=== PATIENT | male | born 1935 | race Native Hawaiian/Other Pacific Islander ===

== ENCOUNTER 2023-03-28 13:35 | Emergency (ER) | payer MEDICARE ==
[2023-03-28 13:45] VITALS: RESP 18
[2023-03-28] MEDS ORDERED: DIPH,PERTUS(ACELL)TETVAC-LF 0.5 ML VIAL IM ONE (14:04)
[2023-03-28 14:36] LABS: Basophils % (A) 0 %; Eosinophils # (A) 0.1 k/uL (0-0.7); Eosinophils % (A) 1 %; HCT 39.8 % (39.0-53.0); HGB 13.4 gm/dL (13.0-17.5); Lymphocytes # (A) 1.8 k/uL (1.0-4.8); Lymphocytes % (A) 23 %; MCH 33.2 pg (25.0-35.0); MCHC 33.6 g/dL (31.0-37.0); MCV 98.8 fL (80.0-100.0); Mean Platelet Volume 8.5; Monocytes # (A) 0.3 k/uL (0-1.0); Monocytes % (A) 4 %; Neutrophils # (A) 5.4 k/uL (1.3-7.7); Neutrophils % (A) 69 %; Platelet Count 211 k/uL (150-450); RBC 4.03 m/uL (4.30-5.90); RDW 13.1 % (11.5-15.5); WBC 7.8 k/uL (3.8-10.6)
--- NOTE | 2023-03-28 14:55 | ED ---
Fall HPI - General Chief Complaint: Fall Stated Complaint: Fall, Hand/Lip/Chin/Head Lac(s) Time Seen by Provider: 03/28/23 13:37 Source: EMS, RN notes reviewed Mode of arrival: EMS Limitations: no limitations - History of Present Illness Initial Comments: This is an 88-year-old male who presents to the emergency department for a fall. States that he was walking outside, when he ended up falling. States that when he woke up, he was being loaded into an ambulance. He has not have any recollection of what happened. It is unclear if he lost consciousness before the fall or after hitting his head. He believes that he landed face first, as he does have lacerations to his face, especially around the lip. Currently complaining of a headache and lip pain, but otherwise denies any pain. Denies any chest pain, shortness of breath, or dizziness before the fall occurred. Denies any history of similar symptoms in the past. He is not on any blood t hinners. Denies any fevers, chills, sore throat, cough, dyspnea, chest pain, palpitations , abdominal pain, nausea, vomiting, diarrhea, or back pain. MD Complaint: fall - Related Data Allergies Allergy/AdvReac Type Severity Reaction Status Date / Time No Known Allergies Allergy Verified 03/28/23 13:45 Review of Systems ROS Statement: Those systems with pertinent positive or pertinent negative responses have been documented in the HPI. ROS Other: All systems not noted in ROS Statement are negative. Past Medical History Past Medical History: Diabetes Mellitus, Hyperlipidemia, Hypertension History of Any Multi-Drug Resistant Organisms: None Reported Past Surgical History: No Surgical Hx Reported Past Psychological History: No Psychological Hx Reported Smoking Status: Never smoker Past Alcohol Use History: None Reported Past Drug Use History: None Reported General Exam Limitations: no limitations General appearance: alert, in no apparent distress Head exam: Present: other (Laceration on the inside of the bottom lip. This is not a through and through laceration. Superficial laceration to the middle of the chin.) Eye exam: Present: normal appearance, PERRL, EOMI. Absent: scleral icterus, conjunctival injection, periorbital swelling Respiratory exam: Present: normal lung sounds bilaterally. Absent: respiratory distress, wheezes, rales, rhonchi, stridor Cardiovascular Exam: Present: regular rate, normal rhythm, normal heart sounds. Absent: systolic murmur, diastolic murmur, rubs, gallop, clicks Neurological exam: Present: alert, oriented X3, CN II-XII intact Psychiatric exam: Present: normal affect, normal mood Course Vital Signs 03/28/23 03/28/23 13:40 17:58 Pulse Rate 68 79 Respiratory 18 18 Rate Blood Pressure 196/86 O2 Sat by Pulse 94 L 98 Oximetry Medical Decision Making - Medical Decision Making This is an 88-year-old male presents emergency department for a fall. Was pt. sent in by a medical professional or institution? @ -No Did you speak to anyone other than the patient for history? @ -No Did you review nursing and triage notes? @ -Yes, and I agree, it is accurate with regards to the patient's symptoms. Were old charts reviewed? @ -No Differential Diagnosis? @ -Differential Diagnosis Head Injury: Contusion, hematoma, intracranial hemorrhage, skull fracture, whiplash, concussion, this is not meant to be an all-inclusive list. EKG interpreted by me (3pts min.)? @ -EKG interpreted by me demonstrating the following: Sinus rhythm. Ventricular rate 69 beats per minute, ND interval 125 ms, QRS duration 92 ms, QTC 399 ms. X-rays interpreted by me (1pt min.)? @ -X-ray of the chest and pelvis obtained. My interpretation. No visible rib fractures or pelvic fractures. CT interpreted by me (1pt min.)? @ -Computed tomography scan of the brain and c-spine obtained. My interpretation identifies no evidence of an acute intracranial hemorrhage, skull fracture, or cervical spine fracture. U/S interpreted by me (1pt. min.)? @ -Not obtained What testing was considered but not performed? (CT, X-rays, U/S, labs)? Why? @ -None What meds were considered but not given? Why? @ -None Did you discuss the management of the patient with other professionals? @ -No Did you reconcile home meds? @ -No Was smoking cessation discussed for >3mins.? @ -No Was critical care preformed (if so, how long)? @ -No Were there social determinants of health that impacted care today? How? (Homelessness, low income, unemployed, alcoholism, drug addiction, transportation, low edu. Level, literacy, decrease access to med. care, custodial, rehab)? @ -No Was there de-escalation of care discussed even if they declined? (Discuss DNR or withdrawal of care, Hospice)? @ -No What co-morbidities impacted this encounter? (DM, HTN, Smoking, COPD, CAD, Cancer, CVA, Hep., AIDS, mental health diagnosis, sleep apnea, morbid obesity)? @ -DM, HLD, HTN Was patient admitted / discharged? @ -Discharged. Lab work obtained revealing poor renal function. There are no prior values for comparison. Additionally, his blood pressure was extremely elevated. Patient did not take his blood pressure medication today. He was subsequently given doses of his atenolol, chlorthalidone, and lisinopril. I did recommend admission in light of his poor kidney function and elevated blood pressure, however the patient declined. I did also advise updating his tetanus vaccine, however the patient refused that as well despite my strongest recommendations. His lacerations were superficial and no repair was required. Advised Tylenol as needed for pain relief, applying ice to the affected areas, and having close follow-up with his primary care provider. Undiagnosed new problem with uncertain prognosis? @ -None Drug Therapy requiring intensive monitoring for toxicity (Heparin, Nitro, Insulin, Cardizem)? @ -None Were any procedures done? @ -None Diagnosis/symptom? @ -Fall, head injury Acute, or Chronic, or Acute on Chronic? @ -Acute Uncomplicated (without systemic symptoms) or Complicated (systemic symptoms)? @ -Uncomplicated Side effects of treatment? @ -None Exacerbation, Progression, or Severe Exacerbation] @ -Not applicable Poses a threat to life or bodily function? @ -No Return precautions reviewed in depth, the patient is instructed to return to the emergency department with any new, worsening, or concerning symptoms. Patient verbalized understanding. This case was discussed in detail with the attending ED physician, Dr. James. Presentation, findings, and treatment plan discussed in detail as well. - Lab Data Result diagrams: 03/28/23 14:17 03/28/23 14: Lab Results 03/28/23 03/28/23 03/28/23 Range/Units 14:17 14:17 14:17 WBC 7.8 (3.8-10.6) k/uL RBC 4.03 L (4.30-5.90) m/uL Hgb 13.4 (13.0-17.5) gm/dL Hct 39.8 (39.0-53.0) % MCV 98.8 (80.0-100.0) fL MCH 33.2 (25.0-35.0) pg MCHC 33.6 (31.0-37.0) g/dL RDW 13.1 (11.5-15.5) % Plt Count 211 (150-450) k/uL MPV 8.5 Neutrophils % 69 % Lymphocytes % 23 % Monocytes % 4 % Eosinophils % 1 % Basophils % 0 % Neutrophils # 5.4 (1.3-7.7) k/uL Lymphocytes # 1.8 (1.0-4.8) k/uL Monocytes # 0.3 (0-1.0) k/uL Eosinophils # 0.1 (0-0.7) k/uL Basophils # 0.0 (0-0.2) k/uL PT 10.0 (9.0-12.0) sec INR 0.9 (<1.2) APTT 22.3 (22.0-30.0) sec Sodium 137 (137-145) mmol/L Potassium 4.1 (3.5-5.1) mmol/L Chloride 103 (98-107) mmol/L Carbon Dioxide 22 (22-30) mmol/L Anion Gap 12 mmol/L BUN 50 H (9-20) mg/dL Creatinine 2.89 H (0.66-1.25) mg/dL Est GFR (CKD-EPI)AfAm 22 (>60 ml/min/1.73 sqM) Est GFR (CKD-EPI)NonAf 19 (>60 ml/min/1.73 sqM) Glucose 225 H (74-99) mg/dL Calcium 9.9 (8.4-10.2) mg/dL Total Bilirubin 0.6 (0.2-1.3) mg/dL AST 32 (17-59) U/L ALT 22 (4-49) U/L Alkaline Phosphatase 85 (38-126) U/L Troponin I (0.000-0.034) ng/mL Total Protein 7.1 (6.3-8.2) g/dL Albumin 4.0 (3.5-5.0) g/dL Urine Color Urine Appearance (Clear) Urine pH (5.0-8.0) Ur Specific [place] (1.001-1.035) Urine Protein (Negative) Urine Glucose (UA) (Negative) Urine Ketones (Negative) Urine Blood (Negative) Urine Nitrite (Negative) Urine Bilirubin (Negative) Urine Urobilinogen (<2.0) mg/dL Ur Leukocyte Esterase (Negative) Urine RBC (0-5) /hpf Urine WBC (0-5) /hpf Ur Squamous Epith Cells (0-4) /hpf Urine Mucus (None) /hpf 03/28/23 03/28/23 Range/Units 14:17 16:17 WBC (3.8-10.6) k/uL RBC (4.30-5.90) m/uL Hgb (13.0-17.5) gm/dL Hct (39.0-53.0) % MCV (80.0-100.0) fL MCH (25.0-35.0) pg MCHC (31.0-37.0) g/dL RDW (11.5-15.5) % Plt Count (150-450) k/uL MPV Neutrophils % % Lymphocytes % % Monocytes % % Eosinophils % % Basophils % % Neutrophils # (1.3-7.7) k/uL Lymphocytes # (1.0-4.8) k/uL Monocytes # (0-1.0) k/uL Eosinophils # (0-0.7) k/uL Basophils # (0-0.2) k/uL PT (9.0-12.0) sec INR (<1.2) APTT (22.0-30.0) sec Sodium (137-145) mmol/L Potassium (3.5-5.1) mmol/L Chloride (98-107) mmol/L Carbon Dioxide (22-30) mmol/L Anion Gap mmol/L BUN (9-20) mg/dL Creatinine (0.66-1.25) mg/dL Est GFR (CKD-EPI)AfAm (>60 ml/min/1.73 sqM) Est GFR (CKD-EPI)NonAf (>60 ml/min/1.73 sqM) Glucose (74-99) mg/dL Calcium (8.4-10.2) mg/dL Total Bilirubin (0.2-1.3) mg/dL AST (17-59) U/L ALT (4-49) U/L Alkaline Phosphatase (38-126) U/L Troponin I <0.012 (0.000-0.034) ng/mL Total Protein (6.3-8.2) g/dL Albumin (3.5-5.0) g/dL Urine Color Yellow Urine Appearance Clear (Clear) Urine pH 6.0 (5.0-8.0) Ur Specific [place] 1.014 (1.001-1.035) Urine Protein 2+ H (Negative) Urine Glucose (UA) 3+ H (Negative) Urine Ketones Negative (Negative) Urine Blood Trace H (Negative) Urine Nitrite Negative (Negative) Urine Bilirubin Negative (Negative) Urine Urobilinogen <2.0 (<2.0) mg/dL Ur Leukocyte Esterase Negative (Negative) Urine RBC <1 (0-5) /hpf Urine WBC <1 (0-5) /hpf Ur Squamous Epith Cells <1 (0-4) /hpf Urine Mucus Rare H (None) /hpf - Radiology Data Radiology results: report reviewed, image reviewed Disposition Clinical Impression: Fall, Head injury Disposition: HOME SELF-CARE Instructions (If sedation given, give patient instructions): Fall Prevention for Older Adults (ED), Head Injury (ED) Additional Instructions: Return to the emergency department with any new, worsening, or concerning symptoms. Take Tylenol as needed for pain relief and apply ice to the painful areas for 15-20 minutes every 2-3 hours. With regards to the elbow swelling, avoid resting it on hard surfaces. Keep it elevated, and wrap it with an Harshal bandage. Follow up with your primary care provider in 1-2 days. Is patient prescribed a controlled substance at d/c from ED?: No Referrals: Isidoro Larson MD [Primary Care Provider] - 1-2 days
[2023-03-28 14:56] LABS: ALT 22 U/L (4-49); AST 32 U/L (17-59); African American GFR (CKD) 22 (>60 ml/min/1.73 sqM); Alkaline Phosphatase 85 U/L (38-126); Anion Gap 12 mmol/L; Blood Urea Nitrogen 50 mg/dL (9-20); Calcium 9.9 mg/dL (8.4-10.2); Carbon Dioxide 22 mmol/L (22-30); Chloride 103 mmol/L (98-107); Glucose 225 mg/dL (74-99); Non-African American GFR(CKD) 19 (>60 ml/min/1.73 sqM); Potassium 4.1 mmol/L (3.5-5.1); Sodium 137 mmol/L (137-145); Total Bilirubin 0.6 mg/dL (0.2-1.3); Total Protein 7.1 g/dL (6.3-8.2)
[2023-03-28 14:57] LABS: INR 0.9 (<1.2); Partial Thromboplastin Time 22.3 sec (22.0-30.0)
[2023-03-28] MEDS ORDERED: SODIUM CHLORIDE 0.9% 1,000 ML IV STA (15:01)
--- NOTE | 2023-03-28 15:30 | CT ---
EXAMINATION TYPE: CT brain cspine wo con CT DLP: 1360.7 mGycm, Automated exposure control for dose reduction was used. DATE OF EXAM: 03/28/2023 3:23 PM COMPARISON: None.. CLINICAL INDICATION:Male, 88 years old with history of Syncope, head injury; fall TECHNIQUE: Brain: Multiple axial CT images of the brain were obtained without IV contrast. Cspine: Axial CT images from the skull base to the inferior aspect of T2 we obtained without intraven ous contrast. Coronal and sagittal reformatted images were also reviewed. FINDINGS: Brain: Extra-axial spaces: No abnormal extra-axial fluid collections. Ventricular system: Dilatation in proportion to cerebral atrophy. Cerebral parenchyma: Cerebral atrophy. No acute intraparenchymal hemorrhage or mass effect. The matos -white junction is well differentiated. Scattered hypoattenuating areas are seen within the white mat ter. Cerebellum: Unremarkable. Mass effect: No evidence of midline shift. Intracranial vasculature: Atherosclerotic calcifications of the intracranial vessels. Soft tissues: Normal. Calvarium/osseous structures: No depressed skull fracture. Paranasal sinuses and mastoid air cells: Clear. Visualized orbits: Orbital contents are intact. Cervical spine: Fracture: None. Osseous structures: Multilevel degenerative disc disease changes with endplate spurring and disc oste ophyte complex's. Vertebral alignment: Grade 1 anterolisthesis of C7 on T1. Mild retrolisthesis of C6 on C7. Spinal canal/Neural Foramina: Disc osteophyte complexes at C3-C4, C4-C5, C5-C6, and C6-C7 with at [address] mild spinal canal stenosis. Facet joint uncovertebral joint arthropathy scattered throughout the c ervical spine with varying degrees of neural foraminal stenosis. Neck soft tissues: Prevertebral soft tissues are within normal limits. Other: The airway is patent. The lung apices are clear. Mild atherosclerotic calcification of the janet ateral carotid bulbs. IMPRESSION: 1. No acute intracranial process. 2. Nonspecific white matter changes, likely secondary to chronic small vessel ischemic disease. 3. No evidence of cervical spine fracture. 4. Mild to moderate multilevel degenerative disc disease.
--- NOTE | 2023-03-28 15:55 | XR ---
EXAMINATION TYPE: XR pelvis AP view DATE OF EXAM: 03/28/2023 CLINICAL HISTORY: pain TECHNIQUE: Single view the pelvis is submitted. FINDINGS: No evidence for fracture, dislocation or bony lesion. Joint spaces are well-preserved. S I joints appear symmetric. IMPRESSION: 1. No acute fracture or dislocation seen. ICD 10 NO FRACTURE, INITIAL EVALUATION
--- NOTE | 2023-03-28 15:55 | XR ---
EXAMINATION TYPE: XR chest 2V DATE OF EXAM: 03/28/2023 COMPARISON: NONE HISTORY: Shortness of breath TECHNIQUE: Frontal and lateral views of the chest are obtained. FINDINGS: Scattered senescent parenchymal changes noted. Hyperinflation compatible with COPD. No evidence for infiltrate. No evidence for atelectasis. Heart size is stable. Mediastinal structures are stable and grossly unremarkable. No evidence for hilar prominence. Degenerative changes dorsal spine. IMPRESSION: 1. No evidence for acute pulmonary disease.
[2023-03-28 16:37] LABS: Appearance,Urine Clear (Clear); Bilirubin,Urine Negative (Negative); Blood,Urine Trace (Negative); Color,Urine Yellow; Glucose,Urine (UA) 3+ (Negative); Ketones,Urine Negative (Negative); Leukocyte Esterase,Urine Negative (Negative); Mucus,Urine Rare /hpf; Nitrite,Urine Negative (Negative); Protein,Urine 2+ (Negative); RBC,Urine <1 /hpf (0-5); Specific Gravity,Urine 1.014 (1.001-1.035); Squamous Epithelial Cell,Urine <1 /hpf (0-4); Urobilinogen,Urine <2.0 mg/dL (<2.0); WBC,Urine <1 /hpf (0-5)
[2023-03-28] MEDS ORDERED: lisinopriL 10 MG TAB PO STA (17:05)
[2023-03-28] MEDS ORDERED: CHLORTHALIDONE 25 MG TAB PO ONE (17:11)
[2023-03-28] MEDS ORDERED: lisinopriL 20 MG TAB PO STA ×2 (17:11→17:22)
[2023-03-28] MEDS ORDERED: atenoloL 50 MG TAB PO STA (17:11)
[2023-03-28 17:59] VITALS: BP 196/86; PULSE 79
[2023-03-28] MEDS ORDERED: ACET/COD 300 MG/30 MG STARTER PACK 6 TAB BTL PO STA (18:13)
== END 2023-03-28 18:49 | disposition home or self-care (01) ==
LOC: EC 13:35
DX: S81.811A Laceration without foreign body, right lower leg, initial encounter (principal); S01.511A Laceration without foreign body of lip, initial encounter; E11.9 Type 2 diabetes mellitus without complications; I10 Essential (primary) hypertension; W18.30XA Fall on same level, unspecified, initial encounter; Y93.01 Activity, walking, marching and hiking
CPT/HCPCS: 36415; 70450; 71046; 72125; 72170; 80053; 81001; 84484; 85025; 85610; 85730; 93005; 96360; 99285

== ENCOUNTER 2023-03-30 14:16 | Observation (INO) | payer MEDICARE ==
--- NOTE | 2023-03-30 15:53 | ED ---
Weakness HPI - General Chief complaint: Weakness Stated complaint: weakness Time Seen by Provider: 03/30/23 14:22 Source: patient, EMS Mode of arrival: EMS Limitations: no limitations - History of Present Illness Initial comments: Robert is an 88-year-old male who was seen in our emergency department 2 days ago after sustaining an unwitnessed fall. At that time the patient refused to be admitted to the hospital and was taken home with his son. Patient reports that since going home he's had persistent weakness and inability to ambulate independently worsening swelling of his left elbow and pain in his right shoulder with any range of motion. She also states that he hasn't eaten since yesterday - Related Data Home Medications Medication Instructions Recorded Confirmed Atenolol/Chlorthalidone 1 tab PO DAILY 03/28/23 03/30/23 [Atenolol/Chlorthalidone 50-25] Doxazosin [Cardura] 4 mg PO BID 03/28/23 03/30/23 Glimepiride [Amaryl] 1 mg PO DAILY 03/28/23 03/30/23 Vitamin D3(Unknown Dose) 1 tab PO DAILY 03/28/23 03/30/23 lisinopriL 40 mg PO DAILY 03/28/23 03/30/23 metFORMIN HCL 1,000 mg PO DAILY 03/28/23 03/30/23 Allergies Allergy/AdvReac Type Severity Reaction Status Date / Time No Known Allergies Allergy Verified 03/30/23 14:25 Review of Systems ROS Statement: Those systems with pertinent positive or pertinent negative responses have been documented in the HPI. ROS Other: All systems not noted in ROS Statement are negative. Past Medical History Past Medical History: Diabetes Mellitus, Hyperlipidemia, Hypertension History of Any Multi-Drug Resistant Organisms: None Reported Past Surgical History: No Surgical Hx Reported Past Psychological History: No Psychological Hx Reported Smoking Status: Never smoker Past Alcohol Use History: None Reported Past Drug Use History: None Reported General Exam - General Exam Comments Initial Comments: Physical Exam GENERAL: Elderly, chronically ill appearing HENT: Contusion to chin Healing laceration to lip EYES: PERRL, EOMI PULMONARY: Unlabored respirations. CARDIOVASCULAR: RRR ABDOMEN: Soft and nontender with normal bowel sounds. SKIN: Abrasion left elbow : Deferred NEUROLOGIC: Patient is alert and oriented x3. able lift both legs off the bed, plantarflex and dorsiflex the ankles For range of motion and normal strength in left upper extremity Strength testing limited in the right upper extremity secondary to pain in the shoulder No decreased sensation in the extremities MUSCULOSKELETAL: Decreased ROM of right shoulder due to pain Swelling and erythema of left bursa PSYCHIATRIC: Normal psychiatric evaluation. Limitations: no limitations Course Vital Signs 03/30/23 14:23 Temperature 98.8 F Pulse Rate 71 Respiratory 20 Rate Blood Pressure 163/94 O2 Sat by Pulse 100 Oximetry EKG Findings - EKG Comments: EKG Findings:: EKG was obtained due to complaint of weakness EKG was obtained at 1425 and interpreted by me there is a rate of 67 and rhythm is sinus [place] 118 QRS 92 QTc 376 there are no acute ST elevations or depressions no evidence of acute ischemia, infarction or arrhythmia Medical Decision Making - Medical Decision Making Patient was seen and evaluated history is obtained from the patient, son at bedside as well as review of medical record of visit from 2 days ago. The elderly gentleman who had an unwitnessed fall 2 days ago he's had progressively worsening generalized weakness since that time. Return today due to inability to ambulate without assistance. Patient complains of pain in left elbow and right shoulder no headache no neck pain. X-rays were obtained of the elbow and shoulder with no acute findings chest x-ra y was unremarkable. Labs are reviewedand significant acute abnormalities were noted The patient advanced age, decreased functional ability he is not safe for discharge home to care for himself and will be placed in observation for evaluation by physical therapy and occupational therapy for safe placement. This plan was discussed with Dr. Chamberlain who agrees Was pt. sent in by a medical professional or institution (, PA, SOFTWARE SECURITY ARCHITECT, urgent care, hospital, or intermediate...) When possible be specific @ -[No] Did you speak to anyone other than the patient for history (EMS, parent, family, police, friend...)? What history was obtained from this source @ -Family Did you review nursing and triage notes (agree or disagree)? Why? @ -[I reviewed and agree with nursing and triage notes] Were old charts reviewed (outside hosp., previous admission, EMS record, old EKG, old radiological studies, urgent care reports/EKG's, intermediate records)? Report findings @ -Yeska, previous ED visit and computed tomography scan were reviewed Differential Diagnosis (chest pain, altered mental status, abdominal pain women, abdominal pain men, vaginal bleeding, weakness, fever, dyspnea, syncope, heada oneyda, dizziness, GI bleed, back pain, seizure, CVA, palpatations, mental health, musculoskeletal)? @ -Weakness secondary to injury, electrolyte abnormality, general debility EKG interpreted by me (3pts min.). @ -[As above] X-rays interpreted by me (1pt min.). @ -X-ray of shoulder no obvious fracture or dislocation, x-ray of elbow with no obvious fracture dislocation CT interpreted by me (1pt min.). @ -[None done] U/S interpreted by me (1pt. min.). @ -[None done] What testing was considered but not performed or refused? (CT, X-rays, U/S, labs)? Why? @ -Repeat head and cervical spine CT were considered but not completed due to patient having no headache or neck pain at this time What meds were considered but not given or refused? Why? @ -[None] Did you discuss the management of the patient with other professionals (professionals i.e. , PA, SOFTWARE SECURITY ARCHITECT, lab, RT, psych nurse, social worker aide, gravel screener, teacher, [place] police officer, pillowcase maker)? Give summary @ -Admitting physician Dr. Chamberlain Was smoking cessation discussed for >3mins.? @ -[No] Was critical care preformed (if so, how long)? @ -[No] Were there social determinants of health that impacted care today? How? (Homelessness, low income, unemployed, alcoholism, drug addiction, transportation, low edu. Level, literacy, decrease access to med. care, [facility], rehab)? @ -[No] Was there de-escalation of care discussed even if they declined (Discuss DNR or withdrawal of care, Hospice)? DNR status @ -[No] What co-morbidities impacted this encounter? (DM, HTN, Smoking, COPD, CAD, Cancer, CVA, ARF, Chemo, Hep., AIDS, mental health diagnosis, sleep apnea, morbid obesity)? @ -Diabetes, hypertension, kidney disease Was patient admitted / discharged? Hospital course, mention meds given and route, prescriptions, significant lab abnormalities, going to OR and other pertinent info. @ -Admitted Undiagnosed new problem with uncertain prognosis? @ -[No] Drug Therapy requiring intensive monitoring for toxicity (Heparin, Nitro, Insuli n, Cardizem)? @ -[No] Were any procedures done? @ -[No] Diagnosis/symptom? @ -Gen. weakness Acute, or Chronic, or Acute on Chronic? @ -Acute Uncomplicated (without systemic symptoms) or Complicated (systemic symptoms)? @ -Complicated Side effects of treatment? @ -[No] Exacerbation, Progression, or Severe Exacerbation? @ -[No] Poses a threat to life or bodily function? How? (Chest pain, [place], [place], pneumonia, PE, COPD, DKA, ARF, appy, cholecystitis, CVA, Diverticulitis, Homicidal, Suicidal, threat to staff... and all critical care pts) @ -[No] - Lab Data Result diagrams: 03/30/23 15:40 03/30/23 15:40 Lab Results 03/30/23 03/30/23 03/30/23 Range/Units 15:40 15:40 15:40 WBC 11.4 H (3.8-10.6) k/uL RBC 3.95 L (4.30-5.90) m/uL Hgb 12.8 L (13.0-17.5) gm/dL Hct 40.4 (39.0-53.0) % MCV 102.1 H (80.0-100.0) fL MCH 32.4 (25.0-35.0) pg MCHC 31.7 (31.0-37.0) g/dL RDW 12.6 (11.5-15.5) % Plt Count 181 (150-450) k/uL MPV 9.2 Neutrophils % 82 % Lymphocytes % 11 % Monocytes % 5 % Eosinophils % 1 % Basophils % 0 % Neutrophils # 9.4 H (1.3-7.7) k/uL Lymphocytes # 1.2 (1.0-4.8) k/uL Monocytes # 0.6 (0-1.0) k/uL Eosinophils # 0.1 (0-0.7) k/uL Basophils # 0.0 (0-0.2) k/uL PT 10.4 (9.0-12.0) sec INR 1.0 (<1.2) APTT 25.0 (22.0-30.0) sec Sodium 135 L (137-145) mmol/L Potassium 4.1 (3.5-5.1) mmol/L Chloride 101 (98-107) mmol/L Carbon Dioxide 22 (22-30) mmol/L Anion Gap 12 mmol/L BUN 40 H (9-20) mg/dL Creatinine 2.34 H (0.66-1.25) mg/dL Est GFR (CKD-EPI)AfAm 28 (>60 ml/min/1.73 sqM) Est GFR (CKD-EPI)NonAf 24 (>60 ml/min/1.73 sqM) Glucose 255 H (74-99) mg/dL Calcium 9.1 (8.4-10.2) mg/dL Magnesium 1.9 (1.6-2.3) mg/dL Total Bilirubin 1.5 H (0.2-1.3) mg/dL AST 33 (17-59) U/L ALT 23 (4-49) U/L Alkaline Phosphatase 82 (38-126) U/L Troponin I (0.000-0.034) ng/mL Total Protein 6.7 (6.3-8.2) g/dL Albumin 3.7 (3.5-5.0) g/dL 03/30/23 Range/Units 15:40 WBC (3.8-10.6) k/uL RBC (4.30-5.90) m/uL Hgb (13.0-17.5) gm/dL Hct (39.0-53.0) % MCV (80.0-100.0) fL MCH (25.0-35.0) pg MCHC (31.0-37.0) g/dL RDW (11.5-15.5) % Plt Count (150-450) k/uL MPV Neutrophils % % Lymphocytes % % Monocytes % % Eosinophils % % Basophils % % Neutrophils # (1.3-7.7) k/uL Lymphocytes # (1.0-4.8) k/uL Monocytes # (0-1.0) k/uL Eosinophils # (0-0.7) k/uL Basophils # (0-0.2) k/uL PT (9.0-12.0) sec INR (<1.2) APTT (22.0-30.0) sec Sodium (137-145) mmol/L Potassium (3.5-5.1) mmol/L Chloride (98-107) mmol/L Carbon Dioxide (22-30) mmol/L Anion Gap mmol/L BUN (9-20) mg/dL Creatinine (0.66-1.25) mg/dL Est GFR (CKD-EPI)AfAm (>60 ml/min/1.73 sqM) Est GFR (CKD-EPI)NonAf (>60 ml/min/1.73 sqM) Glucose (74-99) mg/dL Calcium (8.4-10.2) mg/dL Magnesium (1.6-2.3) mg/dL Total Bilirubin (0.2-1.3) mg/dL AST (17-59) U/L ALT (4-49) U/L Alkaline Phosphatase (38-126) U/L Troponin I <0.012 (0.000-0.034) ng/mL Total Protein (6.3-8.2) g/dL Albumin (3.5-5.0) g/dL Disposition Clinical Impression: Fall, Generalized weakness, Acute renal failure, Hyperglycemia due to type 2 diabetes mellitus Disposition: ADMITTED IP TO THIS HOSP Condition: Serious Is patient prescribed a controlled substance at d/c from ED?: No Referrals: Isidoro Larson MD [Primary Care Provider] - 1-2 days
[2023-03-30 15:57] LABS: Basophils % (A) 0 %; Eosinophils # (A) 0.1 k/uL (0-0.7); Eosinophils % (A) 1 %; HCT 40.4 % (39.0-53.0); HGB 12.8 gm/dL (13.0-17.5); Lymphocytes # (A) 1.2 k/uL (1.0-4.8); Lymphocytes % (A) 11 %; MCH 32.4 pg (25.0-35.0); MCHC 31.7 g/dL (31.0-37.0); MCV 102.1 fL (80.0-100.0); Mean Platelet Volume 9.2; Monocytes # (A) 0.6 k/uL (0-1.0); Monocytes % (A) 5 %; Neutrophils # (A) 9.4 k/uL (1.3-7.7); Neutrophils % (A) 82 %; Platelet Count 181 k/uL (150-450); RBC 3.95 m/uL (4.30-5.90); RDW 12.6 % (11.5-15.5); WBC 11.4 k/uL (3.8-10.6)
--- NOTE | 2023-03-30 16:06 | XR ---
EXAMINATION TYPE: XR chest 2V DATE OF EXAM: 03/30/2023 3:59 PM COMPARISON: Chest radiographs from; 523 TECHNIQUE: XR chest 2V Frontal and lateral views of the chest. CLINICAL INDICATION:Male, 88 years old with history of Weakness; FINDINGS: Lungs/Pleura: There is no evidence of pleural effusion, focal consolidation, or pneumothorax. Pulmonary vascularity: Unremarkable. Heart/mediastinum: Cardiomediastinal silhouette is unremarkable. Musculoskeletal: Degenerative changes of the shoulder joints. IMPRESSION: No acute cardiopulmonary disease/process. No significant change from prior.
--- NOTE | 2023-03-30 16:07 | XR ---
EXAMINATION TYPE: XR shoulder complete RT DATE OF EXAM: 03/30/2023 4:02 PM INDICATION: Patient age:Male; 88 years old; Reason for study: pain; COMPARISON: None TECHNIQUE: The right shoulder was examined in AP, internally rotated and scapular Y projections. FINDINGS: Degeneration changes of the right, clavicular joint and glenohumeral joint with osteophyte formation. Calcification of the expected location of the supraspinatus tendon. No evidence of acute osseous pathology, joint dislocation, or soft tissue swelling. The remaining por tions of the visualized chest are unremarkable. IMPRESSION: 1. No acute osseous pathology. 2. Moderate osteoarthrosis of the acromioclavicular joint and mild to moderate of the right glenohum eral joint 3. Consultations in the location of the supraspinatus tendon could represent calcific tendinitis.
--- NOTE | 2023-03-30 16:11 | XR ---
EXAMINATION TYPE: XR elbow complete LT DATE OF EXAM: 03/30/2023 COMPARISON: None HISTORY: Fall, pain TECHNIQUE: 3 view left elbow FINDINGS: Radius aligns normally with the humerus. Some osseous spurring is at the distal humerus. An terior fat-pad is normal. No elevation of the posterior fat pad is evident which is normal. There is some mild soft tissue swelling over the olecranon. Follow up exams can be performed 7 days from acute trauma for continued pain. IMPRESSION: 1. No acute osseous abnormality left elbow. 2. Mild soft tissue swelling at the olecranon.
[2023-03-30 16:13] LABS: ALT 23 U/L (4-49); AST 33 U/L (17-59); African American GFR (CKD) 28 (>60 ml/min/1.73 sqM); Albumin 3.7 g/dL (3.5-5.0); Alkaline Phosphatase 82 U/L (38-126); Anion Gap 12 mmol/L; Blood Urea Nitrogen 40 mg/dL (9-20); Calcium 9.1 mg/dL (8.4-10.2); Carbon Dioxide 22 mmol/L (22-30); Chloride 101 mmol/L (98-107); Glucose 255 mg/dL (74-99); Magnesium 1.9 mg/dL (1.6-2.3); Non-African American GFR(CKD) 24 (>60 ml/min/1.73 sqM); Potassium 4.1 mmol/L (3.5-5.1); Sodium 135 mmol/L (137-145); Total Bilirubin 1.5 mg/dL (0.2-1.3); Total Protein 6.7 g/dL (6.3-8.2)
[2023-03-30 16:21] LABS: Prothrombin Time 10.4 sec (9.0-12.0)
[2023-03-30] MEDS ORDERED: IBUPROFEN 400 MG TAB PO PRN (16:38)
[2023-03-30] MEDS ORDERED: ACETAMINOPHEN TAB 325 MG TAB PO PRN (16:38)
[2023-03-30] MEDS ORDERED: NALOXONE 0.4 MG/ML 1 ML VIAL IV PRN (16:38)
[2023-03-30] MEDS: SODIUM CHLORIDE 0.9% 1,000 ML IV SCH ×2 (16:56→23:54)
[2023-03-30] MEDS ORDERED: DEXTROSE 50% SYRINGE 50 ML IVP PRN ×2 (17:20)
[2023-03-30 18:20] LABS: Glucose,Whole Blood 190 mg/dL (70-110)
[2023-03-30] MEDS: INSULIN ASPART (NovoLOG) 100 UNIT/ML VIAL SQ SCH (18:22)
[2023-03-30 20:40] LABS: Glucose,Whole Blood 309 mg/dL (70-110)
[2023-03-30] MEDS: DOXAZOSIN 4 MG TAB PO SCH (20:55)
[2023-03-30] MEDS ORDERED: INSULIN ASPART (NovoLOG) 100 UNIT/ML VIAL SQ ONE (21:00)
--- NOTE | 2023-03-30 21:14 | P.HPIM ---
History of Present Illness H&P Date: 03/30/23 Chief Complaint: Weakness This is a pleasant 88-year-old patient who follows with Dr. Larson. Chronic stable medical conditions include diabetes, hypertension, hyperlipidemia, BPH. 2 days ago patient took his van to drop it off at the tire station. Had not had his breakfast. From day decided to walk back home which is overall mild. It was very hot that day. Patient is on the sidewalk without any premonitory symptoms, no dizziness no lightheadedness to chest pain or palpitation she fell forwards. Apparently a passerby called EMS. Patient had fallen face forward. Fracture was ruled out. Patient felt better and decided to go home. Last 2 days patient has been feeling very weak at home. Can barely get out of bed. Poor appetite. Decided to come back to the ER again today. No fever no chills. Patient not had a bowel movement for 2 days. Has made urine. He did eat some supper this evening in the hospital. Review of systems: GEN.: Tired decreased appetite EYES: None HEENT: None NECK: None RESPIRATORY: None CARDIOVASCULAR: None GASTROINTESTINAL: None GENITOURINARY: None MUSCULOSKELETAL: Some joint pains LYMPHATICS: None HEMATOLOGICAL: Bruising on the face PSYCHIATRY: None NEUROLOGICAL: No focal symptoms Past medical history to include: Hypertension, BPH, diabetes, Social history: No smoking and I'll call. . Used to work in a machine shop Physical examination: VITAL SIGNS: 98.8, 71, 20, 163/94, 100% room air GENERAL: BMI 25, reclining in bed awake not in distress. EYES: Pupils equal. Conjunctiva normal. HEENT: [Bruising around the chin and around the lips NECK: JVD not raised; masses not palpable. HEART: First and second heart sounds are normal; no edema. LUNGS: Respiratory rate normal; clear to auscultation. ABDOMEN: Soft, nontender, liver spleen not palpable, no masses palpable. PSYCH: Alert and oriented x3; mood and affect normal. MUSCULOSKELETAL:No Clubbing/cyanosis;muscles-grossly intact. OA. Decreased range of motion right shoulder. NEUROLOGICAL: Cranial nerves grossly intact; no facial asymmetry, power and sensation grossly intact. LYMPHATICS: No lymph nodes palpable in the axilla and neck INVESTIGATIONS, reviewed in the clinical context: Shoulder right complete: Moderate OA of the before meals joint and of the right glenohumeral joint Chest x-ray film personally reviewed by me-lungs unremarkable EKG tracing personally reviewed by me-normal sinus rhythm March 30: White count 11.4 hemoglobin 12.8 weight is 181 sodium 135 potassium 4.1 BUN 40 creatinine 2.34 Troponin I less than 0.012 March 28: White count 7.8 hemoglobin 13.4 which is 211 sodium 137 potassium 4.1 BUN 50 creatinine 2.89 UA positive for protein 2+ glucose 3+ Pelvis, chest, head CT cervical spine on-negative for fracture. Assessment plan: -Acute vertical asthenia and myopathy likely a combination of dehydration, acute kidney injury. Noted that patient is also on lisinopril, metformin. Not eating drinking. IV fluids -Essential hypertension Hold off lisinopril. We'll add Catapres 1 mg twice a day. -Diabetes mellitus type 2, uncontrolled with hyperglycemia Continue Amaryl. Stop metformin. Follow Accu-Cheks -Rule out rhabdomyolysis -Decreased range of motion right shoulder of the fall. Fracture ruled out. Consider rotator cuff injury. Consult Dr. Moreno -Primary osteoarthritis Tylenol when necessary Increase activity as tolerated. Discussed with patient. Follow labs. Check CPK. Past Medical History Past Medical History: Diabetes Mellitus, Hyperlipidemia, Hypertension History of Any Multi-Drug Resistant Organisms: None Reported Past Surgical History: No Surgical Hx Reported Past Psychological History: No Psychological Hx Reported Smoking Status: Never smoker Past Alcohol Use History: None Reported Past Drug Use History: None Reported Medications and Allergies Home Medications Medication Instructions Recorded Confirmed Type Atenolol/Chlorthalidone 1 tab PO DAILY 03/28/23 03/30/23 History [Atenolol/Chlorthalidone 50-25] Doxazosin [Cardura] 4 mg PO BID 03/28/23 03/30/23 History Glimepiride [Amaryl] 1 mg PO DAILY 03/28/23 03/30/23 History Vitamin D3(Unknown Dose) 1 tab PO DAILY 03/28/23 03/30/23 History lisinopriL 40 mg PO DAILY 03/28/23 03/30/23 History metFORMIN HCL 1,000 mg PO DAILY 03/28/23 03/30/23 History Allergies Allergy/AdvReac Type Severity Reaction Status Date / Time No Known Allergies Allergy Verified 03/30/23 14:25 Physical Exam Vitals: Vital Signs Temp Pulse Pulse Resp BP BP Pulse Ox 03/30/23 20:00 98.1 F 73 18 150/68 98 03/30/23 16:59 68 18 160/81 98 03/30/23 14:23 98.8 F 71 20 163/94 100 Intake and Output 03/30/23 03/30/23 03/30/23 06:59 14:59 22:59 Intake Total 120 Balance 120 Intake: Oral 120 Other: Weight 68.039 kg 68.039 kg Results CBC & Chem 7: 03/30/23 15:40 03/30/23 15:40 Labs: Abnormal Lab Results - Last 24 Hours (Table) 03/30/23 03/30/23 03/30/23 Range/Units 15:40 15:40 18:19 WBC 11.4 H (3.8-10.6) k/uL RBC 3.95 L (4.30-5.90) m/uL Hgb 12.8 L (13.0-17.5) gm/dL MCV 102.1 H (80.0-100.0) fL Neutrophils # 9.4 H (1.3-7.7) k/uL Sodium 135 L (137-145) mmol/L BUN 40 H (9-20) mg/dL Creatinine 2.34 H (0.66-1.25) mg/dL Glucose 255 H (74-99) mg/dL POC Glucose (mg/dL) 190 H (70-110) mg/dL Total Bilirubin 1.5 H (0.2-1.3) mg/dL 03/30/23 Range/Units 20:39 WBC (3.8-10.6) k/uL RBC (4.30-5.90) m/uL Hgb (13.0-17.5) gm/dL MCV (80.0-100.0) fL Neutrophils # (1.3-7.7) k/uL Sodium (137-145) mmol/L BUN (9-20) mg/dL Creatinine (0.66-1.25) mg/dL Glucose (74-99) mg/dL POC Glucose (mg/dL) 309 H (70-110) mg/dL Total Bilirubin (0.2-1.3) mg/dL Thrombosis Risk Factor Assmnt - Choose All That Apply Each Risk Factor Represents 3 Points: Age 75 years or older Thrombosis Risk Factor Assessment Total Risk Factor Score: 3 Thrombosis Risk Factor Assessment Level: Moderate Risk
[2023-03-30] MEDS ORDERED: INSULIN DETEMIR (LEVEMIR) 100 UNIT/ML SYR SQ SCH (21:45)
[2023-03-30] MEDS: ENOXAPARIN 40 MG/0.4 ML SYRINGE SQ SCH (23:46)
[2023-03-30] MEDS: GLIMEPIRIDE 1 MG TAB PO SCH (23:48)
[2023-03-30] MEDS: cloNIDine HCL 0.1 MG TAB PO SCH (23:50)
[2023-03-31 06:08] LABS: Glucose,Whole Blood 118 mg/dL (70-110)
[2023-03-31] MEDS: INSULIN ASPART (NovoLOG) 100 UNIT/ML VIAL SQ SCH ×2 (06:25→13:42)
[2023-03-31 07:28] VITALS: BP 129/49; PULSE 56; RESP 18; TEMP 97.6
[2023-03-31] MEDS: cloNIDine HCL 0.1 MG TAB PO SCH (07:31)
[2023-03-31] MEDS: DOXAZOSIN 4 MG TAB PO SCH (07:33)
[2023-03-31] MEDS: SODIUM CHLORIDE 0.9% 1,000 ML IV SCH (07:33)
[2023-03-31] MEDS: GLIMEPIRIDE 1 MG TAB PO SCH (07:34)
[2023-03-31] MEDS: ENOXAPARIN 40 MG/0.4 ML SYRINGE SQ SCH (07:34)
[2023-03-31] MEDS ORDERED: lisinopriL 20 MG TAB PO SCH (09:00)
[2023-03-31] MEDS ORDERED: GLIMEPIRIDE 1 MG TAB PO SCH (09:00)
[2023-03-31 09:08] LABS: Basophils # (A) 0.03 X 10*3/uL (0.00-0.10); Basophils % (A) 0.3 %; Eosinophils # (A) 0.11 X 10*3/uL (0.04-0.35); Eosinophils % (A) 1.2 %; HCT 32.8 % (39.6-50.0); HGB 10.9 d/dL (12.0-15.0); Lymphocytes # (A) 1.64 X 10*3/uL (0.90-5.00); Lymphocytes % (A) 18.4 %; MCH 33.3 pg (27.0-32.0); MCHC 33.2 d/dL (32.0-37.0); MCV 100.3 FL (80.0-97.0); Mean Platelet Volume 11.5 FL (9.5-12.2); Monocytes # (A) 0.97 X 10*3/uL (0.20-1.00); Monocytes % (A) 10.9 %; NRBC Per 100 WBC 0 X 10*3/uL (0.00-0.01); Neutrophils # (A) 6.14 X 10*3/uL (1.80-7.70); Neutrophils % (A) 68.8 %; Platelet Count 170 X 10*3/uL (140-440); RBC 3.27 X 10*6/uL (4.40-5.60); RDW 12.6 % (11.5-14.5); WBC 8.93 X 10*3/uL (4.50-10.00)
[2023-03-31 09:24] LABS: ALT 22 U/L (10-49); AST 24 U/L (14-35); Albumin 2.9 d/dL (3.8-4.9); Albumin/Globulin Ratio 1.26 Ratio (1.60-3.17); Alkaline Phosphatase 66 U/L (41-126); BUN/Creat Ratio 18.18 Ratio (12.00-20.00); Calcium 8.4 mg/dL (8.7-10.3); Carbon Dioxide 22.7 mmol/L (21.6-31.8); Chloride 105 mmol/L (96-109); Globulin 2.3 d/dL (1.6-3.3); Glucose 126 mg/dL (70-110); Magnesium 1.8 mg/dL (1.5-2.4); Potassium 3.5 mmol/L (3.5-5.5); Sodium 138 mmol/L (135-145); Total Bilirubin 0.9 mg/dL (0.3-1.2); Total Protein 5.2 d/dL (6.2-8.2)
--- NOTE | 2023-03-31 10:53 | P.CNOR ---
History of Present Illness - [facility] Consult date: 03/31/23 Consult reason: joint pain (Right shoulder pain.) History of present illness: This is an 88-year-old male admitted through the emergency department after a fall sustained injury to his face and right shoulder. We are consulted for his right shoulder pain. The patient denies loss of consciousness. He states that he just lost his balance and fell. Past Medical History Past Medical History: Diabetes Mellitus, Hyperlipidemia, Hypertension History of Any Multi-Drug Resistant Organisms: None Reported Past Surgical History: No Surgical Hx Reported Past Psychological History: No Psychological Hx Reported Smoking Status: Never smoker Past Alcohol Use History: None Reported Past Drug Use History: None Reported Medications and Allergies Home Medications Medication Instructions Recorded Confirmed Type Atenolol/Chlorthalidone 1 tab PO DAILY 03/28/23 03/30/23 History [Atenolol/Chlorthalidone 50-25] Doxazosin [Cardura] 4 mg PO BID 03/28/23 03/30/23 History Glimepiride [Amaryl] 1 mg PO DAILY 03/28/23 03/30/23 History Vitamin D3(Unknown Dose) 1 tab PO DAILY 03/28/23 03/30/23 History lisinopriL 40 mg PO DAILY 03/28/23 03/30/23 History metFORMIN HCL 1,000 mg PO DAILY 03/28/23 03/30/23 History Allergies Allergy/AdvReac Type Severity Reaction Status Date / Time No Known Allergies Allergy Verified 03/30/23 14:25 Physical Examination This is a pleasant 88-year-old male in no acute distress. He is alert and oriented 3. Exam of the head neck reveals abrasions and ecchymosis to the face in the region of the chin and lower lip. He has full cervical spine motion without difficulty or pain. He is nontender with palpation about cervical spine or paraspinal musculature. Exam of the upper extremities reveals no obvious deformity. He has forward flexion to about 150 actively. Passively I can get him to near full motion with minimal pain. He is nontender with palpation about the clavicle. He has mild tenderness over the ac joint. There is mild tenderness over the deltoid muscle and proximal biceps insertion. His biceps tendon appears to be intact proximally and distally. He is nontender over the biceps muscle belly. Nontender over the elbow and wrist. Neurovascular status the upper extremity is intact. Results Reason the right shoulder reveal no acute fracture. There are calcifications noted at the AC joint with mild degenerative changes. Minimal arthritis to the glenohumeral joint noted. No bony abnormality to the proximal humerus. - Labs Labs: Abnormal Lab Results - Last 24 Hours (Table) 03/30/23 03/30/23 03/30/23 Range/Units 15:40 15:40 18:19 WBC 11.4 H (3.8-10.6) k/uL RBC 3.95 L (4.30-5.90) m/uL Hgb 12.8 L (13.0-17.5) gm/dL Hct (39.6-50.0) % MCV 102.1 H (80.0-100.0) fL MCH (27.0-32.0) pg Neutrophils # 9.4 H (1.3-7.7) k/uL Sodium 135 L (137-145) mmol/L BUN 40 H (9-20) mg/dL Creatinine 2.34 H (0.66-1.25) mg/dL Est GFR (CKD-EPI) (>=60) Glucose 255 H (74-99) mg/dL POC Glucose (mg/dL) 190 H (70-110) mg/dL Calcium (8.7-10.3) mg/dL Total Bilirubin 1.5 H (0.2-1.3) mg/dL Total Protein (6.2-8.2) d/dL Albumin (3.8-4.9) d/dL Albumin/Globulin Ratio (1.60-3.17) Ratio 03/30/23 03/31/23 03/31/23 Range/Units 20:39 05:34 05:34 WBC (3.8-10.6) k/uL RBC 3.27 L (4.30-5.90) m/uL Hgb 10.9 L (13.0-17.5) gm/dL Hct 32.8 L (39.6-50.0) % MCV 100.3 H (80.0-100.0) fL MCH 33.3 H (27.0-32.0) pg Neutrophils # (1.3-7.7) k/uL Sodium (137-145) mmol/L BUN 40.0 H (9-20) mg/dL Creatinine 2.2 H (0.66-1.25) mg/dL Est GFR (CKD-EPI) 28 L (>=60) Glucose 126 H (74-99) mg/dL POC Glucose (mg/dL) 309 H (70-110) mg/dL Calcium 8.4 L (8.7-10.3) mg/dL Total Bilirubin (0.2-1.3) mg/dL Total Protein 5.2 L (6.2-8.2) d/dL Albumin 2.9 L (3.8-4.9) d/dL Albumin/Globulin Ratio 1.26 L (1.60-3.17) Ratio 03/31/23 Range/Units 06:06 WBC (3.8-10.6) k/uL RBC (4.30-5.90) m/uL Hgb (13.0-17.5) gm/dL Hct (39.6-50.0) % MCV (80.0-100.0) fL MCH (27.0-32.0) pg Neutrophils # (1.3-7.7) k/uL Sodium (137-145) mmol/L BUN (9-20) mg/dL Creatinine (0.66-1.25) mg/dL Est GFR (CKD-EPI) (>=60) Glucose (74-99) mg/dL POC Glucose (mg/dL) 118 H (70-110) mg/dL Calcium (8.7-10.3) mg/dL Total Bilirubin (0.2-1.3) mg/dL Total Protein (6.2-8.2) d/dL Albumin (3.8-4.9) d/dL Albumin/Globulin Ratio (1.60-3.17) Ratio H & H 03/30/23 03/31/23 Range/Units 15:40 05:34 Hgb 12.8 L 10.9 L (13.0-17.5) gm/dL Hct 40.4 32.8 L (39.0-53.0) % Coagulation 03/30/23 Range/Units 15:40 INR 1.0 (<1.2) Result Diagrams: 03/31/23 05:34 03/31/23 05:34 Assessment and Plan (1) Right shoulder pain Current Visit: Yes Status: Acute Code(s): M25.511 - PAIN IN RIGHT SHOULDER SNOMED Code(s): 4219895505 (2) Strain of right deltoid muscle Current Visit: Yes Status: Acute Code(s): S46.811A - STRAIN OF MUSC/FASC/TEND AT SHLDR/UP ARM, RIGHT ARM, INIT SNOMED Code(s): 232499664 (3) Fall Current Visit: Yes Status: Acute Code(s): W19.XXXA - UNSPECIFIED FALL, INITIAL ENCOUNTER SNOMED Code(s): 5614588 Plan: The clinical and x-ray findings are discussed with the patient. He states that his pain is improving since yesterday. He feels that his motion is improving as well. He is encouraged to work on range of motion exercises to the right shoulder. I will consult physical therapy for home exercise program with regard to the shoulder. He may use the arm as tolerated with no restrictions.
[2023-03-31 11:51] LABS: Glucose,Whole Blood 232 mg/dL (70-110)
--- NOTE | 2023-03-31 14:27 | P.DS ---
Providers Date of admission: 03/30/23 16:39 Expected date of discharge: 03/31/23 Attending physician: Lyle Chamberlain Consults: 03/30/23 21:13 Consult Physician Routine Consulting Provider: Reji Moreno Consult Reason/Comments: Right shoulder pain after fall Do you want consulting provider notified?: Yes Primary care physician: Isidoro Willismley [facility] Course: Chief Complaint: Weakness This is a pleasant 88-year-old patient who follows with Dr. Larson. Chronic stable medical conditions include diabetes, hypertension, hyperlipidemia, BPH. 2 days ago patient took his van to drop it off at the tire station. Had not had his breakfast. From day decided to walk back home which is overall mild. It was very hot that day. Patient is on the sidewalk without any premonitory symptoms, no dizziness no lightheadedness to chest pain or palpitation she fell forwards. Apparently a passerby called EMS. Patient had fallen face forward. Fracture was ruled out. Patient felt better and decided to go home. Last 2 days patient has been feeling very weak at home. Can barely get out of bed. Poor appetite. Decided to come back to the ER again today. No fever no chills. Patient not had a bowel movement for 2 days. Has made urine. He did eat some supper this evening in the hospital. March 31: Patient feeling much better. Eating better. Did walk in the hallway. Son at the bedside. Patient not aware about chronic kidney disease. Do not have any old labs.. Patient metformin. Also stop lisinopril. Patient to follow-up with nephrology outpatient. Dose of Amaryl increased. Discussed. Seen by Dr. Josh Lopez from orthopedics. Outpatient follow-up for right shoulder. Discussion and discharge planning more than 35 minutes Past medical history to include: Hypertension, BPH, diabetes, Social history: No smoking and I'll call. . Used to work in a machine shop Physical examination: VITAL SIGNS: 97.6, 56, 18, 129/49, 98% room air GENERAL: BMI 25, up in a chair, comfortable EYES: Pupils equal. Conjunctiva normal. HEENT: [Bruising around the chin and around the lips NECK: JVD not raised; masses not palpable. HEART: First and second heart sounds are normal; no edema. LUNGS: Respiratory rate normal; clear to auscultation. ABDOMEN: Soft, nontender, liver spleen not palpable, no masses palpable. PSYCH: Alert and oriented x3; mood and affect normal. MUSCULOSKELETAL:No Clubbing/cyanosis;muscles-grossly intact. OA. Decreased range of motion right shoulder. NEUROLOGICAL: Cranial nerves grossly intact; no facial asymmetry, power and sensation grossly intact. INVESTIGATIONS, reviewed in the clinical context: March 31: White count 8.9 hemoglobin 10.9 platelets 178 potassium 3.5 BUN 40 creatinine 2.2 Creatinine kinase 89 Shoulder right complete: Moderate OA of the before meals joint and of the right glenohumeral joint Chest x-ray film personally reviewed by me-lungs unremarkable EKG tracing personally reviewed by me-normal sinus rhythm March 30: White count 11.4 hemoglobin 12.8 weight is 181 sodium 135 potassium 4.1 BUN 40 creatinine 2.34 Troponin I less than 0.012 March 28: White count 7.8 hemoglobin 13.4 which is 211 sodium 137 potassium 4.1 BUN 50 creatinine 2.89 UA positive for protein 2+ glucose 3+ Pelvis, chest, head CT cervical spine on-negative for fracture. Assessment plan: -Acute asthenia and myopathy likely a combination of dehydration, acute kidney injury. Noted that patient is also on lisinopril, metformin. Not eating drinking.: Better IV fluids -Essential hypertension Stop lisinopril. Continue Catapres 0.1 mg twice a day. -Diabetes mellitus type 2, uncontrolled with hyperglycemia Increase Amaryl to 1 mg twice a day. Stop metformin. Follow Accu-Cheks -Rhabdomyolysis ruled out -Decreased range of motion right shoulder of the fall. Fracture ruled out. Possible rotator cuff injury. Follow-up with Dr. Moreno outpatient -Primary osteoarthritis Tylenol when necessary Disposition: Home Plan - Discharge Summary New Discharge Prescriptions: New cloNIDine HCL [Catapres] 0.1 mg PO BID #60 tab Acetaminophen Tab [Tylenol] 650 mg PO Q6HR PRN tab PRN Reason: Mild Pain Or Fever > 100.5 Continue Vitamin D3(Unknown Dose) 1 tab PO DAILY Doxazosin [Cardura] 4 mg PO BID Changed Glimepiride [Amaryl] 1 mg PO BID #60 tab Discontinued lisinopriL 40 mg PO DAILY metFORMIN HCL 1,000 mg PO DAILY Atenolol/Chlorthalidone [Atenolol/Chlorthalidone 50-25] 1 tab PO DAILY Discharge Medication List Doxazosin [Cardura] 4 mg PO BID 03/28/23 [History] Vitamin D3(Unknown Dose) 1 tab PO DAILY 03/28/23 [History] Acetaminophen Tab [Tylenol] 650 mg PO Q6HR PRN tab 03/31/23 [Rx] Glimepiride [Amaryl] 1 mg PO BID #60 tab 03/31/23 [Rx] cloNIDine HCL [Catapres] 0.1 mg PO BID #60 tab 03/31/23 [Rx] Follow up Appointment(s)/Referral(s): Cassidy Williamson MD [STAFF PHYSICIAN] - 1 Week Isidoro Larson MD [Primary Care Provider] - 1-2 days Reji Moreno MD [STAFF PHYSICIAN] - 1 Week Patient Instructions/Handouts: Fall Prevention (DC)
[2023-04-01] MEDS ORDERED: ENOXAPARIN 30 MG/0.3 ML SYRINGE SQ SCH (09:00)
== END 2023-03-31 14:24 | disposition home or self-care (01) ==
LOC: EC 14:16 → 6NMEDSUR 16:39
PROVIDERS: ADMIT Hospitalist; ATTEND Hospitalist
DX: R53.1 Weakness (principal); N17.9 Acute kidney failure, unspecified; E11.65 Type 2 diabetes mellitus with hyperglycemia; S46.811A Strain of other muscles, fascia and tendons at shoulder and upper arm level, right arm, initial encounter; S00.83XA Contusion of other part of head, initial encounter; S50.312A Abrasion of left elbow, initial encounter; G72.9 Myopathy, unspecified; R63.0 Anorexia; W01.0XXA Fall on same level from slipping, tripping and stumbling without subsequent striking against object, initial encounter; M19.011 Primary osteoarthritis, right shoulder; I10 Essential (primary) hypertension; E78.5 Hyperlipidemia, unspecified; N40.0 Benign prostatic hyperplasia without lower urinary tract symptoms; Z79.84 Long term (current) use of oral hypoglycemic drugs; Z79.899 Other long term (current) drug therapy
CPT/HCPCS: 96372 ×2; 96360; 99285; 36415; 93005; 80053 ×2; 82550; 83735 ×2; 84484; 85025 ×2; 85610; 85730; 73030; 73080; 71046; G0378 ×2; J1650 ×2

== ENCOUNTER 2024-09-04 19:57 | Inpatient (IN) | payer MEDICARE ==
[2024-09-04 21:34] LABS: Basophils % (A) 0 %; Eosinophils # (A) 0.1 k/uL (0-0.7); Eosinophils % (A) 1 %; HCT 31.4 % (39.0-53.0); HGB 9.9 gm/dL (13.0-17.5); Hypochromasia Slight; Lymphocytes # (A) 0.8 k/uL (1.0-4.8); Lymphocytes % (A) 10 %; MCH 32.3 pg (25.0-35.0); MCHC 31.6 g/dL (31.0-37.0); MCV 102.1 fL (80.0-100.0); Macrocytosis Slight; Mean Platelet Volume 8.6; Monocytes # (A) 0.3 k/uL (0-1.0); Monocytes % (A) 4 %; Neutrophils # (A) 6.7 k/uL (1.3-7.7); Neutrophils % (A) 84 %; Platelet Count 356 k/uL (150-450); RBC 3.08 m/uL (4.30-5.90); RDW 13.9 % (11.5-15.5)
[2024-09-04 21:41] LABS: ALT 22 U/L (4-49); AST 32 U/L (17-59); African American GFR (CKD) 22 (>60 ml/min/1.73 sqM); Albumin 2.8 g/dL (3.5-5.0); Alkaline Phosphatase 253 U/L (38-126); Anion Gap 10 mmol/L; Blood Urea Nitrogen 55 mg/dL (9-20); Calcium 8.6 mg/dL (8.4-10.2); Carbon Dioxide 23 mmol/L (22-30); Chloride 102 mmol/L (98-107); Glucose 442 mg/dL (74-99); Non-African American GFR(CKD) 19 (>60 ml/min/1.73 sqM); Potassium 4.2 mmol/L (3.5-5.1); Sodium 135 mmol/L (137-145); Total Bilirubin 0.5 mg/dL (0.2-1.3); Total Protein 5.8 g/dL (6.3-8.2)
[2024-09-04 22:40] LABS: C Reactive Protein 19.6 mg/dL (<1.0)
--- NOTE | 2024-09-04 23:04 | US ---
EXAMINATION TYPE: US venous doppler duplex UE LT DATE OF EXAM: 09/04/2024 COMPARISON: NONE CLINICAL INDICATION: Male, 89 years old with history of left arm redness/pain; Patient states left ar m pain. Hx cellulitis. No hx DVT TECHNIQUE: Grayscale, color Doppler and spectral Doppler imaging of the upper extremity. SIDE PERFORMED: Left FINDINGS: Left Arm: Negative for DVT Grayscale, color doppler, spectral doppler imaging performed of the deep veins of the left upper extr emity. IMPRESSION: No ultrasound evidence for acute deep or superficial venous thrombosis in the left upper extremity [facility] Adria Hdz, , 09/04/2024 11:01 PM
[2024-09-04] MEDS: SODIUM CHLORIDE 0.9% 1,000 ML IV STA (23:35)
--- NOTE | 2024-09-04 23:52 | ED ---
Extremity Problem HPI - General Source: EMS, RN notes reviewed Mode of arrival: EMS <Mariam Salomon - Last Filed: 09/04/24 23:47> <Sammie Alas - Last Filed: 09/05/24 19:40> - General Chief complaint: Extremity Problem,Nontraumatic Stated complaint: Cellulitis Time Seen by Provider: 09/04/24 23:47 - History of Present Illness Initial comments: 89-year-old male presenting to the ER with chief complaint of left arm pain x 2 weeks. States he was seen by his PCP where they diagnosed him with cellulitis of the elbow, patient took full course of Keflex but states symptoms did not improve. Denies fever, chills, vomiting. He does have a history of diabetes, hyperlipidemia, and hypertension. (Mariam Salomon) - Related Data Home Medications Medication Instructions Recorded Confirmed Doxazosin [Cardura] 4 mg PO BID 03/28/23 09/05/24 Glimepiride [Amaryl] 1 mg PO DAILY 09/05/24 09/05/24 Pioglitazone [Actos] 30 mg PO DAILY 09/05/24 09/05/24 lisinopriL 40 mg PO DAILY 09/05/24 09/05/24 Allergies Allergy/AdvReac Type Severity Reaction Status Date / Time No Known Allergies Allergy Verified 09/05/24 06:45 Review of Systems ROS Other: All systems not noted in ROS Statement are negative. <Mariam Salomon - Last Filed: 09/04/24 23:47> ROS Other: All systems not noted in ROS Statement are negative. <Sammie Alas - Last Filed: 09/05/24 19:40> ROS Statement: Those systems with pertinent positive or pertinent negative responses have been documented in the HPI. Past Medical History Past Medical History: Diabetes Mellitus, Hyperlipidemia, Hypertension History of Any Multi-Drug Resistant Organisms: None Reported Past Surgical History: No Surgical Hx Reported Past Psychological History: No Psychological Hx Reported Smoking Status: Never smoker Past Alcohol Use History: None Reported Past Drug Use History: None Reported <Mariam Salomon - Last Filed: 09/04/24 23:47> - Past Family History Father Family Medical History: Myocardial Infarction ([place]) Mother Family Medical History: No Reported History, Unable to Obtain Additional Family Medical History / Comment(s): unknown <Sammie Alas - Last Filed: 09/05/24 19:40> General Exam General appearance: alert, in no apparent distress Head exam: Present: atraumatic, normocephalic, normal inspection Left Upper Arm exam: Present: normal inspection, full ROM. Absent: tenderness, swelling Elbow exam: Present: full ROM, tenderness, swelling, erythema. Absent: normal inspection (Erythema and warmth present on dorsal aspect of left elbow, no drainage) Forearm Wrist exam: Present: normal inspection, full ROM. Absent: tenderness, swelling Hand Wrist exam: Present: normal inspection, full ROM. Absent: tenderness, swelling Vascular: Present: normal capillary refill, radial pulse. Absent: vascular compromise Neurological exam: Present: alert, oriented X3 Psychiatric exam: Present: normal affect, normal mood Skin exam: Present: warm, dry, intact, normal color. Absent: rash <Mariam Salomon - Last Filed: 09/04/24 23:47> Course Vital Signs 09/04/24 09/04/24 09/05/24 20:01 23:35 02:00 Temperature 98.1 F 98.2 F Pulse Rate 105 H 97 96 Respiratory 18 19 18 Rate Blood Pressure 183/75 193/86 164/81 O2 Sat by Pulse 100 99 99 Oximetry 09/05/24 09/05/24 09/05/24 03:00 04:00 06:05 Temperature 98.2 F Pulse Rate 102 H 94 97 Respiratory 18 18 18 Rate Blood Pressure 167/90 170/78 173/79 O2 Sat by Pulse 100 100 99 Oximetry 09/05/24 07:27 Temperature 98.1 F Pulse Rate 99 Respiratory 18 Rate Blood Pressure 191/111 O2 Sat by Pulse 98 Oximetry Medical Decision Making - Lab Data Result diagrams: 09/04/24 21:23 09/04/24 21:23 <Mariam Salomon - Last Filed: 09/04/24 23:47> - Lab Data Result diagrams: 09/04/24 21:23 09/04/24 21:23 <Sammie Alas - Last Filed: 09/05/24 19:40> - Medical Decision Making Was pt. sent in by a medical professional or institution (, PA, OBSTETRICS GYN PHYSICIAN, urgent care, hospital, or custodial...) When possible be specific @ -No Did you speak to anyone other than the patient for history (EMS, parent, family, police, friend...)? What history was obtained from this source @ -No Did you review nursing and triage notes (agree or disagree)? Why? @ -I reviewed and agree with nursing and triage notes Were old charts reviewed (outside hosp., previous admission, EMS record, old EKG, old radiological studies, urgent care reports/EKG's, custodial records)? Report findings @ -No old charts were reviewed Differential Diagnosis (chest pain, altered mental status, abdominal pain women, abdominal pain men, vaginal bleeding, weakness, fever, dyspnea, syncope, headache, dizziness, GI bleed, back pain, seizure, CVA, palpatations, mental health, musculoskeletal)? @ -Differential Musculoskeletal Muscular strain, contusion, ligament sprain, fracture, arthritis, septic arthritis, bursitis, cellulitis, muscle spasm, nerve compression, DVT, arterial occlusion, herpes zoster, electrolyte abnormality, tumor.... This is not meant to be in all inclusive list EKG interpreted by me (3pts min.). @ -None X-rays interpreted by me (1pt min.). @ -None done CT interpreted by me (1pt min.). @ -None done U/S interpreted by me (1pt. min.). @ -Ultrasound left upper extremity negative for acute process What testing was considered but not performed or refused? (CT, X-rays, U/S, labs)? Why? @ -None What meds were considered but not given or refused? Why? @ -None Did you discuss the management of the patient with other professionals (professionals i.e. , PA, OBSTETRICS GYN PHYSICIAN, lab, RT, psych nurse, social sciences instructor, fuel system maintenance supervisor, teacher, loan workout officer, shelter case manager)? Give summary @ -No Was smoking cessation discussed for >3mins.? @ -No Was critical care preformed (if so, how long)? @ -No Were there social determinants of health that impacted care today? How? (Homelessness, low income, unemployed, alcoholism, drug addiction, transportation, low edu. Level, literacy, decrease access to med. care, group home, rehab)? @ -No Was there de-escalation of care discussed even if they declined (Discuss DNR or withdrawal of care, Hospice)? DNR status @ -No What co-morbidities impacted this encounter? (DM, HTN, Smoking, COPD, CAD, Cancer, CVA, ARF, Chemo, Hep., AIDS, mental health diagnosis, sleep apnea, morbid obesity)? @ -None Was patient admitted / discharged? Hospital course, mention meds given and route, prescriptions, significant lab abnormalities, going to OR and other pertinent info. @ -This is an 89-year-old male presenting to the ER for left elbow pain x 2 weeks. Patient was diagnosed with left elbow infection and was took full course of Keflex with no improvement of symptoms. Physical examination reveals e rythema and warmth on dorsal aspect of elbow. There is full range of motion of elbow and he is neurovascularly intact. Lab work remarkable for CRP 19.6, glucose 442, creatinine 2.83, BUN 33. Blood cultures were taken. Patient was started on IV fluids and acetone, VBG, and urinalysis ordered at this time to rule out DKA due to hyperglycemia. Ultrasound left upper extremity negative for DVT. Case signed out to Sammie Alas PA-C at time of shift change pending lab work and disposition. (Mariam Salomon) Signed out to me pending laboratory results and disposition. On my evaluation patient is noted to have left upper extremity edema, erythema, warmth to touch and pain to palpation of the left olecranon with swelling proximally and distally to the mid upper arm and mid forearm. Neurovascularly intact. UA remarkable for 4+ glucose. There are no signs of DKA as patient's acetone is negative, no ketones in urine, lactic acid nonelevated. Patient will be admitted to internal medicine, Dr. Chamberlain, with infectious disease on consult. Blood cultures are obtained and patient started on IV antibiotics. Additionally, patient is provided with IV insulin for hyperglycemia with a glucose of 142. Discussed with Dr. Kang (Sammie Alas) - Lab Data Lab Results 09/04/24 09/04/24 09/04/24 Range/Units 21:23 21:23 23:32 WBC 8.0 (3.8-10.6) k/uL RBC 3.08 L (4.30-5.90) m/uL Hgb 9.9 L (13.0-17.5) gm/dL Hct 31.4 L (39.0-53.0) % MCV 102.1 H (80.0-100.0) fL MCH 32.3 (25.0-35.0) pg MCHC 31.6 (31.0-37.0) g/dL RDW 13.9 (11.5-15.5) % Plt Count 356 (150-450) k/uL MPV 8.6 Neutrophils % 84 % Lymphocytes % 10 % Monocytes % 4 % Eosinophils % 1 % Basophils % 0 % Neutrophils # 6.7 (1.3-7.7) k/uL Lymphocytes # 0.8 L (1.0-4.8) k/uL Monocytes # 0.3 (0-1.0) k/uL Eosinophils # 0.1 (0-0.7) k/uL Basophils # 0.0 (0-0.2) k/uL Hypochromasia Slight Macrocytosis Slight Sodium 135 L (137-145) mmol/L Potassium 4.2 (3.5-5.1) mmol/L Chloride 102 (98-107) mmol/L Carbon Dioxide 23 (22-30) mmol/L Anion Gap 10 mmol/L BUN 55 H (9-20) mg/dL Creatinine 2.83 H (0.66-1.25) mg/dL Est GFR (CKD-EPI)AfAm 22 (>60 ml/min/1.73 sqM) Est GFR (CKD-EPI)NonAf 19 (>60 ml/min/1.73 sqM) Glucose 442 H (74-99) mg/dL POC Glucose (mg/dL) (70-110) mg/dL POC Glu Soaking Tank Worker ID Plasma Lactic Acid Hardy (0.7-2.0) mmol/L Calcium 8.6 (8.4-10.2) mg/dL Total Bilirubin 0.5 (0.2-1.3) mg/dL AST 32 (17-59) U/L ALT 22 (4-49) U/L Alkaline Phosphatase 253 H (38-126) U/L C-Reactive Protein 19.6 H (<1.0) mg/dL Total Protein 5.8 L (6.3-8.2) g/dL Albumin 2.8 L (3.5-5.0) g/dL Urine Color Urine Appearance (Clear) Urine pH (5.0-8.0) Ur Specific [place] (1.001-1.035) Urine Protein (Negative) Urine Glucose (UA) (Negative) Urine Ketones (Negative) Urine Blood (Negative) Urine Nitrite (Negative) Urine Bilirubin (Negative) Urine Urobilinogen (<2.0) mg/dL Ur Leukocyte Esterase (Negative) Urine RBC (0-5) /hpf Urine WBC (0-5) /hpf Ur Squamous Epith Cells (0-4) /hpf Urine Mucus (None) /hpf Acetone, Qual Negative (Negative) 09/04/24 09/04/24 09/05/24 Range/Units 23:32 23:58 01:57 WBC (3.8-10.6) k/uL RBC (4.30-5.90) m/uL Hgb (13.0-17.5) gm/dL Hct (39.0-53.0) % MCV (80.0-100.0) fL MCH (25.0-35.0) pg MCHC (31.0-37.0) g/dL RDW (11.5-15.5) % Plt Count (150-450) k/uL MPV Neutrophils % % Lymphocytes % % Monocytes % % Eosinophils % % Basophils % % Neutrophils # (1.3-7.7) k/uL Lymphocytes # (1.0-4.8) k/uL Monocytes # (0-1.0) k/uL Eosinophils # (0-0.7) k/uL Basophils # (0-0.2) k/uL Hypochromasia Macrocytosis Sodium (137-145) mmol/L Potassium (3.5-5.1) mmol/L Chloride (98-107) mmol/L Carbon Dioxide (22-30) mmol/L Anion Gap mmol/L BUN (9-20) mg/dL Creatinine (0.66-1.25) mg/dL Est GFR (CKD-EPI)AfAm (>60 ml/min/1.73 sqM) Est GFR (CKD-EPI)NonAf (>60 ml/min/1.73 sqM) Glucose (74-99) mg/dL POC Glucose (mg/dL) 304 H (70-110) mg/dL POC Glu Soaking Tank Worker ID Caitlin Haley Plasma Lactic Acid Hardy 1.1 (0.7-2.0) mmol/L Calcium (8.4-10.2) mg/dL Total Bilirubin (0.2-1.3) mg/dL AST (17-59) U/L ALT (4-49) U/L Alkaline Phosphatase (38-126) U/L C-Reactive Protein (<1.0) mg/dL Total Protein (6.3-8.2) g/dL Albumin (3.5-5.0) g/dL Urine Color Light Yellow Urine Appearance Clear (Clear) Urine pH 6.0 (5.0-8.0) Ur Specific [place] 1.025 (1.001-1.035) Urine Protein 3+ H (Negative) Urine Glucose (UA) 4+ H (Negative) Urine Ketones Negative (Negative) Urine Blood Small H (Negative) Urine Nitrite Negative (Negative) Urine Bilirubin Negative (Negative) Urine Urobilinogen 3.0 (<2.0) mg/dL Ur Leukocyte Esterase Negative (Negative) Urine RBC 1 (0-5) /hpf Urine WBC 1 (0-5) /hpf Ur Squamous Epith Cells <1 (0-4) /hpf Urine Mucus Rare H (None) /hpf Acetone, Qual (Negative) 09/05/24 Range/Units 02:44 WBC (3.8-10.6) k/uL RBC (4.30-5.90) m/uL Hgb (13.0-17.5) gm/dL Hct (39.0-53.0) % MCV (80.0-100.0) fL MCH (25.0-35.0) pg MCHC (31.0-37.0) g/dL RDW (11.5-15.5) % Plt Count (150-450) k/uL MPV Neutrophils % % Lymphocytes % % Monocytes % % Eosinophils % % Basophils % % Neutrophils # (1.3-7.7) k/uL Lymphocytes # (1.0-4.8) k/uL Monocytes # (0-1.0) k/uL Eosinophils # (0-0.7) k/uL Basophils # (0-0.2) k/uL Hypochromasia Macrocytosis Sodium (137-145) mmol/L Potassium (3.5-5.1) mmol/L Chloride (98-107) mmol/L Carbon Dioxide (22-30) mmol/L Anion Gap mmol/L BUN (9-20) mg/dL Creatinine (0.66-1.25) mg/dL Est GFR (CKD-EPI)AfAm (>60 ml/min/1.73 sqM) Est GFR (CKD-EPI)NonAf (>60 ml/min/1.73 sqM) Glucose (74-99) mg/dL POC Glucose (mg/dL) 246 H (70-110) mg/dL POC Glu Soaking Tank Worker ID Caitlin Haley Plasma Lactic Acid Hardy (0.7-2.0) mmol/L Calcium (8.4-10.2) mg/dL Total Bilirubin (0.2-1.3) mg/dL AST (17-59) U/L ALT (4-49) U/L Alkaline Phosphatase (38-126) U/L C-Reactive Protein (<1.0) mg/dL Total Protein (6.3-8.2) g/dL Albumin (3.5-5.0) g/dL Urine Color Urine Appearance (Clear) Urine pH (5.0-8.0) Ur Specific [place] (1.001-1.035) Urine Protein (Negative) Urine Glucose (UA) (Negative) Urine Ketones (Negative) Urine Blood (Negative) Urine Nitrite (Negative) Urine Bilirubin (Negative) Urine Urobilinogen (<2.0) mg/dL Ur Leukocyte Esterase (Negative) Urine RBC (0-5) /hpf Urine WBC (0-5) /hpf Ur Squamous Epith Cells (0-4) /hpf Urine Mucus (None) /hpf Acetone, Qual (Negative) Disposition <Mariam Salomon - Last Filed: 09/04/24 23:47> Decision to Admit Reason: Admit from EC <Sammie Alas - Last Filed: 09/05/24 19:40> Clinical Impression: Cellulitis of left elbow Disposition: ADMITTED IP TO THIS HOSP Condition: Stable
[2024-09-05 00:37] LABS: Appearance,Urine Clear (Clear); Bilirubin,Urine Negative (Negative); Blood,Urine Small (Negative); Color,Urine Light Yellow; Glucose,Urine (UA) 4+ (Negative); Ketones,Urine Negative (Negative); Leukocyte Esterase,Urine Negative (Negative); Mucus,Urine Rare /hpf; Nitrite,Urine Negative (Negative); Protein,Urine 3+ (Negative); RBC,Urine 1 /hpf (0-5); Specific Gravity,Urine 1.025 (1.001-1.035); Squamous Epithelial Cell,Urine <1 /hpf (0-4); WBC,Urine 1 /hpf (0-5)
[2024-09-05 01:59] LABS: Glucose,Whole Blood 304 mg/dL (70-110)
[2024-09-05] MEDS: INSULIN REGULAR 100 UNIT/ML VIAL (IV) IV ONE ×2 (02:05→02:06)
[2024-09-05] MEDS: cefTRIAXone IN SWFI 1,000 MG/10 ML SYRINGE IVP STA (02:08)
[2024-09-05 02:46] LABS: Glucose,Whole Blood 246 mg/dL (70-110)
[2024-09-05] MEDS: SODIUM CHLORIDE 0.9% 1,000 ML IV STA (03:45)
[2024-09-05] MEDS ORDERED: NALOXONE 0.4 MG/ML 1 ML VIAL IV PRN (03:51)
[2024-09-05] MEDS ORDERED: ACETAMINOPHEN TAB 325 MG TAB PO PRN (03:51)
[2024-09-05] MEDS ORDERED: MORPHINE SULFATE 4 MG/ML SYRINGE IV PRN (03:51)
[2024-09-05 08:04] LABS: Glucose,Whole Blood 195 mg/dL (70-110)
[2024-09-05] MEDS: CLINDAMYCIN 600 MG/50 ML-D5W 600 MG in DEXTROSE/WATER 1 50ML.BAG IVPB SCH (08:08)
[2024-09-05] MEDS: IBUPROFEN 400 MG TAB PO PRN (08:19)
[2024-09-05] MEDS ORDERED: DEXTROSE 50% SYRINGE 50 ML IVP PRN ×2 (09:36)
[2024-09-05] MEDS: GLIMEPIRIDE 1 MG TAB PO SCH ×2 (10:02→20:15)
[2024-09-05] MEDS: DOXAZOSIN 4 MG TAB PO SCH (10:02)
[2024-09-05] MEDS: lisinopriL 20 MG TAB PO SCH (10:02)
[2024-09-05] MEDS: PIOGLITAZONE 30 MG TAB PO SCH (10:03)
[2024-09-05] MEDS: ENOXAPARIN 40 MG/0.4 ML SYRINGE SQ SCH (10:03)
--- NOTE | 2024-09-05 10:39 | US ---
EXAMINATION TYPE: US kidneys/renal and bladder DATE OF EXAM: 09/05/2024 COMPARISON: NONE CLINICAL INDICATION: Male, 89 years old with history of eval for CKD; Abnormal labs. TECHNIQUE: Grayscale imaging of the bilateral kidneys and urinary bladder: FINDINGS: EXAM MEASUREMENTS: Right Kidney: 11.4 x 4.9 x 4.4 cm Left Kidney: 8.9 x 4.2 x 4.1 cm Right Kidney: Echogenic in appearance Left Kidney: Appears smaller in size compared to contralateral kidney, cortical thinning, limited vis ualization of upper pole Bladder: mildly distended Bilateral Jets not seen Urinary bladder appears unremarkable. IMPRESSION: 1. Some thinning of the left renal cortex could indicate some underlying renal failure the left. [facility], , 09/05/2024 10:36 AM
[2024-09-05 12:16] LABS: Glucose,Whole Blood 307 mg/dL (70-110)
--- NOTE | 2024-09-05 12:37 | P.CNOR ---
History of Present Illness - [facility] Consult date: 09/05/24 Requesting physician: Lyle Chamberlain Consult reason: other (Left elbow cellulitis) History of present illness: Patient is a very pleasant 89-year-old male who is seen examined at the bedside for further evaluation of left elbow cellulitis. He states approximately 5 days ago he began to experience pain and swelling at his left elbow without injury. He presented to his primary care provider for further evaluation. He was placed on oral antibiotics. He states his symptoms continue to worsen without improvement and he presented to the emergency department for further evaluation. He has limited range of motion of his left elbow due to pain. He is diffuse swelling over his left elbow. His left elbow is warm. He does not have any other complaints. He was admitted for further evaluation. He is currently on IV antibiotics. We have ordered new x-ray imaging of his left elbow as there was no imaging ordered through the emergency department. Results are pending. Patient is admitted to medicine. Patient's other medical diagnoses include diabetes mellitus, hyperlipidemia, and hypertension. Notes and imaging reviewed. willl continue with antibiotics. no plan for surgery at present. Past Medical History Past Medical History: Diabetes Mellitus, Hyperlipidemia, Hypertension History of Any Multi-Drug Resistant Organisms: None Reported Past Surgical History: No Surgical Hx Reported Additional Past Anesthesia/Blood Transfusion Reaction / Comm: [facility] Witness- "would not allow blood transfusion" Past Psychological History: No Psychological Hx Reported Smoking Status: Never smoker Past Alcohol Use History: None Reported Past Drug Use History: None Reported - Past Family History Father Family Medical History: Myocardial Infarction ([place]) Mother Family Medical History: No Reported History, Unable to Obtain Additional Family Medical History / Comment(s): unknown Medications and Allergies Home Medications Medication Instructions Recorded Confirmed Type Doxazosin [Cardura] 4 mg PO BID 03/28/23 09/05/24 History Glimepiride [Amaryl] 1 mg PO DAILY 09/05/24 09/05/24 History Pioglitazone [Actos] 30 mg PO DAILY 09/05/24 09/05/24 History lisinopriL 40 mg PO DAILY 09/05/24 09/05/24 History Allergies Allergy/AdvReac Type Severity Reaction Status Date / Time No Known Allergies Allergy Verified 09/05/24 06:45 Physical Examination Osteopathic Statement: *. No significant issues noted on an osteopathic structural exam other than those noted in the History and Physical/Consult. Physical Exam: Patient is awake, alert, and oriented 3 Vital signs stable Adequate chest excursion with deep inspiration and expiration Significant swelling over the lower third of the humerus extending through the elbow into the proximal half of the left forearm Swelling at the left upper extremity is firm with some induration with mild erythema Increased warmth with palpation over the left elbow No palpable fluid collection over the left elbow Increased left elbow pain with palpation between the olecranon and medial epicondyle Mild generalized swelling of the left hand and fingers of the left hand Neurovascular intact left upper extremity Patient is able to perform some flexion and extension of the left elbow but has difficulty with full range of motion as it exacerbates pain Patient is able to wiggle all fingers of the left hand without difficulty Results - Labs Labs: Abnormal Lab Results - Last 24 Hours (Table) 09/04/24 09/04/24 09/04/24 Range/Units 21:23 21:23 23:58 RBC 3.08 L (4.30-5.90) m/uL Hgb 9.9 L (13.0-17.5) gm/dL Hct 31.4 L (39.0-53.0) % MCV 102.1 H (80.0-100.0) fL Lymphocytes # 0.8 L (1.0-4.8) k/uL Sodium 135 L (137-145) mmol/L BUN 55 H (9-20) mg/dL Creatinine 2.83 H (0.66-1.25) mg/dL Glucose 442 H (74-99) mg/dL POC Glucose (mg/dL) (70-110) mg/dL Alkaline Phosphatase 253 H (38-126) U/L C-Reactive Protein 19.6 H (<1.0) mg/dL Total Protein 5.8 L (6.3-8.2) g/dL Albumin 2.8 L (3.5-5.0) g/dL Urine Protein 3+ H (Negative) Urine Glucose (UA) 4+ H (Negative) Urine Blood Small H (Negative) Urine Mucus Rare H (None) /hpf 09/05/24 09/05/24 09/05/24 Range/Units 01:57 02:44 08:03 RBC (4.30-5.90) m/uL Hgb (13.0-17.5) gm/dL Hct (39.0-53.0) % MCV (80.0-100.0) fL Lymphocytes # (1.0-4.8) k/uL Sodium (137-145) mmol/L BUN (9-20) mg/dL Creatinine (0.66-1.25) mg/dL Glucose (74-99) mg/dL POC Glucose (mg/dL) 304 H 246 H 195 H (70-110) mg/dL Alkaline Phosphatase (38-126) U/L C-Reactive Protein (<1.0) mg/dL Total Protein (6.3-8.2) g/dL Albumin (3.5-5.0) g/dL Urine Protein (Negative) Urine Glucose (UA) (Negative) Urine Blood (Negative) Urine Mucus (None) /hpf 09/05/24 Range/Units 12:15 RBC (4.30-5.90) m/uL Hgb (13.0-17.5) gm/dL Hct (39.0-53.0) % MCV (80.0-100.0) fL Lymphocytes # (1.0-4.8) k/uL Sodium (137-145) mmol/L BUN (9-20) mg/dL Creatinine (0.66-1.25) mg/dL Glucose (74-99) mg/dL POC Glucose (mg/dL) 307 H (70-110) mg/dL Alkaline Phosphatase (38-126) U/L C-Reactive Protein (<1.0) mg/dL Total Protein (6.3-8.2) g/dL Albumin (3.5-5.0) g/dL Urine Protein (Negative) Urine Glucose (UA) (Negative) Urine Blood (Negative) Urine Mucus (None) /hpf H & H 09/04/24 Range/Units 21:23 Hgb 9.9 L (13.0-17.5) gm/dL Hct 31.4 L (39.0-53.0) % Result Diagrams: 09/04/24 21:23 09/04/24 21:23 Assessment and Plan Assessment: Assessment: Left elbow cellulitis Left elbow swelling Left elbow pain Reduced range of motion left elbow due to pain and swelling Failed outpatient oral antibiotics Hypertension Hyperlipidemia Diabetes mellitus (1) Left elbow pain Current Visit: Yes Status: Acute Code(s): M25.522 - PAIN IN LEFT ELBOW SNOMED Code(s): 13331651 (2) Hypertension Current Visit: Yes Status: Acute Code(s): I10 - ESSENTIAL (PRIMARY) HYPERTENSION SNOMED Code(s): 99343528 (3) Hyperlipidemia Current Visit: Yes Status: Acute Code(s): E78.5 - HYPERLIPIDEMIA, UNSPECIFIED SNOMED Code(s): 01917674 (4) Diabetes mellitus Current Visit: Yes Status: Acute Code(s): E11.9 - TYPE 2 DIABETES MELLITUS WITHOUT COMPLICATIONS SNOMED Code(s): 34163350 (5) Left upper extremity swelling Current Visit: Yes Status: Acute Code(s): M79.89 - OTHER SPECIFIED SOFT TISSUE DISORDERS SNOMED Code(s): 744570796 (6) Cellulitis of left elbow Current Visit: Yes Status: Acute Code(s): L03.114 - CELLULITIS OF LEFT UPPER LIMB SNOMED Code(s): 68272897697106237 Plan: Plan: 1. He patient states approximately 5 days ago he began to experience pain and swelling at his left elbow without injury. He presented to his primary care provider for further evaluation. He was placed on oral antibiotics. He states his symptoms continue to worsen without improvement and he presented to the emergency department for further evaluation. He has limited range of motion of his left elbow due to pain. He is diffuse swelling over his left elbow. His left elbow is warm. There is no palpable fluid collection at his left elbow. He does have evidence of cellulitis with increased swelling and firmness with palpation over his left elbow. He is neurovascular intact with his left upper extremity. Currently, we would plan to have him work through further conservative treatment options and is currently on IV antibiotics. Consultation has been placed with infectious disease. We have currently continue to follow the patient closely. Do not currently feel based on his physical examination that incision and drainage would provide significant improvement at this time. If there does become a palpable fluid collection, we could consider incision and drainage. We recommend conservative treatment with continued IV antibiotics per recommendations of infectious disease. 2. Patient will continue to be seen by medicine 3. Consultation has been placed with infectious disease Time with Patient: Greater than 30 (Including obtaining history, physical examination, reviewing of imaging, and dictation.)
[2024-09-05] MEDS: INSULIN ASPART (NovoLOG) 100 UNIT/ML VIAL SQ SCH (12:55)
--- NOTE | 2024-09-05 13:20 | XR ---
EXAMINATION TYPE: XR elbow complete LT DATE OF EXAM: 09/05/2024 1:16 PM COMPARISON: None. CLINICAL INDICATION: Male, 89 years old with history of lt elbow pain and swelling, cellulitis, TECHNIQUE: 3 view(s) obtained. FINDINGS: No acute fractures evident. Soft tissue swelling is over the medial elbow. Some mild swelling over th e olecranon may be present. No elevation of the anterior posterior fat pad is evident. Radius aligns normally numerous. Follow-up exam can be performed 7-10 days from acute trauma. IMPRESSION: 1. No acute osseous abnormality left elbow [facility], , 09/05/2024 1:18 PM
--- NOTE | 2024-09-05 16:58 | P.HPIM ---
History of Present Illness H&P Date: 09/05/24 Chief Complaint: Left elbow swelling pain This is a pleasant 89-year-old patient who follows with Dr. Larson. Chronic stable medical conditions include diabetes, hypertension, hyperlipidemia, BPH. Patient presents with 1 week of progressive swelling around the left elbow and the left forearm. He does not remember any active trauma. Also his forearm and hands are a bit swollen. Some limitation of movement of the left elbow. Does not remember any injury. Otherwise patient is fairly active. He is also having some trouble making a full fist. Some pain is present. Ultrasound in the ER was negative for any DVT. Orthopedics consulted. Review of systems: GEN.: No fever no chills EYES: None HEENT: None NECK: None RESPIRATORY: None CARDIOVASCULAR: None GASTROINTESTINAL: None GENITOURINARY: None MUSCULOSKELETAL: Joint pains LYMPHATICS: None HEMATOLOGICAL: None PSYCHIATRY: None NEUROLOGICAL: None Past medical history to include: Hypertension, BPH, diabetes, Social history: No smoking and alcohol. . Used to work in a machine shop Physical examination: VITAL SIGNS: 98.1, 99, 18, 178 x 74, 98% room air GENERAL: BMI 23.3, resting bed awake not in distress EYES: Pupils equal. Conjunctiva normal. HEENT: [Bruising around the chin and around the lips NECK: JVD not raised; masses not palpable. HEART: First and second heart sounds are normal; no edema. LUNGS: Respiratory rate normal; clear to auscultation. ABDOMEN: Soft, nontender, liver spleen not palpable, no masses palpable. PSYCH: Alert and oriented x3; mood and affect normal. MUSCULOSKELETAL:No Clubbing/cyanosis;muscles-grossly intact. OA. Swelling around the left elbow olecranon site. Swelling extends to the forearm. Not able to make a full fist. Some limitation of movement at the elbow joint. No swelling in the upper arm. Patient got a good radial pulse. Capillary refill. NEUROLOGICAL: Cranial nerves grossly intact; no facial asymmetry, power and sensation grossly intact. INVESTIGATIONS, reviewed in the clinical context: September 04, 2024: White count 8 hemoglobin 9.9 platelets 356 potassium 4.2. 55 creatinine 2.83 UA protein 3+ glucose 4+ Venous study Doppler left upper extremity: Negative for DVT or superficial venous thrombosis. Ultrasound kidney bladder: Right kidney 11.4 x 4.9 x 4.1 cm. Left kidney 8.9 x 4.2 x 4.1 cm. Right kidney echogenic. Left kidney appears smaller in size compared to the contralateral kidney with cortical thinning. Assessment plan: -Possible acute left olecranon bursitis. But the swelling extends down the left forearm. Including the hand. Some limitation making a fist. Negative for superficial DVT in the left arm. Keep left arm elevated above the level of the heart. Orthopedics consulted. ID consulted. IV daptomycin -Acute asthenia and myopathy likely a combination of dehydration, acute kidney injury. Noted that patient is also on lisinopril, metformin. Not eating drinking.: Better IV fluids -Essential hypertension: unControlled Stop lisinopril. Increase Catapres to 0.2 mg twice daily -Diabetes mellitus type 2, uncontrolled with hyperglycemia Increase Amaryl to 1 mg twice a day. Actos. Follow Accu-Cheks -Primary osteoarthritis Tylenol when necessary -Anemia of chronic kidney disease -Full code Discussed with patient. Given the complexity and severity of patient's condition expect the patient to be in the hospital at least for 2 overnights. If does not respond to antibiotics may need surgical intervention. Past Medical History Past Medical History: Diabetes Mellitus, Hyperlipidemia, Hypertension History of Any Multi-Drug Resistant Organisms: None Reported Past Surgical History: No Surgical Hx Reported Past Psychological History: No Psychological Hx Reported Smoking Status: Never smoker Past Alcohol Use History: None Reported Past Drug Use History: None Reported - Past Family History Father Family Medical History: Myocardial Infarction ([place]) Mother Family Medical History: No Reported History, Unable to Obtain Additional Family Medical History / Comment(s): unknown Medications and Allergies Home Medications Medication Instructions Recorded Confirmed Type Doxazosin [Cardura] 4 mg PO BID 03/28/23 09/05/24 History Glimepiride [Amaryl] 1 mg PO DAILY 09/05/24 09/05/24 History Pioglitazone [Actos] 30 mg PO DAILY 09/05/24 09/05/24 History lisinopriL 40 mg PO DAILY 09/05/24 09/05/24 History Allergies Allergy/AdvReac Type Severity Reaction Status Date / Time No Known Allergies Allergy Verified 09/05/24 06:45 Physical Exam Vitals: Vital Signs Temp Pulse Pulse Resp BP BP Pulse Ox 09/05/24 08:00 97.7 F 100 17 178/74 98 09/05/24 07:27 98.1 F 99 18 191/111 98 09/05/24 06:05 97 18 173/79 99 09/05/24 04:00 98.2 F 94 18 170/78 100 09/05/24 03:00 102 H 18 167/90 100 09/05/24 02:00 96 18 164/81 99 09/04/24 23:35 98.2 F 97 19 193/86 99 09/04/24 20:01 98.1 F 105 H 18 183/75 100 Intake and Output 09/04/24 09/05/24 09/05/24 22:59 06:59 14:59 Other: Weight 63.503 kg Results CBC & Chem 7: 09/04/24 21:23 09/04/24 21:23 Labs: Abnormal Lab Results - Last 24 Hours (Table) 09/04/24 09/04/24 09/04/24 Range/Units 21:23 21:23 23:58 RBC 3.08 L (4.30-5.90) m/uL Hgb 9.9 L (13.0-17.5) gm/dL Hct 31.4 L (39.0-53.0) % MCV 102.1 H (80.0-100.0) fL Lymphocytes # 0.8 L (1.0-4.8) k/uL Sodium 135 L (137-145) mmol/L BUN 55 H (9-20) mg/dL Creatinine 2.83 H (0.66-1.25) mg/dL Glucose 442 H (74-99) mg/dL POC Glucose (mg/dL) (70-110) mg/dL Alkaline Phosphatase 253 H (38-126) U/L C-Reactive Protein 19.6 H (<1.0) mg/dL Total Protein 5.8 L (6.3-8.2) g/dL Albumin 2.8 L (3.5-5.0) g/dL Urine Protein 3+ H (Negative) Urine Glucose (UA) 4+ H (Negative) Urine Blood Small H (Negative) Urine Mucus Rare H (None) /hpf 09/05/24 09/05/24 09/05/24 Range/Units 01:57 02:44 08:03 RBC (4.30-5.90) m/uL Hgb (13.0-17.5) gm/dL Hct (39.0-53.0) % MCV (80.0-100.0) fL Lymphocytes # (1.0-4.8) k/uL Sodium (137-145) mmol/L BUN (9-20) mg/dL Creatinine (0.66-1.25) mg/dL Glucose (74-99) mg/dL POC Glucose (mg/dL) 304 H 246 H 195 H (70-110) mg/dL Alkaline Phosphatase (38-126) U/L C-Reactive Protein (<1.0) mg/dL Total Protein (6.3-8.2) g/dL Albumin (3.5-5.0) g/dL Urine Protein (Negative) Urine Glucose (UA) (Negative) Urine Blood (Negative) Urine Mucus (None) /hpf
[2024-09-05 17:33] LABS: Glucose,Whole Blood 171 mg/dL (70-110)
[2024-09-05 20:04] LABS: Glucose,Whole Blood 179 mg/dL (70-110)
[2024-09-05] MEDS: cloNIDine HCL 0.2 MG TAB PO SCH (20:15)
[2024-09-06 07:18] LABS: Glucose,Whole Blood 96 mg/dL (70-110)
[2024-09-06] MEDS: ENOXAPARIN 30 MG/0.3 ML SYRINGE SQ SCH (08:58)
--- NOTE | 2024-09-06 09:11 | P.CONS ---
History of Present Illness - Reason for Consult Consult date: 09/05/24 Cellulitis failed outpatient treatment Requesting physician: Sammie Alas - Chief Complaint Left elbow pain and swelling x weeks - History of Present Illness Patient is a 89-year-old male with a past medical history significant for diabetes mellitus hypertension hyperlipidemia in this patient presenting to the hospital for evaluation of left arm pain and swelling that apparently has been treated for about 2 weeks patient has been diagnosed with a cellulitis of the elbow area by his PCP and the patient has been given course of oral Keflex without any improvement and the patient presented to hospital patient complaining of mostly pain to the elbow area describing it to be dull aching to sharp moderate intensity without radiation and did have difficulty moving his hand elbow because of the pain patient denies any open wound or any drainage denies high-grade fever or any chills patient denies having any chest pain shortness of breath or cough patient denies having any nausea no vomiting no abdominal pain or any diarrhea on presentation to the hospital patient was afebrile and no fever have been recorded subsequently patient was not tachycardic hypotensive or hypoxic he did have white count of 8.0 BUN and creatinine has been elevated CRP is 19.6 liver enzymes are normal urine has been negative patient did have a venous Doppler of the left upper extremity that was negative for any DVT patient was started on clindamycin infectious disease was c onsulted for further management of antibiotic therapy Review of Systems Positive point and negatives has been mentioned in the HPI, complete review of systems was performed and all other systems are negative Past Medical History Past Medical History: Diabetes Mellitus, Hyperlipidemia, Hypertension History of Any Multi-Drug Resistant Organisms: None Reported Past Surgical History: No Surgical Hx Reported Additional Past Anesthesia/Blood Transfusion Reaction / Comm: [facility] Witness- "would not allow blood transfusion" Past Psychological History: No Psychological Hx Reported Smoking Status: Never smoker Past Alcohol Use History: None Reported Past Drug Use History: None Reported - Past Family History Father Family Medical History: Myocardial Infarction ([place]) Mother Family Medical History: No Reported History, Unable to Obtain Additional Family Medical History / Comment(s): unknown Medications and Allergies Home Medications Medication Instructions Recorded Confirmed Type Doxazosin [Cardura] 4 mg PO BID 03/28/23 09/05/24 History Glimepiride [Amaryl] 1 mg PO DAILY 09/05/24 09/05/24 History Pioglitazone [Actos] 30 mg PO DAILY 09/05/24 09/05/24 History lisinopriL 40 mg PO DAILY 09/05/24 09/05/24 History Allergies Allergy/AdvReac Type Severity Reaction Status Date / Time No Known Allergies Allergy Verified 09/05/24 06:45 Physical Exam Vitals: Vital Signs Temp Pulse Pulse Resp BP BP Pulse Ox 09/05/24 08:00 97.7 F 100 17 178/74 98 09/05/24 07:27 98.1 F 99 18 191/111 98 09/05/24 06:05 97 18 173/79 99 09/05/24 04:00 98.2 F 94 18 170/78 100 09/05/24 03:00 102 H 18 167/90 100 09/05/24 02:00 96 18 164/81 99 09/04/24 23:35 98.2 F 97 19 193/86 99 09/04/24 20:01 98.1 F 105 H 18 183/75 100 Intake and Output 09/04/24 09/05/24 09/05/24 22:59 06:59 14:59 Other: Voiding Method Urinal Weight 63.503 kg 63.503 kg GENERAL DESCRIPTION: Elderly male lying in bed, no distress. No tachypnea or accessory muscle of respiration use. HEENT: Shows Pallor , no scleral icterus. Oral mucous membrane is dry. NECK: Trachea central, no thyromegaly. LUNGS: Unlabored breathing. Clear to auscultation anteriorly. No wheeze or crackle. HEART: S1, S2, regular rate and rhythm. No loud murmur ABDOMEN: Soft, no tenderness , guarding or rigidity, no organomegaly EXTREMITIES: Left elbow did have swelling involving the forearm and upper arm area with associated redness and mild tenderness SKIN: No rash, no masses palpable. NEUROLOGICAL: The patient is awake, alert, oriented x3, mood and affect normal. Results CBC & Chem 7: 09/04/24 21:23 09/04/24 21:23 Labs: Abnormal Lab Results - Last 24 Hours (Table) 09/04/24 09/04/24 09/04/24 Range/Units 21:23 21:23 23:58 RBC 3.08 L (4.30-5.90) m/uL Hgb 9.9 L (13.0-17.5) gm/dL Hct 31.4 L (39.0-53.0) % MCV 102.1 H (80.0-100.0) fL Lymphocytes # 0.8 L (1.0-4.8) k/uL Sodium 135 L (137-145) mmol/L BUN 55 H (9-20) mg/dL Creatinine 2.83 H (0.66-1.25) mg/dL Glucose 442 H (74-99) mg/dL POC Glucose (mg/dL) (70-110) mg/dL Alkaline Phosphatase 253 H (38-126) U/L C-Reactive Protein 19.6 H (<1.0) mg/dL Total Protein 5.8 L (6.3-8.2) g/dL Albumin 2.8 L (3.5-5.0) g/dL Urine Protein 3+ H (Negative) Urine Glucose (UA) 4+ H (Negative) Urine Blood Small H (Negative) Urine Mucus Rare H (None) /hpf 09/05/24 09/05/24 09/05/24 Range/Units 01:57 02:44 08:03 RBC (4.30-5.90) m/uL Hgb (13.0-17.5) gm/dL Hct (39.0-53.0) % MCV (80.0-100.0) fL Lymphocytes # (1.0-4.8) k/uL Sodium (137-145) mmol/L BUN (9-20) mg/dL Creatinine (0.66-1.25) mg/dL Glucose (74-99) mg/dL POC Glucose (mg/dL) 304 H 246 H 195 H (70-110) mg/dL Alkaline Phosphatase (38-126) U/L C-Reactive Protein (<1.0) mg/dL Total Protein (6.3-8.2) g/dL Albumin (3.5-5.0) g/dL Urine Protein (Negative) Urine Glucose (UA) (Negative) Urine Blood (Negative) Urine Mucus (None) /hpf Assessment and Plan (1) Olecranon bursitis, left elbow Current Visit: Yes Status: Acute Code(s): M70.22 - OLECRANON BURSITIS, LEFT ELBOW SNOMED Code(s): 328772534870118 (2) Failure of outpatient treatment Current Visit: Yes Status: Acute Code(s): Z78.9 - OTHER SPECIFIED HEALTH STATUS SNOMED Code(s): 624727371 (3) Cellulitis of left elbow Current Visit: Yes Status: Acute Code(s): L03.114 - CELLULITIS OF LEFT UPPER LIMB SNOMED Code(s): 03005146614680094 Plan: 1patient is in the hospital with a left elbow upper arm pain swelling and redness in this patient has been diagnosed with a cellulitis failing outpatient oral Keflex therapy patient did have a case of left elbow olecranon bursitis likely septic because of associated cellulitis and the patient failing outpatient oral Keflex, high clinical suspicious for possible community associated MRSA 2-await Ortho evaluation for possible aspiration and culture versus medical treatment 3-discontinue clindamycin 4-we will start the patient on daptomycin dose adjusted to the kidney function We will follow on clinical condition and cultures to further adjust medication if needed Thank you for this consultation we will follow the patient along with you Dictation was produced using [employer] dictation software. please excuse any grammatical, word or spelling errors. Time with Patient: Greater than 30
[2024-09-06 09:33] LABS: ALT 20 U/L (10-49); AST 31 U/L (14-35); Albumin 2.5 g/dL (3.8-4.9); Alkaline Phosphatase 112 U/L (41-126); BUN/Creat Ratio 18.68 Ratio (12.00-20.00); Blood Urea Nitrogen 52.3 mg/dL (9.0-27.0); Calcium 8.3 mg/dL (8.7-10.3); Carbon Dioxide 19.5 mmol/L (21.6-31.8); Chloride 105 mmol/L (96-109); Globulin 2.5 g/dL (1.6-3.3); Glucose 69 mg/dL (70-110); Sodium 143 mmol/L (135-145); Total Bilirubin 0.5 mg/dL (0.3-1.2)
[2024-09-06 10:47] LABS: Basophils # (A) 0.03 X 10*3/uL (0.00-0.10); Basophils % (A) 0.3 %; Eosinophils # (A) 0.11 X 10*3/uL (0.04-0.35); Eosinophils % (A) 1.3 %; HCT 26.7 % (39.6-50.0); HGB 8.2 g/dL (13.0-17.0); Lymphocytes % (A) 12.7 %; MCH 31.2 pg (27.0-32.0); MCHC 30.7 g/dL (32.0-37.0); MCV 101.5 FL (80.0-97.0); Mean Platelet Volume 10.9 FL (9.5-12.2); Monocytes # (A) 0.52 X 10*3/uL (0.20-1.00); NRBC Per 100 WBC 0 X 10*3/uL (0.00-0.01); Neutrophils # (A) 6.75 X 10*3/uL (1.80-7.70); Neutrophils % (A) 77.7 %; Platelet Count 318 X 10*3/uL (140-440); RBC 2.63 X 10*6/uL (4.40-5.60); RDW 13.6 % (11.5-14.5); WBC 8.68 X 10*3/uL (4.50-10.00)
[2024-09-06 12:24] LABS: Glucose,Whole Blood 89 mg/dL (70-110)
--- NOTE | 2024-09-06 12:58 | P.PN ---
Progress Note - Text Progress Note Date: 09/06/24 Orthopedics: History of present illness: Patient is a very pleasant 89-year-old male who is seen examined at the bedside for follow-up evaluation of left elbow cellulitis. He states approximately 5 days ago he began to experience pain and swelling at his left elbow without injury. He presented to his primary care provider for further evaluation. He was placed on oral antibiotics. He states his symptoms continue to worsen without improvement and he presented to the emergency department for further evaluation. Since being seen and examined yesterday, he continues with IV antibiotics per infectious disease. He has had improvement of his left elbow pain, swelling, and erythema. He does continue to have some limited range of motion of his left elbow with diffuse swelling over his left elbow. He has no other complaints at the bedside. Patient is admitted to medicine. Patient's other medical diagnoses include diabetes mellitus, hyperlipidemia, and hypertension. Physical Exam: Patient is awake, alert, and oriented 3 Vital signs stable Adequate chest excursion with deep inspiration and expiration Swelling over the lower third of the humerus extending through the elbow into the proximal half of the left forearm Swelling at the left upper extremity is firm with some induration with mild erythema Swelling at the left distal humerus, elbow, and proximal forearm has improved as compared to physical examination yesterday Increased warmth with palpation over the left elbow No palpable fluid collection over the left elbow Continued left elbow pain with palpation between the olecranon and medial epicondyle Mild generalized swelling of the left hand and fingers of the left hand with improvement Neurovascular intact left upper extremity Patient is able to perform some flexion and extension of the left elbow but has difficulty with full range of motion as it exacerbates pain Patient is able to wiggle all fingers of the left hand without difficulty Assessment: Left elbow cellulitis Left elbow swelling Left elbow pain Reduced range of motion left elbow due to pain and swelling Failed outpatient oral antibiotics Hypertension Hyperlipidemia Diabetes mellitus Plan: We will continue with our plan as set forth yesterday. Patient is having improvement of his left elbow and upper extremity cellulitis, pain, and swelling. He is currently on IV antibiotics per infectious disease. He will continue with his course. He continues to have some but improved limited range of motion of his left elbow due to pain. He is diffuse swelling over his left elbow with some improvement. His left elbow is warm. There is no palpable fluid collection at his left elbow. He does have evidence of cellulitis with increased swelling and firmness with palpation over his left elbow but this has also improved as compared to yesterday. He is neurovascular intact with his left upper extremity. We have currently continue to follow the patient closely. Do not currently feel based on his physical examination that incision and drainage would provide significant improvement at this time. If there does become a palpable fluid collection, we could consider incision and drainage. We recommend conservative treatment with continued IV antibiotics per recommendations of infectious disease. 2. Patient will continue to be seen by medicine and infectious disease
--- NOTE | 2024-09-06 14:15 | P.PN ---
Subjective Progress Note Date: 09/06/24 Principal diagnosis: Reason for follow-up is left elbow olecranon bursitis and cellulitis Patient is a 89-year-old male with a past medical history significant for diabetes mellitus hypertension hyperlipidemia in this patient presenting to the hospital for evaluation of left arm pain and swelling that apparently has been treated for about 2 weeks patient has been diagnosed with a cellulitis of the elbow area by his PCP and the patient has been given course of oral Keflex without any improvement patient has been diagnosed with left elbow BURSITIS. On today's evaluation that is 09/06/2024, patient did not have any fever and denies any chills, patient is breathing comfortably on room air, patient with no chest pain or cough patient did not have any abdominal pain nausea vomiting or any loose stools, pain to the left elbow slightly decreased in intensity. The patient white count is 8.68 creatinine is 2.8 blood cultures are pending Objective - Vital Signs Vital signs: Vital Signs Temp 97.8 F 09/06/24 07:18 Pulse 86 09/06/24 07:18 Resp 17 09/06/24 07:18 BP 163/74 09/06/24 07:18 Pulse Ox 98 09/06/24 07:18 FiO2 Intake & Output 09/05/24 09/06/24 09/06/24 18:59 06:59 18:59 Intake Total 240 Output Total 200 200 125 Balance -200 40 -125 Weight 63.503 kg Intake: Intake, IV Titration 240 Amount Sodium Chloride 0.9% 1, 240 000 ml @ 20 mls/hr IV . Q24H STA Rx#:[id number] Output: Urine 200 200 125 Other: Voiding Method Urinal Urinal Urinal # Voids 1 2 1 # Bowel Movements 1 - Exam GENERAL DESCRIPTION: An elderly male lying in bed in no distress RESPIRATORY SYSTEM: Unlabored breathing , decreased breath sounds at bases HEART: S1 S2 regular rate and rhythm , ABDOMEN: Soft , no tenderness EXTREMITIES: Left elbow upper arm swelling slightly decreased chain tender to touch - Labs CBC & Chem 7: 09/06/24 05:22 09/06/24 05:22 Labs: Abnormal Lab Results - Last 24 Hours (Table) 09/05/24 09/05/24 09/06/24 Range/Units 17:32 20:02 05:22 RBC 2.63 L (4.40-5.60) X 10*6/uL Hgb 8.2 L (13.0-17.0) g/dL Hct 26.7 L (39.6-50.0) % MCV 101.5 H (80.0-97.0) FL MCHC 30.7 L (32.0-37.0) g/dL Immature Gran # 0.17 H (0.00-0.04) X 10*3/uL Carbon Dioxide (21.6-31.8) mmol/L Anion Gap (4.00-12.00) mmol/L BUN (9.0-27.0) mg/dL Creatinine (0.6-1.5) mg/dL Est GFR (CKD-EPI) (>=60) Glucose (70-110) mg/dL POC Glucose (mg/dL) 171 H 179 H (70-110) mg/dL Calcium (8.7-10.3) mg/dL Total Protein (6.2-8.2) g/dL Albumin (3.8-4.9) g/dL Albumin/Globulin Ratio (1.60-3.17) Ratio 09/06/24 Range/Units 05:22 RBC (4.40-5.60) X 10*6/uL Hgb (13.0-17.0) g/dL Hct (39.6-50.0) % MCV (80.0-97.0) FL MCHC (32.0-37.0) g/dL Immature Gran # (0.00-0.04) X 10*3/uL Carbon Dioxide 19.5 L (21.6-31.8) mmol/L Anion Gap 18.50 H (4.00-12.00) mmol/L BUN 52.3 H (9.0-27.0) mg/dL Creatinine 2.8 H (0.6-1.5) mg/dL Est GFR (CKD-EPI) 21 L (>=60) Glucose 69 L (70-110) mg/dL POC Glucose (mg/dL) (70-110) mg/dL Calcium 8.3 L (8.7-10.3) mg/dL Total Protein 5.0 L (6.2-8.2) g/dL Albumin 2.5 L (3.8-4.9) g/dL Albumin/Globulin Ratio 1.00 L (1.60-3.17) Ratio Microbiology - Last 24 Hours (Table) 09/04/24 20:56 Blood Culture - Preliminary Blood Assessment and Plan (1) Olecranon bursitis, left elbow Current Visit: Yes Status: Acute Code(s): M70.22 - OLECRANON BURSITIS, LEFT ELBOW SNOMED Code(s): 278391633324523 (2) Failure of outpatient treatment Current Visit: Yes Status: Acute Code(s): Z78.9 - OTHER SPECIFIED HEALTH STATUS SNOMED Code(s): 507181908 (3) Cellulitis of left elbow Current Visit: Yes Status: Acute Code(s): L03.114 - CELLULITIS OF LEFT UPPER LIMB SNOMED Code(s): 13198236117041137 Plan: 1patient is in the hospital with a left elbow upper arm pain swelling and redness in this patient has been diagnosed with a cellulitis failing outpatient oral Keflex therapy patient did have a case of left elbow olecranon bursitis likely septic because of associated cellulitis and the patient failing outpatient oral Keflex, high clinical suspicious for possible community associated MRSA 2-patient has been evaluated by Ortho recommending continue medical treatment 3-patient to continue with daptomycin dose adjusted to the kidney function and monitor clinical course closely Dictation was produced using [employer] dictation software. please excuse any grammatical, word or spelling errors. Time with Patient: Less than 30
--- NOTE | 2024-09-06 15:29 | P.PN ---
Progress Note - Text Progress Note Date: 09/06/24 Chief Complaint: Left elbow swelling pain This is a pleasant 89-year-old patient who follows with Dr. Larson. Chronic stable medical conditions include diabetes, hypertension, hyperlipidemia, BPH. Patient presents with 1 week of progressive swelling around the left elbow and the left forearm. He does not remember any active trauma. Also his forearm and hands are a bit swollen. Some limitation of movement of the left elbow. Does not remember any injury. Otherwise patient is fairly active. He is also having some trouble making a full fist. Some pain is present. Ultrasound in the ER was negative for any DVT. Orthopedics consulted. September 06: Left elbow cellulitis with possible bursitis. On IV daptomycin. Harshal wrap ordered by ID. Some improvement. Family is visiting. Will have the patient sit up on a chair. Active Medications Acetaminophen (Acetaminophen Tab 325 Mg Tab) 650 mg PO Q6HR PRN PRN Reason: Mild Pain or Fever > 100.5 Clonidine (Clonidine Hcl 0.2 Mg Tab) 0.2 mg PO BID [facility] Last Admin: 09/06/24 08:58 Dose: 0.2 mg Dextrose/Water (Dextrose 50% Syringe 50 Ml) 25 ml IVP PER PROTOCOL PRN; Protocol PRN Reason: Hypoglycemia Dextrose/Water (Dextrose 50% Syringe 50 Ml) 50 ml IVP PER PROTOCOL PRN; Celestino col PRN Reason: Hypoglycemia Doxazosin Mesylate (Doxazosin 4 Mg Tab) 4 mg PO BID [facility] Last Admin: 09/06/24 08:58 Dose: 4 mg Enoxaparin Sodium (Enoxaparin 30 Mg/0.3 Ml Syringe) 30 mg SQ DAILY [facility] Last Admin: 09/06/24 08:58 Dose: 30 mg Glimepiride (Glimepiride 1 Mg Tab) 1 mg PO BID [facility] Last Admin: 09/06/24 08:58 Dose: 1 mg Daptomycin 250 mg/ Sodium (Chloride) 50 mls @ 100 mls/hr IVPB Q48H [facility]; Protocol Insulin Aspart (Insulin Aspart (Novolog) 100 Unit/Ml Vial) 0 unit SQ AC-TID [facility]; Protocol Last Admin: 09/06/24 13:01 Dose: Not Given Morphine Sulfate (Morphine Sulfate 4 Mg/Ml Syringe) 4 mg IV Q4HR PRN PRN Reason: Severe Pain (Scale 7 to 10) Naloxone HCl (Naloxone 0.4 Mg/Ml 1 Ml Vial) 0.2 mg IV Q2M PRN PRN Reason: Opioid Reversal Pioglitazone HCl (Pioglitazone 30 Mg Tab) 30 mg PO DAILY [facility] Last Admin: 09/06/24 08:58 Dose: 30 mg Past medical history to include: Hypertension, BPH, diabetes, Social history: No smoking and alcohol. . Used to work in a machine shop Physical examination: VITAL SIGNS: 97.6, 67, 16, 121 x 69, 99% room air GENERAL: BMI 23.3, resting bed, comfortable EYES: Pupils equal. Conjunctiva normal. HEENT: [Bruising around the chin and around the lips NECK: JVD not raised; masses not palpable. HEART: First and second heart sounds are normal; no edema. LUNGS: Respiratory rate normal; clear to auscultation. ABDOMEN: Soft, nontender, liver spleen not palpable, no masses palpable. PSYCH: Alert and oriented x3; mood and affect normal. MUSCULOSKELETAL:No Clubbing/cyanosis;muscles-grossly intact. OA. Swelling ar ound the left elbow olecranon site. Swelling extends to the forearm. Not able to make a full fist. Some limitation of movement at the elbow joint. No swelling in the upper arm. Patient got a good radial pulse. Capillary refill. INVESTIGATIONS, reviewed in the clinical context: September 06: White count 8.6 hemoglobin 8.2 potassium 4 BUN 52.3 creatinine 2.8 September 04, 2024: White count 8 hemoglobin 9.9 platelets 356 potassium 4.2. 55 creatinine 2.83 UA protein 3+ glucose 4+ Venous study Doppler left upper extremity: Negative for DVT or superficial venous thrombosis. Ultrasound kidney bladder: Right kidney 11.4 x 4.9 x 4.1 cm. Left kidney 8.9 x 4.2 x 4.1 cm. Right kidney echogenic. Left kidney appears smaller in size compared to the contralateral kidney with cortical thinning. Assessment plan: -Possible acute left olecranon bursitis, cellulitis. - swelling extends down the left forearm. Including the hand. Some limitation making a fist. Negative for superficial DVT in the left arm. Keep left arm elevated above the level of the heart. Orthopedics-no surgical intervention. ID following IV daptomycin Harshal wrap -Essential hypertension: Stop lisinopril. Catapres to 0.2 mg twice daily -Diabetes mellitus type 2, uncontrolled with hyperglycemia Amaryl to 1 mg twice a day. Actos. Follow Accu-Cheks -Primary osteoarthritis Tylenol when necessary -Anemia of chronic kidney disease -Full code Continue antibiotics. Harshal wrap. Up in chair. Discussed. Past Medical History Past Medical History: Diabetes Mellitus, Hyperlipidemia, Hypertension History of Any Multi-Drug Resistant Organisms: None Reported Past Surgical History: No Surgical Hx Reported Past Psychological History: No Psychological Hx Reported Smoking Status: Never smoker Past Alcohol Use History: None Reported Past Drug Use History: None Reported
[2024-09-06 17:35] LABS: Glucose,Whole Blood 252 mg/dL (70-110)
[2024-09-06 20:32] LABS: Glucose,Whole Blood 300 mg/dL (70-110)
[2024-09-07 07:34] LABS: Glucose,Whole Blood 150 mg/dL (70-110)
--- NOTE | 2024-09-07 10:01 | P.PN ---
Progress Note - Text Progress Note Date: 09/07/24 The patient is seen and examined at bedside. His family is at bedside as well. He is not complaining of any new pain in his arm. He is able to flex his elbow arm and hand a little bit better. He denies any new pains. He says he has not been out of bed in the couple of days and was having trip occultly with walking over the past few days. He denies new changes in pain in his low back or lower extremities but he does not feel strong in his legs. On exam he has remained afebrile with stable vital signs I unwrapped his left arm at bedside. The swelling is significantly diminished at his left forearm. There is still some swelling of his hands due to the compression from proximal to his hand with the dressing. There is less swelling in his elbow. There is no erythema. There is no fluctuant mass. He is able to flex his elbow to about 85 degrees. He has extension with about a 5 degree extensor lag. He has good supination pronation. There is no pain with passive stretch of his elbow. At his lower extremities he has sustained dorsiflexion plantarflexion EHL. He is able lift his legs up off the bed independently. There is no pain with internal extra rotation of his hips. Calves and thighs soft nontender Assessment and plan Left upper extremity cellulitis at the elbow and forearm Improved left upper extremity swelling with still some residual swelling in his hand Deconditioning with limited mobility Inability to ambulate on his own The the patient seems to be making some progress in terms of his left upper extremity with the IV antibiotics. There is no fluctuant mass and I do not plan any specific surgical intervention. He is able to mobilize his left arm better and I do not think that he has any infection at the joint itself. I remove the compressive dressing and there is improved swelling in his left upper extremity. There is some residual swelling in his hand but I do not think that he needs the wrap at this point but should continue to elevate. The patient has been having significant deconditioning and does not feel safe getting in and out of bed. According to the family he has not been walking well since the middle of last week. Will have physical therapy see him to start to try to see if he is able to mobilize independently for transfers and ambulation. He may weight-bear as tolerated. It is likely that he will need some discharge planning and possible placement posthospitalization. Will have case management see him. He will continue his medical management as well
[2024-09-07 12:45] LABS: Glucose,Whole Blood 294 mg/dL (70-110)
--- NOTE | 2024-09-07 15:11 | P.PN ---
Subjective Progress Note Date: 09/07/24 Principal diagnosis: Reason for follow-up is left elbow olecranon bursitis and cellulitis Patient is a 89-year-old male with a past medical history significant for diabetes mellitus hypertension hyperlipidemia in this patient presenting to the hospital for evaluation of left arm pain and swelling that apparently has been treated for about 2 weeks patient has been diagnosed with a cellulitis of the elbow area by his PCP and the patient has been given course of oral Keflex without any improvement patient has been diagnosed with left elbow BURSITIS. On today's evaluation that is 09/07/2024, Patient is afebrile patient is currently on room air and denies having any shortness of breath, the patient denies any chest pain or cough, the patient denies any nausea vomiting did not have any abdominal pain and no diarrhea patient pain to the left elbow has decreased in intensity. No new lab has been obtained today blood culture has been negative so far Objective - Vital Signs Vital signs: Vital Signs Temp 97.7 F 09/07/24 12:44 Pulse 69 09/07/24 12:44 Resp 16 09/07/24 12:44 BP 119/63 09/07/24 12:44 Pulse Ox 99 09/07/24 12:44 FiO2 Intake & Output 09/06/24 09/07/24 09/07/24 18:59 06:59 18:59 Intake Total 540 950 Output Total 125 600 75 Balance 415 350 -75 Intake: Oral 540 950 Output: Urine 125 600 75 Other: Voiding Method Urinal Urinal Urinal # Voids 1 1 1 - Exam GENERAL DESCRIPTION: An elderly male lying in bed in no distress RESPIRATORY SYSTEM: Unlabored breathing , decreased breath sounds at bases HEART: S1 S2 regular rate and rhythm , ABDOMEN: Soft , no tenderness EXTREMITIES: Left elbow upper arm swelling slightly decreased rough rice tender to touch - Labs CBC & Chem 7: 09/06/24 05:22 09/06/24 05:22 Labs: Abnormal Lab Results - Last 24 Hours (Table) 09/06/24 09/06/24 09/07/24 Range/Units 17:33 20:31 07:32 POC Glucose (mg/dL) 252 H 300 H 150 H (70-110) mg/dL 09/07/24 Range/Units 12:43 POC Glucose (mg/dL) 294 H (70-110) mg/dL Microbiology - Last 24 Hours (Table) 09/04/24 20:56 Blood Culture - Preliminary Blood Assessment and Plan (1) Olecranon bursitis, left elbow Current Visit: Yes Status: Acute Code(s): M70.22 - OLECRANON BURSITIS, LEFT ELBOW SNOMED Code(s): 087268689952928 (2) Failure of outpatient treatment Current Visit: Yes Status: Acute Code(s): Z78.9 - OTHER SPECIFIED HEALTH STATUS SNOMED Code(s): 073510787 (3) Cellulitis of left elbow Current Visit: Yes Status: Acute Code(s): L03.114 - CELLULITIS OF LEFT UPPER LIMB SNOMED Code(s): 25848739785591680 Plan: 1patient is in the hospital with a left elbow upper arm pain swelling and redness in this patient has been diagnosed with a cellulitis failing outpatient oral Keflex therapy patient did have a case of left elbow olecranon bursitis likely septic because of associated cellulitis and the patient failing outpatient oral Keflex, high clinical suspicious for possible community associated MRSA 2-patient has been evaluated by Ortho recommending continue medical treatment 3-patient did have some clinical improvement with daptomycin possible going to the care home May continue with the daptomycin for another 10 days to finish course of therapy Dictation was produced using [employer] dictation software. please excuse any grammatical, word or spelling errors. Time with Patient: Less than 30
[2024-09-07 17:34] LABS: Glucose,Whole Blood 304 mg/dL (70-110)
[2024-09-07 20:02] LABS: Glucose,Whole Blood 275 mg/dL (70-110)
[2024-09-08 07:27] LABS: Glucose,Whole Blood 125 mg/dL (70-110)
--- NOTE | 2024-09-08 11:08 | P.PN ---
Progress Note - Text Progress Note Date: 09/07/24 Chief Complaint: Left elbow swelling pain This is a pleasant 89-year-old patient who follows with Dr. Larson. Chronic stable medical conditions include diabetes, hypertension, hyperlipidemia, BPH. Patient presents with 1 week of progressive swelling around the left elbow and the left forearm. He does not remember any active trauma. Also his forearm and hands are a bit swollen. Some limitation of movement of the left elbow. Does not remember any injury. Otherwise patient is fairly active. He is also having some trouble making a full fist. Some pain is present. Ultrasound in the ER was negative for any DVT. Orthopedics consulted. September 06: Left elbow cellulitis with possible bursitis. On IV daptomycin. Harshal wrap ordered by ID. Some improvement. Family is visiting. Will have the patient sit up on a chair. September 07: Some improvement in swelling redness pain in the left arm. Family visiting. Told patient to increase movements in the first wrist and the elbow. Keep left arm elevated. Spoke to the nurse to again wrap up the arm. Anti biotics to continue. No surgical intervention per surgery. Eating fair. Medications: Reviewed Past medical history to include: Hypertension, BPH, diabetes, Social history: No smoking and alcohol. . Used to work in a machine shop Physical examination: VITAL SIGNS: 97.7, 71, 16, 154 x 67 [place] 100% room air GENERAL: BMI 23.3, resting bed, comfortable EYES: Pupils equal. Conjunctiva normal. HEENT: [Bruising around the chin and around the lips NECK: JVD not raised; masses not palpable. HEART: First and second heart sounds are normal; no edema. LUNGS: Respiratory rate normal; clear to auscultation. ABDOMEN: Soft, nontender, liver spleen not palpable, no masses palpable. PSYCH: Alert and oriented x3; mood and affect normal. MUSCULOSKELETAL:No Clubbing/cyanosis;muscles-grossly intact. OA. Swelling around the left elbow olecranon site. Swelling extends to the forearm. Not able to make a full fist. Some limitation of movement at the elbow joint. No swelling in the upper: Some improvement arm. Patient got a good radial pulse. Capillary refill. INVESTIGATIONS, reviewed in the clinical context: September 06: White count 8.6 hemoglobin 8.2 potassium 4 BUN 52.3 creatinine 2.8 September 04, 2024: White count 8 hemoglobin 9.9 platelets 356 potassium 4.2. 55 creatinine 2.83 UA protein 3+ glucose 4+ Venous study Doppler left upper extremity: Negative for DVT or superficial venous thrombosis. Ultrasound kidney bladder: Right kidney 11.4 x 4.9 x 4.1 cm. Left kidney 8.9 x 4.2 x 4.1 cm. Right kidney echogenic. Left kidney appears smaller in size compared to the contralateral kidney with cortical thinning. Assessment plan: -Possible acute left olecranon bursitis, cellulitis. - swelling extends down the left forearm. Including the hand. Some limitation making a fist.: Some improvement Negative for superficial DVT in the left arm. Keep left arm elevated above the level of the heart. Orthopedics-no surgical intervention. ID following IV daptomycin Harshal wrap -Essential hypertension: Stop lisinopril. Catapres to 0.2 mg twice daily -Diabetes mellitus type 2, uncontrolled with hyperglycemia Amaryl to 1 mg twice a day. Actos. Follow Accu-Cheks -Primary osteoarthritis Tylenol when necessary -Anemia of chronic kidney disease -Full code Told patient to increase movement of the left arm including the elbow wrist and fingers. Antibiotics to continue. Harshal wrap. Elevation. Past Medical History Past Medical History: Diabetes Mellitus, Hyperlipidemia, Hypertension History of Any Multi-Drug Resistant Organisms: None Reported Past Surgical History: No Surgical Hx Reported Past Psychological History: No Psychological Hx Reported Smoking Status: Never smoker Past Alcohol Use History: None Reported Past Drug Use History: None Reported
[2024-09-08 12:13] LABS: Glucose,Whole Blood 141 mg/dL (70-110)
--- NOTE | 2024-09-08 16:59 | P.PN ---
Progress Note - Text Progress Note Date: 09/08/24 Chief Complaint: Left elbow swelling pain This is a pleasant 89-year-old patient who follows with Dr. Larson. Chronic stable medical conditions include diabetes, hypertension, hyperlipidemia, BPH. Patient presents with 1 week of progressive swelling around the left elbow and the left forearm. He does not remember any active trauma. Also his forearm and hands are a bit swollen. Some limitation of movement of the left elbow. Does not remember any injury. Otherwise patient is fairly active. He is also having some trouble making a full fist. Some pain is present. Ultrasound in the ER was negative for any DVT. Orthopedics consulted. September 06: Left elbow cellulitis with possible bursitis. On IV daptomycin. Harsahl wrap ordered by ID. Some improvement. Family is visiting. Will have the patient sit up on a chair. September 07: Some improvement in swelling redness pain in the left arm. Family visiting. Told patient to increase movements in the first wrist and the elbow. Keep left arm elevated. Spoke to the nurse to again wrap up the arm. Anti biotics to continue. No surgical intervention per surgery. Eating fair. September 08: Left arm pain swelling redness continues to improve. Patient rather weak. Seen by PT OT. Subacute rehab pending. Social work involved. Pending authorization. On IV daptomycin. Eating fair. Active Medications Acetaminophen (Acetaminophen Tab 325 Mg Tab) 650 mg PO Q6HR PRN PRN Reason: Mild Pain or Fever > 100.5 Clonidine (Clonidine Hcl 0.2 Mg Tab) 0.2 mg PO BID [facility] Last Admin: 09/08/24 08:17 Dose: 0.2 mg Dextrose/Water (Dextrose 50% Syringe 50 Ml) 25 ml IVP PER PROTOCOL PRN; Protocol PRN Reason: Hypoglycemia Dextrose/Water (Dextrose 50% Syringe 50 Ml) 50 ml IVP PER PROTOCOL PRN; Protocol PRN Reason: Hypoglycemia Doxazosin Mesylate (Doxazosin 4 Mg Tab) 4 mg PO BID [facility] Last Admin: 09/08/24 08:18 Dose: 4 mg Enoxaparin Sodium (Enoxaparin 30 Mg/0.3 Ml Syringe) 30 mg SQ DAILY [facility] Last Admin: 09/08/24 08:17 Dose: 30 mg Glimepiride (Glimepiride 1 Mg Tab) 1 mg PO BID [facility] Last Admin: 09/08/24 08:17 Dose: 1 mg Daptomycin 250 mg/ Sodium (Chloride) 50 mls @ 100 mls/hr IVPB Q48H [facility]; Protocol Last Admin: 09/07/24 16:40 Dose: 100 mls/hr Insulin Aspart (Insulin Aspart (Novolog) 100 Unit/Ml Vial) 0 unit SQ AC-TID [facility]; Protocol Last Admin: 09/08/24 12:53 Dose: Not Given Naloxone HCl (Naloxone 0.4 Mg/Ml 1 Ml Vial) 0.2 mg IV Q2M PRN PRN Reason: Opioid Reversal Pioglitazone HCl (Pioglitazone 30 Mg Tab) 30 mg PO DAILY [facility] Last Admin: 09/08/24 08:18 Dose: 30 mg Tramadol HCl (Tramadol 50 Mg Tab) 50 mg PO QID PRN PRN Reason: Analgesia Past medical history to include: Hypertension, BPH, diabetes, Social history: No smoking and alcohol. . Used to work in a machine shop Physical examination: VITAL SIGNS: 98.5, 73, 18, 117 x 56, 98% room air GENERAL: BMI 23.3, resting bed, comfortable EYES: Pupils equal. Conjunctiva normal. HEENT: [Bruising around the chin and around the lips NECK: JVD not raised; masses not palpable. HEART: First and second heart sounds are normal; no edema. LUNGS: Respiratory rate normal; clear to auscultation. ABDOMEN: Soft, nontender, liver spleen not palpable, no masses palpable. PSYCH: Alert and oriented x3; mood and affect normal. MUSCULOSKELETAL:No Clubbing/cyanosis;muscles-grossly intact. OA. Swelling around the left elbow olecranon site. Swelling extends to the forearm. Not able to make a full fist. Some limitation of movement at the elbow joint. No swelling in the upper: Some improvement arm. Patient got a good radial pulse. Capillary refill. INVESTIGATIONS, reviewed in the clinical context: September 06: White count 8.6 hemoglobin 8.2 potassium 4 BUN 52.3 creatinine 2.8 September 04, 2024: White count 8 hemoglobin 9.9 platelets 356 potassium 4.2. 55 creatinine 2.83 UA protein 3+ glucose 4+ Venous study Doppler left upper extremity: Negative for DVT or superficial venous thrombosis. Ultrasound kidney bladder: Right kidney 11.4 x 4.9 x 4.1 cm. Left kidney 8.9 x 4.2 x 4.1 cm. Right kidney echogenic. Left kidney appears smaller in size compared to the contralateral kidney with cortical thinning. Assessment plan: -Possible acute left olecranon bursitis, cellulitis. - swelling extends down the left forearm. Including the hand. Some limitation making a fist.: Some improvement Negative for superficial DVT in the left arm. Keep left arm elevated above the level of the heart. Orthopedics-no surgical intervention. ID following IV daptomycin Harshal wrap -Essential hypertension: Stop lisinopril. Catapres to 0.2 mg twice daily -Diabetes mellitus type 2, uncontrolled with hyperglycemia Amaryl to 1 mg twice a day. Actos. 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 Seen by PT OT. For subacute rehab -Full code Continue current medication treatment plan. Discussed with patient. Pending authorization for rehab. Past Medical History Past Medical History: Diabetes Mellitus, Hyperlipidemia, Hypertension History of Any Multi-Drug Resistant Organisms: None Reported Past Surgical History: No Surgical Hx Reported Past Psychological History: No Psychological Hx Reported Smoking Status: Never smoker Past Alcohol Use History: None Reported Past Drug Use History: None Reported
[2024-09-08 17:11] LABS: Glucose,Whole Blood 229 mg/dL (70-110)
[2024-09-08 20:25] LABS: Glucose,Whole Blood 232 mg/dL (70-110)
--- NOTE | 2024-09-08 21:08 | P.PN ---
Subjective Progress Note Date: 09/08/24 Principal diagnosis: Reason for follow-up is left elbow olecranon bursitis and cellulitis Patient is a 89-year-old male with a past medical history significant for diabetes mellitus hypertension hyperlipidemia in this patient presenting to the hospital for evaluation of left arm pain and swelling that apparently has been treated for about 2 weeks patient has been diagnosed with a cellulitis of the elbow area by his PCP and the patient has been given course of oral Keflex without any improvement patient has been diagnosed with left elbow BURSITIS. On today's evaluation that is 09/08/2024, patient has been afebrile, patient is breathing comfortably and is currently on room air, patient denies having any significant cough no chest pain, patient denies nausea vomiting or diarrhea and no abdominal pain patient pain to the left elbow has decreased in intensity fe eling better. No new lab has been obtained today blood culture has been negative so far Objective - Vital Signs Vital signs: Vital Signs Temp 98.1 F 09/08/24 07:27 Pulse 68 09/08/24 07:27 Resp 17 09/08/24 07:27 BP 133/74 09/08/24 07:27 Pulse Ox 99 09/08/24 07:27 FiO2 Intake & Output 09/07/24 09/08/24 09/08/24 18:59 06:59 18:59 Intake Total 730 Output Total 190 500 Balance -190 230 Intake: Oral 730 Output: Urine 190 500 Other: Voiding Method Urinal Urinal External Catheter # Voids 1 - Exam GENERAL DESCRIPTION: An elderly male lying in bed in no distress RESPIRATORY SYSTEM: Unlabored breathing , decreased breath sounds at bases HEART: S1 S2 regular rate and rhythm , ABDOMEN: Soft , no tenderness EXTREMITIES: Left elbow upper arm swelling slightly decreased woven blind loom tender to touch - Labs CBC & Chem 7: 09/06/24 05:22 09/06/24 05:22 Labs: Abnormal Lab Results - Last 24 Hours (Table) 09/07/24 09/07/24 09/07/24 Range/Units 12:43 17:32 20:01 POC Glucose (mg/dL) 294 H 304 H 275 H (70-110) mg/dL 09/08/24 09/08/24 Range/Units 07:25 12:11 POC Glucose (mg/dL) 125 H 141 H (70-110) mg/dL Microbiology - Last 24 Hours (Table) 09/04/24 20:56 Blood Culture - Preliminary Blood Assessment and Plan (1) Olecranon bursitis, left elbow Current Visit: Yes Status: Acute Code(s): M70.22 - OLECRANON BURSITIS, LEFT ELBOW SNOMED Code(s): 103815307101419 (2) Failure of outpatient treatment Current Visit: Yes Status: Acute Code(s): Z78.9 - OTHER SPECIFIED HEALTH STATUS SNOMED Code(s): 449765785 (3) Cellulitis of left elbow Current Visit: Yes Status: Acute Code(s): L03.114 - CELLULITIS OF LEFT UPPER LIMB SNOMED Code(s): 33787355550878963 Plan: 1patient is in the hospital with a left elbow upper arm pain swelling and redness in this patient has been diagnosed with a cellulitis failing outpatient oral Keflex therapy patient did have a case of left elbow olecranon bursitis likely septic because of associated cellulitis and the patient failing outpatient oral Keflex, high clinical suspicious for possible community associated MRSA 2-patient has been evaluated by Ortho recommending continue medical treatment 3-patient did have clinical improvement to the left elbow cellulitis with daptomycin, possibly going home as per discussion with admitting physician we will consider a 10-day course of oral doxycycline on discharge prescription sent to the pharmacy Dictation was produced using [employer] dictation software. please excuse any grammatical, word or spelling errors.
[2024-09-09 05:14] LABS: Basophils % (A) 0 %; Eosinophils # (A) 0.2 k/uL (0-0.7); Eosinophils % (A) 3 %; HCT 25.3 % (39.0-53.0); Lymphocytes # (A) 1.4 k/uL (1.0-4.8); Lymphocytes % (A) 17 %; MCH 32.6 pg (25.0-35.0); MCHC 32.7 g/dL (31.0-37.0); MCV 99.6 fL (80.0-100.0); Mean Platelet Volume 8.1; Monocytes # (A) 0.4 k/uL (0-1.0); Monocytes % (A) 5 %; Neutrophils # (A) 6.1 k/uL (1.3-7.7); Neutrophils % (A) 74 %; Platelet Count 324 k/uL (150-450); RBC 2.54 m/uL (4.30-5.90); RDW 13.7 % (11.5-15.5); WBC 8.2 k/uL (3.8-10.6)
[2024-09-09 05:17] LABS: HGB 8.3 gm/dL (13.0-17.5)
[2024-09-09 05:28] LABS: African American GFR (CKD) 19 (>60 ml/min/1.73 sqM); Anion Gap 3 mmol/L; Blood Urea Nitrogen 66 mg/dL (9-20); Calcium 8.5 mg/dL (8.4-10.2); Carbon Dioxide 21 mmol/L (22-30); Chloride 106 mmol/L (98-107); Glucose 122 mg/dL (74-99); Non-African American GFR(CKD) 16 (>60 ml/min/1.73 sqM); Potassium 4.6 mmol/L (3.5-5.1); Sodium 130 mmol/L (137-145)
[2024-09-09 07:26] LABS: Glucose,Whole Blood 76 mg/dL (70-110)
[2024-09-09] MEDS: traMADol 50 MG TAB PO PRN (08:42)
[2024-09-09 12:28] LABS: Glucose,Whole Blood 80 mg/dL (70-110)
--- NOTE | 2024-09-09 15:46 | P.EN ---
For discharge antibiotics: Patient will receive 10 days of doxycycline 100 mg twice daily, upon discharge.
--- NOTE | 2024-09-09 15:53 | P.PN ---
Subjective Progress Note Date: 09/09/24 Principal diagnosis: Reason for follow-up is left elbow olecranon bursitis and cellulitis Patient is a 89-year-old male with a past medical history significant for diabetes mellitus hypertension hyperlipidemia in this patient presenting to the hospital for evaluation of left arm pain and swelling that apparently has been treated for about 2 weeks patient has been diagnosed with a cellulitis of the elbow area by his PCP and the patient has been given course of oral Keflex without any improvement patient has been diagnosed with left elbow BURSITIS. On today's evaluation that is 09/09/2024, Patient is afebrile this morning patient denies having any chest pain shortness of breath or cough, the patient is currently on room air, patient denies any abdominal pain no diarrhea no nausea no vomiting pain to the left upper extremity has decreased in intensity. Patient hematoma 8.2, creatinine 3.23 Objective - Vital Signs Vital signs: Vital Signs Temp 98.4 F 09/09/24 07:25 Pulse 75 09/09/24 07:25 Resp 18 09/09/24 07:25 BP 172/78 09/09/24 07:25 Pulse Ox 98 09/09/24 07:25 FiO2 Intake & Output 09/08/24 09/09/24 09/09/24 18:59 06:59 18:59 Intake Total 660 Output Total 550 1200 Balance -550 -540 Intake: Oral 660 Output: Urine 550 1200 Other: Voiding Method External Catheter External Catheter External Catheter - Exam GENERAL DESCRIPTION: An elderly male lying in bed in no distress RESPIRATORY SYSTEM: Unlabored breathing , decreased breath sounds at bases HEART: S1 S2 regular rate and rhythm , ABDOMEN: Soft , no tenderness EXTREMITIES: Left elbow upper arm swelling slightly decreased still operator helper to touch - Labs CBC & Chem 7: 09/09/24 04:40 09/09/24 04:40 Labs: Abnormal Lab Results - Last 24 Hours (Table) 09/08/24 09/08/24 09/09/24 Range/Units 17:09 20:24 04:40 RBC 2.54 L (4.30-5.90) m/uL Hgb 8.3 L D (13.0-17.5) gm/dL Hct 25.3 L (39.0-53.0) % Sodium (137-145) mmol/L Carbon Dioxide (22-30) mmol/L BUN (9-20) mg/dL Creatinine (0.66-1.25) mg/dL Glucose (74-99) mg/dL POC Glucose (mg/dL) 229 H 232 H (70-110) mg/dL 09/09/24 Range/Units 04:40 RBC (4.30-5.90) m/uL Hgb (13.0-17.5) gm/dL Hct (39.0-53.0) % Sodium 130 L (137-145) mmol/L Carbon Dioxide 21 L (22-30) mmol/L BUN 66 H (9-20) mg/dL Creatinine 3.23 H (0.66-1.25) mg/dL Glucose 122 H (74-99) mg/dL POC Glucose (mg/dL) (70-110) mg/dL Assessment and Plan (1) Olecranon bursitis, left elbow Current Visit: Yes Status: Acute Code(s): M70.22 - OLECRANON BURSITIS, LEFT ELBOW SNOMED Code(s): 230918846160361 (2) Failure of outpatient treatment Current Visit: Yes Status: Acute Code(s): Z78.9 - OTHER SPECIFIED HEALTH STATUS SNOMED Code(s): 769956270 (3) Cellulitis of left elbow Current Visit: Yes Status: Acute Code(s): L03.114 - CELLULITIS OF LEFT UPPER LIMB SNOMED Code(s): 71594092388492475 Plan: 1patient is in the hospital with a left elbow upper arm pain swelling and redness in this patient has been diagnosed with a cellulitis failing outpatient oral Keflex therapy patient did have a case of left elbow olecranon bursitis likely septic because of associated cellulitis and the patient failing outpati ent oral Keflex, high clinical suspicious for possible community associated MRSA 2-patient has been evaluated by Ortho recommending continue medical treatment 3-patient did have clinical improvement to the left elbow cellulitis with daptomycin, we will consider 10-day course of oral doxycycline on discharge and close outpatient follow-up Dictation was produced using [employer] software. please excuse any grammatical, word or spelling errors.
--- NOTE | 2024-09-09 17:17 | P.PN ---
Progress Note - Text Progress Note Date: 09/09/24 Chief Complaint: Left elbow swelling pain This is a pleasant 89-year-old patient who follows with Dr. Larson. Chronic stable medical conditions include diabetes, hypertension, hyperlipidemia, BPH. Patient presents with 1 week of progressive swelling around the left elbow and the left forearm. He does not remember any active trauma. Also his forearm and hands are a bit swollen. Some limitation of movement of the left elbow. Does not remember any injury. Otherwise patient is fairly active. He is also having some trouble making a full fist. Some pain is present. Ultrasound in the ER was negative for any DVT. Orthopedics consulted. September 06: Left elbow cellulitis with possible bursitis. On IV daptomycin. Harshal wrap ordered by ID. Some improvement. Family is visiting. Will have the patient sit up on a chair. September 07: Some improvement in swelling redness pain in the left arm. Family visiting. Told patient to increase movements in the first wrist and the elbow. Keep left arm elevated. Spoke to the nurse to again wrap up the arm. Anti biotics to continue. No surgical intervention per surgery. Eating fair. September 08: Left arm pain swelling redness continues to improve. Patient rather weak. Seen by PT OT. Subacute rehab pending. Social work involved. Pending authorization. On IV daptomycin. Eating fair. September 09: Left arm symptoms continue improve slowly. On IV daptomycin. Patient is to be switched over to doxycycline twice daily will complete 10 days on the same per ID. Oral intake fair. Some fluctuation of blood pressure. Spoke to disease case manager Aysha, pending authorization for rehab Active Medications Acetaminophen (Acetaminophen Tab 325 Mg Tab) 650 mg PO Q6HR PRN PRN Reason: Mild Pain or Fever > 100.5 Clonidine (Clonidine Hcl 0.2 Mg Tab) 0.2 mg PO BID [facility] Last Admin: 09/09/24 08:37 Dose: 0.2 mg Dextrose/Water (Dextrose 50% Syringe 50 Ml) 25 ml IVP PER PROTOCOL PRN; Protocol PRN Reason: Hypoglycemia Dextrose/Water (Dextrose 50% Syringe 50 Ml) 50 ml IVP PER PROTOCOL PRN; Protocol PRN Reason: Hypoglycemia Doxazosin Mesylate (Doxazosin 4 Mg Tab) 4 mg PO BID [facility] Last Admin: 09/09/24 08:37 Dose: 4 mg Doxycycline Monohydrate (Doxycycline 100 Mg Cap) 100 mg PO BID [facility]; Protocol Enoxaparin Sodium (Enoxaparin 30 Mg/0.3 Ml Syringe) 30 mg SQ DAILY [facility] Last Admin: 09/09/24 08:37 Dose: 30 mg Glimepiride (Glimepiride 1 Mg Tab) 1 mg PO BID [facility] Last Admin: 09/09/24 08:37 Dose: 1 mg Insulin Aspart (Insulin Aspart (Novolog) 100 Unit/Ml Vial) 0 unit SQ AC-TID [facility]; Protocol Last Admin: 09/09/24 12:37 Dose: Not Given Naloxone HCl (Naloxone 0.4 Mg/Ml 1 Ml Vial) 0.2 mg IV Q2M PRN PRN Reason: Opioid Reversal Pioglitazone HCl (Pioglitazone 30 Mg Tab) 30 mg PO DAILY [facility] Last Admin: 09/09/24 08:37 Dose: 30 mg Tramadol HCl (Tramadol 50 Mg Tab) 50 mg PO QID PRN PRN Reason: Analgesia Last Admin: 09/09/24 08:42 Dose: 50 mg Past medical history to include: Hypertension, BPH, diabetes, Social history: No smoking and alcohol. . Used to work in a machine shop Physical examination: VITAL SIGNS: 97.6, 63, 19, 121 x 66-manual, 98% room air GENERAL: BMI 23.3, resting bed, comfortable EYES: Pupils equal. Conjunctiva normal. HEENT: [Bruising around the chin and around the lips NECK: JVD not raised; masses not palpable. HEART: First and second heart sounds are normal; no edema. LUNGS: Respiratory rate normal; clear to auscultation. ABDOMEN: Soft, nontender, liver spleen not palpable, no masses palpable. PSYCH: Alert and oriented x3; mood and affect normal. MUSCULOSKELETAL:No Clubbing/cyanosis;muscles-grossly intact. OA. Swelling around the left elbow olecranon site. Swelling extends to the forearm. Not able to make a full fist. Some limitation of movement at the elbow joint. No swelling in the upper: Some improvement arm. Patient got a good radial pulse. Capillary refill. INVESTIGATIONS, reviewed in the clinical context: September 09: White count 8.2 hemoglobin 8.3 platelets 324 sodium 130 potassium 4.6 BUN 66 creatinine 3.23 September 06: White count 8.6 hemoglobin 8.2 potassium 4 BUN 52.3 creatinine 2.8 September 04, 2024: White count 8 hemoglobin 9.9 platelets 356 potassium 4.2. 55 creatinine 2.83 UA protein 3+ glucose 4+ Venous study Doppler left upper extremity: Negative for DVT or superficial venous thrombosis. Ultrasound kidney bladder: Right kidney 11.4 x 4.9 x 4.1 cm. Left kidney 8.9 x 4.2 x 4.1 cm. Right kidney echogenic. Left kidney appears smaller in size compared to the contralateral kidney with cortical thinning. Assessment plan: -Possible acute left olecranon bursitis, cellulitis. - swelling extends down the left forearm. Including the hand. Some limitation making a fist.: Some improvement Negative for superficial DVT in the left arm. Keep left arm elevated above the level of the heart. Orthopedics-no surgical intervention. ID following IV daptomycin-changed over to doxycycline. 100 mg twice daily for 10 days Harshal wrap -Essential hypertension: Stop lisinopril. Catapres to 0.2 mg twice daily -Diabetes mellitus type 2, uncontrolled with hyperglycemia, better Amaryl to 1 mg twice a day. Actos. 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 Seen by PT OT. For subacute rehab -Full code Changed to oral doxycycline. Pending rehab. Other medication to continue. Past Medical History Past Medical History: Diabetes Mellitus, Hyperlipidemia, Hypertension History of Any Multi-Drug Resistant Organisms: None Reported Past Surgical History: No Surgical Hx Reported Past Psychological History: No Psychological Hx Reported Smoking Status: Never smoker Past Alcohol Use History: None Reported Past Drug Use History: None Reported
[2024-09-09 17:33] LABS: Glucose,Whole Blood 47 mg/dL (70-110); Glucose,Whole Blood 49 mg/dL (70-110)
[2024-09-09 17:53] LABS: Glucose,Whole Blood 63 mg/dL (70-110)
[2024-09-09 18:26] LABS: Glucose,Whole Blood 97 mg/dL (70-110)
[2024-09-09 20:28] LABS: Glucose,Whole Blood 140 mg/dL (70-110)
[2024-09-10 07:12] LABS: Glucose,Whole Blood 140 mg/dL (70-110)
[2024-09-10] MEDS: DOXYCYCLINE 100 MG CAP PO SCH (08:46)
[2024-09-10 12:10] LABS: Glucose,Whole Blood 83 mg/dL (70-110)
--- NOTE | 2024-09-10 13:14 | P.DS ---
Providers Date of admission: 09/05/24 03:53 Expected date of discharge: 09/10/24 Attending physician: Lyle Chamberlain Consults: 09/05/24 03:51 Consult Physician Routine Consulting Provider: Ludivina Cisneros Consult Reason/Comments: cellulitis, failed outpatient tx Do you want consulting provider notified?: Yes, Notify in am 09/05/24 10:05 Consult Physician Routine Consulting Provider: Lora Guaman Consult Reason/Comments: left elbow Do you want consulting provider notified?: Yes Primary care physician: Isidoro Larson [facility] Course: Chief Complaint: Left elbow swelling pain This is a pleasant 89-year-old patient who follows with Dr. Larson. Chronic stable medical conditions include diabetes, hypertension, hyperlipidemia, BPH. Patient presents with 1 week of progressive swelling around the left elbow and the left forearm. He does not remember any active trauma. Also his forearm and hands are a bit swollen. Some limitation of movement of the left elbow. Does not remember any injury. Otherwise patient is fairly active. He is also having some trouble making a full fist. Some pain is present. Ultrasound in the ER was negative for any DVT. Orthopedics consulted. September 06: Left elbow cellulitis with possible bursitis. On IV daptomycin. Harshal wrap ordered by ID. Some improvement. Family is visiting. Will have the patient sit up on a chair. September 07: Some improvement in swelling redness pain in the left arm. Family visiting. Told patient to increase movements in the first wrist and the elbow. Keep left arm elevated. Spoke to the nurse to again wrap up the arm. Antibiotics to continue. No surgical intervention per surgery. Eating fair. September 08: Left arm pain swelling redness continues to improve. Patient rather weak. Seen by PT OT. Subacute rehab pending. Social work involved. Pending authorization. On IV daptomycin. Eating fair. September 09: Left arm symptoms continue improve slowly. On IV daptomycin. Patient is to be switched over to doxycycline twice daily will complete 10 days on the same per ID. Oral intake fair. Some fluctuation of blood pressure. Spoke to home health care case manager Aysha, pending authorization for rehab September 10: Continues to improve. Left arm symptoms are improving. Complete antibiotic as per ID. Accepted at rehab. Because of hypoglycemic sugars runnin g a bit low we will stop glimepiride Discussion and discharge planning more than 35 minutes Past medical history to include: Hypertension, BPH, diabetes, Social history: No smoking and alcohol. . Used to work in a machine shop Physical examination: VITAL SIGNS: 97.9, 70, 18, 146 x 67, 98% room air GENERAL: BMI 23.3, resting bed, comfortable EYES: Pupils equal. Conjunctiva normal. HEENT: [Bruising around the chin and around the lips NECK: JVD not raised; masses not palpable. HEART: First and second heart sounds are normal; no edema. LUNGS: Respiratory rate normal; clear to auscultation. ABDOMEN: Soft, nontender, liver spleen not palpable, no masses palpable. PSYCH: Alert and oriented x3; mood and affect normal. MUSCULOSKELETAL:No Clubbing/cyanosis;muscles-grossly intact. OA. Swelling around the left elbow olecranon site. Swelling extends to the forearm. Not able to make a full fist. Some limitation of movement at the elbow joint. No swelling in the upper: . good radial pulse. Capillary refill.: Improving INVESTIGATIONS, reviewed in the clinical context: September 09: White count 8.2 hemoglobin 8.3 platelets 324 sodium 130 potassium 4.6 BUN 66 creatinine 3.23 September 06: White count 8.6 hemoglobin 8.2 potassium 4 BUN 52.3 creatinine 2.8 September 04, 2024: White count 8 hemoglobin 9.9 platelets 356 potassium 4.2. 55 creatinine 2.83 UA protein 3+ glucose 4+ Venous study Doppler left upper extremity: Negative for DVT or superficial venous thrombosis. Ultrasound kidney bladder: Right kidney 11.4 x 4.9 x 4.1 cm. Left kidney 8.9 x 4.2 x 4.1 cm. Right kidney echogenic. Left kidney appears smaller in size compared to the contralateral kidney with cortical thinning. Assessment plan: -Possible acute left olecranon bursitis, cellulitis. - swelling extends down the left forearm. Including the hand. Some limitation making a fist.: Some improvement Negative for superficial DVT in the left arm. Keep left arm elevated above the level of the heart. Orthopedics-no surgical intervention. ID following IV daptomycin-changed over to doxycycline. 100 mg twice daily for 10 days Harshal wrap -Essential hypertension: Stop lisinopril. Catapres to 0.2 mg twice daily -Diabetes mellitus type 2, uncontrolled with hyperglycemia, better Amaryl discontinued. Actos. 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 Seen by PT OT. For subacute rehab -Full code Disposition: [facility], rehab Past Medical History Past Medical History: Diabetes Mellitus, Hyperlipidemia, Hypertension History of Any Multi-Drug Resistant Organisms: None Reported Past Surgical History: No Surgical Hx Reported Past Psychological History: No Psychological Hx Reported Smoking Status: Never smoker Past Alcohol Use History: None Reported Past Drug Use History: None Reported Plan - Discharge Summary Discharge Rx Participant: Yes New Discharge Prescriptions: New Acetaminophen Tab [Tylenol] 650 mg PO Q6HR PRN tab PRN Reason: Mild Pain Or Fever > 100.5 Doxycycline Hyclate 100 mg PO BID 10 Days #20 tab INSULIN ASPART (NovoLOG) [NovoLOG (formulary)] 0 unit SQ AC-TID each cloNIDine HCL [Catapres] 0.2 mg PO BID tab Continue Doxazosin [Cardura] 4 mg PO BID Pioglitazone [Actos] 30 mg PO DAILY Discontinued lisinopriL 40 mg PO DAILY Glimepiride [Amaryl] 1 mg PO DAILY Discharge Medication List Doxazosin [Cardura] 4 mg PO BID 03/28/23 [History] Pioglitazone [Actos] 30 mg PO DAILY 09/05/24 [History] Doxycycline Hyclate 100 mg PO BID 10 Days #20 tab 09/08/24 [Rx] Acetaminophen Tab [Tylenol] 650 mg PO Q6HR PRN tab 09/10/24 [Rx] INSULIN ASPART (NovoLOG) [NovoLOG (formulary)] 0 unit SQ AC-TID each 09/10/24 [Rx] cloNIDine HCL [Catapres] 0.2 mg PO BID tab 09/10/24 [Rx] Follow up Appointment(s)/Referral(s): Isidoro Larson MD [Primary Care Provider] - 1-2 days
[2024-09-10 13:58] VITALS: BP 133/62; PULSE 64; RESP 16; TEMP 98.4
[2024-09-10 17:08] LABS: Glucose,Whole Blood 77 mg/dL (70-110)
--- NOTE | 2024-09-11 11:55 | P.PN ---
Subjective Progress Note Date: 09/10/24 Principal diagnosis: Reason for follow-up is left elbow olecranon bursitis and cellulitis Patient is a 89-year-old male with a past medical history significant for diabetes mellitus hypertension hyperlipidemia in this patient presenting to the hospital for evaluation of left arm pain and swelling that apparently has been treated for about 2 weeks patient has been diagnosed with a cellulitis of the elbow area by his PCP and the patient has been given course of oral Keflex without any improvement patient has been diagnosed with left elbow BURSITIS. On today's evaluation that is 09/10/2024,the patient denies any fever or any chills, patient is breathing comfortably on room air, the patient denies chest pain shortness of breath and no significant cough, patient denies abdominal pain, no nausea vomiting or diarrhea. Pain to the left elbow and has decreased in intensity. No new lab has been obtained today blood culture has been negative Objective - Vital Signs Vital signs: Vital Signs Temp 97.9 F 09/10/24 07:36 Pulse 70 09/10/24 07:36 Resp 18 09/10/24 07:36 BP 146/67 09/10/24 07:36 Pulse Ox 98 09/10/24 07:36 FiO2 Intake & Output 09/09/24 09/10/24 09/10/24 18:59 06:59 18:59 Intake Total 860 Output Total 541 1100 Balance -541 -240 Intake: Oral 860 Output: Urine 540 1100 Stool 1 Other: Voiding Method External Catheter External Catheter - Exam GENERAL DESCRIPTION: An elderly male lying in bed in no distress RESPIRATORY SYSTEM: Unlabored breathing , decreased breath sounds at bases HEART: S1 S2 regular rate and rhythm , ABDOMEN: Soft , no tenderness EXTREMITIES: Left elbow upper arm swelling slightly decreased skip tender to touch - Labs CBC & Chem 7: 09/09/24 04:40 09/09/24 04:40 Labs: Abnormal Lab Results - Last 24 Hours (Table) 09/09/24 09/09/24 09/09/24 Range/Units 17:31 17:31 17:52 POC Glucose (mg/dL) 49 L* 47 L* 63 L (70-110) mg/dL 09/09/24 09/10/24 Range/Units 20:27 07:11 POC Glucose (mg/dL) 140 H 140 H (70-110) mg/dL Microbiology - Last 24 Hours (Table) 09/04/24 20:56 Blood Culture - Final Blood Assessment and Plan (1) Olecranon bursitis, left elbow Status: Acute Code(s): M70.22 - OLECRANON BURSITIS, LEFT ELBOW SNOMED Code(s): 467879819759976 (2) Failure of outpatient treatment Status: Acute Code(s): Z78.9 - OTHER SPECIFIED HEALTH STATUS SNOMED Code(s): 148394117 (3) Cellulitis of left elbow Status: Acute Code(s): L03.114 - CELLULITIS OF LEFT UPPER LIMB SNOMED Code(s): 82940744330159254 Plan: 1patient is in the hospital with a left elbow upper arm pain swelling and redness in this patient has been diagnosed with a cellulitis failing outpatient oral Keflex therapy patient did have a case of left elbow olecranon bursitis likely septic because of associated cellulitis and the patient failing outpatient oral Keflex, high clinical suspicious for possible community associated MRSA 2-patient did have clinical improvement to the left elbow cellulitis, has been switched to oral doxycycline to continue for about 7 to 10 days on discharge Dictation was produced using [employer] dictation software. please excuse any grammatical, word or spelling errors. Time with Patient: Less than 30
--- NOTE | 2024-09-11 12:59 | CDI ---
Documentation Clarification Form Date: 09/11/2024 12:46:07 PM From: Vidya Egan Phone: Admit Date: 09/05/2024 03:53:00 AM Patient Name: Robert Becerra Visit Number: [id number] Discharge Date: 09/10/2024 06:22:00 PM ATTENTION: The Clinical Documentation Specialists (CDI) and [facility] Coding Staff appreciate your assistance in clarifying documentation. Please respond to the clarification below the line at the bottom and electronically sign. The CDI & [facility] Coding staff will review the response and follow-up if needed. Please note: Queries are made part of the Legal Health Record. If you have any questions, please contact the author of this message via ITS. Doctor/Provider: Lyle Chamberlain There is documentation of Left elbow cellulitisin DS and pt have diabetes Mellitus 2. Additional clarification is requested. History/Risk Factors: This is a pleasant 89-year-old patient who follows withDr. Larson.Chronic stable medical conditions includediabetes,hypertension,hyperlipidemia,BPH. Patient presents with 1 week of progressiveswellingaround the left elbow and the left forearm. Hedoes notremember any activetrauma Clinical Indicators: H/P 09/05Diabetes mellitus type 2, uncontrolled withhyperglycemiaIncrease Amaryl to 1 mg twice a day. ON 09/05 ID Consult -Patient is in the hospital with a left elbow upperarm painswellingand redness in this patient has been diagnosed with acellulitisfailing outpatient oral Keflextherapypatient did have a case of left elbowolecranon bursitis likelysepticbecause of associatedcellulitisand the patient failing outpatient oral Keflex, high clinical suspicious forpossiblecommunity associated MRSA PN 09/08 -Diabetes mellitus type 2, uncontrolled withhyperglycemiaAmaryl to 1 mg twice a day. On 09/11 pn -Continues to improve. Left arm symptoms are improving. Complete antibiotic as per ID. Accepted at rehab. Because ofhypoglycemicsugars running g a bit low we will stop glimepiride Discussion and discharge planning more than 35 minutes Treatment: Antibiotics, On IV daptamycin. Can you please clarify If Cellulitis of left elbow is DM 2 skin complication ? [ ] Yes , Cellulitis of left elbow is DM 2 skin complication [ ] No , Cellulitis of left elbow is not DM 2 skin complication [ ] Other, please specify [ + ] Unable to determine (Template Last Revised: November 2020) MTDD
--- NOTE | 2024-09-11 13:06 | CDI ---
Documentation Clarification Form Date: 09/11/2024 12:46:07 PM From: Vidya Egan Phone: Admit Date: 09/05/2024 03:53:00 AM Patient Name: Robert Becerra Visit Number: [id number] Discharge Date: 09/10/2024 06:22:00 PM ATTENTION: The Clinical Documentation Specialists (CDI) and [facility] Coding Staff appreciate your assistance in clarifying documentation. Please respond to the clarification below the line at the bottom and electronically sign. The CDI & [facility] Coding staff will review the response and follow-up if needed. Please note: Queries are made part of the Legal Health Record. If you have any questions, please contact the author of this message via ITS. Doctor/Provider: Lyle Chamberlain There is documentation of Left elbow cellulitisin DS and pt have diabetes Mellitus 2. Additional clarification is requested. History/Risk Factors: This is a pleasant 89-year-old patient who follows withDr. Larson.Chronic stable medical conditions includediabetes,hypertension,hyperlipidemia,BPH. Patient presents with 1 week of progressiveswellingaround the left elbow and the left forearm. Hedoes notremember any activetrauma Clinical Indicators: H/P 09/05Diabetes mellitus type 2, uncontrolled withhyperglycemiaIncrease Amaryl to 1 mg twice a day. ON 09/05 ID Consult -Patient is in the hospital with a left elbow upperarm painswellingand redness in this patient has been diagnosed with acellulitisfailing outpatient oral Keflextherapypatient did have a case of left elbowolecranon bursitis likelysepticbecause of associatedcellulitisand the patient failing outpatient oral Keflex, high clinical suspicious forpossiblecommunity associated MRSA PN 09/08 -Diabetes mellitus type 2, uncontrolled withhyperglycemiaAmaryl to 1 mg twice a day. On 09/11 pn -Continues to improve. Left arm symptoms are improving. Complete antibiotic as per ID. Accepted at rehab. Because ofhypoglycemicsugars running g a bit low we will stop glimepiride Discussion and discharge planning more than 35 minutes Treatment: Antibiotics, On IV daptamycin. Can you please clarify If Cellulitis of left elbow is DM 2 skin complication ? [ ] Yes , Cellulitis of left elbow is DM 2 skin complication [ ] No , Cellulitis of left elbow is not DM 2 skin complication [ ] Other, please specify [ + ] Unable to determine (Template Last Revised: November 2020) MTDD
== END 2024-09-10 18:22 | DRG 558 ==
LOC: EC 19:57 → 5NMEDONC 09-05 03:52 → OBSVTOIN 09-05 03:53 → 5NMEDONC 09-05 06:30
PROVIDERS: ADMIT Hospitalist; ATTEND Hospitalist
DX: M70.22 Olecranon bursitis, left elbow (principal); L03.114 Cellulitis of left upper limb; N18.4 Chronic kidney disease, stage 4 (severe); N17.9 Acute kidney failure, unspecified; E11.649 Type 2 diabetes mellitus with hypoglycemia without coma; N40.0 Benign prostatic hyperplasia without lower urinary tract symptoms; E78.5 Hyperlipidemia, unspecified; E11.65 Type 2 diabetes mellitus with hyperglycemia; M19.91 Primary osteoarthritis, unspecified site; E11.22 Type 2 diabetes mellitus with diabetic chronic kidney disease; I12.9 Hypertensive chronic kidney disease with stage 1 through stage 4 chronic kidney disease, or unspecified chronic kidney disease; D63.1 Anemia in chronic kidney disease; R53.81 Other malaise; E86.0 Dehydration; G72.9 Myopathy, unspecified; Z79.84 Long term (current) use of oral hypoglycemic drugs; Z79.899 Other long term (current) drug therapy
CPT/HCPCS: 36415; 76770; 80048; 80053; 81001; 82009; 83605; 84145; 85025; 86140; 87040; 96361; 96374; 99284

== ENCOUNTER 2024-11-24 14:48 | Inpatient (IN) | payer MEDICARE ==
[2024-11-24 15:00] LABS: Glucose,Whole Blood 111 mg/dL (70-110)
[2024-11-24] MEDS: SODIUM CHLORIDE 0.9% 1,000 ML IV ONE (15:03)
[2024-11-24 15:14] LABS: VBG PH 7.38 (7.31-7.41)
--- NOTE | 2024-11-24 15:15 | ED ---
General Adult HPI - General Chief complaint: Neuro Symptoms/Deficit Stated complaint: Unresponsive Time Seen by Provider: 11/24/24 14:50 Source: patient, EMS, RN notes reviewed, old records reviewed Mode of arrival: EMS Limitations: no limitations - History of Present Illness Initial comments: This is an 89-year-old male who presents to the emergency department who is unable to give any history all of the history comes from EMS. According to the yesterday she had an episode with him where his sugar was low EMS came and gave him some sugar and he was fine last night he went to bed at 8:00 seemed normal and then today he never got a bed she just assumed he was sleeping but eventually called EMS and his sugar was 40 upon arrival they did give him D50 and he did respond a little by opening his eyes which was more movement than he had been given but he does not follow any commands and does not orient to your voice. According to EMS his heart rate was about 120s and his blood pressure was mildly elevated - Related Data Home Medications Medication Instructions Recorded Confirmed Doxazosin [Cardura] 4 mg PO BID 03/28/23 11/24/24 Pioglitazone [Actos] 30 mg PO DAILY 09/05/24 11/24/24 Glimepiride [Amaryl] 1 mg PO DAILY 11/24/24 11/24/24 lisinopriL 40 mg PO DAILY 11/24/24 11/24/24 Allergies Allergy/AdvReac Type Severity Reaction Status Date / Time No Known Allergies Allergy Verified 11/24/24 16:51 Review of Systems ROS Statement: Those systems with pertinent positive or pertinent negative responses have been documented in the HPI. ROS Other: All systems not noted in ROS Statement are negative. Past Medical History Past Medical History: Diabetes Mellitus, Hyperlipidemia, Hypertension History of Any Multi-Drug Resistant Organisms: None Reported Past Surgical History: No Surgical Hx Reported Additional Past Anesthesia/Blood Transfusion Reaction / Comment(s): Dorota lehman-"would not allow blood transfusion" Past Psychological History: No Psychological Hx Reported Smoking Status: Never smoker Past Alcohol Use History: None Reported Past Drug Use History: None Reported - Past Family History Father Family Medical History: Myocardial Infarction ([place]) Mother Family Medical History: No Reported History, Unable to Obtain Additional Family Medical History / Comment(s): unknown General Exam - General Exam Comments Initial Comments: GENERAL: Patient is well-developed and well-nourished. Patient is nontoxic and well- hydrated and is unresponsive and does not appear to be in any duress ENT: Neck is soft and supple. No significant lymphadenopathy is noted. Oropharynx is clear. Moist mucous membranes. Neck has full range of motion without eliciting any pain. EYES: The sclera were anicteric and conjunctiva were pink and moist. Extraocular movements were intact and pupils were equal round and reactive to light. Eyelids were unremarkable. PULMONARY: Unlabored respirations. Good breath sounds bilaterally. No audible rales rhonchi or wheezing was noted. CARDIOVASCULAR: The patient is tachycardic at 120 beats a minute ABDOMEN: Soft and nontender with normal bowel sounds. SKIN: Skin is clear with no lesions or rashes and otherwise unremarkable. NEUROLOGIC: Patient is unresponsive though he does occasionally spontaneously open his eyes and moves his upper extremities spontaneously. Cranial nerves II through XII are grossly intact. Motor and sensory are also intact. Normal speech, volume and content. Symmetrical smile. MUSCULOSKELETAL: Normal extremities with adequate strength and full range of motion. LYMPHATICS: No significant lymphadenopathy is noted PSYCHIATRIC: Unable to assess Limitations: no limitations Course Vital Signs 11/24/24 11/24/24 11/24/24 14:50 16:01 16:52 Temperature 96.8 F L Pulse Rate 120 H 110 H 112 H Respiratory 24 22 18 Rate Blood Pressure 139/113 130/100 152/90 O2 Sat by Pulse 96 97 99 Oximetry Medical Decision Making - Medical Decision Making EKG is interpreted by myself EKG shows sinus rhythm at 123 bpm with multiple PVCs QRS is 93 QT interval is 291 QTc is 364 WA interval is 120 Was pt. sent in by a medical professional or institution (, PA, CRAS, urgent care, hospital, or [facility]...) When possible be specific @ -No Did you speak to anyone other than the patient for history (EMS, parent, family, police, friend...)? What history was obtained from this source @ -No Did you review nursing and triage notes (agree or disagree)? Why? @ -I reviewed and agree with nursing and triage notes Were old charts reviewed (outside hosp., previous admission, EMS record, old EKG, old radiological studies, urgent care reports/EKG's, [facility] records)? Report findings @ -No old charts were reviewed Differential Diagnosis? @ -Differential Altered Mental Status: Hypoglycemia, DKA, hypercapnia, ETOH, overdose, CO poisoning, trauma, myxedema coma, HTN encephalopathy, infection, encephalitis, psychosis, intercranial hemorrhage, hepatic encephalopathy, meningitis, CVA, this is not meant to be an all-inclusive list EKG interpreted by me (3pts min.). @ -As above X-rays interpreted by me (1pt min.). @ -Patient has pleural effusion and some vascular congestion CT interpreted by me (1pt min.). @ -CT of the brain shows no acute abnormality U/S interpreted by me (1pt. min.). @ -None done What testing was considered but not performed or refused? (CT, X-rays, U/S, labs)? Why? @ -None What meds were considered but not given or refused? Why? @ -None Did you discuss the management of the patient with other professionals (professionals i.e. , PA, CRAS, lab, RT, psych nurse, case management social worker, electronic musical instrument repairer, teacher, aircraft electronics technical officer, case reviewer)? Give summary @ -I spoke to EMS and they agreed admit the patient admit the patient wrote admitting her Was smoking cessation discussed for >3mins.? @ -No Was critical care preformed (if so, how long)? @ -No Were there social determinants of health that impacted care today? How? (Homelessness, low income, unemployed, alcoholism, drug addiction, transportation, low edu. Level, literacy, decrease access to med. care, care home, rehab)? @ -No Was there de-escalation of care discussed even if they declined (Discuss DNR or withdrawal of care, Hospice)? DNR status @ -No What co-morbidities impacted this encounter? (DM, HTN, Smoking, COPD, CAD, Cancer, CVA, ARF, Chemo, Hep., AIDS, mental health diagnosis, sleep apnea, morb id obesity)? @ -None Was patient admitted / discharged? Hospital course, mention meds given and rout e, prescriptions, significant lab abnormalities, going to OR and other pertinent info. @ -Patient was slightly more arousable when you call his name he would open his eyes and look at you however he would not follow any commands. Patient's lab work was essentially normal as well as a CT scan and chest x-ray opponent was mildly elevated and will be repeated Undiagnosed new problem with uncertain prognosis? @ -No Drug Therapy requiring intensive monitoring for toxicity (Heparin, Nitro, Insulin, Cardizem)? @ -No Were any procedures done? @ -No Diagnosis/symptom? @ -Altered mental status Acute, or Chronic, or Acute on Chronic? @ -Acute Uncomplicated (without systemic symptoms) or Complicated (systemic symptoms)? @ -Counseled Side effects of treatment? @ -No Exacerbation, Progression, or Severe Exacerbation? @ -No Poses a threat to life or bodily function? How? (Chest pain, [place], [place], pneumonia, PE, COPD, DKA, ARF, appy, cholecystitis, CVA, Diverticulitis, Homicidal, Suicidal, threat to staff... and all critical care pts) @ -Yes patient has not improved and this could be life-threatening because we at this time do not know the cause of the altered mental status Diagnosis/symptom? @ -Hypoglycemia Acute, or Chronic, or Acute on Chronic? @ -Acute Uncomplicated (without systemic symptoms) or Complicated (systemic symptoms)? @ -Complicated Side effects of treatment? @ -None Exacerbation, Progression, or Severe Exacerbation] @ -No Poses a threat to life or bodily function? @ -No Diagnosis/symptom? @ -Pulmonary edema with pleural effusion Acute, or Chronic, or Acute on Chronic? @ -Acute Uncomplicated (without systemic symptoms) or Complicated (systemic symptoms)? @ -Complicated Side effects of treatment? @ -[none] Exacerbation, Progression, or Severe Exacerbation] @ -[no] Poses a threat to life or bodily function? @ -Yes this can lead to hypoxia and endorgan dysfunction - Lab Data Result diagrams: 11/24/24 14:59 11/24/24 14:59 Lab Results 11/24/24 11/24/24 11/24/24 Range/Units 14:51 14:59 14:59 WBC 8.7 (3.8-10.6) k/uL RBC 3.45 L (4.30-5.90) m/uL Hgb 10.4 L (13.0-17.5) gm/dL Hct 34.4 L (39.0-53.0) % MCV 99.7 (80.0-100.0) fL MCH 30.2 (25.0-35.0) pg MCHC 30.3 L (31.0-37.0) g/dL RDW 16.0 H (11.5-15.5) % Plt Count 252 (150-450) k/uL MPV 8.0 Neutrophils % 89 % Lymphocytes % 6 % Monocytes % 4 % Eosinophils % 0 % Basophils % 0 % Neutrophils # 7.8 H (1.3-7.7) k/uL Lymphocytes # 0.5 L (1.0-4.8) k/uL Monocytes # 0.3 (0-1.0) k/uL Eosinophils # 0.0 (0-0.7) k/uL Basophils # 0.0 (0-0.2) k/uL Hypochromasia Slight Anisocytosis Slight Macrocytosis Slight PT 10.9 (10.0-12.5) sec INR 1.0 (<1.2) APTT 23.7 (22.0-30.0) sec VBG pH (7.31-7.41) VBG pCO2 (37-51) mmHg VBG HCO3 (24-28) mmol/L Sodium (137-145) mmol/L Potassium (3.5-5.1) mmol/L Chloride (98-107) mmol/L Carbon Dioxide (22-30) mmol/L Anion Gap mmol/L BUN (9-20) mg/dL Creatinine (0.66-1.25) mg/dL Est GFR (CKD-EPI)AfAm (>60 ml/min/1.73 sqM) Est GFR (CKD-EPI)NonAf (>60 ml/min/1.73 sqM) Glucose (74-99) mg/dL POC Glucose (mg/dL) 111 H (70-110) mg/dL POC Glu Electrical Parts Reconditioner ID Luly Alford Plasma Lactic Acid Hardy (0.7-2.0) mmol/L Calcium (8.4-10.2) mg/dL Magnesium (1.6-2.3) mg/dL Total Bilirubin (0.2-1.3) mg/dL AST (17-59) U/L ALT (4-49) U/L Alkaline Phosphatase (38-126) U/L Troponin I (0.000-0.034) ng/mL Total Protein (6.3-8.2) g/dL Albumin (3.5-5.0) g/dL Urine Color Urine Appearance (Clear) Urine pH (5.0-8.0) Ur Specific [place] (1.001-1.035) Urine Protein (Negative) Urine Glucose (UA) (Negative) Urine Ketones (Negative) Urine Blood (Negative) Urine Nitrite (Negative) Urine Bilirubin (Negative) Urine Urobilinogen (<2.0) mg/dL Ur Leukocyte Esterase (Negative) Urine RBC (0-5) /hpf Urine WBC (0-5) /hpf Urine Mucus (None) /hpf Urine Opiates Screen (NotDetected) Ur Oxycodone Screen (NotDetected) Urine Methadone Screen (NotDetected) Ur Barbiturates Screen (NotDetected) U Tricyclic Antidepress (NotDetected) Ur Phencyclidine Scrn (NotDetected) Ur Amphetamines Screen (NotDetected) U Methamphetamines Scrn (NotDetected) U Benzodiazepines Scrn (NotDetected) Urine Cocaine Screen (NotDetected) U Marijuana (THC) Screen (NotDetected) 11/24/24 11/24/24 11/24/24 Range/Units 14:59 14:59 14:59 WBC (3.8-10.6) k/uL RBC (4.30-5.90) m/uL Hgb (13.0-17.5) gm/dL Hct (39.0-53.0) % MCV (80.0-100.0) fL MCH (25.0-35.0) pg MCHC (31.0-37.0) g/dL RDW (11.5-15.5) % Plt Count (150-450) k/uL MPV Neutrophils % % Lymphocytes % % Monocytes % % Eosinophils % % Basophils % % Neutrophils # (1.3-7.7) k/uL Lymphocytes # (1.0-4.8) k/uL Monocytes # (0-1.0) k/uL Eosinophils # (0-0.7) k/uL Basophils # (0-0.2) k/uL Hypochromasia Anisocytosis Macrocytosis PT (10.0-12.5) sec INR (<1.2) APTT (22.0-30.0) sec VBG pH (7.31-7.41) VBG pCO2 (37-51) mmHg VBG HCO3 (24-28) mmol/L Sodium 133 L (137-145) mmol/L Potassium 4.4 (3.5-5.1) mmol/L Chloride 100 (98-107) mmol/L Carbon Dioxide 24 (22-30) mmol/L Anion Gap 9 mmol/L BUN 25 H (9-20) mg/dL Creatinine 2.63 H (0.66-1.25) mg/dL Est GFR (CKD-EPI)AfAm 24 (>60 ml/min/1.73 sqM) Est GFR (CKD-EPI)NonAf 21 (>60 ml/min/1.73 sqM) Glucose 112 H (74-99) mg/dL POC Glucose (mg/dL) (70-110) mg/dL POC Glu Electrical Parts Reconditioner ID Plasma Lactic Acid Hardy 3.7 H* (0.7-2.0) mmol/L Calcium 8.8 (8.4-10.2) mg/dL Magnesium 2.0 (1.6-2.3) mg/dL Total Bilirubin 0.6 (0.2-1.3) mg/dL AST 30 (17-59) U/L ALT 16 (4-49) U/L Alkaline Phosphatase 85 (38-126) U/L Troponin I 0.070 H* (0.000-0.034) ng/mL Total Protein 6.0 L (6.3-8.2) g/dL Albumin 3.2 L (3.5-5.0) g/dL Urine Color Urine Appearance (Clear) Urine pH (5.0-8.0) Ur Specific [place] (1.001-1.035) Urine Protein (Negative) Urine Glucose (UA) (Negative) Urine Ketones (Negative) Urine Blood (Negative) Urine Nitrite (Negative) Urine Bilirubin (Negative) Urine Urobilinogen (<2.0) mg/dL Ur Leukocyte Esterase (Negative) Urine RBC (0-5) /hpf Urine WBC (0-5) /hpf Urine Mucus (None) /hpf Urine Opiates Screen (NotDetected) Ur Oxycodone Screen (NotDetected) Urine Methadone Screen (NotDetected) Ur Barbiturates Screen (NotDetected) U Tricyclic Antidepress (NotDetected) Ur Phencyclidine Scrn (NotDetected) Ur Amphetamines Screen (NotDetected) U Methamphetamines Scrn (NotDetected) U Benzodiazepines Scrn (NotDetected) Urine Cocaine Screen (NotDetected) U Marijuana (THC) Screen (NotDetected) 11/24/24 11/24/24 11/24/24 Range/Units 14:59 15:37 15:59 WBC (3.8-10.6) k/uL RBC (4.30-5.90) m/uL Hgb (13.0-17.5) gm/dL Hct (39.0-53.0) % MCV (80.0-100.0) fL MCH (25.0-35.0) pg MCHC (31.0-37.0) g/dL RDW (11.5-15.5) % Plt Count (150-450) k/uL MPV Neutrophils % % Lymphocytes % % Monocytes % % Eosinophils % % Basophils % % Neutrophils # (1.3-7.7) k/uL Lymphocytes # (1.0-4.8) k/uL Monocytes # (0-1.0) k/uL Eosinophils # (0-0.7) k/uL Basophils # (0-0.2) k/uL Hypochromasia Anisocytosis Macrocytosis PT (10.0-12.5) sec INR (<1.2) APTT (22.0-30.0) sec VBG pH 7.38 (7.31-7.41) VBG pCO2 35 L (37-51) mmHg VBG HCO3 21 L (24-28) mmol/L Sodium (137-145) mmol/L Potassium (3.5-5.1) mmol/L Chloride (98-107) mmol/L Carbon Dioxide (22-30) mmol/L Anion Gap mmol/L BUN (9-20) mg/dL Creatinine (0.66-1.25) mg/dL Est GFR (CKD-EPI)AfAm (>60 ml/min/1.73 sqM) Est GFR (CKD-EPI)NonAf (>60 ml/min/1.73 sqM) Glucose (74-99) mg/dL POC Glucose (mg/dL) 106 (70-110) mg/dL POC Glu Electrical Parts Reconditioner ID Luly Alford Plasma Lactic Acid Hardy (0.7-2.0) mmol/L Calcium (8.4-10.2) mg/dL Magnesium (1.6-2.3) mg/dL Total Bilirubin (0.2-1.3) mg/dL AST (17-59) U/L ALT (4-49) U/L Alkaline Phosphatase (38-126) U/L Troponin I (0.000-0.034) ng/mL Total Protein (6.3-8.2) g/dL Albumin (3.5-5.0) g/dL Urine Color Yellow Urine Appearance Clear (Clear) Urine pH 6.0 (5.0-8.0) Ur Specific [place] 1.016 (1.001-1.035) Urine Protein 3+ H (Negative) Urine Glucose (UA) 1+ H (Negative) Urine Ketones Negative (Negative) Urine Blood Moderate H (Negative) Urine Nitrite Negative (Negative) Urine Bilirubin Negative (Negative) Urine Urobilinogen <2.0 (<2.0) mg/dL Ur Leukocyte Esterase Negative (Negative) Urine RBC 13 H (0-5) /hpf Urine WBC 3 (0-5) /hpf Urine Mucus Rare H (None) /hpf Urine Opiates Screen Not Detected (NotDetected) Ur Oxycodone Screen Not Detected (NotDetected) Urine Methadone Screen Not Detected (NotDetected) Ur Barbiturates Screen Not Detected (NotDetected) U Tricyclic Antidepress Not Detected (NotDetected) Ur Phencyclidine Scrn Not Detected (NotDetected) Ur Amphetamines Screen Not Detected (NotDetected) U Methamphetamines Scrn Not Detected (NotDetected) U Benzodiazepines Scrn Not Detected (NotDetected) Urine Cocaine Screen Not Detected (NotDetected) U Marijuana (THC) Screen Not Detected (NotDetected) 11/24/24 Range/Units 17:19 WBC (3.8-10.6) k/uL RBC (4.30-5.90) m/uL Hgb (13.0-17.5) gm/dL Hct (39.0-53.0) % MCV (80.0-100.0) fL MCH (25.0-35.0) pg MCHC (31.0-37.0) g/dL RDW (11.5-15.5) % Plt Count (150-450) k/uL MPV Neutrophils % % Lymphocytes % % Monocytes % % Eosinophils % % Basophils % % Neutrophils # (1.3-7.7) k/uL Lymphocytes # (1.0-4.8) k/uL Monocytes # (0-1.0) k/uL Eosinophils # (0-0.7) k/uL Basophils # (0-0.2) k/uL Hypochromasia Anisocytosis Macrocytosis PT (10.0-12.5) sec INR (<1.2) APTT (22.0-30.0) sec VBG pH (7.31-7.41) VBG pCO2 (37-51) mmHg VBG HCO3 (24-28) mmol/L Sodium (137-145) mmol/L Potassium (3.5-5.1) mmol/L Chloride (98-107) mmol/L Carbon Dioxide (22-30) mmol/L Anion Gap mmol/L BUN (9-20) mg/dL Creatinine (0.66-1.25) mg/dL Est GFR (CKD-EPI)AfAm (>60 ml/min/1.73 sqM) Est GFR (CKD-EPI)NonAf (>60 ml/min/1.73 sqM) Glucose (74-99) mg/dL POC Glucose (mg/dL) 75 (70-110) mg/dL POC Glu Electrical Parts Reconditioner ID Chelsie Barajas Plasma Lactic Acid Hardy (0.7-2.0) mmol/L Calcium (8.4-10.2) mg/dL Magnesium (1.6-2.3) mg/dL Total Bilirubin (0.2-1.3) mg/dL AST (17-59) U/L ALT (4-49) U/L Alkaline Phosphatase (38-126) U/L Troponin I (0.000-0.034) ng/mL Total Protein (6.3-8.2) g/dL Albumin (3.5-5.0) g/dL Urine Color Urine Appearance (Clear) Urine pH (5.0-8.0) Ur Specific [place] (1.001-1.035) Urine Protein (Negative) Urine Glucose (UA) (Negative) Urine Ketones (Negative) Urine Blood (Negative) Urine Nitrite (Negative) Urine Bilirubin (Negative) Urine Urobilinogen (<2.0) mg/dL Ur Leukocyte Esterase (Negative) Urine RBC (0-5) /hpf Urine WBC (0-5) /hpf Urine Mucus (None) /hpf Urine Opiates Screen (NotDetected) Ur Oxycodone Screen (NotDetected) Urine Methadone Screen (NotDetected) Ur Barbiturates Screen (NotDetected) U Tricyclic Antidepress (NotDetected) Ur Phencyclidine Scrn (NotDetected) Ur Amphetamines Screen (NotDetected) U Methamphetamines Scrn (NotDetected) U Benzodiazepines Scrn (NotDetected) Urine Cocaine Screen (NotDetected) U Marijuana (THC) Screen (NotDetected) Disposition Clinical Impression: Altered mental status, Hypoglycemia, Elevated troponin, Pleural effusion, Pulmonary edema Disposition: ADMITTED IP TO THIS HOSP Referrals: Isidoro Larson MD [Primary Care Provider] - 1-2 days Time of Disposition: 17:10
[2024-11-24 15:18] LABS: Anisocytosis Slight; Basophils % (A) 0 %; Eosinophils % (A) 0 %; HCT 34.4 % (39.0-53.0); HGB 10.4 gm/dL (13.0-17.5); Hypochromasia Slight; Lymphocytes # (A) 0.5 k/uL (1.0-4.8); Lymphocytes % (A) 6 %; MCH 30.2 pg (25.0-35.0); MCHC 30.3 g/dL (31.0-37.0); MCV 99.7 fL (80.0-100.0); Macrocytosis Slight; Monocytes # (A) 0.3 k/uL (0-1.0); Monocytes % (A) 4 %; Neutrophils # (A) 7.8 k/uL (1.3-7.7); Neutrophils % (A) 89 %; Platelet Count 252 k/uL (150-450); RBC 3.45 m/uL (4.30-5.90); WBC 8.7 k/uL (3.8-10.6)
[2024-11-24 15:21] LABS: ALT 16 U/L (4-49); AST 30 U/L (17-59); African American GFR (CKD) 24 (>60 ml/min/1.73 sqM); Albumin 3.2 g/dL (3.5-5.0); Alkaline Phosphatase 85 U/L (38-126); Anion Gap 9 mmol/L; Blood Urea Nitrogen 25 mg/dL (9-20); Calcium 8.8 mg/dL (8.4-10.2); Carbon Dioxide 24 mmol/L (22-30); Chloride 100 mmol/L (98-107); Glucose 112 mg/dL (74-99); Non-African American GFR(CKD) 21 (>60 ml/min/1.73 sqM); Potassium 4.4 mmol/L (3.5-5.1); Sodium 133 mmol/L (137-145); Total Bilirubin 0.6 mg/dL (0.2-1.3)
[2024-11-24 15:23] LABS: Partial Thromboplastin Time 23.7 sec (22.0-30.0); Prothrombin Time 10.9 sec (10.0-12.5)
--- NOTE | 2024-11-24 15:38 | CT ---
EXAMINATION TYPE: CT brain wo con DATE OF EXAM: 11/24/2024 3:27 PM COMPARISON: 03/28/2023. CLINICAL INDICATION: Male, 89 years old with history of Altered mental status, Altered mental status TECHNIQUE: Brain: Axial CT images of the brain were obtained with coronal and sagittal reformats created and rev iewed. Contrast used: None. Oral contrast used: None. CT DLP: 1184.4 mGycm, Automated exposure control for dose reduction was used. FINDINGS: Brain: Extra-axial spaces: No abnormal extra-axial fluid collections. Ventricular system: Dilatation in proportion to cerebral atrophy. Cerebral parenchyma: Cerebral atrophy. No acute intraparenchymal hemorrhage or mass effect. The matos -white junction is well differentiated. Scattered hypoattenuating areas are seen within the white mat ter. Cerebellum: Unremarkable. Mass effect: No evidence of midline shift. Intracranial vasculature: Atherosclerotic calcifications of the intracranial vessels. Soft tissues: Normal. Calvarium/osseous structures: No depressed skull fracture. Paranasal sinuses and mastoid air cells: Mild scattered paranasal sinus disease. Visualized orbits: Orbital contents are intact. IMPRESSION: 1. No acute intracranial process. 2. Nonspecific white matter changes, likely secondary to chronic small vessel ischemic disease. [facility], , 11/24/2024 3:36 PM
[2024-11-24] MEDS: SODIUM CHLORIDE 0.9% 500 ML 500 ML IV ONE (15:57)
[2024-11-24 16:00] LABS: Appearance,Urine Clear (Clear); Bilirubin,Urine Negative (Negative); Blood,Urine Moderate (Negative); Color,Urine Yellow; Glucose,Urine (UA) 1+ (Negative); Ketones,Urine Negative (Negative); Leukocyte Esterase,Urine Negative (Negative); Mucus,Urine Rare /hpf; Nitrite,Urine Negative (Negative); Protein,Urine 3+ (Negative); RBC,Urine 13 /hpf (0-5); Specific Gravity,Urine 1.016 (1.001-1.035); Urobilinogen,Urine <2.0 mg/dL (<2.0); WBC,Urine 3 /hpf (0-5)
[2024-11-24 16:02] LABS: Amphetamine Screen,Urine Not Detected (NotDetected); Barbiturate Screen,Urine Not Detected (NotDetected); Benzodiazepines Screen,Urine Not Detected (NotDetected); Cocaine Screen,Urine Not Detected (NotDetected); Methadone Screen, Urine Not Detected (NotDetected); Opiate Screen,Urine Not Detected (NotDetected); Oxycodone Screen, Urine Not Detected (NotDetected); Phencyclidine Screen,Urine Not Detected (NotDetected); Tricyclic Antidepressant,Urine Not Detected (NotDetected); Urn Cannabinoid Scrn Not Detected (NotDetected)
[2024-11-24 16:04] LABS: Glucose,Whole Blood 106 mg/dL (70-110)
--- NOTE | 2024-11-24 16:05 | XR ---
EXAMINATION TYPE: XR chest 2V DATE OF EXAM: 11/24/2024 3:59 PM COMPARISON: Chest radiographs from 03/30/2023 TECHNIQUE: XR chest 2V Frontal and lateral views of the chest. CLINICAL INDICATION:Male, 89 years old with history of altered mental status; FINDINGS: Lungs/Pleura: Small bilateral pleural effusions with diffuse patchy perihilar opacities. No pneumotho rax. Heart/mediastinum: Cardiomediastinal silhouette is enlarged and stable. Musculoskeletal: No acute osseous pathology. IMPRESSION: Small bilateral pleural effusions with patchy perihilar opacities bilaterally. Findings may relate to pulmonary edema versus pneumonia. [facility], , 11/24/2024 4:03 PM
[2024-11-24 17:22] LABS: Glucose,Whole Blood 75 mg/dL (70-110)
[2024-11-24] MEDS: FUROSEMIDE 10 MG/ML 2 ML VIAL IV ONE (17:43)
[2024-11-24] MEDS: DEXTROSE 5%-0.45% NACL 1,000 ML IV ONE (17:44)
[2024-11-24] MEDS: FUROSEMIDE 10 MG/ML 4 ML VIAL IV STA (18:47)
[2024-11-24 19:27] LABS: Glucose,Whole Blood 90 mg/dL (70-110)
[2024-11-24 21:11] LABS: Glucose,Whole Blood 71 mg/dL (70-110)
[2024-11-24] MEDS: INSULIN LISPRO (HumaLOG) 100 UNIT/ML 10 mL VL SQ SCH (22:12)
[2024-11-24 22:45] LABS: Glucose,Whole Blood 64 mg/dL (70-110)
[2024-11-24] MEDS: DEXTROSE 50% SYRINGE 50 ML IVP PRN (22:48)
[2024-11-24 23:29] LABS: Glucose,Whole Blood 118 mg/dL (70-110)
[2024-11-25 00:30] LABS: Allen Test Performed? Yes
[2024-11-25 00:36] LABS: Glucose,Whole Blood 93 mg/dL (70-110)
[2024-11-25 00:43] LABS: ABG Base Excess -0.4 mmol/L; ABG HCO3 25 mmol/L (21-25); ABG Oxygen Saturation 99.1 % (94-97); ABG PCO2 41 mmHg (35-45); ABG PH 7.39 (7.35-7.45); ABG PO2 118 mmHg (83-108); ABG TCO2 26 mmol/L (19-24)
[2024-11-25] MEDS: FUROSEMIDE 10 MG/ML 2 ML VIAL IV STA (00:44)
[2024-11-25] MEDS: DEXTROSE 10% IN WATER 500 ML in EMPTY BAG 1 BAG IV SCH (01:02)
--- NOTE | 2024-11-25 01:02 | XR ---
EXAM: XR Chest, 1 View CLINICAL HISTORY: Resp distress TECHNIQUE: Frontal view of the chest. COMPARISON: 11/24/2024 FINDINGS: Lungs: Moderate amount of airspace opacities throughout both lungs. Pleural space: Small bilateral pleural effusions. Mediastinum: Unremarkable. Normal mediastinal contour. Bones/joints: No acute findings. IMPRESSION: 1. Moderate CHF. 2. Small bilateral pleural effusions. 3. No substantial change
[2024-11-25 01:08] LABS: Glucose,Whole Blood 72 mg/dL (70-110)
[2024-11-25 01:12] LABS: Glucose,Whole Blood 87 mg/dL (70-110)
[2024-11-25 01:19] LABS: Basophils % (A) 0 %; Eosinophils # (A) 0.1 k/uL (0-0.7); Eosinophils % (A) 1 %; HCT 31.1 % (39.0-53.0); HGB 9.3 gm/dL (13.0-17.5); Hypochromasia Moderate; Lymphocytes # (A) 0.8 k/uL (1.0-4.8); Lymphocytes % (A) 11 %; MCH 29.6 pg (25.0-35.0); MCV 98.8 fL (80.0-100.0); Macrocytosis Slight; Mean Platelet Volume 7.5; Monocytes # (A) 0.4 k/uL (0-1.0); Monocytes % (A) 6 %; Neutrophils # (A) 5.6 k/uL (1.3-7.7); Neutrophils % (A) 81 %; Platelet Count 206 k/uL (150-450); RBC 3.15 m/uL (4.30-5.90); RDW 15.9 % (11.5-15.5); WBC 6.9 k/uL (3.8-10.6)
[2024-11-25 01:28] LABS: African American GFR (CKD) 24 (>60 ml/min/1.73 sqM); Anion Gap 5 mmol/L; Blood Urea Nitrogen 26 mg/dL (9-20); Calcium 8.7 mg/dL (8.4-10.2); Carbon Dioxide 26 mmol/L (22-30); Chloride 102 mmol/L (98-107); Glucose 65 mg/dL (74-99); Magnesium 1.8 mg/dL (1.6-2.3); Non-African American GFR(CKD) 21 (>60 ml/min/1.73 sqM); Potassium 4.2 mmol/L (3.5-5.1); Sodium 133 mmol/L (137-145)
[2024-11-25] MEDS: DEXTROSE 50% SYRINGE 50 ML IVP PRN (01:32)
[2024-11-25 01:33] LABS: Glucose,Whole Blood 72 mg/dL (70-110)
[2024-11-25 01:36] LABS: NT-Pro-B-Type Natriuretic Pept 17500 pg/mL
[2024-11-25 02:02] LABS: Glucose,Whole Blood 168 mg/dL (70-110)
[2024-11-25 02:07] LABS: Influenza A Not Detected (Not Detectd); Influenza B Not Detected (Not Detectd); RSV Not Detected (Not Detectd)
[2024-11-25 02:32] LABS: Glucose,Whole Blood 139 mg/dL (70-110)
[2024-11-25] MEDS ORDERED: Magnesium Replacement Protocol 1 EACH MISC MISCELLANE PRN (03:04)
[2024-11-25] MEDS: MAGNESIUM SULFATE-D5W PMX 1 GM in DEXTROSE/WATER 1 100ML.BAG IVPB ONE (03:19)
[2024-11-25 03:33] LABS: Glucose,Whole Blood 95 mg/dL (70-110)
[2024-11-25 04:11] LABS: Glucose,Whole Blood 97 mg/dL (70-110)
--- NOTE | 2024-11-25 05:06 | P.CNPUL ---
History of Present Illness Consult date: 11/25/24 Requesting physician: Aysha Nava Reason for consult: other (ICU evaluation) Chief complaint: Altered mental status, low blood sugars History of present illness: Patient is an 89-year-old male with past medical history significant for type 2 diabetes mellitus, hypertension, chronic kidney disease. Patient presented emergency department by EMS chiefly for altered mental status and hypoglycemia. Apparently, patient's noted him to be difficult to arouse and thought the patient to be sleeping. When EMS was called and they arrived his blood glucose was low at 40 g/dL. They did give him an amp of D50W and brought the patient to the emergency department for evaluation yesterday afternoon. Workup in the emergency department including a brain CT which did not show any acute intracra nial process. Nonspecific white matter changes likely secondary to chronic small vessel ischemic disease. CBC: WBC 6.9, hemoglobin 9.3, platelets 206. CMP: Sodium 133, potassium 4.2, chloride 102, serum bicarb 26, BUN 26, creatinine 2.63, glucose 12. Urine toxicology screen unremarkable. Viral s creen negative for influenza, RSV, COVID. Did receive a 1.5 L normal saline bolus while in the ED. Patient was admitted to the cardiac stepdown floor, and remains in the ER as an overflow patient. A rapid response was called earlier this morning as the patient was felt to be in some respiratory distress. Chest x-ray showing cardiomegaly, pulmonary vascular congestion, and small bilateral pleural effusions. NT proBNP elevated 17,500. He has received multiple doses of Lasix, total of 80 mg so far. He was also placed on BiPAP with settings 12/5 and FiO2 40%. I am evaluating this patient in the emergency department he remains obtunded, will open his eyes to tactile stimuli, does not track, does not follow commands, withdraws to pain in all 4 extremities. No reported seizure-like activity. Currently on BiPAP with above-mentioned settings, achieving tidal volumes around 400, respiratory rate is in the mid 20s. Follow- up ABG with a PaO2 of 118, pCO2 of 41, pH of 7.39. Patient's blood sugars continue to be low. Most recent [id number] glucose 65 grams per deciliter. On a D5W with 0.9% saline infusing at 75 mL/h. Patient's son is at bedside. States that his father lives with his . He was difficult to arouse yesterday, thought to be sleeping. He was left like this for approximately 7 to 8 hours, according to the son. Patient reportedly had a similar episode earlier in the week, treated for hypoglycemia by EMS, and declined coming to the hospital. No reported infectious symptoms or other complaints per the son. He does have history of diabetes mellitus type 2 takes a combination of glimepiride and Actos. Current vital signs, temperature 98.6 F, heart rate 94 bpm, blood pressure 104/79 mmHg, SpO2 reading 100% on the previous mentioned BiPAP settings. Review of Systems ROS unobtainable: due to mental status Past Medical History Past Medical History: Diabetes Mellitus, Hyperlipidemia, Hypertension History of Any Multi-Drug Resistant Organisms: None Reported Past Surgical History: No Surgical Hx Reported Additional Past Anesthesia/Blood Transfusion Reaction / Comment(s): Jahovas Witness-"would not allow blood transfusion" Past Psychological History: No Psychological Hx Reported Smoking Status: Never smoker Past Alcohol Use History: None Reported Past Drug Use History: None Reported - Past Family History Father Family Medical History: Myocardial Infarction ([place]) Mother Family Medical History: No Reported History, Unable to Obtain Additional Family Medical History / Comment(s): unknown Medications and Allergies Home Medications Medication Instructions Recorded Confirmed Type Doxazosin [Cardura] 4 mg PO BID 03/28/23 11/24/24 History Pioglitazone [Actos] 30 mg PO DAILY 09/05/24 11/24/24 History Glimepiride [Amaryl] 1 mg PO DAILY 11/24/24 11/24/24 History lisinopriL 40 mg PO DAILY 11/24/24 11/24/24 History Allergies Allergy/AdvReac Type Severity Reaction Status Date / Time No Known Allergies Allergy Verified 11/24/24 16:51 Physical Exam Vitals: Vital Signs Temp Pulse Resp BP Pulse Ox FiO2 11/25/24 01:03 98.6 F 105 H 22 104/79 100 11/25/24 00:28 40 11/24/24 21:02 118 H 16 146/76 96 11/24/24 18:43 114 H 24 169/96 92 L 11/24/24 16:52 112 H 18 152/90 99 11/24/24 16:01 110 H 22 130/100 97 11/24/24 14:50 96.8 F L 120 H 24 139/113 96 Intake and Output 11/24/24 11/24/24 11/25/24 14:59 22:59 06:59 Other: Weight 70.76 kg GENERAL EXAM: Obtunded, 89-year-old male, will open eyes to tactile stimuli, does not track, does not follow commands, withdraws to painful stimuli in all 4 extremities. HEAD: Normocephalic and atraumatic EYES: Normal reaction of pupils, right upward gaze, no nystagmus, nonicteric sclera. NOSE: Clear with pink turbinates. THROAT: No erythema or exudates. NECK: No masses, no JVD. CHEST: No chest wall deformity. LUNGS: Equal air entry with no crackles, wheeze, rhonchi or dullness. On BiPAP settings 12/5, FiO2 40%. Generating tidal labs around 400 mL, respiratory rate in the mid 20s. CVS: S1 and S2 normal with no audible murmur, irregular rhythm. No extra heart sounds ABDOMEN: Flat abdomen, active bowel sounds, no hepatosplenomegaly, no guarding or rigidity. SPINE: No scoliosis or deformity SKIN: No rashes CENTRAL NERVOUS SYSTEM: Obtunded, withdraws to pain in all 4 extremities, no seizure-like activity. EXTREMITIES: There is no peripheral edema, clubbing, or cyanosis. Peripheral pulses are intact. Results - Laboratory Findings CBC and BMP: 11/25/24 01:05 11/25/24 01:05 ABG ABG pH 7.39 (7.35-7.45) 11/25/24 00:40 ABG pCO2 41 mmHg (35-45) 11/25/24 00:40 ABG pO2 118 mmHg (83-108) H 11/25/24 00:40 ABG O2 Saturation 99.1 % (94-97) H 11/25/24 00:40 PT/INR, D-dimer PT 10.9 sec (10.0-12.5) 11/24/24 14:59 INR 1.0 (<1.2) 11/24/24 14:59 Abnormal lab findings: Abnormal Labs 11/24/24 11/24/24 11/24/24 14:51 14:59 14:59 RBC 3.45 L Hgb 10.4 L Hct 34.4 L MCHC 30.3 L RDW 16.0 H Neutrophils # 7.8 H Lymphocytes # 0.5 L ABG pO2 ABG Total CO2 ABG O2 Saturation VBG pCO2 VBG HCO3 Hemoglobin Sodium 133 L BUN 25 H Creatinine 2.63 H Glucose 112 H POC Glucose (mg/dL) 111 H Plasma Lactic Acid Hardy Troponin I Total Protein 6.0 L Albumin 3.2 L Urine Protein Urine Glucose (UA) Urine Blood Urine RBC Urine Mucus 11/24/24 11/24/24 11/24/24 14:59 14:59 14:59 RBC Hgb Hct MCHC RDW Neutrophils # Lymphocytes # ABG pO2 ABG Total CO2 ABG O2 Saturation VBG pCO2 35 L VBG HCO3 21 L Hemoglobin Sodium BUN Creatinine Glucose POC Glucose (mg/dL) Plasma Lactic Acid Hardy 3.7 H* Troponin I 0.070 H* Total Protein Albumin Urine Protein Urine Glucose (UA) Urine Blood Urine RBC Urine Mucus 11/24/24 11/24/24 11/24/24 15:37 18:45 22:43 RBC Hgb Hct MCHC RDW Neutrophils # Lymphocytes # ABG pO2 ABG Total CO2 ABG O2 Saturation VBG pCO2 VBG HCO3 Hemoglobin Sodium BUN Creatinine Glucose POC Glucose (mg/dL) 64 L Plasma Lactic Acid Hardy Troponin I 0.083 H* Total Protein Albumin Urine Protein 3+ H Urine Glucose (UA) 1+ H Urine Blood Moderate H Urine RBC 13 H Urine Mucus Rare H 11/24/24 11/25/24 11/25/24 23:28 00:40 01:05 RBC 3.15 L Hgb 9.3 L Hct 31.1 L MCHC 30.0 L RDW 15.9 H Neutrophils # Lymphocytes # 0.8 L ABG pO2 118 H ABG Total CO2 26 H ABG O2 Saturation 99.1 H VBG pCO2 VBG HCO3 Hemoglobin 9.4 L Sodium BUN Creatinine Glucose POC Glucose (mg/dL) 118 H Plasma Lactic Acid Hardy Troponin I Total Protein Albumin Urine Protein Urine Glucose (UA) Urine Blood Urine RBC Urine Mucus 11/25/24 01:05 RBC Hgb Hct MCHC RDW Neutrophils # Lymphocytes # ABG pO2 ABG Total CO2 ABG O2 Saturation VBG pCO2 VBG HCO3 Hemoglobin Sodium 133 L BUN 26 H Creatinine 2.63 H Glucose 65 L POC Glucose (mg/dL) Plasma Lactic Acid Hardy Troponin I Total Protein Albumin Urine Protein Urine Glucose (UA) Urine Blood Urine RBC Urine Mucus - Diagnostic Findings Chest x-ray: image reviewed Assessment and Plan Assessment: Acute hypoxemic respiratory failure, currently on BiPAP, secondary to acute exacerbation of congestive heart failure, with unknown ejection fraction Altered mental status, possibly a component of acute metabolic encephalopathy and profound hypoglycemia Persistent hypoglycemia Type 2 diabetes mellitus, normally maintained on glimepiride and Actos Chronic kidney disease stage IV Elevated troponins, possibly secondary to type II [place] and poor renal clearance Anemia of chronic disease Hypertension Plan: Continue on BiPAP with current settings. ABGs are reviewed. Continue Lasix 40 mg twice daily Obtain EKG, trend troponins, obtain transthoracic echocardiogram, Cardiology is consulted Start patient on D10W infusion, started 30 mL/h for profound and persistent hypoglycemia Monitor blood sugars per protocol; hold anti-diabetic medications, including s ulfonylurea Brain CT reviewed, no acute intracranial abnormality identified, Obtain EEG, neurology is consulted Prognosis is guarded. No need for ICU admission at this point, we will continue to follow closely I have personally seen and examined the patient, performed the documentation and the assessment and plan as written. Number of minutes spent on the visit:20 This dictation was produced using [email or web address] dictation software please excuse grammatical errors Time with Patient: Greater than 30
[2024-11-25 05:13] LABS: Glucose,Whole Blood 85 mg/dL (70-110)
[2024-11-25 06:03] LABS: Glucose,Whole Blood 71 mg/dL (70-110)
[2024-11-25] MEDS: DEXTROSE 50% SYRINGE 50 ML IVP STA (06:20)
[2024-11-25 07:04] LABS: Glucose,Whole Blood 167 mg/dL (70-110)
[2024-11-25 08:03] LABS: Glucose,Whole Blood 115 mg/dL (70-110)
[2024-11-25] MEDS: FUROSEMIDE 10 MG/ML 4 ML VIAL IV SCH (08:11)
[2024-11-25] MEDS ORDERED: FUROSEMIDE 10 MG/ML 2 ML VIAL IV SCH (09:00)
[2024-11-25 09:08] LABS: Glucose,Whole Blood 109 mg/dL (70-110)
[2024-11-25] MEDS: ASPIRIN 81 MG PO SCH (09:41)
[2024-11-25 10:03] LABS: Glucose,Whole Blood 88 mg/dL (70-110)
[2024-11-25 11:04] LABS: Glucose,Whole Blood 104 mg/dL (70-110)
[2024-11-25 12:01] LABS: Glucose,Whole Blood 102 mg/dL (70-110)
[2024-11-25 13:01] LABS: Glucose,Whole Blood 109 mg/dL (70-110)
--- NOTE | 2024-11-25 13:07 | P.CRDCN ---
History of Present Illness History of present illness: HISTORY OF PRESENT ILLNESS: This is a 89-year-old male with a past medical history significant for hypertension and diabetes. 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 We have been asked to see the patient in consultation for CHF. Patient examined at the bedside. Patient son is present. Apparently the patient lives at home with his . She attempted to wake him up when she was unable to and she then called EMS. The patient was found to be hypoglycemic. Additionally the patient was found to be in acute CHF upon admission to the hospital. According to the patient's son the patient has no known history of CHF or CAD. DIAGNOSTICS: - EKG reveals sinus mechanism with PVCs. Significant baseline artifact. - Chest xray small bilateral pleural effusions with patchy perihilar opacities bilaterally. Findings may relate to pulmonary edema versus pneumonia. - Laboratory data: WBC 8.7. Hemoglobin 10.4. Platelet count 252. Sodium 133. Potassium 4.4. BUN 25. Creatinine 2.63. Lactic acid 3.7. Troponin 0.070. 0.083. 0.145 proBNP 17,500. - Current home cardiac medications include lisinopril 40 mg daily - No previous echocardiogram, stress test, or cardiac catheterization available in EMR for review REVIEW OF SYSTEMS: At the time of my exam: CONSTITUTIONAL: Denies fever or chills. HEENT: Denies blurred vision, vision changes, or eye pain. Denies hemoptysis CARDIOVASCULAR: Denies chest pain. Denies orthopnea. Denies PND. Denies palpitations RESPIRATORY: Denies shortness of breath. GASTROINTESTINAL: Denies abdominal pain. Denies nausea or vomiting. HEMATOLOGIC: Denies bleeding disorders. GENITOURINARY: Denies any blood in urine. SKIN: Denies pruitis. Denies rash. PHYSICAL EXAM: VITAL SIGNS: Reviewed. GENERAL: Well-developed in no acute distress. HEENT: Head is normocephalic. Pupils are equal, round. Sclerae anicteric. Mucous membranes of the mouth are moist. Neck supple. No JVD or thyromegaly LUNGS: Respirations even and unlabored. Lungs essentially clear to auscultation bilaterally. HEART: Regular rate and rhythm. S1 and S2 heard. ABDOMEN: Soft. Nondistended. Nontender. EXTREMITIES: Normal range of motion. No clubbing or cyanosis. Peripheral pulses intact. Bilateral lower extremity edema NEUROLOGIC: Lethargic ASSESSMENT: Episode of unresponsiveness, secondary to hypoglycemia Acute heart failure, type unknown, echo pending Acute hypoxic respiratory failure, currently on BiPAP Elevated troponins, type II [place] secondary to oxygen supply/demand mismatch and poor renal clearance, no evidence of acute coronary syndrome Chronic kidney disease Diabetes History of hypertension PLAN: An acute coronary event has been ruled out Obtain 2D echo to assess cardiac structure and function Continue IV Lasix 40 mg every 12 hours Daily weights, accurate intake and output, monitoring of kidney function Hold lisinopril at this time Further recommendations pending patient course Nurse practitioner note has been reviewed by physician. Signing provider agrees with the documented findings, assessment, and plan of care documented by OPTICAL DESIGNER as a scribe. Past Medical History Past Medical History: Diabetes Mellitus, Hyperlipidemia, Hypertension History of Any Multi-Drug Resistant Organisms: None Reported Past Surgical History: No Surgical Hx Reported Additional Past Anesthesia/Blood Transfusion Reaction / Comment(s): Jahovas Witness-"would not allow blood transfusion" Past Psychological History: No Psychological Hx Reported Smoking Status: Never smoker Past Alcohol Use History: None Reported Past Drug Use History: None Reported - Past Family History Father Family Medical History: Myocardial Infarction ([place]) Mother Family Medical History: No Reported History, Unable to Obtain Additional Family Medical History / Comment(s): unknown Medications and Allergies Home Medications Medication Instructions Recorded Confirmed Type Doxazosin [Cardura] 4 mg PO BID 03/28/23 11/24/24 History Pioglitazone [Actos] 30 mg PO DAILY 09/05/24 11/24/24 History Glimepiride [Amaryl] 1 mg PO DAILY 11/24/24 11/24/24 History lisinopriL 40 mg PO DAILY 11/24/24 11/24/24 History Allergies Allergy/AdvReac Type Severity Reaction Status Date / Time No Known Allergies Allergy Verified 11/24/24 16:51 Physical Exam Vitals: Vital Signs Temp Pulse Pulse Resp BP BP Pulse Ox 11/25/24 08:09 11/25/24 04:12 99.1 F 101 H 19 146/68 94 L 11/25/24 03:49 11/25/24 02:20 98.3 F 79 23 123/68 98 11/25/24 01:03 98.6 F 105 H 22 104/79 100 11/25/24 00:28 11/24/24 21:02 118 H 16 146/76 96 11/24/24 18:43 114 H 24 169/96 92 L 11/24/24 16:52 112 H 18 152/90 99 11/24/24 16:01 110 H 22 130/100 97 11/24/24 14:50 96.8 F L 120 H 24 139/113 96 FiO2 11/25/24 08:09 35 11/25/24 04:12 11/25/24 03:49 40 11/25/24 02:20 11/25/24 01:03 11/25/24 00:28 40 11/24/24 21:02 11/24/24 18:43 11/24/24 16:52 11/24/24 16:01 11/24/24 14:50 Intake and Output 11/24/24 11/25/24 11/25/24 22:59 06:59 14:59 Output Total 550 Balance -550 Output: Urine 550 Other: Voiding Method Indwelling Catheter Weight 66.5 kg 66.5 kg Results 11/25/24 01:05 11/25/24 01:05 Cardiac Enzymes 11/24/24 11/24/24 11/24/24 Range/Units 14:59 14:59 18:45 AST 30 (17-59) U/L Troponin I 0.070 H* 0.083 H* (0.000-0.034) ng/mL 11/25/24 Range/Units 02:07 AST (17-59) U/L Troponin I 0.145 H* (0.000-0.034) ng/mL Coagulation 11/24/24 Range/Units 14:59 PT 10.9 (10.0-12.5) sec APTT 23.7 (22.0-30.0) sec CBC 11/24/24 11/25/24 Range/Units 14:59 01:05 WBC 8.7 6.9 (3.8-10.6) k/uL RBC 3.45 L 3.15 L (4.30-5.90) m/uL Hgb 10.4 L 9.3 L (13.0-17.5) gm/dL Hct 34.4 L 31.1 L (39.0-53.0) % Plt Count 252 206 (150-450) k/uL Comprehensive Metabolic Panel 03/03/25 03/04/25 Range/Units 14:59 01:05 Sodium 133 L 133 L (137-145) mmol/L Potassium 4.4 4.2 (3.5-5.1) mmol/L Chloride 100 102 (98-107) mmol/L Carbon Dioxide 24 26 (22-30) mmol/L BUN 25 H 26 H (9-20) mg/dL Creatinine 2.63 H 2.63 H (0.66-1.25) mg/dL Glucose 112 H 65 L (74-99) mg/dL Calcium 8.8 8.7 (8.4-10.2) mg/dL AST 30 (17-59) U/L ALT 16 (4-49) U/L Alkaline Phosphatase 85 (38-126) U/L Total Protein 6.0 L (6.3-8.2) g/dL Albumin 3.2 L (3.5-5.0) g/dL Current Medications Generic Name Dose Route Start Last Admin Trade Name Freq PRN Reason Stop Dose Admin Aspirin 81 mg 11/25/24 09:15 Aspirin 81 Mg PO DAILY DOUGLAS Atorvastatin Calcium 40 mg 11/25/24 21:00 Atorvastatin 40 Mg Tab PO HS DOUGLAS Dextrose/Water 25 ml 11/24/24 17:57 11/24/24 22:48 Dextrose 50% Syringe 50 Ml IVP 25 ml PER PROTOCOL PRN Administration Hypoglycemia Protocol Dextrose/Water 50 ml 11/24/24 17:57 11/25/24 01:32 Dextrose 50% Syringe 50 Ml IVP 50 ml PER PROTOCOL PRN Administration Hypoglycemia Protocol Furosemide 40 mg 11/25/24 09:00 11/25/24 08:11 Furosemide 10 Mg/Ml 4 Ml Vial IV 40 mg Q12HR DOUGLAS Administration Dextrose/Water 500 ml/ IV 500 mls @ 30 mls/hr 11/25/24 01:00 11/25/24 01:02 Solution IV 30 mls/hr .[id number] DOUGLAS Administration Miscellaneous Information 1 each 11/25/24 03:04 Magnesium Replacement Protocol 1 Each Misc MISCELLANE DAILY PRN Per Protocol Protocol Intake and Output 11/24/24 11/25/24 11/25/24 22:59 06:59 14:59 Output Total 550 Balance -550 Output: Urine 550 Other: Voiding Method Indwelling Catheter Weight 66.5 kg 66.5 kg Patient Weight 11/26/24 06:59 Weight 66.5 kg 11/25/24 01:05 11/25/24 01:05
[2024-11-25 14:00] LABS: Glucose,Whole Blood 111 mg/dL (70-110)
--- NOTE | 2024-11-25 14:20 | P.HPIM ---
History of Present Illness 89-year-old male was brought brought in because patient was unresponsive. EMS found him to be hypoglycemic with a blood sugars of 30 patient was brought to the hospital admitted for hypoglycemia is on D10. Patient is also found to be in CHF exacerbation requiring oxygen presently on 2 L patient does have history of congestive heart failure patient has a elevated BNP chest x-ray showing pulmonary edema is on IV Lasix. Patient is still lethargic but there is no clear evidence of any infection anywhere patient is bit hyponatremic. Patient's serum creatinine is 2.63 baseline is around that. Patient also found to have troponin elevation of 0.083 and 0.145. Cardiology evaluated the patient. REVIEW OF SYSTEMS: All other systems are negative except those mentioned in the HPI PHYSICAL EXAMINATION: GENERAL: Patient appears to be lethargic drowsy was unable to get much of the history from the patient. HEENT: Pupils are round and equally reacting to light. EOMI. No scleral icterus. No conjunctival pallor. Normocephalic, atraumatic. No pharyngeal erythema. No thyromegaly. CARDIOVASCULAR: S1 and S2 present. No murmurs, rubs, or gallops. PULMONARY: Chest is clear to auscultation, no wheezing or crackles. ABDOMEN: Soft, nontender, nondistended, normoactive bowel sounds. No palpable organomegaly. MUSCULOSKELETAL: No joint swelling or deformity. EXTREMITIES: No cyanosis, clubbing, or pedal edema. NEUROLOGICAL appears quite weak in general alert and lethargic SKIN: No rashes. Assessment and plan -Altered mental status may be related to hypoglycemia patient is on oral hypoglycemic agents which are being held and patient is on D10 which will be weaned off slowly -Congestive heart failure systolic function is not known patient is acute exacerbation echocardiogram will be obtained cardiology evaluated the patient patient is on IV Lasix which will be continued -Chronic kidney disease stage IV -Hypertension -Elevated troponin secondary to type II CO and chronic kidney disease -Type 2 diabetes mellitus DVT prophylaxis: Subcutaneous heparin Past Medical History Past Medical History: Diabetes Mellitus, Hyperlipidemia, Hypertension History of Any Multi-Drug Resistant Organisms: None Reported Past Surgical History: No Surgical Hx Reported Additional Past Anesthesia/Blood Transfusion Reaction / Comment(s): [facility] Witness-"would not allow blood transfusion" Past Psychological History: No Psychological Hx Reported Smoking Status: Never smoker Past Alcohol Use History: None Reported Past Drug Use History: None Reported - Past Family History Father Family Medical History: Myocardial Infarction ([place]) Mother Family Medical History: No Reported History, Unable to Obtain Additional Family Medical History / Comment(s): unknown Medications and Allergies Home Medications Medication Instructions Recorded Confirmed Type Doxazosin [Cardura] 4 mg PO BID 03/28/23 11/24/24 History Pioglitazone [Actos] 30 mg PO DAILY 09/05/24 11/24/24 History Glimepiride [Amaryl] 1 mg PO DAILY 11/24/24 11/24/24 History lisinopriL 40 mg PO DAILY 11/24/24 11/24/24 History Allergies Allergy/AdvReac Type Severity Reaction Status Date / Time No Known Allergies Allergy Verified 11/24/24 16:51 Physical Exam Vitals: Vital Signs Temp Pulse Pulse Resp BP BP Pulse Ox 11/25/24 11:20 99 F 106 H 20 122/67 100 11/25/24 10:32 22 100 11/25/24 08:09 11/25/24 08:00 99.2 F 98 28 H 130/63 100 11/25/24 04:12 99.1 F 101 H 19 146/68 94 L 11/25/24 03:49 11/25/24 02:20 98.3 F 79 23 123/68 98 11/25/24 01:03 98.6 F 105 H 22 104/79 100 11/25/24 00:28 11/24/24 21:02 118 H 16 146/76 96 11/24/24 18:43 114 H 24 169/96 92 L 11/24/24 16:52 112 H 18 152/90 99 11/24/24 16:01 110 H 22 130/100 97 11/24/24 14:50 96.8 F L 120 H 24 139/113 96 FiO2 11/25/24 11:20 11/25/24 10:32 11/25/24 08:09 35 11/25/24 08:00 40 11/25/24 04:12 11/25/24 03:49 40 11/25/24 02:20 11/25/24 01:03 11/25/24 00:28 40 11/24/24 21:02 11/24/24 18:43 11/24/24 16:52 11/24/24 16:01 11/24/24 14:50 Intake and Output 11/24/24 11/25/24 11/25/24 22:59 06:59 14:59 Intake Total 0 Output Total 550 600 Balance -550 -600 Intake: Oral 0 Output: Urine 550 600 Other: Voiding Method Indwelling Catheter Indwelling Catheter # Bowel Movements 1 Weight 66.5 kg 66.5 kg Results CBC & Chem 7: 11/25/24 01:05 11/25/24 01:05 Labs: Abnormal Lab Results - Last 24 Hours (Table) 11/24/24 11/24/24 11/24/24 Range/Units 14:51 14:59 14:59 RBC 3.45 L (4.30-5.90) m/uL Hgb 10.4 L (13.0-17.5) gm/dL Hct 34.4 L (39.0-53.0) % MCHC 30.3 L (31.0-37.0) g/dL RDW 16.0 H (11.5-15.5) % Neutrophils # 7.8 H (1.3-7.7) k/uL Lymphocytes # 0.5 L (1.0-4.8) k/uL ABG pO2 (83-108) mmHg ABG Total CO2 (19-24) mmol/L ABG O2 Saturation (94-97) % VBG pCO2 (37-51) mmHg VBG HCO3 (24-28) mmol/L Hemoglobin (13.0-17.5) gm/dL Sodium 133 L (137-145) mmol/L BUN 25 H (9-20) mg/dL Creatinine 2.63 H (0.66-1.25) mg/dL Glucose 112 H (74-99) mg/dL POC Glucose (mg/dL) 111 H (70-110) mg/dL Hemoglobin A1c (<=6.0) % Plasma Lactic Acid Hardy (0.7-2.0) mmol/L Ammonia (<30) umol/L Troponin I (0.000-0.034) ng/mL Total Protein 6.0 L (6.3-8.2) g/dL Albumin 3.2 L (3.5-5.0) g/dL Urine Protein (Negative) Urine Glucose (UA) (Negative) Urine Blood (Negative) Urine RBC (0-5) /hpf Urine Mucus (None) /hpf 11/24/24 11/24/24 11/24/24 Range/Units 14:59 14:59 14:59 RBC (4.30-5.90) m/uL Hgb (13.0-17.5) gm/dL Hct (39.0-53.0) % MCHC (31.0-37.0) g/dL RDW (11.5-15.5) % Neutrophils # (1.3-7.7) k/uL Lymphocytes # (1.0-4.8) k/uL ABG pO2 (83-108) mmHg ABG Total CO2 (19-24) mmol/L ABG O2 Saturation (94-97) % VBG pCO2 35 L (37-51) mmHg VBG HCO3 21 L (24-28) mmol/L Hemoglobin (13.0-17.5) gm/dL Sodium (137-145) mmol/L BUN (9-20) mg/dL Creatinine (0.66-1.25) mg/dL Glucose (74-99) mg/dL POC Glucose (mg/dL) (70-110) mg/dL Hemoglobin A1c (<=6.0) % Plasma Lactic Acid Hardy 3.7 H* (0.7-2.0) mmol/L Ammonia (<30) umol/L Troponin I 0.070 H* (0.000-0.034) ng/mL Total Protein (6.3-8.2) g/dL Albumin (3.5-5.0) g/dL Urine Protein (Negative) Urine Glucose (UA) (Negative) Urine Blood (Negative) Urine RBC (0-5) /hpf Urine Mucus (None) /hpf 11/24/24 11/24/24 11/24/24 Range/Units 15:37 18:45 22:43 RBC (4.30-5.90) m/uL Hgb (13.0-17.5) gm/dL Hct (39.0-53.0) % MCHC (31.0-37.0) g/dL RDW (11.5-15.5) % Neutrophils # (1.3-7.7) k/uL Lymphocytes # (1.0-4.8) k/uL ABG pO2 (83-108) mmHg ABG Total CO2 (19-24) mmol/L ABG O2 Saturation (94-97) % VBG pCO2 (37-51) mmHg VBG HCO3 (24-28) mmol/L Hemoglobin (13.0-17.5) gm/dL Sodium (137-145) mmol/L BUN (9-20) mg/dL Creatinine (0.66-1.25) mg/dL Glucose (74-99) mg/dL POC Glucose (mg/dL) 64 L (70-110) mg/dL Hemoglobin A1c (<=6.0) % Plasma Lactic Acid Hardy (0.7-2.0) mmol/L Ammonia (<30) umol/L Troponin I 0.083 H* (0.000-0.034) ng/mL Total Protein (6.3-8.2) g/dL Albumin (3.5-5.0) g/dL Urine Protein 3+ H (Negative) Urine Glucose (UA) 1+ H (Negative) Urine Blood Moderate H (Negative) Urine RBC 13 H (0-5) /hpf Urine Mucus Rare H (None) /hpf 11/24/24 11/25/24 11/25/24 Range/Units 23:28 00:40 01:05 RBC 3.15 L (4.30-5.90) m/uL Hgb 9.3 L (13.0-17.5) gm/dL Hct 31.1 L (39.0-53.0) % MCHC 30.0 L (31.0-37.0) g/dL RDW 15.9 H (11.5-15.5) % Neutrophils # (1.3-7.7) k/uL Lymphocytes # 0.8 L (1.0-4.8) k/uL ABG pO2 118 H (83-108) mmHg ABG Total CO2 26 H (19-24) mmol/L ABG O2 Saturation 99.1 H (94-97) % VBG pCO2 (37-51) mmHg VBG HCO3 (24-28) mmol/L Hemoglobin 9.4 L (13.0-17.5) gm/dL Sodium (137-145) mmol/L BUN (9-20) mg/dL Creatinine (0.66-1.25) mg/dL Glucose (74-99) mg/dL POC Glucose (mg/dL) 118 H (70-110) mg/dL Hemoglobin A1c (<=6.0) % Plasma Lactic Acid Hardy (0.7-2.0) mmol/L Ammonia (<30) umol/L Troponin I (0.000-0.034) ng/mL Total Protein (6.3-8.2) g/dL Albumin (3.5-5.0) g/dL Urine Protein (Negative) Urine Glucose (UA) (Negative) Urine Blood (Negative) Urine RBC (0-5) /hpf Urine Mucus (None) /hpf 11/25/24 11/25/24 11/25/24 Range/Units 01:05 02:00 02:07 RBC (4.30-5.90) m/uL Hgb (13.0-17.5) gm/dL Hct (39.0-53.0) % MCHC (31.0-37.0) g/dL RDW (11.5-15.5) % Neutrophils # (1.3-7.7) k/uL Lymphocytes # (1.0-4.8) k/uL ABG pO2 (83-108) mmHg ABG Total CO2 (19-24) mmol/L ABG O2 Saturation (94-97) % VBG pCO2 (37-51) mmHg VBG HCO3 (24-28) mmol/L Hemoglobin (13.0-17.5) gm/dL Sodium 133 L (137-145) mmol/L BUN 26 H (9-20) mg/dL Creatinine 2.63 H (0.66-1.25) mg/dL Glucose 65 L (74-99) mg/dL POC Glucose (mg/dL) 168 H (70-110) mg/dL Hemoglobin A1c (<=6.0) % Plasma Lactic Acid Hardy (0.7-2.0) mmol/L Ammonia (<30) umol/L Troponin I 0.145 H* (0.000-0.034) ng/mL Total Protein (6.3-8.2) g/dL Albumin (3.5-5.0) g/dL Urine Protein (Negative) Urine Glucose (UA) (Negative) Urine Blood (Negative) Urine RBC (0-5) /hpf Urine Mucus (None) /hpf 11/25/24 11/25/24 11/25/24 Range/Units 02:30 07:02 07:30 RBC (4.30-5.90) m/uL Hgb (13.0-17.5) gm/dL Hct (39.0-53.0) % MCHC (31.0-37.0) g/dL RDW (11.5-15.5) % Neutrophils # (1.3-7.7) k/uL Lymphocytes # (1.0-4.8) k/uL ABG pO2 (83-108) mmHg ABG Total CO2 (19-24) mmol/L ABG O2 Saturation (94-97) % VBG pCO2 (37-51) mmHg VBG HCO3 (24-28) mmol/L Hemoglobin (13.0-17.5) gm/dL Sodium (137-145) mmol/L BUN (9-20) mg/dL Creatinine (0.66-1.25) mg/dL Glucose (74-99) mg/dL POC Glucose (mg/dL) 139 H 167 H (70-110) mg/dL Hemoglobin A1c 6.4 H (<=6.0) % Plasma Lactic Acid Hardy (0.7-2.0) mmol/L Ammonia (<30) umol/L Troponin I (0.000-0.034) ng/mL Total Protein (6.3-8.2) g/dL Albumin (3.5-5.0) g/dL Urine Protein (Negative) Urine Glucose (UA) (Negative) Urine Blood (Negative) Urine RBC (0-5) /hpf Urine Mucus (None) /hpf 11/25/24 11/25/24 11/25/24 Range/Units 07:30 08:01 13:58 RBC (4.30-5.90) m/uL Hgb (13.0-17.5) gm/dL Hct (39.0-53.0) % MCHC (31.0-37.0) g/dL RDW (11.5-15.5) % Neutrophils # (1.3-7.7) k/uL Lymphocytes # (1.0-4.8) k/uL ABG pO2 (83-108) mmHg ABG Total CO2 (19-24) mmol/L ABG O2 Saturation (94-97) % VBG pCO2 (37-51) mmHg VBG HCO3 (24-28) mmol/L Hemoglobin (13.0-17.5) gm/dL Sodium (137-145) mmol/L BUN (9-20) mg/dL Creatinine (0.66-1.25) mg/dL Glucose (74-99) mg/dL POC Glucose (mg/dL) 115 H 111 H (70-110) mg/dL Hemoglobin A1c (<=6.0) % Plasma Lactic Acid Hardy (0.7-2.0) mmol/L Ammonia 30 H (<30) umol/L Troponin I (0.000-0.034) ng/mL Total Protein (6.3-8.2) g/dL Albumin (3.5-5.0) g/dL Urine Protein (Negative) Urine Glucose (UA) (Negative) Urine Blood (Negative) Urine RBC (0-5) /hpf Urine Mucus (None) /hpf Thrombosis Risk Factor Assmnt - Choose All That Apply Each Risk Factor Represents 3 Points: Age 75 years or older Thrombosis Risk Factor Assessment Total Risk Factor Score: 3 Thrombosis Risk Factor Assessment Level: Moderate Risk
[2024-11-25 15:19] LABS: Glucose,Whole Blood 116 mg/dL (70-110)
[2024-11-25] MEDS: HEPARIN SODIUM,PORCINE 5,000 UNIT/ML 1 ML VIAL SQ SCH (15:58)
[2024-11-25 16:09] LABS: Glucose,Whole Blood 110 mg/dL (70-110)
[2024-11-25 17:03] LABS: Glucose,Whole Blood 117 mg/dL (70-110)
[2024-11-25 17:04] LABS: Chol/HDL Ratio 2.42 Ratio; LDL Cholesterol,Calculated 98.7 mg/dL (0.0-131.0); VLDL Calculation 13.82 mg/dL (5.00-40.00)
[2024-11-25 18:00] LABS: Glucose,Whole Blood 118 mg/dL (70-110)
[2024-11-25 18:57] LABS: Glucose,Whole Blood 120 mg/dL (70-110)
[2024-11-25 20:15] LABS: Glucose,Whole Blood 117 mg/dL (70-110)
[2024-11-25] MEDS: ATORVASTATIN 40 MG TAB PO SCH (21:35)
--- NOTE | 2024-11-25 21:45 | US ---
EXAMINATION TYPE: US carotid duplex BILAT DATE OF EXAM: 11/25/2024 COMPARISON: NONE CLINICAL INDICATION: Male, 89 years old with history of aphasia, ?Stroke; aphasia. patient altered me ntal status. Unable to follow directions Additional History: .... TECHNIQUE: Grayscale, color Doppler and spectral Doppler evaluation of the bilateral carotid systems and vertebral arteries. Indirect Doppler criteria was utilized. FINDINGS: EXAM MEASUREMENTS: RIGHT: Peak Systolic Velocity (PSV) cm/sec ----- Right CCA: 124.0 ----- Right ICA: 125.0 ----- Right ECA: 126 ICA/CCA ratio: 1.01 RIGHT: End Diastole cm/sec ----- Right CCA: 13.0 ----- Right ICA: 25.3 ----- Right ECA: 14.8 LEFT: Peak Systolic Velocity (PSV) cm/sec ----- Left CCA: 123.0 ----- Left ICA: 157.0 ----- Left ECA: 153.0 ICA/CCA ratio: 1.3 LEFT: End Diastole cm/sec ----- Left CCA: 17.2 ----- Left ICA: 27.9 ----- Left ECA: 10.1 VERTEBRALS (direction of flow): Right Vertebral: Antegrade Left Vertebral: Antegrade Rhythm: Normal MOTORMAN/WOMAN NOTES: slightly limited imaging due to patient unable to follow directions and hold nec k to side Plaque seen bilateral bulbs. velocities reach 125 cm/s within the right ica. on the left si de, elevated velocities seen within the prox and mid ica Color Doppler imaging shows patency with blood flow throughout the carotid artery. Spectral waveforms are within normal limits. IMPRESSION: Right: No hemodynamically significant stenosis. Left: No hemodynamically significant stenosis. Criteria for Assigning % of Stenosis / Diameter reduction (Estimation based on the indirect measurements of the internal carotid artery velocities (ICA PSV). 1. Normal (no stenosis)=ICA PSV < 125 cm/s: ratio < 2.0: ICA EDV<40 cm/s. 2. Less than 50% stenosis=ICA PSV < 125 cm/s: ratio < 2.0: ICA EDV<40 cm/s. 3. 50 to 69% stenosis=ICA PSV of 125 to 230 cm/s: ration 2.0 ? 4.0: ICA EDV 40-100 cm/s. 4. Greater than 70% stenosis to near occlusion= ICA PSV > 230 cm/s: ratio > 4.0: ICA EDV > 100 cm/s. 5. Near occlusion= ICA PSV velocities may be low or undetectable: variable ratio and ICA EDV. 6. Total occlusion=unable to detect flow. [facility], , 11/25/2024 9:42 PM
[2024-11-25 22:24] LABS: Glucose,Whole Blood 123 mg/dL (70-110)
--- NOTE | 2024-11-25 22:29 | EEG ---
ELECTROENCEPHALOGRAM REPORT PREAMBLE: This is an 89-year-old male, who presented with altered mental status. The patient was hypoglycemic. EEG FINDINGS: This is a 21-channel digital EEG recorded with video component, utilizing 10/20 international system with referential and bipolar montages. The recording starts and continues with presence of diffuse moderate amplitude activity in mixed 4 to 5 hertz theta with 2 to 3 hertz delta activity in bihemispheric region. Background does not seem to be reactive to eye opening or closing. Different stages of sleep were not seen. No focal or generalized epileptiform activity was seen. Photic stimulation and hyperventilation were not done. IMPRESSION: This is an abnormal EEG due to background slowing of moderate degree. This is suggestive of generalized cerebral dysfunction as can be seen with toxic metabolic encephalopathy or related to diffuse structural brain abnormality. Clinical correlation is recommended. No epileptiform activity was seen. MMMARISELA / PEDRO: [id number] /
[2024-11-25 23:20] LABS: Glucose,Whole Blood 118 mg/dL (70-110)
[2024-11-26 00:34] LABS: Glucose,Whole Blood 114 mg/dL (70-110)
[2024-11-26 01:28] LABS: Glucose,Whole Blood 126 mg/dL (70-110)
[2024-11-26 02:20] LABS: Glucose,Whole Blood 114 mg/dL (70-110)
[2024-11-26 03:36] LABS: Glucose,Whole Blood 124 mg/dL (70-110)
[2024-11-26 04:15] LABS: Glucose,Whole Blood 121 mg/dL (70-110)
[2024-11-26 05:22] LABS: Glucose,Whole Blood 119 mg/dL (70-110)
[2024-11-26 06:02] LABS: Glucose,Whole Blood 120 mg/dL (70-110)
--- NOTE | 2024-11-26 06:46 | XR ---
EXAM: XR Chest, 1 View CLINICAL HISTORY: ITS.REASON XR Reason: Follow up pulmonary edema TECHNIQUE: Frontal view of the chest. COMPARISON: XR Chest dated 11/25/2024 FINDINGS: See Impression. IMPRESSION: 1. No significant interval change. 2. Bilateral opacities, greater on the left. May represent effusions and atelectasis/airspace disease.
[2024-11-26 07:09] LABS: Glucose,Whole Blood 116 mg/dL (70-110)
--- NOTE | 2024-11-26 07:32 | P.CNNES ---
History of Present Illness Consult date: 11/25/24 Requesting physician: José Miller Reason for Consult: Altered mental status History of Present Illness: Patient is a 89-year-old right-handed male with history of diabetes, came to the hospital by ambulance yesterday at 2:48 PM for altered mental status and because of hypoglycemia. Yesterday he had trouble getting stuff out, he knew the people, but was just staring off. He is not able to communicate since yesterday although previously used to communicate and engage in conversations. He has been nonverbal since yesterday. There is no report of facial droop, focal numbness tingling or focal weakness reported by the family. Patient was admitted with altered mental status, hypoglycemia, elevated troponin, pleural effusion and pulmonary edema. As per EMS flowsheet when they arrived, patient was laying in the hospital bed in his home and was unresponsive to all stimuli. reported that patient has history of diabetes and his blood sugar was 40. Airways were patent with heavy secretions and suctioning was performed without complication. mentioned that patient had an episode of hypoglycemia the day prior and was unresponsive then as well requiring EMS to respond. An IV line was established and D50 administered by IV. Blood glucose came up to 180. Patient was able to open his eyes but remained nonverbal. Patient presented with right-sided conjugate deviation. Patient was unable to follow commands. EKG showed sinus rhythm with bigeminy. Lungs sound presented with Rales bilaterally. Skin was warm and diaphoretic. Pupils were equal and reactive but patient had conjugate deviation. Family mentioned that last known well was about 14 hours prior to calling 911. Patient's vitals showed blood pressure 171/79, pulse rate 120, saturation 95%, respiration 20, carbon monoxide 0. Vital signs on arrival blood pressure 139/113, pulse rate 120 temperature 96.8 axillary. Tmax 99.1 axillary. Blood test shows normal WBC hemoglobin 10.4, platelets are normal. PT PTT normal, pH 7.38, pCO2 35. Sodium 133, potassium is normal BUN 25 creatinine 2.63. Lactate 3.7. Hepatic panel normal, troponin mildly elevated 0.070. UA negative. Urine drug screen negative. Influenza, RSV and coronavirus PCR negative. proBNP is elevated 17,500. Troponin has further gone up. Hemoglobin A1c 6.4. Ammonia is slightly elevated at 30. CT head showed no acute intracranial process. Nonspecific white matter changes, likely secondary to chronic small vessel ischemic disease. I personally reviewed CT head, agrees with the findings. There is prominence of the ventricles, but there is also significant amount of cortical atrophy. EKG showed supraventricular tachycardia. Chest x-ray showed moderate CHF. Small bilateral pleural effusions, no substantial change. Patient has history of diabetes for 10 years. Used to borderline for long time, but now he takes pills. He spoke to drink alcohol when he was young. Patient denies any history of strokes or TIA. Patient does have some forgetfulness, sometimes he has to struggle to say words and his memory slightly going downhill. He is being more forgetful since August. Patient's grandson was present, who states that he would be engaged in conversation and ask the same question 3 times. Patient used to walk with a cane for about last couple years since he had a fall in the street and fell, hit his head in on 03/28/2023. He was brought to the hospital. In August 2024, his arms gets swollen when he was at [facility] for rehabilitation. He was hospitalized. He has been using walker since then. He has been semimobile since then. Patient still lives with his at home. He has some coughing, but no fever or no infection. Review of Systems ROS unobtainable: due to mental status Past Medical History Past Medical History: Diabetes Mellitus, Hyperlipidemia, Hypertension History of Any Multi-Drug Resistant Organisms: None Reported Past Surgical History: No Surgical Hx Reported Additional Past Anesthesia/Blood Transfusion Reaction / Comment(s): [facility] Witness-"would not allow blood transfusion" Past Psychological History: No Psychological Hx Reported Smoking Status: Never smoker Past Alcohol Use History: None Reported Past Drug Use History: None Reported - Past Family History Father Family Medical History: Myocardial Infarction ([place]) Mother Family Medical History: No Reported History, Unable to Obtain Additional Family Medical History / Comment(s): unknown Medications and Allergies Home Medications Medication Instructions Recorded Confirmed Type Doxazosin [Cardura] 4 mg PO BID 03/28/23 11/24/24 History Pioglitazone [Actos] 30 mg PO DAILY 09/05/24 11/24/24 History Glimepiride [Amaryl] 1 mg PO DAILY 11/24/24 11/24/24 History lisinopriL 40 mg PO DAILY 11/24/24 11/24/24 History Allergies Allergy/AdvReac Type Severity Reaction Status Date / Time No Known Allergies Allergy Verified 11/24/24 16:51 Physical Examination - Vital Signs Vital Signs: Vital Signs Temp Pulse Pulse Resp BP BP Pulse Ox 11/25/24 11:20 99 F 106 H 20 122/67 100 11/25/24 10:32 22 100 11/25/24 08:09 11/25/24 08:00 99.2 F 98 28 H 130/63 100 11/25/24 04:12 99.1 F 101 H 19 146/68 94 L 11/25/24 03:49 11/25/24 02:20 98.3 F 79 23 123/68 98 11/25/24 01:03 98.6 F 105 H 22 104/79 100 11/25/24 00:28 11/24/24 21:02 118 H 16 146/76 96 11/24/24 18:43 114 H 24 169/96 92 L 11/24/24 16:52 112 H 18 152/90 99 11/24/24 16:01 110 H 22 130/100 97 FiO2 11/25/24 11:20 11/25/24 10:32 11/25/24 08:09 35 11/25/24 08:00 40 11/25/24 04:12 11/25/24 03:49 40 11/25/24 02:20 11/25/24 01:03 11/25/24 00:28 40 11/24/24 21:02 11/24/24 18:43 11/24/24 16:52 11/24/24 16:01 Intake and Output 11/25/24 11/25/24 11/25/24 06:59 14:59 22:59 Intake Total 0 Output Total 550 600 Balance -550 -600 Intake: Oral 0 Output: Urine 550 600 Other: Voiding Method Indwelling Catheter Indwelling Catheter # Bowel Movements 1 Weight 66.5 kg 66.5 kg Patient is an elderly male, who appears to be in mild to moderate respiratory distress. He is having labored breathing. He is gurgling and has retained secretions. He is frequently coughing. He appears somewhat sick. He is delirious. Patient is alert awake, but he is nonverbal. He did not say any words at all. He did not tell me his name, his son's name, did not name any object like pen, eyeglasses. He did not repeat. He does not follow commands. Attention, concentration are severely limited and fund of knowledge is very impaired. On cranial nerve examination, pupils are equal, round and reacting to light, visual marr could not be tested. He did not cooperate. He did not blink to visual threat on either side. Extraocular muscles are intact with no nystagmus. Oculocephalics are slightly present. Face is symmetric, did not protrude his tongue. Lower cranial nerves cannot be tested. On muscle strength testing, patient did not squeeze hand at all. Did not hold his arms up in the air. He brings it down sometimes completely to his chest, sometimes holds it partly up about 30 degrees bilaterally. I did not notice any obvious focality. He is folding his right leg and has extended his left leg. He does not withdraw significantly, slight wiggles his toes to painful stimuli. He did not wiggle his toes on commands. Deep tendon reflexes are absent all over and plantars are downgoing bilaterally. No clonus. Sensory to touch did not show any response. With painful stimuli, he does slightly wiggle his toes but not much in the upper limbs. Cerebellar function cannot be assessed. Tone and bulk of muscles normal. Gait deferred.. On general examination, there is no carotid bruit or murmur, S1-S2 audible. Chest has some Rales. A lot of congestion. Abdomen is soft nontender. Abdomen is slightly protuberant. No organomegaly, bowel sounds present. Peripheral pulses are present. No peripheral edema. Results - Laboratory Findings CBC and BMP: 11/25/24 01:05 11/25/24 01:05 Abnormal Lab Findings: Abnormal Labs 11/24/24 11/24/24 11/24/24 14:51 14:59 14:59 RBC 3.45 L Hgb 10.4 L Hct 34.4 L MCHC 30.3 L RDW 16.0 H Neutrophils # 7.8 H Lymphocytes # 0.5 L ABG pO2 ABG Total CO2 ABG O2 Saturation VBG pCO2 VBG HCO3 Hemoglobin Sodium 133 L BUN 25 H Creatinine 2.63 H Glucose 112 H POC Glucose (mg/dL) 111 H Hemoglobin A1c Plasma Lactic Acid Hardy Ammonia Troponin I Total Protein 6.0 L Albumin 3.2 L Urine Protein Urine Glucose (UA) Urine Blood Urine RBC Urine Mucus 11/24/24 11/24/24 11/24/24 14:59 14:59 14:59 RBC Hgb Hct MCHC RDW Neutrophils # Lymphocytes # ABG pO2 ABG Total CO2 ABG O2 Saturation VBG pCO2 35 L VBG HCO3 21 L Hemoglobin Sodium BUN Creatinine Glucose POC Glucose (mg/dL) Hemoglobin A1c Plasma Lactic Acid Hardy 3.7 H* Ammonia Troponin I 0.070 H* Total Protein Albumin Urine Protein Urine Glucose (UA) Urine Blood Urine RBC Urine Mucus 11/24/24 11/24/24 11/24/24 15:37 18:45 22:43 RBC Hgb Hct MCHC RDW Neutrophils # Lymphocytes # ABG pO2 ABG Total CO2 ABG O2 Saturation VBG pCO2 VBG HCO3 Hemoglobin Sodium BUN Creatinine Glucose POC Glucose (mg/dL) 64 L Hemoglobin A1c Plasma Lactic Acid Hardy Ammonia Troponin I 0.083 H* Total Protein Albumin Urine Protein 3+ H Urine Glucose (UA) 1+ H Urine Blood Moderate H Urine RBC 13 H Urine Mucus Rare H 11/24/24 11/25/24 11/25/24 23:28 00:40 01:05 RBC 3.15 L Hgb 9.3 L Hct 31.1 L MCHC 30.0 L RDW 15.9 H Neutrophils # Lymphocytes # 0.8 L ABG pO2 118 H ABG Total CO2 26 H ABG O2 Saturation 99.1 H VBG pCO2 VBG HCO3 Hemoglobin 9.4 L Sodium BUN Creatinine Glucose POC Glucose (mg/dL) 118 H Hemoglobin A1c Plasma Lactic Acid Hardy Ammonia Troponin I Total Protein Albumin Urine Protein Urine Glucose (UA) Urine Blood Urine RBC Urine Mucus 11/25/24 11/25/24 11/25/24 01:05 02:00 02:07 RBC Hgb Hct MCHC RDW Neutrophils # Lymphocytes # ABG pO2 ABG Total CO2 ABG O2 Saturation VBG pCO2 VBG HCO3 Hemoglobin Sodium 133 L BUN 26 H Creatinine 2.63 H Glucose 65 L POC Glucose (mg/dL) 168 H Hemoglobin A1c Plasma Lactic Acid Hardy Ammonia Troponin I 0.145 H* Total Protein Albumin Urine Protein Urine Glucose (UA) Urine Blood Urine RBC Urine Mucus 11/25/24 11/25/24 11/25/24 02:30 07:02 07:30 RBC Hgb Hct MCHC RDW Neutrophils # Lymphocytes # ABG pO2 ABG Total CO2 ABG O2 Saturation VBG pCO2 VBG HCO3 Hemoglobin Sodium BUN Creatinine Glucose POC Glucose (mg/dL) 139 H 167 H Hemoglobin A1c 6.4 H Plasma Lactic Acid Hardy Ammonia Troponin I Total Protein Albumin Urine Protein Urine Glucose (UA) Urine Blood Urine RBC Urine Mucus 11/25/24 11/25/24 11/25/24 07:30 08:01 13:58 RBC Hgb Hct MCHC RDW Neutrophils # Lymphocytes # ABG pO2 ABG Total CO2 ABG O2 Saturation VBG pCO2 VBG HCO3 Hemoglobin Sodium BUN Creatinine Glucose POC Glucose (mg/dL) 115 H 111 H Hemoglobin A1c Plasma Lactic Acid Hardy Ammonia 30 H Troponin I Total Protein Albumin Urine Protein Urine Glucose (UA) Urine Blood Urine RBC Urine Mucus 11/25/24 15:16 RBC Hgb Hct MCHC RDW Neutrophils # Lymphocytes # ABG pO2 ABG Total CO2 ABG O2 Saturation VBG pCO2 VBG HCO3 Hemoglobin Sodium BUN Creatinine Glucose POC Glucose (mg/dL) 116 H Hemoglobin A1c Plasma Lactic Acid Hardy Ammonia Troponin I Total Protein Albumin Urine Protein Urine Glucose (UA) Urine Blood Urine RBC Urine Mucus Assessment and Plan Assessment: * Altered mental status with aphasia, unclear cause. Patient's limited examination showed no obvious focality. CVA is a possibility. Rule out toxic metabolic encephalopathy. * Diabetes * Hypertension * Hyperlipidemia * Mildly elevated ammonia. * Mild cognitive impairment * Chronic renal insufficiency Plan: * MRI of the brain without contrast, rule out CVA * MRA of the head * Carotid Doppler * CTA cannot be done because of renal failure. * 2-D echo to rule out embolic source. * Hemoglobin A1c 6.4. Diabetes is well controlled. * EEG was performed, which was abnormal due to background slowing of moderate degree. This is suggestive of generalized cerebral dysfunction as can be seen with toxic metabolic encephalopathy or related to diffuse structural brain abdomen the. Clinical correlation is recommended. No epileptiform activity was seen. * Lipid panel with cholesterol 192, LDL 98, HDL 79, triglycerides 69. Patient started on Lipitor 40 mg daily. * Agree with starting aspirin 81 mg daily. * Telemetry monitoring * DVT prophylaxis: Patient on heparin 5000 units subcu every 8 hours * Other medical management as per IM and other specialties on board. * Neurology will follow. Thank you for the consult.
[2024-11-26 08:12] LABS: African American GFR (CKD) 23 (>60 ml/min/1.73 sqM); Anion Gap 6 mmol/L; Blood Urea Nitrogen 27 mg/dL (9-20); Calcium 8.5 mg/dL (8.4-10.2); Carbon Dioxide 28 mmol/L (22-30); Chloride 99 mmol/L (98-107); Glucose 111 mg/dL (74-99); Magnesium 1.9 mg/dL (1.6-2.3); Non-African American GFR(CKD) 20 (>60 ml/min/1.73 sqM); Potassium 3.5 mmol/L (3.5-5.1); Sodium 133 mmol/L (137-145)
[2024-11-26 08:40] LABS: Glucose,Whole Blood 133 mg/dL (70-110)
[2024-11-26 09:04] LABS: Glucose,Whole Blood 122 mg/dL (70-110)
[2024-11-26 10:14] LABS: Glucose,Whole Blood 129 mg/dL (70-110)
[2024-11-26 11:00] LABS: Glucose,Whole Blood 132 mg/dL (70-110)
[2024-11-26 11:49] LABS: Glucose,Whole Blood 127 mg/dL (70-110)
--- NOTE | 2024-11-26 12:18 | P.PN ---
Subjective Progress Note Date: 11/26/24 Principal diagnosis: Hypoglycemia. Patient is an 89-year-old male with past medical history significant for type 2 diabetes mellitus, hypertension, chronic kidney disease. Patient presented emergency department by EMS chiefly for altered mental status and hypoglycemia. Apparently, patient's noted him to be difficult to arouse and thought the patient to be sleeping. When EMS was called and they arrived his blood glucose was low at 40 g/dL. They did give him an amp of D50W and brought the patient to the emergency department for evaluation yesterday afternoon. Workup in the emergency department including a brain CT which did not show any acute intracranial process. Nonspecific white matter changes likely secondary to chronic small vessel ischemic disease. CBC: WBC 6.9, hemoglobin 9.3, platelets 206. CMP: Sodium 133, potassium 4.2, chloride 102, serum bicarb 26, BUN 26, creatinine 2.63, glucose 12. Urine toxicology screen unremarkable. Viral screen negative for influenza, RSV, COVID. Did receive a 1.5 L normal saline bolus while in the ED. Patient was admitted to the cardiac stepdown floor, and remains in the ER as an overflow patient. A rapid response was called earlier this morning as the patient was felt to be in some respiratory distress. Chest x-ray showing cardiomegaly, pulmonary vascular congestion, and small bilateral pleural effusions. NT proBNP elevated 17,500. He has received multiple doses of Lasix, total of 80 mg so far. He was also placed on BiPAP with settings 12/5 and FiO2 40%. I am evaluating this patient in the emergency department he remains obtunded, will open his eyes to tactile stimuli, does not track, does not follow commands, withdraws to pain in all 4 extremities. No reported seizure-like activity. Currently on BiPAP with above-mentioned settings, achieving tidal volumes around 400, respiratory rate is in the mid 20s. Follow- up ABG with a PaO2 of 118, pCO2 of 41, pH of 7.39. Patient's blood sugars con tinue to be low. Most recent avase-ed-[id number] glucose 65 grams per deciliter. On a D5W with 0.9% saline infusing at 75 mL/h. Patient's son is at bedside. States that his father lives with his . He was difficult to arouse yesterday, thought to be sleeping. He was left like this for approximately 7 to 8 hours, according to the son. Patient reportedly had a similar episode earlier in the week, treated for hypoglycemia by EMS, and declined coming to the hospital. No reported infectious symptoms or other complaints per the son. He does have history of diabetes mellitus type 2 takes a combination of glimepiride and Actos. Current vital signs, temperature 98.6 F, heart rate 94 bpm, blood pressure 104/79 mmHg, SpO2 reading 100% on the previous mentioned BiPAP settings. Progress note dated November 26, 2024. 89-year-old male seen today in room 351. He was seen in consultation yesterday, having come to the hospital, with mental status changes, and a low blood glucose. The patient is currently seen in room 351. He is on 2 L of oxygen. He is getting D10W at 30 cc an hour. The patient is a bit more awake today, but does have some gurgling respirations, and is at high risk for aspiration. I did tell the nurse to make sure that the patient's head of bed is elevated at all times. He did have a blood gas yesterday showing a pO2 of 118, pCO2 of 41, and pH of 7.39. Chest x-ray showed bilateral opacities, greater on the left. Carotid studies, were negative. Objective - Vital Signs Vital signs: Vital Signs Temp 98.7 F 11/26/24 08:00 Pulse 103 H 11/26/24 08:00 Resp 18 11/26/24 08:00 BP 150/79 11/26/24 08:00 Pulse Ox 98 11/26/24 08:07 FiO2 35 11/25/24 08:09 Intake & Output 11/25/24 11/26/24 11/26/24 18:59 06:59 18:59 Intake Total 0 Output Total 1100 1275 Balance -1100 -1275 Weight 66.5 kg Intake: Oral 0 Output: Urine 1100 1275 Other: Voiding Method Indwelling Catheter Indwelling Catheter Indwelling Catheter # Bowel Movements 1 - Exam No acute distress, still a bit somnolent/lethargic, but a bit more awake. HEENT examination is grossly unremarkable. Mucous membranes are moist. No oral lesions. Neck supple. Full range of motion. No adenopathy thyromegaly or neck vein distention. Cardiovascular examination reveals regular rhythm rate. S1-S2 normal. No S3 or S4. No discernible murmur noted. Lungs reveal gurgling breath sounds. No wheezes or rhonchi. No crackles. Breath sounds equal. Abdomen soft bowel sounds are heard. No masses or tenderness. Extremities are intact. No cyanosis clubbing or edema. Skin is without rash or lesion. Neurologic examination is difficult to evaluate. - Labs CBC & Chem 7: 11/25/24 01:05 11/26/24 06:52 Labs: Abnormal Lab Results - Last 24 Hours (Table) 11/25/24 11/25/24 11/25/24 Range/Units 09:40 13:58 15:16 Sodium (137-145) mmol/L BUN (9-20) mg/dL Creatinine (0.66-1.25) mg/dL Glucose (74-99) mg/dL POC Glucose (mg/dL) 111 H 116 H (70-110) mg/dL HDL Cholesterol 79.50 H (40.00-60.00) mg/dL 11/25/24 11/25/24 11/25/24 Range/Units 17:01 17:58 18:56 Sodium (137-145) mmol/L BUN (9-20) mg/dL Creatinine (0.66-1.25) mg/dL Glucose (74-99) mg/dL POC Glucose (mg/dL) 117 H 118 H 120 H (70-110) mg/dL HDL Cholesterol (40.00-60.00) mg/dL 11/25/24 11/25/24 11/25/24 Range/Units 20:13 22:23 23:19 Sodium (137-145) mmol/L BUN (9-20) mg/dL Creatinine (0.66-1.25) mg/dL Glucose (74-99) mg/dL POC Glucose (mg/dL) 117 H 123 H 118 H (70-110) mg/dL HDL Cholesterol (40.00-60.00) mg/dL 11/26/24 11/26/24 11/26/24 Range/Units 00:33 01:26 02:20 Sodium (137-145) mmol/L BUN (9-20) mg/dL Creatinine (0.66-1.25) mg/dL Glucose (74-99) mg/dL POC Glucose (mg/dL) 114 H 126 H 114 H (70-110) mg/dL HDL Cholesterol (40.00-60.00) mg/dL 11/26/24 11/26/24 11/26/24 Range/Units 03:35 04:14 05:21 Sodium (137-145) mmol/L BUN (9-20) mg/dL Creatinine (0.66-1.25) mg/dL Glucose (74-99) mg/dL POC Glucose (mg/dL) 124 H 121 H 119 H (70-110) mg/dL HDL Cholesterol (40.00-60.00) mg/dL 11/26/24 11/26/24 11/26/24 Range/Units 06:00 06:52 07:07 Sodium 133 L (137-145) mmol/L BUN 27 H (9-20) mg/dL Creatinine 2.78 H (0.66-1.25) mg/dL Glucose 111 H (74-99) mg/dL POC Glucose (mg/dL) 120 H 116 H (70-110) mg/dL HDL Cholesterol (40.00-60.00) mg/dL 11/26/24 11/26/24 11/26/24 Range/Units 08:39 09:02 10:13 Sodium (137-145) mmol/L BUN (9-20) mg/dL Creatinine (0.66-1.25) mg/dL Glucose (74-99) mg/dL POC Glucose (mg/dL) 133 H 122 H 129 H (70-110) mg/dL HDL Cholesterol (40.00-60.00) mg/dL 11/26/24 11/26/24 Range/Units 10:58 11:47 Sodium (137-145) mmol/L BUN (9-20) mg/dL Creatinine (0.66-1.25) mg/dL Glucose (74-99) mg/dL POC Glucose (mg/dL) 132 H 127 H (70-110) mg/dL HDL Cholesterol (40.00-60.00) mg/dL Assessment and Plan Assessment: Acute hypoxemic respiratory failure, currently on BiPAP, secondary to acute exac erbation of congestive heart failure, improved. Altered mental status, possibly a component of acute metabolic encephalopathy and profound hypoglycemia. Persistent hypoglycemia. Type 2 diabetes mellitus. Chronic kidney disease stage IV. Elevated troponins, type II mechanism. Anemia of chronic disease. Hypertension. Plan: Plan dated November 26, 2024. The patient appears a bit more awake today than yesterday. He is currently being evaluated by neurology. Carotid studies were negative. Labs, x-rays, and medications are reviewed. From the pulmonary standpoint, the patient appears to be doing better. Has been weaned down to 2 L. He still is getting D10W at 30 cc an hour, for his persistent hypoglycemia. Moving forward, we will see the patient only as needed. No additional recommendations are made. Prognosis is guarded. Dictation was produced using [employer] software. Please excuse any grammatical, word or spelling errors. Time with Patient: Less than 30
[2024-11-26] MEDS: hydrALAZINE HCL 25 MG TAB PO SCH (12:35)
[2024-11-26] MEDS: ISOSORBIDE MONONITRATE ER 15 MG TAB PO SCH (12:35)
[2024-11-26] MEDS: carvediloL 3.125 MG TAB PO SCH (12:35)
--- NOTE | 2024-11-26 12:47 | P.PN ---
Subjective HISTORY OF PRESENT ILLNESS: This is a 89-year-old male with a past medical history significant for hypertension and diabetes. Patient does not follow with a welfare worker. We have been asked to see the patient in consultation for CHF. Patient examined at the bedside. Patient son is present. Apparently the patient lives at home with his . She attempted to wake him up when she was unable to and she then called EMS. The patient was found to be hypoglycemic. Additionally the patient was found to be in acute CHF upon admission to the hospital. According to the patient's son the patient has no known history of CHF or CAD. DIAGNOSTICS: - EKG reveals sinus mechanism with PVCs. Significant baseline artifact. - Chest xray small bilateral pleural effusions with patchy perihilar opacities bilaterally. Findings may relate to pulmonary edema versus pneumonia. - Laboratory data: WBC 8.7. Hemoglobin 10.4. Platelet count 252. Sodium 133. Potassium 4.4. BUN 25. Creatinine 2.63. Lactic acid 3.7. Troponin 0.070. 0.083. 0.145 proBNP 17,500. - Current home cardiac medications include lisinopril 40 mg daily - No previous echocardiogram, stress test, or cardiac catheterization available in EMR for review 11/26/2024 Patient examined this morning at the bedside. Patient has a safety scientist present. Patient remains lethargic. He has gurgling respirations at the time of examination. He remains on IV diuretics. 2D echo remains pending. PHYSICAL EXAM: VITAL SIGNS: Reviewed. GENERAL: Well-developed in no acute distress. HEENT: Head is normocephalic. Pupils are equal, round. Sclerae anicteric. Mucous membranes of the mouth are moist. Neck supple. No JVD or thyromegaly LUNGS: Respirations even and unlabored. Lungs diminished with gurgling respirations noted. HEART: Regular rate and rhythm. S1 and S2 heard. ABDOMEN: Soft. Nondistended. Nontender. EXTREMITIES: Normal range of motion. No clubbing or cyanosis. Peripheral pulses intact. Bilateral lower extremity edema NEUROLOGIC: Lethargic ASSESSMENT: Episode of unresponsiveness, secondary to hypoglycemia Acute heart failure, type unknown, echo pending Acute hypoxic respiratory failure, currently on BiPAP Elevated troponins, type II KS secondary to oxygen supply/demand mismatch and poor renal clearance, no evidence of acute coronary syndrome Chronic kidney disease Diabetes History of hypertension PLAN: 2D echo has been ordered. Await results. Continue IV Lasix 40 mg every 12 hours Daily weights, accurate intake and output, monitoring of kidney function Continue to hold lisinopril Add hydralazine 25 mg 3 times daily Add Imdur 15 mg daily Add carvedilol 3.125 mg twice a day Further recommendations pending patient course Nurse practitioner note has been reviewed by physician. Signing provider agrees with the documented findings, assessment, and plan of care documented by TENSION MACHINE OPERATOR as a scribe. Objective - Vital Signs Vital signs: Vital Signs Temp 99.1 F 11/26/24 12:00 Pulse 103 H 11/26/24 12:00 Resp 18 11/26/24 12:00 BP 157/79 11/26/24 12:00 Pulse Ox 97 11/26/24 12:00 FiO2 35 11/25/24 08:09 Intake & Output 11/25/24 11/26/24 11/26/24 18:59 06:59 18:59 Intake Total 0 Output Total 1100 1275 900 Balance -1100 -1275 -900 Weight 66.5 kg Intake: Oral 0 Output: Urine 1100 1275 900 Other: Voiding Method Indwelling Catheter Indwelling Catheter Indwelling Catheter # Bowel Movements 1 - Labs CBC & Chem 7: 11/25/24 01:05 11/26/24 06:52 Labs: Abnormal Lab Results - Last 24 Hours (Table) 11/25/24 11/25/24 11/25/24 Range/Units 09:40 13:58 15:16 Sodium (137-145) mmol/L BUN (9-20) mg/dL Creatinine (0.66-1.25) mg/dL Glucose (74-99) mg/dL POC Glucose (mg/dL) 111 H 116 H (70-110) mg/dL HDL Cholesterol 79.50 H (40.00-60.00) mg/dL 11/25/24 11/25/24 11/25/24 Range/Units 17:01 17:58 18:56 Sodium (137-145) mmol/L BUN (9-20) mg/dL Creatinine (0.66-1.25) mg/dL Glucose (74-99) mg/dL POC Glucose (mg/dL) 117 H 118 H 120 H (70-110) mg/dL HDL Cholesterol (40.00-60.00) mg/dL 11/25/24 11/25/24 11/25/24 Range/Units 20:13 22:23 23:19 Sodium (137-145) mmol/L BUN (9-20) mg/dL Creatinine (0.66-1.25) mg/dL Glucose (74-99) mg/dL POC Glucose (mg/dL) 117 H 123 H 118 H (70-110) mg/dL HDL Cholesterol (40.00-60.00) mg/dL 11/26/24 11/26/24 11/26/24 Range/Units 00:33 01:26 02:20 Sodium (137-145) mmol/L BUN (9-20) mg/dL Creatinine (0.66-1.25) mg/dL Glucose (74-99) mg/dL POC Glucose (mg/dL) 114 H 126 H 114 H (70-110) mg/dL HDL Cholesterol (40.00-60.00) mg/dL 11/26/24 11/26/24 11/26/24 Range/Units 03:35 04:14 05:21 Sodium (137-145) mmol/L BUN (9-20) mg/dL Creatinine (0.66-1.25) mg/dL Glucose (74-99) mg/dL POC Glucose (mg/dL) 124 H 121 H 119 H (70-110) mg/dL HDL Cholesterol (40.00-60.00) mg/dL 11/26/24 11/26/24 11/26/24 Range/Units 06:00 06:52 07:07 Sodium 133 L (137-145) mmol/L BUN 27 H (9-20) mg/dL Creatinine 2.78 H (0.66-1.25) mg/dL Glucose 111 H (74-99) mg/dL POC Glucose (mg/dL) 120 H 116 H (70-110) mg/dL HDL Cholesterol (40.00-60.00) mg/dL 11/26/24 11/26/24 11/26/24 Range/Units 08:39 09:02 10:13 Sodium (137-145) mmol/L BUN (9-20) mg/dL Creatinine (0.66-1.25) mg/dL Glucose (74-99) mg/dL POC Glucose (mg/dL) 133 H 122 H 129 H (70-110) mg/dL HDL Cholesterol (40.00-60.00) mg/dL 11/26/24 11/26/24 Range/Units 10:58 11:47 Sodium (137-145) mmol/L BUN (9-20) mg/dL Creatinine (0.66-1.25) mg/dL Glucose (74-99) mg/dL POC Glucose (mg/dL) 132 H 127 H (70-110) mg/dL HDL Cholesterol (40.00-60.00) mg/dL
[2024-11-26 13:59] LABS: Glucose,Whole Blood 151 mg/dL (70-110)
[2024-11-26 15:29] LABS: Glucose,Whole Blood 158 mg/dL (70-110)
[2024-11-26 16:18] LABS: Glucose,Whole Blood 163 mg/dL (70-110)
[2024-11-26] MEDS: FUROSEMIDE 10 MG/ML 2 ML VIAL IV ONE (16:37)
[2024-11-26 16:51] LABS: Glucose,Whole Blood 201 mg/dL (70-110)
--- NOTE | 2024-11-26 19:08 | CA ---
Transthoracic Echo Report Name: Robert Becerra Age: 89 Gender: M : 1935 Exam Date: 11/25/2024 08:40 Exam Location: [facility] Ht (in): 66 Wt (lb): 156 Ordering Physician: Aman Lafleur Attending/Referring Phys: Process Manufacturing Engineer Janis Damon RDCS Procedure CPT: Indications: evaluate LV function Cardiac Hx: Technical Quality: Fair Contrast 1: Total Dose (mL): Contrast 2: Total Dose (mL): MEASUREMENTS (Male / Female) Normal Values 2D ECHO LV Diastolic Diameter PLAX 5.2 cm 4.2 - 5.9 / 3.9 - 5.3 cm LV Systolic Diameter PLAX 4.3 cm IVS Diastolic Thickness 1.2 cm 0.6 - 1.0 / 0.6 - 0.9 cm LVPW Diastolic Thickness 1.1 cm 0.6 - 1.0 / 0.6 - 0.9 cm LV Relative Wall Thickness 0.4 RV Internal Dim ED PLAX 3.1 cm LA Systolic Diameter LX 4.0 cm 3.0 - 4.0 / 2.7 - 3.8 cm LV Diastolic Volume MOD 4C 95.8 cm??? LV Systolic Volume MOD 4C 69.2 cm??? LV Ejection Fraction MOD 4C 27.8 % LV Cardiac Index MOD 4C 1121.4 cm???/min???m??? LV Diastolic Length 4C 7.8 cm LV Systolic Length 4C 7.0 cm LV Diastolic Volume MOD 2C 101.3 cm??? LV Systolic Volume MOD 2C 70.9 cm??? LV Ejection Fraction MOD 2C 30.0 % LV Cardiac Index MOD 2C 1281.2 cm???/min???m??? LV Diastolic Length 2C 8.4 cm LV Systolic Length 2C 7.4 cm LA Volume 72.9 cm??? 18 - 58 / 22 - 52 cm??? LA Volume Index 39.9 cm???/m??? 16 - 28 cm???/m??? M-MODE Aortic Root Diameter MM 3.5 cm DOPPLER AV Peak Velocity 152.0 cm/s AV Peak Gradient 9.2 mmHg AV Mean Velocity 98.8 cm/s AV Mean Gradient 4.4 mmHg AV Velocity Time Integral 29.6 cm MV Area PHT 5.9 cm??? Mitral E Point Velocity 109.0 cm/s Mitral A Point Velocity 73.9 cm/s Mitral E to A Ratio 1.5 MV Deceleration Time 128.0 ms TR Peak Velocity 325.0 cm/s TR Peak Gradient 42.2 mmHg Right Ventricular Systolic Press 57.2 mmHg FINDINGS Left Ventricle Left ventricular ejection fraction is estimated at 30-35 %. Left ventricular cavity size normal. Mildly increased left ventricular wall thickness. Severe global hypokinesis Right Ventricle Normal right ventricular size. Moderate to severe pulmonary hypertension. Right ventricular systolic pressure estimated at 57 mm hg. Right Atrium Normal right atrial size. No right atrial thrombus or mass seen. Left Atrium Moderately increased left atrial volume. No left atrial thrombus or mass present. Mitral Valve Mitral valve thickened. Mild mitral annular calcification. Mild to moderate mitral regurgitation. Aortic Valve Trileaflet aortic valve. No aortic valve stenosis or regurgitation.aortic valve sclerosis. Tricuspid Valve Structurally normal tricuspid valve. Mild to moderate tricuspid regurgitation. Pulmonic Valve Pulmonic valve not well visualized. Trace pulmonic regurgitation. Pericardium No pericardial effusion. Aorta Normal size aortic root and proximal ascending aorta. CONCLUSIONS 1. Severely impaired low ventricle systolic function with severe global hypokinesis 2. Mild to moderate mitral and tricuspid regurgitation with moderate to severe pulmonary hypertension Previewed by: Dr. Maye Lr MD (Electronically Signed) Final Date: 26 November 2024 19:07
[2024-11-26 19:29] LABS: Glucose,Whole Blood 209 mg/dL (70-110)
[2024-11-26] MEDS: INSULIN LISPRO (HumaLOG) 100 UNIT/ML 10 mL VL SQ SCH (20:22)
[2024-11-27 01:55] LABS: Glucose,Whole Blood 152 mg/dL (70-110)
[2024-11-27 06:08] LABS: Glucose,Whole Blood 152 mg/dL (70-110)
[2024-11-27 07:52] LABS: Basophils % (A) 0 %; Eosinophils % (A) 0 %; HCT 32.1 % (39.0-53.0); Lymphocytes # (A) 0.8 k/uL (1.0-4.8); Lymphocytes % (A) 12 %; MCH 30.6 pg (25.0-35.0); MCHC 31.2 g/dL (31.0-37.0); MCV 97.8 fL (80.0-100.0); Mean Platelet Volume 7.8; Monocytes # (A) 0.4 k/uL (0-1.0); Monocytes % (A) 6 %; Neutrophils # (A) 5.3 k/uL (1.3-7.7); Neutrophils % (A) 80 %; Platelet Count 232 k/uL (150-450); RBC 3.28 m/uL (4.30-5.90); RDW 15.8 % (11.5-15.5); WBC 6.7 k/uL (3.8-10.6)
[2024-11-27 08:05] LABS: ALT 15 U/L (4-49); AST 31 U/L (17-59); African American GFR (CKD) 26 (>60 ml/min/1.73 sqM); Albumin 2.7 g/dL (3.5-5.0); Alkaline Phosphatase 70 U/L (38-126); Anion Gap 4 mmol/L; Blood Urea Nitrogen 31 mg/dL (9-20); Calcium 8.3 mg/dL (8.4-10.2); Carbon Dioxide 31 mmol/L (22-30); Chloride 96 mmol/L (98-107); Glucose 136 mg/dL (74-99); Magnesium 1.8 mg/dL (1.6-2.3); Non-African American GFR(CKD) 22 (>60 ml/min/1.73 sqM); Potassium 3.6 mmol/L (3.5-5.1); Sodium 131 mmol/L (137-145); Total Bilirubin 1.3 mg/dL (0.2-1.3); Total Protein 5.4 g/dL (6.3-8.2)
--- NOTE | 2024-11-27 08:41 | P.PN ---
Subjective Progress Note Date: 11/26/24 89-year-old male was brought brought in because patient was unresponsive. EMS found him to be hypoglycemic with a blood sugars of 30 patient was brought to the hospital admitted for hypoglycemia is on D10. Patient is also found to be in CHF exacerbation requiring oxygen presently on 2 L patient does have history of congestive heart failure patient has a elevated BNP chest x-ray showing pul monary edema is on IV Lasix. Patient is still lethargic but there is no clear evidence of any infection anywhere patient is bit hyponatremic. Patient's serum creatinine is 2.63 baseline is around that. Patient also found to have troponin elevation of 0.083 and 0.145. Cardiology evaluated the patient. 11/26/2024 Obtunded, not following commands, family members at the bedside report he is normally alert and oriented and up and ambulatory at home. Blood sugars are being monitored and per nursing staff it continues to be every hour. Will make ACHS as well as 2 AM and as needed as patient was initially admitted with hypoglycemia. Patient also with significant bronchial congestion and sounds like patient is sounds of severe wetness and inability to clear secretions with frequent suctioning required. Patient with significant fluid overload although worsening kidney functions and will consult nephrology. Neurology is following and awaiting MRI of the brain for further evaluation. CODE STATUS needs to be addressed in this patient although family members that were available were not next of kin. REVIEW OF SYSTEMS: Unable to obtain as patient is mumbling and moaning and wincing in pain but not verbal All other systems are negative except those mentioned in the HPI PHYSICAL EXAMINATION: GENERAL: Patient continues to be lethargic drowsy was unable to get much of the history from the patient. HEENT: Pupils are round and equally reacting to light. EOMI. No scleral icterus. No conjunctival pallor. Normocephalic, atraumatic. No pharyngeal erythema. No thyromegaly. CARDIOVASCULAR: S1 and S2 present. No murmurs, rubs, or gallops. PULMONARY: Significant bronchial congestion with upper airways that appear wet requiring significant amounts of suctioning, expiratory wheezing noted ABDOMEN: Soft, nontender, nondistended, normoactive bowel sounds. No palpable organomegaly. MUSCULOSKELETAL: No joint swelling or deformity. EXTREMITIES: No cyanosis, clubbing, or pedal edema. NEUROLOGICAL appears quite weak in general alert and lethargic SKIN: No rashes. Assessment and plan -Altered mental status may be related to hypoglycemia patient is on oral hypoglycemic agents which are being held and patient is on D10 which will be weaned off slowly, patient was maintained on every hour Accu-Cheks although blood sugars are maintained and will continue D10 as patient is unable to eat or drink and will make Accu-Cheks before meals and at bedtime as well as 2 AM -Congestive heart failure, systolic function is not known patient is acute exacerbation echocardiogram is currently pending with cardiology following and maintained on IV Lasix although kidney functions are worsening. Will consult nephrology as well. -Chronic kidney disease stage IV -Hypertension -Elevated troponin secondary to type II CO and chronic kidney disease -Type 2 diabetes mellitus DVT prophylaxis: Subcutaneous heparin Plan: CODE STATUS needs to be addressed with this patient's family as patient is obtunded and not responding and has multiple comorbidities ongoing continue monitoring blood sugars and will adjust patient is continued on D10 and will continue with cautious fluids as patient appears overloaded with CHF. Cardiology following along with nephrology and neurology Overall prognosis is guarded and hospice may be appropriate in this patient The impression and plan of care has been dictated by Aysha Nava, Nurse Practitioner as directed. Dr. Micheal MD I have performed a history and examination and MDM of this patient, discussed the same with the dictator, and agree with the dictator's assessment and plan as written ,documented as a scribe. Based on total visit time, I have performed more than 50% of the visit. Objective - Vital Signs Vital signs: Vital Signs Temp 98.7 F 11/26/24 08:00 Pulse 103 H 11/26/24 08:00 Resp 18 11/26/24 08:00 BP 150/79 11/26/24 08:00 Pulse Ox 98 11/26/24 08:07 FiO2 35 11/25/24 08:09 Intake & Output 11/25/24 11/26/24 11/26/24 18:59 06:59 18:59 Intake Total 0 Output Total 1100 1275 Balance -1100 -1275 Weight 66.5 kg Intake: Oral 0 Output: Urine 1100 1275 Other: Voiding Method Indwelling Catheter Indwelling Catheter # Bowel Movements 1 - Labs CBC & Chem 7: 11/27/24 06:56 11/27/24 06:56 Labs: Abnormal Lab Results - Last 24 Hours (Table) 11/25/24 11/25/24 11/25/24 Range/Units 07:30 09:40 13:58 Sodium (137-145) mmol/L BUN (9-20) mg/dL Creatinine (0.66-1.25) mg/dL Glucose (74-99) mg/dL POC Glucose (mg/dL) 111 H (70-110) mg/dL Hemoglobin A1c 6.4 H (<=6.0) % HDL Cholesterol 79.50 H (40.00-60.00) mg/dL 11/25/24 11/25/24 11/25/24 Range/Units 15:16 17:01 17:58 Sodium (137-145) mmol/L BUN (9-20) mg/dL Creatinine (0.66-1.25) mg/dL Glucose (74-99) mg/dL POC Glucose (mg/dL) 116 H 117 H 118 H (70-110) mg/dL Hemoglobin A1c (<=6.0) % HDL Cholesterol (40.00-60.00) mg/dL 11/25/24 11/25/24 11/25/24 Range/Units 18:56 20:13 22:23 Sodium (137-145) mmol/L BUN (9-20) mg/dL Creatinine (0.66-1.25) mg/dL Glucose (74-99) mg/dL POC Glucose (mg/dL) 120 H 117 H 123 H (70-110) mg/dL Hemoglobin A1c (<=6.0) % HDL Cholesterol (40.00-60.00) mg/dL 11/25/24 11/26/24 11/26/24 Range/Units 23:19 00:33 01:26 Sodium (137-145) mmol/L BUN (9-20) mg/dL Creatinine (0.66-1.25) mg/dL Glucose (74-99) mg/dL POC Glucose (mg/dL) 118 H 114 H 126 H (70-110) mg/dL Hemoglobin A1c (<=6.0) % HDL Cholesterol (40.00-60.00) mg/dL 11/26/24 11/26/24 11/26/24 Range/Units 02:20 03:35 04:14 Sodium (137-145) mmol/L BUN (9-20) mg/dL Creatinine (0.66-1.25) mg/dL Glucose (74-99) mg/dL POC Glucose (mg/dL) 114 H 124 H 121 H (70-110) mg/dL Hemoglobin A1c (<=6.0) % HDL Cholesterol (40.00-60.00) mg/dL 11/26/24 11/26/24 11/26/24 Range/Units 05:21 06:00 06:52 Sodium 133 L (137-145) mmol/L BUN 27 H (9-20) mg/dL Creatinine 2.78 H (0.66-1.25) mg/dL Glucose 111 H (74-99) mg/dL POC Glucose (mg/dL) 119 H 120 H (70-110) mg/dL Hemoglobin A1c (<=6.0) % HDL Cholesterol (40.00-60.00) mg/dL 11/26/24 11/26/24 11/26/24 Range/Units 07:07 08:39 09:02 Sodium (137-145) mmol/L BUN (9-20) mg/dL Creatinine (0.66-1.25) mg/dL Glucose (74-99) mg/dL POC Glucose (mg/dL) 116 H 133 H 122 H (70-110) mg/dL Hemoglobin A1c (<=6.0) % HDL Cholesterol (40.00-60.00) mg/dL 11/26/24 Range/Units 10:13 Sodium (137-145) mmol/L BUN (9-20) mg/dL Creatinine (0.66-1.25) mg/dL Glucose (74-99) mg/dL POC Glucose (mg/dL) 129 H (70-110) mg/dL Hemoglobin A1c (<=6.0) % HDL Cholesterol (40.00-60.00) mg/dL
--- NOTE | 2024-11-27 11:10 | P.NPCON ---
History of Present Illness - Reason for Consult acute renal failure - History of Present Illness Patient is an 89-year-old male admitted to the hospital with mental status changes. Patient was found to be unresponsive by his and EMS was called. He was noted to have blood sugars of around 30. Patient is currently maintained on D10 infusion He is also noted to be in volume overload and maintained on IV Lasix 40 mg every 12 hours. Serum creatinine 2.6 on admission and increased to 2.7 yesterday. It is down to 2.5 today. Previous creatinine at 2.2 in 2022 and 2.8-2.9 in August 2024. Patient is maintained on GREG inhibitors at home, currently on hold. He has an indwelling Dawson catheter with urine output documented at 1600 mL for 24 hours. Past Medical History Past Medical History: Diabetes Mellitus, Hyperlipidemia, Hypertension History of Any Multi-Drug Resistant Organisms: None Reported Past Surgical History: No Surgical Hx Reported Additional Past Anesthesia/Blood Transfusion Reaction / Comment(s): [facility] Witness-"would not allow blood transfusion" Past Psychological History: No Psychological Hx Reported Smoking Status: Never smoker Past Alcohol Use History: None Reported Past Drug Use History: None Reported - Past Family History Father Family Medical History: Myocardial Infarction (PR) Mother Family Medical History: No Reported History, Unable to Obtain Additional Family Medical History / Comment(s): unknown Medications and Allergies Home Medications Medication Instructions Recorded Confirmed Type Doxazosin [Cardura] 4 mg PO BID 03/28/23 11/24/24 History Pioglitazone [Actos] 30 mg PO DAILY 09/05/24 11/24/24 History Glimepiride [Amaryl] 1 mg PO DAILY 11/24/24 11/24/24 History lisinopriL 40 mg PO DAILY 11/24/24 11/24/24 History Allergies Allergy/AdvReac Type Severity Reaction Status Date / Time No Known Allergies Allergy Verified 11/24/24 16:51 Physical Exam Vitals: Vital Signs Temp Pulse Resp BP Pulse Ox 11/27/24 08:00 98.5 F 87 16 142/64 97 11/27/24 07:46 100 11/27/24 03:29 98.1 F 85 16 147/69 99 11/27/24 01:41 82 16 11/26/24 23:27 98.3 F 82 16 154/69 100 11/26/24 19:36 98.6 F 90 18 157/77 100 11/26/24 16:00 98.1 F 106 H 18 131/81 95 11/26/24 12:00 99.1 F 103 H 18 157/79 97 Intake and Output 11/26/24 11/27/24 11/27/24 22:59 06:59 14:59 Output Total 700 550 Balance -700 -550 Output: Urine 700 550 Other: Voiding Method Indwelling Catheter Indwelling Catheter Indwelling Catheter Patient is awake, comfortable, no acute distress. Examination of the heart S1 and S2 Examination of the lungs bilateral breath sounds are heard Abdomen is soft nontender Examination of lower extremities shows no significant edema Results - Lab Results Most recent lab results ABG pH 7.39 (7.35-7.45) 11/25/24 00:40 ABG pCO2 41 mmHg (35-45) 11/25/24 00:40 ABG pO2 118 mmHg (83-108) H 11/25/24 00:40 ABG HCO3 25 mmol/L (21-25) 11/25/24 00:40 ABG O2 Saturation 99.1 % (94-97) H 11/25/24 00:40 Calcium 8.3 mg/dL (8.4-10.2) L 11/27/24 06:56 Magnesium 1.8 mg/dL (1.6-2.3) 11/27/24 06:56 11/27/24 06:56 11/27/24 06:56 Assessment and Plan Assessment: 1. Acute kidney injury, cardiorenal, improving. Currently maintained on IV Lasix. UA shows 3+ protein and moderate blood. Patient has an indwelling Dawson catheter. Ultrasound of the kidneys in August did not show any evidence of obstructive uropathy. 2. Chronic kidney disease stage IV with baseline creatinine around 2.2 to 2.5 mg/dL. Serum creatinine was 2.8-2.9 in August 2024. 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 Cardiomyopathy with an EF of 30 to 35% 4. Moderate to severe pulmonary hypertension 5. Acute on chronic CHF with decreased ejection fraction 6. Hypoglycemia maintained on D10 7. Mental status changes associated with hypoglycemia Plan: May continue with IV Lasix Continue to hold GREG inhibitors Repeat labs in a.m. Accurate I's and O's Avoid nephrotoxic agents Thank you for the consultation. We will continue to follow the patient with you during his hospitalization.
[2024-11-27 11:12] LABS: Glucose,Whole Blood 200 mg/dL (70-110)
--- NOTE | 2024-11-27 11:30 | P.PN ---
Subjective Progress Note Date: 11/26/24 Patient was seen for follow-up. Patient's granddaughter was present. Apparently patient cannot have MRI because he is not able to lay flat. She is trying to talk. However speech is very mumbling, slurring. Difficult to understand. Objective - Vital Signs Vital signs: Vital Signs Temp 99.1 F 11/26/24 12:00 Pulse 103 H 11/26/24 12:00 Resp 18 11/26/24 12:00 BP 157/79 11/26/24 12:00 Pulse Ox 97 11/26/24 12:00 FiO2 35 11/25/24 08:09 Intake & Output 11/25/24 11/26/24 11/26/24 18:59 06:59 18:59 Intake Total 0 Output Total 1100 1275 900 Balance -1100 -1275 -900 Weight 66.5 kg Intake: Oral 0 Output: Urine 1100 1275 900 Other: Voiding Method Indwelling Catheter Indwelling Catheter Indwelling Catheter # Bowel Movements 1 - Exam Patient is alert and awake, but appears moderately encephalopathic. He is try ing to speak, but mumbling, very slurred. At time it appears garbled speech. No obvious facial droop. Extraocular muscles are intact. Muscle strength again patient appears to be very weak both arms. No obvious focality however. - Labs CBC & Chem 7: 11/27/24 06:56 11/27/24 06:56 Labs: Abnormal Lab Results - Last 24 Hours (Table) 11/25/24 11/25/24 11/25/24 Range/Units 09:40 17:01 17:58 Sodium (137-145) mmol/L BUN (9-20) mg/dL Creatinine (0.66-1.25) mg/dL Glucose (74-99) mg/dL POC Glucose (mg/dL) 117 H 118 H (70-110) mg/dL HDL Cholesterol 79.50 H (40.00-60.00) mg/dL 11/25/24 11/25/24 11/25/24 Range/Units 18:56 20:13 22:23 Sodium (137-145) mmol/L BUN (9-20) mg/dL Creatinine (0.66-1.25) mg/dL Glucose (74-99) mg/dL POC Glucose (mg/dL) 120 H 117 H 123 H (70-110) mg/dL HDL Cholesterol (40.00-60.00) mg/dL 11/25/24 11/26/24 11/26/24 Range/Units 23:19 00:33 01:26 Sodium (137-145) mmol/L BUN (9-20) mg/dL Creatinine (0.66-1.25) mg/dL Glucose (74-99) mg/dL POC Glucose (mg/dL) 118 H 114 H 126 H (70-110) mg/dL HDL Cholesterol (40.00-60.00) mg/dL 11/26/24 11/26/24 11/26/24 Range/Units 02:20 03:35 04:14 Sodium (137-145) mmol/L BUN (9-20) mg/dL Creatinine (0.66-1.25) mg/dL Glucose (74-99) mg/dL POC Glucose (mg/dL) 114 H 124 H 121 H (70-110) mg/dL HDL Cholesterol (40.00-60.00) mg/dL 11/26/24 11/26/24 11/26/24 Range/Units 05:21 06:00 06:52 Sodium 133 L (137-145) mmol/L BUN 27 H (9-20) mg/dL Creatinine 2.78 H (0.66-1.25) mg/dL Glucose 111 H (74-99) mg/dL POC Glucose (mg/dL) 119 H 120 H (70-110) mg/dL HDL Cholesterol (40.00-60.00) mg/dL 11/26/24 11/26/24 11/26/24 Range/Units 07:07 08:39 09:02 Sodium (137-145) mmol/L BUN (9-20) mg/dL Creatinine (0.66-1.25) mg/dL Glucose (74-99) mg/dL POC Glucose (mg/dL) 116 H 133 H 122 H (70-110) mg/dL HDL Cholesterol (40.00-60.00) mg/dL 11/26/24 11/26/24 11/26/24 Range/Units 10:13 10:58 11:47 Sodium (137-145) mmol/L BUN (9-20) mg/dL Creatinine (0.66-1.25) mg/dL Glucose (74-99) mg/dL POC Glucose (mg/dL) 129 H 132 H 127 H (70-110) mg/dL HDL Cholesterol (40.00-60.00) mg/dL 11/26/24 11/26/24 Range/Units 13:57 15:27 Sodium (137-145) mmol/L BUN (9-20) mg/dL Creatinine (0.66-1.25) mg/dL Glucose (74-99) mg/dL POC Glucose (mg/dL) 151 H 158 H (70-110) mg/dL HDL Cholesterol (40.00-60.00) mg/dL Assessment and Plan Assessment: * Altered mental status with aphasia, unclear cause. Patient's limited examination showed no obvious focality. CVA is a possibility. Rule out toxic metabolic encephalopathy. * Patient presented with hypoglycemia, rule out hypoglycemic encephalopathy. * CHF * Anemia * Elevated troponins * Diabetes * Hypertension * Hyperlipidemia * Mildly elevated ammonia. * Mild cognitive impairment * Chronic renal insufficiency Plan: * Await MRI of the brain without contrast, rule out CVA. Patient not able to receive MRI because of respiratory status. * MRA of the head * If not able to receive MRI by morning, we will repeat CT head to rule out large stroke. * Carotid Doppler revealed no hemodynamically significant stenosis in either ICA. Antegrade flow in both vertebral arteries. * 2-D echo revealed severely impaired LVEF 30 to 35%. Mildly increased left ventricular wall thickness. Severe global hypokinesis. Moderately increased left atrial volume. No thrombus seen. Mild to moderate MR. Mild to moderate TR. * Hemoglobin A1c 6.4. Diabetes is well controlled. Avoid episodes of hypoglycemia. * EEG was performed, which was abnormal due to background slowing of moderate d egree. This is suggestive of generalized cerebral dysfunction as can be seen with toxic metabolic encephalopathy or related to diffuse structural brain abdomen the. Clinical correlation is recommended. No epileptiform activity was seen. * Lipid panel with cholesterol 192, LDL 98, HDL 79, triglycerides 69. Patient started on Lipitor 40 mg daily. * Agree with starting aspirin 81 mg daily. If patient not able to take by mouth, we will give aspirin rectally. * Telemetry monitoring * DVT prophylaxis: Patient on heparin 5000 units subcu every 8 hours * Other medical management as per IM and other specialties on board. * Discussed with family members.
--- NOTE | 2024-11-27 12:27 | CT ---
EXAMINATION TYPE: CT brain wo con CT DLP: 1064.3 mGycm, Automated exposure control for dose reduction was used. DATE OF EXAM: 11/27/2024 12:15 PM COMPARISON: CT brain 11/24/2024, CT Brain and cspine facial 523 CLINICAL INDICATION:Male, 89 years old with history of R/O CVA, not tolerating MRI, ams, r/o cva TECHNIQUE: Brain: Multiple axial CT images of the brain were obtained without IV contrast. . Coronal and sagitta l reformats reviewed. FINDINGS: Brain: Extra-axial spaces: No abnormal extra-axial fluid collections. Ventricular system: Redemonstration of dilated ventricular system. Cerebral parenchyma: Cerebral atrophy. No acute intraparenchymal hemorrhage or mass effect. The matos -white junction is well differentiated. Confluent hypoattenuating areas are seen within the periventr icular white matter. Cerebellum: Unremarkable. Mass effect: No evidence of midline shift. Intracranial vasculature: Atherosclerotic calcifications of the intracranial vessels. Soft tissues: Normal. Calvarium/osseous structures: No depressed skull fracture. Right maxillary molar periapical lucencies most consistent with periodontal disease. Paranasal sinuses and mastoid air cells: Mastoid air cells are clear. 8 mm mucous retention cyst with in the left sphenoid sinus. Cerumen within the right external auditory canal. Visualized orbits: Orbital contents are intact. IMPRESSION: 1. No acute intracranial hemorrhage. 2. Similar dilated ventricular system which may be due to degree of cerebral atrophy versus hydroceph alus. Correlate clinically for possible normal pressure hydrocephalus. 3. Confluent periventricular hypodensities which may represent white matter change from chronic small vessel ischemic disease versus transependymal flow from hydrocephalus. [facility], , 11/27/2024 12:25 PM
[2024-11-27] MEDS: ISOSORBIDE MONONITRATE ER 15 MG TAB PO STA (12:28)
[2024-11-27] MEDS: DAPAGLIFLOZIN PROPANEDIOL 10 MG TABLET PO SCH (12:28)
[2024-11-27] MEDS: carvediloL 3.125 MG TAB PO STA (12:28)
[2024-11-27] MEDS: FOLIC ACID 1 MG TAB PO SCH (12:29)
--- NOTE | 2024-11-27 13:46 | P.PN ---
Subjective Progress Note Date: 11/27/24 Principal diagnosis: Hypoglycemia. Patient is an 89-year-old male with past medical history significant for type 2 diabetes mellitus, hypertension, chronic kidney disease. Patient presented emergency department by EMS chiefly for altered mental status and hypoglycemia. Apparently, patient's noted him to be difficult to arouse and thought the patient to be sleeping. When EMS was called and they arrived his blood glucose was low at 40 g/dL. They did give him an amp of D50W and brought the patient to the emergency department for evaluation yesterday afternoon. Workup in the emergency department including a brain CT which did not show any acute intracranial process. Nonspecific white matter changes likely secondary to chronic small vessel ischemic disease. CBC: WBC 6.9, hemoglobin 9.3, platelets 206. CMP: Sodium 133, potassium 4.2, chloride 102, serum bicarb 26, BUN 26, creatinine 2.63, glucose 12. Urine toxicology screen unremarkable. Viral screen negative for influenza, RSV, COVID. Did receive a 1.5 L normal saline bolus while in the ED. Patient was admitted to the cardiac stepdown floor, and remains in the ER as an overflow patient. A rapid response was called earlier this morning as the patient was felt to be in some respiratory distress. Chest x-ray showing cardiomegaly, pulmonary vascular congestion, and small bilateral pleural effusions. NT proBNP elevated 17,500. He has received multiple doses of Lasix, total of 80 mg so far. He was also placed on BiPAP with settings 12/5 and FiO2 40%. I am evaluating this patient in the emergency department he remains obtunded, will open his eyes to tactile stimuli, does not track, does not follow commands, withdraws to pain in all 4 extremities. No reported seizure-like activity. Currently on BiPAP with above-mentioned settings, achieving tidal volumes around 400, respiratory rate is in the mid 20s. Follow- up ABG with a PaO2 of 118, pCO2 of 41, pH of 7.39. Patient's blood sugars con tinue to be low. Most recent [id number] glucose 65 grams per deciliter. On a D5W with 0.9% saline infusing at 75 mL/h. Patient's son is at bedside. States that his father lives with his . He was difficult to arouse yesterday, thought to be sleeping. He was left like this for approximately 7 to 8 hours, according to the son. Patient reportedly had a similar episode earlier in the week, treated for hypoglycemia by EMS, and declined coming to the hospital. No reported infectious symptoms or other complaints per the son. He does have history of diabetes mellitus type 2 takes a combination of glimepiride and Actos. Current vital signs, temperature 98.6 F, heart rate 94 bpm, blood pressure 104/79 mmHg, SpO2 reading 100% on the previous mentioned BiPAP settings. Progress note dated November 26, 2024. 89-year-old male seen today in room 351. He was seen in consultation yesterday, having come to the hospital, with mental status changes, and a low blood glucose. The patient is currently seen in room 351. He is on 2 L of oxygen. He is getting D10W at 30 cc an hour. The patient is a bit more awake today, but does have some gurgling respirations, and is at high risk for aspiration. I did tell the nurse to make sure that the patient's head of bed is elevated at all times. He did have a blood gas yesterday showing a pO2 of 118, pCO2 of 41, and pH of 7.39. Chest x-ray showed bilateral opacities, greater on the left. Carotid studies, were negative. Progress note dated November 27, 2024. 89-year-old male seen again in room 351. He is a bit more awake today. He is currently on 2 L. He is still getting D10W at 30 cc an hour. The patient does not communicate, and it may be a language barrier. White count 6.7, hemoglobin 10, hematocrit 32.1, and platelet count tumor 32,000. Sodium 131, potassium 3.6, chloride 96, CO2 31, BUN 31, creatinine 2.51. Glucose is 200. Calcium 8.3. Albumin 2.7. Repeat CT scan of the brain did not show anything acute. Objective - Vital Signs Vital signs: Vital Signs Temp 98.7 F 11/27/24 12:00 Pulse 87 11/27/24 12:00 Resp 16 11/27/24 12:00 BP 146/65 11/27/24 12:00 Pulse Ox 97 11/27/24 12:00 FiO2 35 11/25/24 08:09 Intake & Output 11/26/24 11/27/24 11/27/24 18:59 06:59 18:59 Output Total 900 700 550 Balance -900 -700 -550 Weight 66.5 kg Output: Urine 900 700 550 Other: Voiding Method Indwelling Catheter Indwelling Catheter Indwelling Catheter - Exam No acute distress, still a bit somnolent/lethargic, but a bit more awake. Currently on 2 L. HEENT examination is grossly unremarkable. Mucous membranes are moist. No oral lesions. Neck supple. Full range of motion. No adenopathy thyromegaly or neck vein distention. Cardiovascular examination reveals regular rhythm rate. S1-S2 normal. No S3 or S4. No discernible murmur noted. Lungs reveal gurgling breath sounds. No wheezes or rhonchi. No crackles. Breath sounds equal. Abdomen soft bowel sounds are heard. No masses or tenderness. Extremities are intact. No cyanosis clubbing or edema. Skin is without rash or lesion. Neurologic examination is difficult to evaluate. - Labs CBC & Chem 7: 11/27/24 06:56 11/27/24 06:56 Labs: Abnormal Lab Results - Last 24 Hours (Table) 11/26/24 11/26/24 11/26/24 Range/Units 13:57 15:27 16:17 RBC (4.30-5.90) m/uL Hgb (13.0-17.5) gm/dL Hct (39.0-53.0) % RDW (11.5-15.5) % Lymphocytes # (1.0-4.8) k/uL Sodium (137-145) mmol/L Chloride (98-107) mmol/L Carbon Dioxide (22-30) mmol/L BUN (9-20) mg/dL Creatinine (0.66-1.25) mg/dL Glucose (74-99) mg/dL POC Glucose (mg/dL) 151 H 158 H 163 H (70-110) mg/dL Calcium (8.4-10.2) mg/dL Total Protein (6.3-8.2) g/dL Albumin (3.5-5.0) g/dL 11/26/24 11/26/24 11/27/24 Range/Units 16:49 19:28 01:53 RBC (4.30-5.90) m/uL Hgb (13.0-17.5) gm/dL Hct (39.0-53.0) % RDW (11.5-15.5) % Lymphocytes # (1.0-4.8) k/uL Sodium (137-145) mmol/L Chloride (98-107) mmol/L Carbon Dioxide (22-30) mmol/L BUN (9-20) mg/dL Creatinine (0.66-1.25) mg/dL Glucose (74-99) mg/dL POC Glucose (mg/dL) 201 H 209 H 152 H (70-110) mg/dL Calcium (8.4-10.2) mg/dL Total Protein (6.3-8.2) g/dL Albumin (3.5-5.0) g/dL 11/27/24 11/27/24 11/27/24 Range/Units 06:08 06:56 06:56 RBC 3.28 L (4.30-5.90) m/uL Hgb 10.0 L (13.0-17.5) gm/dL Hct 32.1 L (39.0-53.0) % RDW 15.8 H (11.5-15.5) % Lymphocytes # 0.8 L (1.0-4.8) k/uL Sodium 131 L (137-145) mmol/L Chloride 96 L (98-107) mmol/L Carbon Dioxide 31 H (22-30) mmol/L BUN 31 H (9-20) mg/dL Creatinine 2.51 H (0.66-1.25) mg/dL Glucose 136 H (74-99) mg/dL POC Glucose (mg/dL) 152 H (70-110) mg/dL Calcium 8.3 L (8.4-10.2) mg/dL Total Protein 5.4 L (6.3-8.2) g/dL Albumin 2.7 L (3.5-5.0) g/dL 11/27/24 Range/Units 11:09 RBC (4.30-5.90) m/uL Hgb (13.0-17.5) gm/dL Hct (39.0-53.0) % RDW (11.5-15.5) % Lymphocytes # (1.0-4.8) k/uL Sodium (137-145) mmol/L Chloride (98-107) mmol/L Carbon Dioxide (22-30) mmol/L BUN (9-20) mg/dL Creatinine (0.66-1.25) mg/dL Glucose (74-99) mg/dL POC Glucose (mg/dL) 200 H (70-110) mg/dL Calcium (8.4-10.2) mg/dL Total Protein (6.3-8.2) g/dL Albumin (3.5-5.0) g/dL Assessment and Plan Assessment: Acute hypoxemic respiratory failure, currently on BiPAP, secondary to acute exacerbation of congestive heart failure, improved. Altered mental status, possibly a component of acute metabolic encephalopathy and profound hypoglycemia. Persistent hypoglycemia. Type 2 diabetes mellitus. Chronic kidney disease stage IV. Elevated troponins, type II mechanism. Anemia of chronic disease. Hypertension. Plan: Plan dated November 26, 2024. The patient appears a bit more awake today than yesterday. He is currently being evaluated by neurology. Carotid studies were negative. Labs, x-rays, and medications are reviewed. From the pulmonary standpoint, the patient appears to be doing better. Has been weaned down to 2 L. He still is getting D10W at 30 cc an hour, for his persistent hypoglycemia. Moving forward, we will see the patient only as needed. No additional recommendations are made. Prognosis is guarded. Dictation was produced using [employer] software. Please excuse any grammatical, word or spelling errors. Plan dated November 27, 2024. The patient appears a bit more awake and alert. He currently is on 2 L of nasal oxygen. He is still getting D10 W at 30 cc an hour. Labs, x-rays, and medications are reviewed. He is stable from the pulmonary standpoint. We will continue to follow along. No respiratory issues at this time. No shortness of breath, chest pain, cough, phlegm, etc. All labs, x-rays, and medications are reviewed. Prognosis is guarded. Dictation was produced using [employer] software. Please excuse any grammatical, word or spelling errors. Time with Patient: Less than 30
--- NOTE | 2024-11-27 16:11 | P.PN ---
Subjective Progress Note Date: 11/27/24 89-year-old male was brought brought in because patient was unresponsive. EMS found him to be hypoglycemic with a blood sugars of 30 patient was brought to the hospital admitted for hypoglycemia is on D10. Patient is also found to be in CHF exacerbation requiring oxygen presently on 2 L patient does have history of congestive heart failure patient has a elevated BNP chest x-ray showing pulmonary edema is on IV Lasix. Patient is still lethargic but there is no clear evidence of any infection anywhere patient is bit hyponatremic. Patient's serum creatinine is 2.63 baseline is around that. Patient also found to have troponin elevation of 0.083 and 0.145. Cardiology evaluated the patient. 11/26/2024 Obtunded, not following commands, family members at the bedside report he is normally alert and oriented and up and ambulatory at home. Blood sugars are being monitored and per nursing staff it continues to be every hour. Will make ACHS as well as 2 AM and as needed as patient was initially admitted with hypoglycemia. Patient also with significant bronchial congestion and sounds like patient is sounds of severe wetness and inability to clear secretions with frequent suctioning required. Patient with significant fluid overload although worsening kidney functions and will consult nephrology. Neurology is following and awaiting MRI of the brain for further evaluation. CODE STATUS needs to be addressed in this patient although family members that were available were not next of kin. 11/27/2024 She is currently evaluated today at the medical floor his granddaughter is at the bedside. We did briefly discuss comfort or hospice measures as patient is essentially unresponsive at this time and is unable to swallow per nursing staff is continued on IV Lasix as well as IV dextrose to support his blood glucose level. We will need to include patient's in this conversation and will follow-up with tomorrow pending neurology review of the brain CT. He did have this brain CT completed today which reveals possible normal pressure hydrocephalus. No acute intracranial hemorrhage. There is confluent periventricular hypodensities which may represent white matter change from lunchroom aide chrystal small vessel ischemic disease versus transependymal flow from hydrocephalus. Labs today reveal a white blood cell count of 6.7, hemoglobin 10.0, sodium of 131, BUN of 31 creatinine of 2.51, blood glucose of 200s, calcium of 8.3, magnesium 1.8. Echocardiogram comes back with an ejection fraction of 30 to 35% with mild to moderate mitral and tricuspid regurgitation with moderate to severe pulmonary hypertension. REVIEW OF SYSTEMS: Unable to obtain as patient is mumbling and moaning and winc ing in pain but not verbal All other systems are negative except those mentioned in the HPI PHYSICAL EXAMINATION: GENERAL: Patient continues to be lethargic drowsy was unable to get much of the history from the patient. HEENT: Pupils are round and equally reacting to light. EOMI. No scleral icterus. No conjunctival pallor. Normocephalic, atraumatic. No pharyngeal erythema. No thyromegaly. CARDIOVASCULAR: S1 and S2 present. No murmurs, rubs, or gallops. PULMONARY: Significant bronchial congestion with upper airways that appear wet requiring significant amounts of suctioning, expiratory wheezing noted ABDOMEN: Soft, nontender, nondistended, normoactive bowel sounds. No palpable organomegaly. MUSCULOSKELETAL: No joint swelling or deformity. EXTREMITIES: No cyanosis, clubbing, or pedal edema. NEUROLOGICAL appears quite weak in general alert and lethargic SKIN: No rashes. Assessment and plan -Altered mental status may be related to hypoglycemia patient is on oral hypoglycemic agents which are being held and patient is on D10 which will be weaned off slowly, patient was maintained on every hour Accu-Cheks although blood sugars are maintained and will continue D10 as patient is unable to eat or drink and will make Accu-Cheks before meals and at bedtime as well as 2 AM -Patient's brain CT with concerns for normal pressure hydrocephalus patient may need transfer for neurosurgery although due to his advanced age and medical comorbidities he may be a candidate for hospice we are currently pending neurology review of the brain CT and further recommendations -Congestive heart failure acute exacerbation systolic dysfunction continues on IV lasix. Cardiomypoathy ischemic vs. nonischemic; ejection fraction of 30 to 35% with mild to moderate mitral and tricuspid regurgitation with moderate to severe pulmonary hypertension. -Chronic kidney disease stage IV -Hypertension -Elevated troponin secondary to type II [place] and chronic kidney disease -Type 2 diabetes mellitus DVT prophylaxis: Subcutaneous heparin Plan: CODE STATUS needs to be addressed with this patient's family as patient is obtunded and not responding and has multiple comorbidities ongoing Will follow up with patients and granddaughters tomorrow pending patients clinical improvement and neurology review of the brain CT. Continue monitoring blood sugars and will adjust patient is continued on D10 and will continue with cautious fluids as patient appears overloaded with CHF. Cardiology following along with nephrology and neurology Overall prognosis is guarded and hospice may be appropriate in this patient He is unable to swallow oral pills at his time and has not been getting most of his medications The impression and plan of care has been dictated by Nurse Genie Pr actitioner as directed. Dr. Micheal MD I have performed a history and examination and MDM of this patient, discussed the same with the dictator, and agree with the dictator's assessment and plan a s written ,documented as a scribe. Based on total visit time, I have performed more than 50% of the visit. Objective - Vital Signs Vital signs: Vital Signs Temp 98.7 F 11/27/24 12:00 Pulse 87 11/27/24 12:00 Resp 16 11/27/24 12:00 BP 146/65 11/27/24 12:00 Pulse Ox 97 11/27/24 12:00 FiO2 35 11/25/24 08:09 Intake & Output 11/26/24 11/27/24 11/27/24 18:59 06:59 18:59 Output Total 900 700 550 Balance -900 -700 -550 Weight 66.5 kg Output: Urine 900 700 550 Other: Voiding Method Indwelling Catheter Indwelling Catheter Indwelling Catheter - Labs CBC & Chem 7: 11/27/24 06:56 11/27/24 06:56 Labs: Abnormal Lab Results - Last 24 Hours (Table) 11/26/24 11/26/24 11/26/24 Range/Units 16:17 16:49 19:28 RBC (4.30-5.90) m/uL Hgb (13.0-17.5) gm/dL Hct (39.0-53.0) % RDW (11.5-15.5) % Lymphocytes # (1.0-4.8) k/uL Sodium (137-145) mmol/L Chloride (98-107) mmol/L Carbon Dioxide (22-30) mmol/L BUN (9-20) mg/dL Creatinine (0.66-1.25) mg/dL Glucose (74-99) mg/dL POC Glucose (mg/dL) 163 H 201 H 209 H (70-110) mg/dL Calcium (8.4-10.2) mg/dL Total Protein (6.3-8.2) g/dL Albumin (3.5-5.0) g/dL 11/27/24 11/27/24 11/27/24 Range/Units 01:53 06:08 06:56 RBC 3.28 L (4.30-5.90) m/uL Hgb 10.0 L (13.0-17.5) gm/dL Hct 32.1 L (39.0-53.0) % RDW 15.8 H (11.5-15.5) % Lymphocytes # 0.8 L (1.0-4.8) k/uL Sodium (137-145) mmol/L Chloride (98-107) mmol/L Carbon Dioxide (22-30) mmol/L BUN (9-20) mg/dL Creatinine (0.66-1.25) mg/dL Glucose (74-99) mg/dL POC Glucose (mg/dL) 152 H 152 H (70-110) mg/dL Calcium (8.4-10.2) mg/dL Total Protein (6.3-8.2) g/dL Albumin (3.5-5.0) g/dL 11/27/24 11/27/24 Range/Units 06:56 11:09 RBC (4.30-5.90) m/uL Hgb (13.0-17.5) gm/dL Hct (39.0-53.0) % RDW (11.5-15.5) % Lymphocytes # (1.0-4.8) k/uL Sodium 131 L (137-145) mmol/L Chloride 96 L (98-107) mmol/L Carbon Dioxide 31 H (22-30) mmol/L BUN 31 H (9-20) mg/dL Creatinine 2.51 H (0.66-1.25) mg/dL Glucose 136 H (74-99) mg/dL POC Glucose (mg/dL) 200 H (70-110) mg/dL Calcium 8.3 L (8.4-10.2) mg/dL Total Protein 5.4 L (6.3-8.2) g/dL Albumin 2.7 L (3.5-5.0) g/dL Assessment and Plan Time with Patient: Less than 30
[2024-11-27 16:15] LABS: Glucose,Whole Blood 209 mg/dL (70-110)
[2024-11-27] MEDS: ASPIRIN 300 MG SUPP RECTAL SCH (16:52)
[2024-11-27] MEDS: DEXTROSE 5% IN WATER 1,000 ML IV ONE (16:55)
[2024-11-27] MEDS: carvediloL 6.25 MG TAB PO SCH (16:59)
[2024-11-27 20:06] LABS: Glucose,Whole Blood 223 mg/dL (70-110)
[2024-11-28 02:15] LABS: Glucose,Whole Blood 151 mg/dL (70-110)
[2024-11-28 05:51] LABS: Glucose,Whole Blood 137 mg/dL (70-110)
[2024-11-28 06:32] LABS: Basophils % (A) 0 %; Eosinophils % (A) 0 %; HCT 31.9 % (39.0-53.0); HGB 9.7 gm/dL (13.0-17.5); Lymphocytes % (A) 15 %; MCH 29.7 pg (25.0-35.0); MCHC 30.6 g/dL (31.0-37.0); MCV 97.3 fL (80.0-100.0); Mean Platelet Volume 8.1; Monocytes # (A) 0.4 k/uL (0-1.0); Monocytes % (A) 6 %; Neutrophils # (A) 5.4 k/uL (1.3-7.7); Neutrophils % (A) 77 %; Platelet Count 244 k/uL (150-450); RBC 3.27 m/uL (4.30-5.90); RDW 15.6 % (11.5-15.5); WBC 6.9 k/uL (3.8-10.6)
[2024-11-28 06:40] LABS: African American GFR (CKD) 25 (>60 ml/min/1.73 sqM); Anion Gap 2 mmol/L; Blood Urea Nitrogen 34 mg/dL (9-20); Calcium 8.1 mg/dL (8.4-10.2); Carbon Dioxide 37 mmol/L (22-30); Chloride 93 mmol/L (98-107); Glucose 128 mg/dL (74-99); Non-African American GFR(CKD) 22 (>60 ml/min/1.73 sqM); Potassium 2.9 mmol/L (3.5-5.1); Sodium 132 mmol/L (137-145)
--- NOTE | 2024-11-28 08:04 | XR ---
EXAMINATION TYPE: XR chest 1V portable DATE OF EXAM: 11/28/2024 6:59 AM COMPARISON: Chest radiographs from 11/24/2024 TECHNIQUE: XR chest 1V portable Portable AP radiograph of the chest. CLINICAL INDICATION:Male, 89 years old with history of cardio schedule; FINDINGS: Lungs/Pleura: Decreased small left pleural effusion and trace right pleural effusion. Left basilar at electasis. Pulmonary vascularity: Improvement in pulmonary vascular congestion from prior exam. Heart/mediastinum: Cardiomediastinal silhouette is enlarged and stable. Atherosclerotic calcificatio ns are seen in the aorta. Musculoskeletal: No acute osseous pathology. IMPRESSION: Decreased small left pleural effusion with atelectasis and trace right pleural effusion. Improving pu lmonary vascular congestion. [facility], , 11/28/2024 8:02 AM
[2024-11-28] MEDS: ISOSORBIDE MONONITRATE ER 30 MG TAB.ER.24H PO SCH (09:19)
--- NOTE | 2024-11-28 11:01 | P.PN ---
Subjective Patient is seen for follow-up for acute kidney injury. Mostly cardiorenal. Currently being diuresed. Renal function is stable with serum creatinine staying at 2.5 mg/dL. Patient is much more awake today. 24-hour urine output charted at 115 0 mL. Objective - Vital Signs Vital signs: Vital Signs Temp 98.6 F 11/28/24 08:00 Pulse 91 11/28/24 08:00 Resp 16 11/28/24 08:00 BP 155/71 11/28/24 08:00 Pulse Ox 99 11/28/24 08:00 FiO2 35 11/25/24 08:09 Intake & Output 11/27/24 11/28/24 11/28/24 18:59 06:59 18:59 Output Total 1150 Balance -1150 Weight 66.5 kg 66.5 kg Output: Urine 1150 Other: Voiding Method Indwelling Catheter Indwelling Catheter Indwelling Catheter - Exam Patient is awake, comfortable, no acute distress. Mentation is much improved today Examination of the heart S1 and S2 Examination of the lungs bilateral breath sounds are heard Abdomen is soft nontender Examination of lower extremities shows no significant edema - Labs CBC & Chem 7: 11/28/24 05:15 11/28/24 05:15 Labs: Abnormal Lab Results - Last 24 Hours (Table) 11/27/24 11/27/24 11/27/24 Range/Units 11:09 16:14 20:00 RBC (4.30-5.90) m/uL Hgb (13.0-17.5) gm/dL Hct (39.0-53.0) % MCHC (31.0-37.0) g/dL RDW (11.5-15.5) % Sodium (137-145) mmol/L Potassium (3.5-5.1) mmol/L Chloride (98-107) mmol/L Carbon Dioxide (22-30) mmol/L BUN (9-20) mg/dL Creatinine (0.66-1.25) mg/dL Glucose (74-99) mg/dL POC Glucose (mg/dL) 200 H 209 H 223 H (70-110) mg/dL Calcium (8.4-10.2) mg/dL 11/28/24 11/28/24 11/28/24 Range/Units 02:09 05:15 05:15 RBC 3.27 L (4.30-5.90) m/uL Hgb 9.7 L (13.0-17.5) gm/dL Hct 31.9 L (39.0-53.0) % MCHC 30.6 L (31.0-37.0) g/dL RDW 15.6 H (11.5-15.5) % Sodium 132 L (137-145) mmol/L Potassium 2.9 L (3.5-5.1) mmol/L Chloride 93 L (98-107) mmol/L Carbon Dioxide 37 H (22-30) mmol/L BUN 34 H (9-20) mg/dL Creatinine 2.55 H (0.66-1.25) mg/dL Glucose 128 H (74-99) mg/dL POC Glucose (mg/dL) 151 H (70-110) mg/dL Calcium 8.1 L (8.4-10.2) mg/dL 11/28/24 Range/Units 05:41 RBC (4.30-5.90) m/uL Hgb (13.0-17.5) gm/dL Hct (39.0-53.0) % MCHC (31.0-37.0) g/dL RDW (11.5-15.5) % Sodium (137-145) mmol/L Potassium (3.5-5.1) mmol/L Chloride (98-107) mmol/L Carbon Dioxide (22-30) mmol/L BUN (9-20) mg/dL Creatinine (0.66-1.25) mg/dL Glucose (74-99) mg/dL POC Glucose (mg/dL) 137 H (70-110) mg/dL Calcium (8.4-10.2) mg/dL Assessment and Plan Assessment: 1. Acute kidney injury, cardiorenal, improving. Currently maintained on IV Lasix. UA shows 3+ protein and moderate blood. Patient has an indwelling Dawson catheter. Ultrasound of the kidneys in August did not show any evidence of obstructive uropathy. 2. Chronic kidney disease stage IV with baseline creatinine around 2.2 to 2.5 mg/dL. Serum creatinine was 2.8-2.9 in August 2024. 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 Cardiomyopathy with an EF of 30 to 35% 4. Moderate to severe pulmonary hypertension 5. Acute on chronic CHF with decreased ejection fraction 6. Hypoglycemia maintained on D10 7. Mental status changes associated with hypoglycemia Plan: continue with IV Lasix Continue to hold GREG inhibitors Repeat labs in a.m. Accurate I's and O's Avoid nephrotoxic agents
[2024-11-28 11:18] LABS: Glucose,Whole Blood 160 mg/dL (70-110)
--- NOTE | 2024-11-28 11:43 | P.PN ---
Subjective Progress Note Date: 11/27/24 Patient was seen for follow-up. Patient's granddaughter was present. Apparently patient cannot have MRI because he is not able to lay flat. Patient's family mentions that patient is strengthening to speak a little bit better. He is putting up some words together like "I am okay", "yes" very clearly. Other times he still mumbles. No new concerns otherwise. Objective - Vital Signs Vital signs: Vital Signs Temp 98.7 F 11/27/24 12:00 Pulse 87 11/27/24 12:00 Resp 16 11/27/24 12:00 BP 146/65 11/27/24 12:00 Pulse Ox 97 11/27/24 12:00 FiO2 35 11/25/24 08:09 Intake & Output 11/26/24 11/27/24 11/27/24 18:59 06:59 18:59 Output Total 900 700 550 Balance -900 -700 -550 Weight 66.5 kg Output: Urine 900 700 550 Other: Voiding Method Indwelling Catheter Indwelling Catheter Indwelling Catheter - Exam Patient is alert and awake, but appears moderately encephalopathic. He is trying to speak, but mumbling, very slurred. At time it appears garbled speech. No obvious facial droop. Extraocular muscles are intact. Muscle strength again patient appears to be very weak both arms. No obvious focality however. - Labs CBC & Chem 7: 11/28/24 05:15 11/28/24 05:15 Labs: Abnormal Lab Results - Last 24 Hours (Table) 11/26/24 11/26/24 11/26/24 Range/Units 15:27 16:17 16:49 RBC (4.30-5.90) m/uL Hgb (13.0-17.5) gm/dL Hct (39.0-53.0) % RDW (11.5-15.5) % Lymphocytes # (1.0-4.8) k/uL Sodium (137-145) mmol/L Chloride (98-107) mmol/L Carbon Dioxide (22-30) mmol/L BUN (9-20) mg/dL Creatinine (0.66-1.25) mg/dL Glucose (74-99) mg/dL POC Glucose (mg/dL) 158 H 163 H 201 H (70-110) mg/dL Calcium (8.4-10.2) mg/dL Total Protein (6.3-8.2) g/dL Albumin (3.5-5.0) g/dL 11/26/24 11/27/24 11/27/24 Range/Units 19:28 01:53 06:08 RBC (4.30-5.90) m/uL Hgb (13.0-17.5) gm/dL Hct (39.0-53.0) % RDW (11.5-15.5) % Lymphocytes # (1.0-4.8) k/uL Sodium (137-145) mmol/L Chloride (98-107) mmol/L Carbon Dioxide (22-30) mmol/L BUN (9-20) mg/dL Creatinine (0.66-1.25) mg/dL Glucose (74-99) mg/dL POC Glucose (mg/dL) 209 H 152 H 152 H (70-110) mg/dL Calcium (8.4-10.2) mg/dL Total Protein (6.3-8.2) g/dL Albumin (3.5-5.0) g/dL 11/27/24 11/27/24 11/27/24 Range/Units 06:56 06:56 11:09 RBC 3.28 L (4.30-5.90) m/uL Hgb 10.0 L (13.0-17.5) gm/dL Hct 32.1 L (39.0-53.0) % RDW 15.8 H (11.5-15.5) % Lymphocytes # 0.8 L (1.0-4.8) k/uL Sodium 131 L (137-145) mmol/L Chloride 96 L (98-107) mmol/L Carbon Dioxide 31 H (22-30) mmol/L BUN 31 H (9-20) mg/dL Creatinine 2.51 H (0.66-1.25) mg/dL Glucose 136 H (74-99) mg/dL POC Glucose (mg/dL) 200 H (70-110) mg/dL Calcium 8.3 L (8.4-10.2) mg/dL Total Protein 5.4 L (6.3-8.2) g/dL Albumin 2.7 L (3.5-5.0) g/dL Assessment and Plan Assessment: * Altered mental status with aphasia, unclear cause. Patient's limited examination showed no obvious focality. Repeat CT head negative, therefore CVA appears less likely. Rule out toxic metabolic encephalopathy. * Patient presented with hypoglycemia, rule out hypoglycemic encephalopathy. 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 * CHF * Anemia * Elevated troponins * Diabetes * Hypertension * Hyperlipidemia * Mildly elevated ammonia. * Mild cognitive impairment * Chronic renal insufficiency Plan: * Patient not able to tolerate MRI, therefore repeat CT head was done, which revealed no acute intracranial process. Similar dilated ventricular system which may be due to degree of cerebral atrophy versus hydrocephalus. Correlate clinically for possible NPH. Confluent periventricular hypodensities which may represent white matter change from chronic small vessel ischemic disease versus transependymal flow from hydrocephalus. * I spoke to patient's granddaughter about the results of CT head. Informed her possibility of NPH. Usually we do lumbar puncture to see if there is any clinical improvement. Patient's granddaughter will talk to the patient's to get the consent for it. * Once we have received the consent, we have to hold off on heparin subcu for LP to performed. * Carotid Doppler revealed no hemodynamically significant stenosis in either ICA. Antegrade flow in both vertebral arteries. * 2-D echo revealed severely impaired LVEF 30 to 35%. Mildly increased left ventricular wall thickness. Severe global hypokinesis. Moderately increased left atrial volume. No thrombus seen. Mild to moderate MR. Mild to moderate TR. * Hemoglobin A1c 6.4. Diabetes is well controlled. Avoid episodes of hypoglycemia. * B12 446, folate 4.70. Patient started on folic acid 1 mg daily. * EEG was performed, which was abnormal due to background slowing of moderate degree. This is suggestive of generalized cerebral dysfunction as can be seen with toxic metabolic encephalopathy or related to diffuse structural brain abdomen the. Clinical correlation is recommended. No epileptiform activity was seen. * Lipid panel with cholesterol 192, LDL 98, HDL 79, triglycerides 69. Patient started on Lipitor 40 mg daily. * Agree with starting aspirin 81 mg daily. If patient not able to take by mouth, we will give aspirin rectally. * Telemetry monitoring * DVT prophylaxis: Patient on heparin 5000 units subcu every 8 hours * Other medical management as per IM and other specialties on board. * Discussed with family members.
[2024-11-28] MEDS: LORazepam 1 MG/0.5 ML VIAL IV STA (12:35)
--- NOTE | 2024-11-28 13:17 | P.PN ---
Subjective Progress Note Date: 11/28/24 Principal diagnosis: Hypoglycemia. Patient is an 89-year-old male with past medical history significant for type 2 diabetes mellitus, hypertension, chronic kidney disease. Patient presented emergency department by EMS chiefly for altered mental status and hypoglycemia. Apparently, patient's noted him to be difficult to arouse and thought the patient to be sleeping. When EMS was called and they arrived his blood glucose was low at 40 g/dL. They did give him an amp of D50W and brought the patient to the emergency department for evaluation yesterday afternoon. Workup in the emergency department including a brain CT which did not show any acute intracranial process. Nonspecific white matter changes likely secondary to chronic small vessel ischemic disease. CBC: WBC 6.9, hemoglobin 9.3, platelets 206. CMP: Sodium 133, potassium 4.2, chloride 102, serum bicarb 26, BUN 26, creatinine 2.63, glucose 12. Urine toxicology screen unremarkable. Viral screen negative for influenza, RSV, COVID. Did receive a 1.5 L normal saline bolus while in the ED. Patient was admitted to the cardiac stepdown floor, and remains in the ER as an overflow patient. A rapid response was called earlier this morning as the patient was felt to be in some respiratory distress. Chest x-ray showing cardiomegaly, pulmonary vascular congestion, and small bilateral pleural effusions. NT proBNP elevated 17,500. He has received multiple doses of Lasix, total of 80 mg so far. He was also placed on BiPAP with settings 12/5 and FiO2 40%. I am evaluating this patient in the emergency department he remains obtunded, will open his eyes to tactile stimuli, does not track, does not follow commands, withdraws to pain in all 4 extremities. No reported seizure-like activity. Currently on BiPAP with above-mentioned settings, achieving tidal volumes around 400, respiratory rate is in the mid 20s. Follow- up ABG with a PaO2 of 118, pCO2 of 41, pH of 7.39. Patient's blood sugars con tinue to be low. Most recent [id number] glucose 65 grams per deciliter. On a D5W with 0.9% saline infusing at 75 mL/h. Patient's son is at bedside. States that his father lives with his . He was difficult to arouse yesterday, thought to be sleeping. He was left like this for approximately 7 to 8 hours, according to the son. Patient reportedly had a similar episode earlier in the week, treated for hypoglycemia by EMS, and declined coming to the hospital. No reported infectious symptoms or other complaints per the son. He does have history of diabetes mellitus type 2 takes a combination of glimepiride and Actos. Current vital signs, temperature 98.6 F, heart rate 94 bpm, blood pressure 104/79 mmHg, SpO2 reading 100% on the previous mentioned BiPAP settings. Progress note dated November 26, 2024. 89-year-old male seen today in room 351. He was seen in consultation yesterday, having come to the hospital, with mental status changes, and a low blood glucose. The patient is currently seen in room 351. He is on 2 L of oxygen. He is getting D10W at 30 cc an hour. The patient is a bit more awake today, but does have some gurgling respirations, and is at high risk for aspiration. I did tell the nurse to make sure that the patient's head of bed is elevated at all times. He did have a blood gas yesterday showing a pO2 of 118, pCO2 of 41, and pH of 7.39. Chest x-ray showed bilateral opacities, greater on the left. Carotid studies, were negative. Progress note dated November 27, 2024. 89-year-old male seen again in room 351. He is a bit more awake today. He is currently on 2 L. He is still getting D10W at 30 cc an hour. The patient does not communicate, and it may be a language barrier. White count 6.7, hemoglobin 10, hematocrit 32.1, and platelet count tumor 32,000. Sodium 131, potassium 3.6, chloride 96, CO2 31, BUN 31, creatinine 2.51. Glucose is 200. Calcium 8.3. Albumin 2.7. Repeat CT scan of the brain did not show anything acute. Progress note dated November 28, 2024. 89-year-old male seen again in room 351. The patient was initially admitted with a diagnosis of altered mental status, and hypoglycemia. Yesterday he was on D10 IV, at 30 cc an hour. Today he is on D5W, at 30 cc an hour. He is still on O2, 2 L, with saturations of 99%. The oxygen can probably be discontinued. Current labs include a white count 6.9, hemoglobin 9.7, hematocrit 31.9, and a platelet count of 244,000. Sodium 132, potassium 2.9, chloride 73, CO2 37, BUN 34, creatinine 2.55. Glucose is 160. Calcium is 8.1. Chest x-ray shows improving pulmonary vascular congestion. Objective - Vital Signs Vital signs: Vital Signs Temp 98.6 F 11/28/24 08:00 Pulse 91 11/28/24 08:00 Resp 16 11/28/24 08:00 BP 155/71 11/28/24 08:00 Pulse Ox 99 11/28/24 08:00 FiO2 35 11/25/24 08:09 Intake & Output 11/27/24 11/28/24 11/28/24 18:59 06:59 18:59 Output Total 1150 Balance -1150 Weight 66.5 kg 66.5 kg 66.5 kg Output: Urine 1150 Other: Voiding Method Indwelling Catheter Indwelling Catheter Indwelling Catheter - Exam No acute distress, still a bit somnolent/lethargic, but a bit more awake. Currently on 2 L. HEENT examination is grossly unremarkable. Mucous membranes are moist. No oral lesions. Neck supple. Full range of motion. No adenopathy thyromegaly or neck vein distention. Cardiovascular examination reveals regular rhythm rate. S1-S2 normal. No S3 or S4. No discernible murmur noted. Lungs reveal gurgling breath sounds. No wheezes or rhonchi. No crackles. Breath sounds equal. Abdomen soft bowel sounds are heard. No masses or tenderness. Extremities are intact. No cyanosis clubbing or edema. Skin is without rash or lesion. Neurologic examination is difficult to evaluate. - Labs CBC & Chem 7: 11/28/24 05:15 11/28/24 05:15 Labs: Abnormal Lab Results - Last 24 Hours (Table) 11/27/24 11/27/24 11/28/24 Range/Units 16:14 20:00 02:09 RBC (4.30-5.90) m/uL Hgb (13.0-17.5) gm/dL Hct (39.0-53.0) % MCHC (31.0-37.0) g/dL RDW (11.5-15.5) % Sodium (137-145) mmol/L Potassium (3.5-5.1) mmol/L Chloride (98-107) mmol/L Carbon Dioxide (22-30) mmol/L BUN (9-20) mg/dL Creatinine (0.66-1.25) mg/dL Glucose (74-99) mg/dL POC Glucose (mg/dL) 209 H 223 H 151 H (70-110) mg/dL Calcium (8.4-10.2) mg/dL 11/28/24 11/28/24 11/28/24 Range/Units 05:15 05:15 05:41 RBC 3.27 L (4.30-5.90) m/uL Hgb 9.7 L (13.0-17.5) gm/dL Hct 31.9 L (39.0-53.0) % MCHC 30.6 L (31.0-37.0) g/dL RDW 15.6 H (11.5-15.5) % Sodium 132 L (137-145) mmol/L Potassium 2.9 L (3.5-5.1) mmol/L Chloride 93 L (98-107) mmol/L Carbon Dioxide 37 H (22-30) mmol/L BUN 34 H (9-20) mg/dL Creatinine 2.55 H (0.66-1.25) mg/dL Glucose 128 H (74-99) mg/dL POC Glucose (mg/dL) 137 H (70-110) mg/dL Calcium 8.1 L (8.4-10.2) mg/dL 11/28/24 Range/Units 11:15 RBC (4.30-5.90) m/uL Hgb (13.0-17.5) gm/dL Hct (39.0-53.0) % MCHC (31.0-37.0) g/dL RDW (11.5-15.5) % Sodium (137-145) mmol/L Potassium (3.5-5.1) mmol/L Chloride (98-107) mmol/L Carbon Dioxide (22-30) mmol/L BUN (9-20) mg/dL Creatinine (0.66-1.25) mg/dL Glucose (74-99) mg/dL POC Glucose (mg/dL) 160 H (70-110) mg/dL Calcium (8.4-10.2) mg/dL Assessment and Plan Assessment: Acute hypoxemic respiratory failure, currently on BiPAP, secondary to acute exacerbation of congestive heart failure, improved. Altered mental status, possibly a component of acute metabolic encephalopathy and profound hypoglycemia. Persistent hypoglycemia. Type 2 diabetes mellitus. Chronic kidney disease stage IV. Elevated troponins, type II mechanism. Anemia of chronic disease. Hypertension. Plan: Plan dated November 26, 2024. The patient appears a bit more awake today than yesterday. He is currently being evaluated by neurology. Carotid studies were negative. Labs, x-rays, and medications are reviewed. From the pulmonary standpoint, the patient appears to be doing better. Has been weaned down to 2 L. He still is getting D10W at 30 cc an hour, for his persistent hypoglycemia. Moving forward, we will see the patient only as needed. No additional recommendations are made. Prognosis is guarded. Dictation was produced using [employer] software. Please excuse any grammatical, word or spelling errors. Plan dated November 27, 2024. The patient appears a bit more awake and alert. He currently is on 2 L of nasal oxygen. He is still getting D10 W at 30 cc an hour. Labs, x-rays, and medications are reviewed. He is stable from the pulmonary standpoint. We will continue to follow along. No respiratory issues at this time. No shortness of breath, chest pain, cough, phlegm, etc. All labs, x-rays, and medications are reviewed. Prognosis is guarded. Dictation was produced using [employer] software. Please excuse any grammatical, word or spelling errors. Plan dated November 28, 2024. The patient is again seen today in room 351. His respiratory status is much improved. His chest x-ray shows resolving pulmonary edema. He is on 2 L of oxygen. Saturations are 99%. He probably does not need the oxygen anymore. All labs, x-rays, and medications are reviewed. Moving forward, we will see the patient only as needed. Please feel free to recontact us, should his respiratory status decline. Dictation was produced using [employer] software. Please excuse any grammatical, word or spelling errors. Time with Patient: Less than 30
--- NOTE | 2024-11-28 14:04 | MR ---
EXAMINATION TYPE: MR brain wo con DATE OF EXAM: 11/28/2024 COMPARISON: CT brain 1 day earlier and older studies HISTORY: Aphasia, altered mental status. TECHNIQUE: Multiplanar, multisequence imaging of the brain and brainstem is performed without IV cont rast. FINDINGS: Diffusion weighted images demonstrate no evidence of a recent infarct or other diffusion abnormality. There is moderate ventricular and sulcal prominence redemonstrated with degree of ventricular promine nce greater than the degree of sulcal effacement is similar to recent CT and older CTs. There are mul tifocal and confluent areas of T2 hyperintensity seen throughout the white matter bilaterally. Lesion s are nonspecific in appearance and distribution. Midline structures demonstrate normal morphology. The craniocervical junction appears within normal limits. Normal vascular flow voids are present. The visualized sinuses are clear and the globes are i ntact. IMPRESSION: 1. No MRI evidence for a recent infarct. 2. There is moderate diffuse cerebral atrophy and moderate to severe probable chronic small vessel is chemic change. Cannot exclude underlying normal pressure hydrocephalus. No significant change from pr ior CTs. [facility], , 11/28/2024 2:01 PM
--- NOTE | 2024-11-28 14:06 | MR ---
EXAMINATION TYPE: MR angio head wo con DATE OF EXAM: 11/28/2024 COMPARISON: Same day MRI brain HISTORY: Aphasia, altered mental status. TECHNIQUE: Time of flight images focusing on the [place] were performed without contrast.. 2-D and 3-D postprocessing imaging is performed. FINDINGS: Vertebral arteries are patent to basilar junction. Right vertebral artery is dominant. Ther e is a patent right-sided posterior communicating artery. There is patent anterior communicating maile ry. No large vessel occlusion or aneurysm. Small caliber right A1 segment is noted. IMPRESSION: No large vessel occlusion or aneurysm at the level of the [place]. [facility], , 11/28/2024 2:03 PM
[2024-11-28 16:14] LABS: Glucose,Whole Blood 198 mg/dL (70-110)
--- NOTE | 2024-11-28 16:26 | P.PN ---
Subjective Progress Note Date: 11/27/24 This is a 89-year-old male with a past medical history significant for hypertension and diabetes. Patient does not follow with a silver designer. We have been asked to see the patient in consultation for CHF. Patient examined at the bedside. Patient son is present. Apparently the patient lives at home with his . She attempted to wake him up when she was unable to and she then called EMS. The patient was found to be hypoglycemic. Additionally the patient was found to be in acute CHF upon admission to the hospital. According to the patient's son the patient has no known history of CHF or CAD. DIAGNOSTICS: - EKG reveals sinus mechanism with PVCs. Significant baseline artifact. - Chest xray small bilateral pleural effusions with patchy perihilar opacities bilaterally. Findings may relate to pulmonary edema versus pneumonia. - Laboratory data: WBC 8.7. Hemoglobin 10.4. Platelet count 252. Sodium 133. Potassium 4.4. BUN 25. Creatinine 2.63. Lactic acid 3.7. Troponin 0.070. 0.083. 0.145 proBNP 17,500. - Current home cardiac medications include lisinopril 40 mg daily - No previous echocardiogram, stress test, or cardiac catheterization available in EMR for review 11/26/2024 Patient examined this morning at the bedside. Patient has a manager food safety present. Patient remains lethargic. He has gurgling respirations at the time of examination. He remains on IV diuretics. 2D echo remains pending. 11/27/2024 Patient is seen and examined at bedside this a.m. Renal function is staying stable, will continue IV diuretics. Echocardiogram results were reviewed. PHYSICAL EXAM: VITAL SIGNS: Reviewed. GENERAL: Well-developed in no acute distress. HEENT: Head is normocephalic. Pupils are equal, round. Sclerae anicteric. Mucous membranes of the mouth are moist. Neck supple. No JVD or thyromegaly LUNGS: Respirations even and unlabored. Lungs diminished with gurgling respira tions noted. HEART: Regular rate and rhythm. S1 and S2 heard. ABDOMEN: Soft. Nondistended. Nontender. EXTREMITIES: Normal range of motion. No clubbing or cyanosis. Peripheral pulses intact. Bilateral lower extremity edema NEUROLOGIC: Lethargic ASSESSMENT: Episode of unresponsiveness, secondary to hypoglycemia Acute heart failure, type unknown, echo pending Acute hypoxic respiratory failure, currently on BiPAP Elevated troponins, type II SC secondary to oxygen supply/demand mismatch and poor renal clearance, no evidence of acute coronary syndrome Chronic kidney disease Diabetes History of hypertension PLAN: Continue IV Lasix 40 mg every 12 hours Continue to hold lisinopril Add hydralazine 25 mg 3 times daily Increase Imdur to 30 mg mg daily Increase dose of carvedilol Further recommendations pending patient course Objective - Vital Signs Vital signs: Vital Signs Temp 98.6 F 11/28/24 08:00 Pulse 91 11/28/24 14:00 Resp 16 11/28/24 14:00 BP 155/71 11/28/24 08:00 Pulse Ox 99 11/28/24 08:00 FiO2 35 11/25/24 08:09 Intake & Output 11/27/24 11/28/24 11/28/24 18:59 06:59 18:59 Output Total 1150 Balance -1150 Weight 66.5 kg 66.5 kg 66.5 kg Output: Urine 1150 Other: Voiding Method Indwelling Catheter Indwelling Catheter Indwelling Catheter - Labs CBC & Chem 7: 11/28/24 05:15 11/28/24 05:15 Labs: Abnormal Lab Results - Last 24 Hours (Table) 11/27/24 11/28/24 11/28/24 Range/Units 20:00 02:09 05:15 RBC 3.27 L (4.30-5.90) m/uL Hgb 9.7 L (13.0-17.5) gm/dL Hct 31.9 L (39.0-53.0) % MCHC 30.6 L (31.0-37.0) g/dL RDW 15.6 H (11.5-15.5) % Sodium (137-145) mmol/L Potassium (3.5-5.1) mmol/L Chloride (98-107) mmol/L Carbon Dioxide (22-30) mmol/L BUN (9-20) mg/dL Creatinine (0.66-1.25) mg/dL Glucose (74-99) mg/dL POC Glucose (mg/dL) 223 H 151 H (70-110) mg/dL Calcium (8.4-10.2) mg/dL 11/28/24 11/28/24 11/28/24 Range/Units 05:15 05:41 11:15 RBC (4.30-5.90) m/uL Hgb (13.0-17.5) gm/dL Hct (39.0-53.0) % MCHC (31.0-37.0) g/dL RDW (11.5-15.5) % Sodium 132 L (137-145) mmol/L Potassium 2.9 L (3.5-5.1) mmol/L Chloride 93 L (98-107) mmol/L Carbon Dioxide 37 H (22-30) mmol/L BUN 34 H (9-20) mg/dL Creatinine 2.55 H (0.66-1.25) mg/dL Glucose 128 H (74-99) mg/dL POC Glucose (mg/dL) 137 H 160 H (70-110) mg/dL Calcium 8.1 L (8.4-10.2) mg/dL 11/28/24 Range/Units 16:07 RBC (4.30-5.90) m/uL Hgb (13.0-17.5) gm/dL Hct (39.0-53.0) % MCHC (31.0-37.0) g/dL RDW (11.5-15.5) % Sodium (137-145) mmol/L Potassium (3.5-5.1) mmol/L Chloride (98-107) mmol/L Carbon Dioxide (22-30) mmol/L BUN (9-20) mg/dL Creatinine (0.66-1.25) mg/dL Glucose (74-99) mg/dL POC Glucose (mg/dL) 198 H (70-110) mg/dL Calcium (8.4-10.2) mg/dL
--- NOTE | 2024-11-28 16:32 | P.PN ---
Subjective Progress Note Date: 11/28/24 This is a 89-year-old male with a past medical history significant for hypertension and diabetes. Patient does not follow with a acquisition editor. We have been asked to see the patient in consultation for CHF. Patient examined at the bedside. Patient son is present. Apparently the patient lives at home with his . She attempted to wake him up when she was unable to and she then called EMS. The patient was found to be hypoglycemic. Additionally the patient was found to be in acute CHF upon admission to the hospital. According to the patient's son the patient has no known history of CHF or CAD. DIAGNOSTICS: - EKG reveals sinus mechanism with PVCs. Significant baseline artifact. - Chest xray small bilateral pleural effusions with patchy perihilar opacities bilaterally. Findings may relate to pulmonary edema versus pneumonia. - Laboratory data: WBC 8.7. Hemoglobin 10.4. Platelet count 252. Sodium 133. Potassium 4.4. BUN 25. Creatinine 2.63. Lactic acid 3.7. Troponin 0.070. 0.083. 0.145 proBNP 17,500. - Current home cardiac medications include lisinopril 40 mg daily - No previous echocardiogram, stress test, or cardiac catheterization available in EMR for review 11/26/2024 Patient examined this morning at the bedside. Patient has a traffic safety administrator present. Patient remains lethargic. He has gurgling respirations at the time of examination. He remains on IV diuretics. 2D echo remains pending. 11/27/2024 Patient is seen and examined at bedside this a.m. Renal function is staying stable, will continue IV diuretics. Echocardiogram results were reviewed. 11/28/2024 Patient is seen and examined at bedside this a.m. BP 127/63, heart rate 80 bpm, continues to be very somnolent. Getting evaluated by neurology. Labs shows hemoglobin 9.7, BUN 34, creatinine 2.5 which is stable. Tolerating current GDMT. Chest x-ray this morning shows left-sided small pleural effusion with mild to moderate pulmonary congestion. Still appears volume overloaded. PHYSICAL EXAM: VITAL SIGNS: Reviewed. GENERAL: Well-developed in no acute distress. HEENT: Head is normocephalic. Pupils are equal, round. Sclerae anicteric. Mucous membranes of the mouth are moist. Neck supple. No JVD or thyromegaly LUNGS: Respirations even and unlabored. Lungs diminished with gurgling respirations noted. HEART: Regular rate and rhythm. S1 and S2 heard. ABDOMEN: Soft. Nondistended. Nontender. EXTREMITIES: Normal range of motion. No clubbing or cyanosis. Peripheral pulses intact. Bilateral lower extremity edema NEUROLOGIC: Lethargic ASSESSMENT: Dilated cardiomyopathy with a EF of 30 to 35%, unknown if ischemic or not. Acute CHF exacerbation Type II NSTEMI Moderate MR Acute hypoxic respiratory failure, currently resolving Episode of unresponsiveness, secondary to hypoglycemia on admission Metabolic encephalopathy with increased somnolence Chronic kidney disease Diabetes History of hypertension Pertinent cardiac testing Echo during this admission shows EF of 30 to 35%, moderate mitral regurgitation, moderate tricuspid regurgitation, moderate LA dilatation. PLAN: Continue aspirin, Lipitor, Coreg 6.25 mg twice daily Continue Farxiga 10 mg, Lasix 40 mg IV twice daily Continue Imdur 30 mg daily. Increase Imdur 25 mg 4 times a day. Continue IV Lasix 40 mg every 12 hours Monitor hemodynamics, urine output, kidney function. Will not plan for cardiac catheterization because of poor kidney function and mental status. Await neurology recommendations and lumbar puncture results. Still appears volume overloaded we will continue IV diuretics. Anticipate transitioning to p.o. in next 48 hours. Objective - Vital Signs Vital signs: Vital Signs Temp 98.6 F 11/28/24 08:00 Pulse 91 11/28/24 14:00 Resp 16 11/28/24 14:00 BP 155/71 11/28/24 08:00 Pulse Ox 99 11/28/24 08:00 FiO2 35 11/25/24 08:09 Intake & Output 11/27/24 11/28/24 11/28/24 18:59 06:59 18:59 Output Total 1150 Balance -1150 Weight 66.5 kg 66.5 kg 66.5 kg Output: Urine 1150 Other: Voiding Method Indwelling Catheter Indwelling Catheter Indwelling Catheter - Labs CBC & Chem 7: 11/28/24 05:15 11/28/24 05:15 Labs: Abnormal Lab Results - Last 24 Hours (Table) 11/27/24 11/28/24 11/28/24 Range/Units 20:00 02:09 05:15 RBC 3.27 L (4.30-5.90) m/uL Hgb 9.7 L (13.0-17.5) gm/dL Hct 31.9 L (39.0-53.0) % MCHC 30.6 L (31.0-37.0) g/dL RDW 15.6 H (11.5-15.5) % Sodium (137-145) mmol/L Potassium (3.5-5.1) mmol/L Chloride (98-107) mmol/L Carbon Dioxide (22-30) mmol/L BUN (9-20) mg/dL Creatinine (0.66-1.25) mg/dL Glucose (74-99) mg/dL POC Glucose (mg/dL) 223 H 151 H (70-110) mg/dL Calcium (8.4-10.2) mg/dL 11/28/24 11/28/24 11/28/24 Range/Units 05:15 05:41 11:15 RBC (4.30-5.90) m/uL Hgb (13.0-17.5) gm/dL Hct (39.0-53.0) % MCHC (31.0-37.0) g/dL RDW (11.5-15.5) % Sodium 132 L (137-145) mmol/L Potassium 2.9 L (3.5-5.1) mmol/L Chloride 93 L (98-107) mmol/L Carbon Dioxide 37 H (22-30) mmol/L BUN 34 H (9-20) mg/dL Creatinine 2.55 H (0.66-1.25) mg/dL Glucose 128 H (74-99) mg/dL POC Glucose (mg/dL) 137 H 160 H (70-110) mg/dL Calcium 8.1 L (8.4-10.2) mg/dL 11/28/24 Range/Units 16:07 RBC (4.30-5.90) m/uL Hgb (13.0-17.5) gm/dL Hct (39.0-53.0) % MCHC (31.0-37.0) g/dL RDW (11.5-15.5) % Sodium (137-145) mmol/L Potassium (3.5-5.1) mmol/L Chloride (98-107) mmol/L Carbon Dioxide (22-30) mmol/L BUN (9-20) mg/dL Creatinine (0.66-1.25) mg/dL Glucose (74-99) mg/dL POC Glucose (mg/dL) 198 H (70-110) mg/dL Calcium (8.4-10.2) mg/dL
[2024-11-28] MEDS: hydrALAZINE HCL 25 MG TAB PO SCH (17:10)
[2024-11-28] MEDS ORDERED: Magnesium Replacement Protocol 1 EACH MISC MISCELLANE PRN (18:20)
[2024-11-28] MEDS ORDERED: Potassium Replacement Protocol 1 EACH MISC MISCELLANE PRN (18:20)
--- NOTE | 2024-11-28 18:32 | P.PN ---
Subjective Progress Note Date: 11/28/24 89-year-old male was brought brought in because patient was unresponsive. EMS found him to be hypoglycemic with a blood sugars of 30 patient was brought to the hospital admitted for hypoglycemia is on D10. Patient is also found to be in CHF exacerbation requiring oxygen presently on 2 L patient does have history of congestive heart failure patient has a elevated BNP chest x-ray showing pulmonary edema is on IV Lasix. Patient is still lethargic but there is no clear evidence of any infection anywhere patient is bit hyponatremic. Patient's serum creatinine is 2.63 baseline is around that. Patient also found to have troponin elevation of 0.083 and 0.145. Cardiology evaluated the patient. 11/26/2024 Obtunded, not following commands, family members at the bedside report he is normally alert and oriented and up and ambulatory at home. Blood sugars are being monitored and per nursing staff it continues to be every hour. Will make ACHS as well as 2 AM and as needed as patient was initially admitted with hypoglycemia. Patient also with significant bronchial congestion and sounds like patient is sounds of severe wetness and inability to clear secretions with frequent suctioning required. Patient with significant fluid overload although worsening kidney functions and will consult nephrology. Neurology is following and awaiting MRI of the brain for further evaluation. CODE STATUS needs to be addressed in this patient although family members that were available were not next of kin. 11/27/2024 She is currently evaluated today at the medical floor his granddaughter is at the bedside. We did briefly discuss comfort or hospice measures as patient is essentially unresponsive at this time and is unable to swallow per nursing staff is continued on IV Lasix as well as IV dextrose to support his blood glucose level. We will need to include patient's in this conversation and will follow-up with tomorrow pending neurology review of the brain CT. He did have this brain CT completed today which reveals possible normal pressure hydrocephalus. No acute intracranial hemorrhage. There is confluent periventricular hypodensities which may represent white matter change from c hronic small vessel ischemic disease versus transependymal flow from hydrocephalus. Labs today reveal a white blood cell count of 6.7, hemoglobin 10.0, sodium of 131, BUN of 31 creatinine of 2.51, blood glucose of 200s, calcium of 8.3, magnesium 1.8. Echocardiogram comes back with an ejection frac tion of 30 to 35% with mild to moderate mitral and tricuspid regurgitation with moderate to severe pulmonary hypertension. 11/28/2024 Patient is seen in follow-up with multiple family members present at bedside. Patient's mentation is significantly improved although continues with some intermittent confusion. Patient is able to converse and is following commands. Patient is scheduled to undergo MRI of the brain for neurological workup including possible LP and awaiting to discuss further with family regarding this testing. Cardiology following as well making adjustments to medications and is maintained on IV Lasix twice daily, will likely transition to oral in the next few days. Pulmonary has evaluated the patient and is maintained on 2 L maintaining oxygen saturations above 95% and is off BiPAP. Review of systems: Constitutional: No reports of fatigue, fever, or chills Cardiovascular: No reports of chest pain or palpitations Respiratory: reports of shortness of breath and weak cough GI: No reports of nausea, vomiting, or diarrhea, reports to feeling hungry : No reports of dysuria or retention Neurovascular: reports of generalized weakness All medications have been reviewed PHYSICAL EXAMINATION: GENERAL: Patient is an 89-year-old male who is much more awake today, alert and oriented x 2, raspy harsh voice, well-developed, elderly appearing, ill- appearing, thin built HEENT: Pupils are round and equally reacting to light. EOMI. No scleral icterus. No conjunctival pallor. Normocephalic, atraumatic. No pharyngeal erythema. No thyromegaly. CARDIOVASCULAR: S1 and S2 muffled PULMONARY: Diminished breath sounds bilaterally with some scattered rhonchi and some expiratory wheezing noted although significantly improved bronchial congestion from yesterday ABDOMEN: Soft, thin, nontender, nondistended, normoactive bowel sounds. No palpable organomegaly. MUSCULOSKELETAL: No joint swelling or deformity. EXTREMITIES: No cyanosis, clubbing, or pedal edema. NEUROLOGICAL appears quite weak, awake and alert today SKIN: No rashes. Assessment: -Altered mental status may be related to hypoglycemia, patient is on oral hypoglycemic agents which are being held and patient which is being discontinued and mentation is significantly improved. Will have speech reevaluate for possible diet initiation. -Patient's brain CT with concerns for normal pressure hydrocephalus,- patient may need transfer for neurosurgery although due to his advanced age and medical comorbidities he may be a candidate for hospice we are currently pending neurology review of the brain CT and further recommendations -Congestive heart failure acute exacerbation systolic dysfunction continues on IV lasix. 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 -Chronic kidney disease stage IV -Hypertension -Elevated troponin secondary to type II WA and chronic kidney disease -Type 2 diabetes mellitus GI prophylaxis DVT prophylaxis: Subcutaneous heparin Plan: Patient seen in follow-up today with significant improvement patient will tentatively undergo LP in mentation and is awake and alert and having conversation with family. Neurology following and scheduled to undergo MRI of the brain as well as possible LP. On 11/29/2024 per neurology as patient received subcu heparin today. Will hold heparin Will follow up with patients and granddaughters tomorrow pending patients clinical improvement and neurology review of MRI of the brain Continue monitoring blood sugars and patient is reporting to being hungry and will have speech reevaluate. Patient was able to take medications crushed in applesauce today. Continue IV Lasix and will discontinue IV fluids Cardiology following along with nephrology and neurology, kidney function slightly improved although 2.5 creatinine today we will continue IV diuresis and follow-up on repeat labs Per cardiology, no plans for cardiac catheterization at this time and will await further neurological workup including LP. Overall prognosis is guarded and hospice may be appropriate in this patient, CODE STATUS needs to be addressed The impression and plan of care has been dictated by Aysha Nava, Nurse Practitioner as directed. Dr. Micheal MD I have performed a history and examination and MDM of this patient, discussed the same with the dictator, and agree with the dictator's assessment and plan as written ,documented as a scribe. Based on total visit time, I have performed more than 50% of the visit. Objective - Vital Signs Vital signs: Vital Signs Temp 98.6 F 11/28/24 08:00 Pulse 91 11/28/24 08:00 Resp 16 11/28/24 08:00 BP 155/71 11/28/24 08:00 Pulse Ox 99 11/28/24 08:00 FiO2 35 11/25/24 08:09 Intake & Output 11/27/24 11/28/24 11/28/24 18:59 06:59 18:59 Output Total 1150 Balance -1150 Weight 66.5 kg 66.5 kg Output: Urine 1150 Other: Voiding Method Indwelling Catheter Indwelling Catheter - Labs CBC & Chem 7: 11/28/24 05:15 11/28/24 05:15 Labs: Abnormal Lab Results - Last 24 Hours (Table) 11/27/24 11/27/24 11/27/24 Range/Units 11:09 16:14 20:00 RBC (4.30-5.90) m/uL Hgb (13.0-17.5) gm/dL Hct (39.0-53.0) % MCHC (31.0-37.0) g/dL RDW (11.5-15.5) % Sodium (137-145) mmol/L Potassium (3.5-5.1) mmol/L Chloride (98-107) mmol/L Carbon Dioxide (22-30) mmol/L BUN (9-20) mg/dL Creatinine (0.66-1.25) mg/dL Glucose (74-99) mg/dL POC Glucose (mg/dL) 200 H 209 H 223 H (70-110) mg/dL Calcium (8.4-10.2) mg/dL 11/28/24 11/28/24 11/28/24 Range/Units 02:09 05:15 05:15 RBC 3.27 L (4.30-5.90) m/uL Hgb 9.7 L (13.0-17.5) gm/dL Hct 31.9 L (39.0-53.0) % MCHC 30.6 L (31.0-37.0) g/dL RDW 15.6 H (11.5-15.5) % Sodium 132 L (137-145) mmol/L Potassium 2.9 L (3.5-5.1) mmol/L Chloride 93 L (98-107) mmol/L Carbon Dioxide 37 H (22-30) mmol/L BUN 34 H (9-20) mg/dL Creatinine 2.55 H (0.66-1.25) mg/dL Glucose 128 H (74-99) mg/dL POC Glucose (mg/dL) 151 H (70-110) mg/dL Calcium 8.1 L (8.4-10.2) mg/dL 11/28/24 Range/Units 05:41 RBC (4.30-5.90) m/uL Hgb (13.0-17.5) gm/dL Hct (39.0-53.0) % MCHC (31.0-37.0) g/dL RDW (11.5-15.5) % Sodium (137-145) mmol/L Potassium (3.5-5.1) mmol/L Chloride (98-107) mmol/L Carbon Dioxide (22-30) mmol/L BUN (9-20) mg/dL Creatinine (0.66-1.25) mg/dL Glucose (74-99) mg/dL POC Glucose (mg/dL) 137 H (70-110) mg/dL Calcium (8.4-10.2) mg/dL
[2024-11-28] MEDS: MAGNESIUM SULFATE-D5W PMX 1 GM in DEXTROSE/WATER 1 100ML.BAG IVPB ONE (19:33)
[2024-11-28 20:11] LABS: Glucose,Whole Blood 207 mg/dL (70-110)
[2024-11-28] MEDS: POTASSIUM CHLORIDE 20 MEQ in WATER FOR INJECTION 1 100ML.BAG IVPB SCH (21:08)
[2024-11-29 02:12] LABS: Glucose,Whole Blood 132 mg/dL (70-110)
[2024-11-29] MEDS: POTASSIUM BICARBONATE/CIT AC 20 MEQ TABLET.EFF NG-TUBE SCH (03:43)
[2024-11-29 05:57] LABS: Glucose,Whole Blood 118 mg/dL (70-110)
[2024-11-29 08:04] LABS: Basophils % (A) 0 %; Eosinophils % (A) 0 %; HCT 29.4 % (39.0-53.0); HGB 8.9 gm/dL (13.0-17.5); Hypochromasia Moderate; Lymphocytes % (A) 13 %; MCH 29.9 pg (25.0-35.0); MCHC 30.1 g/dL (31.0-37.0); MCV 99.4 fL (80.0-100.0); Macrocytosis Slight; Mean Platelet Volume 7.7; Monocytes # (A) 0.5 k/uL (0-1.0); Monocytes % (A) 7 %; Neutrophils % (A) 79 %; Platelet Count 274 k/uL (150-450); RBC 2.96 m/uL (4.30-5.90); RDW 15.5 % (11.5-15.5); WBC 7.6 k/uL (3.8-10.6)
--- NOTE | 2024-11-29 08:22 | P.PN ---
Subjective Progress Note Date: 11/28/24 Patient was seen for follow-up. Patient's granddaughter was present. She mentions as patient is slightly better than yesterday. He is trying to talk, still not able to complete sentences. He is forming one to 2 words phrases. He is understanding better, but trying to talk. He says yes, okay like phrases. Patient's daughter states that prior to this admission, he was very sharp, no history of dementia, except for normal for wakefulness from age-related. Objective - Vital Signs Vital signs: Vital Signs Temp 98.6 F 11/28/24 08:00 Pulse 91 11/28/24 14:00 Resp 16 11/28/24 14:00 BP 155/71 11/28/24 08:00 Pulse Ox 99 11/28/24 08:00 FiO2 35 11/25/24 08:09 Intake & Output 11/27/24 11/28/24 11/28/24 18:59 06:59 18:59 Output Total 1150 Balance -1150 Weight 66.5 kg 66.5 kg 66.5 kg Output: Urine 1150 Other: Voiding Method Indwelling Catheter Indwelling Catheter Indwelling Catheter - Exam Patient is alert and awake, but appears mild to moderately encephalopathic. He is trying to speak, but mumbling. He says some words and phrases clearly. At time it appears garbled speech. No obvious facial droop. Extraocular muscles are intact. Muscle strength again patient appears to be very weak both arms. No obvious focality however. - Labs CBC & Chem 7: 11/29/24 06:26 11/28/24 05:15 Labs: Abnormal Lab Results - Last 24 Hours (Table) 11/27/24 11/27/24 11/28/24 Range/Units 16:14 20:00 02:09 RBC (4.30-5.90) m/uL Hgb (13.0-17.5) gm/dL Hct (39.0-53.0) % MCHC (31.0-37.0) g/dL RDW (11.5-15.5) % Sodium (137-145) mmol/L Potassium (3.5-5.1) mmol/L Chloride (98-107) mmol/L Carbon Dioxide (22-30) mmol/L BUN (9-20) mg/dL Creatinine (0.66-1.25) mg/dL Glucose (74-99) mg/dL POC Glucose (mg/dL) 209 H 223 H 151 H (70-110) mg/dL Calcium (8.4-10.2) mg/dL 11/28/24 11/28/24 11/28/24 Range/Units 05:15 05:15 05:41 RBC 3.27 L (4.30-5.90) m/uL Hgb 9.7 L (13.0-17.5) gm/dL Hct 31.9 L (39.0-53.0) % MCHC 30.6 L (31.0-37.0) g/dL RDW 15.6 H (11.5-15.5) % Sodium 132 L (137-145) mmol/L Potassium 2.9 L (3.5-5.1) mmol/L Chloride 93 L (98-107) mmol/L Carbon Dioxide 37 H (22-30) mmol/L BUN 34 H (9-20) mg/dL Creatinine 2.55 H (0.66-1.25) mg/dL Glucose 128 H (74-99) mg/dL POC Glucose (mg/dL) 137 H (70-110) mg/dL Calcium 8.1 L (8.4-10.2) mg/dL 11/28/24 Range/Units 11:15 RBC (4.30-5.90) m/uL Hgb (13.0-17.5) gm/dL Hct (39.0-53.0) % MCHC (31.0-37.0) g/dL RDW (11.5-15.5) % Sodium (137-145) mmol/L Potassium (3.5-5.1) mmol/L Chloride (98-107) mmol/L Carbon Dioxide (22-30) mmol/L BUN (9-20) mg/dL Creatinine (0.66-1.25) mg/dL Glucose (74-99) mg/dL POC Glucose (mg/dL) 160 H (70-110) mg/dL Calcium (8.4-10.2) mg/dL Assessment and Plan Assessment: * Altered mental status with aphasia, unclear cause. Patient's limited ex amination showed no obvious focality. Repeat CT head negative, therefore CVA appears less likely. Rule out toxic metabolic encephalopathy. * Patient presented with hypoglycemia, rule out hypoglycemic encephalopathy. 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 * CHF * Anemia * Elevated troponins * Diabetes * Hypertension * Hyperlipidemia * Mildly elevated ammonia. * Mild cognitive impairment * Chronic renal insufficiency Plan: * MRI brain without contrast revealed no recent infarct. There is moderate diffuse cerebral atrophy and moderate to severe probable chronic small vessel ischemic change. Cannot exclude underlying normal pressure hydrocephalus. No significant change from prior CTs. I personally reviewed MRI, I agree with the findings. * MRA of the brain showed no large vessel occlusion or aneurysm at the level of [place]. I personally reviewed MR daily with the findings. * Patient's has consented for lumbar puncture. I wanted to do it today, but patient has received heparin 5000 units subcu this morning. Therefore we have to hold off LP till tomorrow. Hold off on heparin tonight and tomorrow morning. Once LP completed, then resume heparin subcu. Discussed with patient's nurse Angel. * Carotid Doppler revealed no hemodynamically significant stenosis in either ICA. Antegrade flow in both vertebral arteries. * 2-D echo revealed severely impaired LVEF 30 to 35%. Mildly increased left ventricular wall thickness. Severe global hypokinesis. Moderately increased left atrial volume. No thrombus seen. Mild to moderate MR. Mild to moderate TR. * Hemoglobin A1c 6.4. Diabetes is well controlled. Avoid episodes of hypoglycemia. * B12 446, folate 4.70. Patient started on folic acid 1 mg daily. * EEG was performed, which was abnormal due to background slowing of moderate degree. This is suggestive of generalized cerebral dysfunction as can be seen with toxic metabolic encephalopathy or related to diffuse structural brain a bdomen the. Clinical correlation is recommended. No epileptiform activity was seen. * Lipid panel with cholesterol 192, LDL 98, HDL 79, triglycerides 69. Patient started on Lipitor 40 mg daily. * Agree with starting aspirin 81 mg daily. * Telemetry monitoring * DVT prophylaxis: Patient on heparin 5000 units subcu every 8 hours. To be on hold tonight and tomorrow for LP. * Other medical management as per IM and other specialties on board. * Discussed with family members. * Dr. Bj Lester to start neurology service from morning.
[2024-11-29 08:23] LABS: ALT 14 U/L (4-49); AST 23 U/L (17-59); African American GFR (CKD) 23 (>60 ml/min/1.73 sqM); Albumin 2.4 g/dL (3.5-5.0); Alkaline Phosphatase 82 U/L (38-126); Anion Gap 6 mmol/L; Blood Urea Nitrogen 41 mg/dL (9-20); Calcium 8.1 mg/dL (8.4-10.2); Carbon Dioxide 33 mmol/L (22-30); Chloride 93 mmol/L (98-107); Glucose 117 mg/dL (74-99); Magnesium 2.1 mg/dL (1.6-2.3); Non-African American GFR(CKD) 20 (>60 ml/min/1.73 sqM); Potassium 3.7 mmol/L (3.5-5.1); Sodium 132 mmol/L (137-145); Total Bilirubin 0.9 mg/dL (0.2-1.3); Total Protein 4.9 g/dL (6.3-8.2)
[2024-11-29 11:08] LABS: Glucose,Whole Blood 129 mg/dL (70-110)
--- NOTE | 2024-11-29 11:22 | P.PN ---
Subjective Patient was seen for follow-up. Patient's granddaughter was present. She mentions as patient is slightly better than yesterday. He is trying to talk, still not able to complete sentences. He is forming one to 2 words phrases. He is understanding better, but trying to talk. He says yes, okay like phrases. Patient's daughter states that prior to this admission, he was very sharp, no history of dementia, except for normal for wakefulness from age-related. 11/29 Information was obtained with the help of son Mr. Dey at bedside Patient only little confused but he is more slow than confused No other new complaints He is hemodynamically stable saturating 100% on 3 L Hemoglobin slightly dropped 9.7 down to 8.9, creatinine 2.5 up to 2.7 He remains on IV Lasix 40 mg twice daily. This can be switched to oral dose soon, keep monitoring creatinine Had MRI of the brain showing no infarction but there is cerebral atrophy and cannot exclude include normal pressure hydrocephalus while MRI of the brain showing no big vessel occlusion or aneurysm. Him perry on aspirin. Plan for lumbar puncture by the neurology team. Lumbar puncture per neurology service I discussed the CODE STATUS with the patient and son, as per son Mr. Dey patient Is okay for chest compressions but no intubation, no life support Review of systems CONSTITUTIONAL: No fever, no malaise, no fatigue. HEENT: No recent visual problems or hearing problems. Denied any sore throat. CARDIOVASCULAR: No orthopnea, PND, no palpitations, no syncope. PULMONARY: No shortness of breath, no cough, no hemoptysis. Active Medications Generic Name Dose Route Start Last Admin Trade Name Breanna PRN Reason Stop Dose Admin Aspirin 81 mg 11/25/24 09:15 11/28/24 09:19 Aspirin 81 Mg PO 81 mg DAILY DOUGLAS Administration Atorvastatin Calcium 40 mg 11/25/24 21:00 11/28/24 21:03 Atorvastatin 40 Mg Tab PO Not Given HS DOUGLAS Carvedilol 6.25 mg 11/27/24 17:30 11/29/24 06:27 Carvedilol 6.25 Mg Tab PO Not Given BID-W/MEALS DOUGLAS Dapagliflozin 10 mg 11/27/24 10:00 11/28/24 09:19 Dapagliflozin Propanediol 10 Mg Tablet PO 10 mg DAILY DOUGLAS Administration Dextrose/Water 25 ml 11/24/24 17:57 11/24/24 22:48 Dextrose 50% Syringe 50 Ml IVP 25 ml PER PROTOCOL PRN Administration Hypoglycemia Protocol Dextrose/Water 50 ml 11/24/24 17:57 11/25/24 01:32 Dextrose 50% Syringe 50 Ml IVP 50 ml PER PROTOCOL PRN Administration Hypoglycemia Protocol Folic Acid 1 mg 11/27/24 11:45 11/28/24 09:19 Folic Acid 1 Mg Tab PO 1 mg DAILY DOUGLAS Administration Furosemide 40 mg 11/25/24 09:00 11/29/24 09:44 Furosemide 10 Mg/Ml 4 Ml Vial IV 40 mg Q12HR DOUGLAS Administration Hydralazine HCl 25 mg 11/28/24 18:00 11/28/24 21:03 Hydralazine Hcl 25 Mg Tab PO Not Given QID DOUGLAS Insulin Human Lispro 0 unit 11/26/24 21:00 11/29/24 06:27 Insulin Lispro (Humalog) 100 Unit/Ml 10 Ml Vl SQ Not Given [id number] DOUGLAS Protocol Isosorbide Mononitrate 30 mg 11/28/24 09:00 11/28/24 09:19 Isosorbide Mononitrate Er 30 Mg Tab.Er.24h PO 30 mg DAILY DOUGLAS Administration Miscellaneous Information 1 each 11/25/24 03:04 Magnesium Replacement Protocol 1 Each Misc MISCELLANE DAILY PRN Per Protocol Protocol Miscellaneous Information 1 each 11/28/24 18:20 Potassium Replacement Protocol 1 Each Misc MISCELLANE DAILY PRN Per Protocol Protocol Miscellaneous Information 1 each 11/28/24 18:20 Magnesium Replacement Protocol 1 Each Misc MISCELLANE DAILY PRN Per Protocol Protocol Objective - Vital Signs Vital signs: Vital Signs Temp 98.1 F 11/29/24 09:30 Pulse 74 11/29/24 09:30 Resp 16 11/29/24 09:30 BP 135/63 11/29/24 09:30 Pulse Ox 100 11/29/24 09:30 FiO2 35 11/25/24 08:09 Intake & Output 11/28/24 11/29/24 11/29/24 18:59 06:59 18:59 Output Total 650 400 Balance -650 -400 Weight 66.5 kg 66.5 kg Output: Urine 650 400 Other: Voiding Method Indwelling Catheter Indwelling Catheter Indwelling Catheter - Exam -GENERAL: The patient is alert and alert, mildly confused, not in any acute distress. Well developed, well nourished. HEENT: Pupils are round and equally reacting to light. EOMI. No scleral icterus. No conjunctival pallor. Normocephalic, atraumatic. No pharyngeal erythema. No thyromegaly. CARDIOVASCULAR: S1 and S2 present. No murmurs, rubs, or gallops. PULMONARY: Chest is clear to auscultation, no wheezing , no crackles. ABDOMEN: Soft, nontender, nondistended, normoactive bowel sounds. No palpable organomegaly. MUSCULOSKELETAL: No joint swelling or deformity. EXTREMITIES: No cyanosis, clubbing, or pedal edema. NEUROLOGICAL: Gross neurological examination did not reveal any focal deficits. SKIN: No rashes. no petechiae. - Labs CBC & Chem 7: 11/29/24 06:11/29/24: Labs: Abnormal Lab Results - Last 24 Hours (Table) 11/28/24 11/28/24 11/29/24 Range/Units 16:07 20:09 02:05 RBC (4.30-5.90) m/uL Hgb (13.0-17.5) gm/dL Hct (39.0-53.0) % MCHC (31.0-37.0) g/dL Sodium (137-145) mmol/L Chloride (98-107) mmol/L Carbon Dioxide (22-30) mmol/L BUN (9-20) mg/dL Creatinine (0.66-1.25) mg/dL Glucose (74-99) mg/dL POC Glucose (mg/dL) 198 H 207 H 132 H (70-110) mg/dL Calcium (8.4-10.2) mg/dL Total Protein (6.3-8.2) g/dL Albumin (3.5-5.0) g/dL 11/29/24 11/29/24 11/29/24 Range/Units 05:54 06: 06:26 RBC 2.96 L (4.30-5.90) m/uL Hgb 8.9 L (13.0-17.5) gm/dL Hct 29.4 L (39.0-53.0) % MCHC 30.1 L (31.0-37.0) g/dL Sodium 132 L (137-145) mmol/L Chloride 93 L (98-107) mmol/L Carbon Dioxide 33 H (22-30) mmol/L BUN 41 H (9-20) mg/dL Creatinine 2.70 H (0.66-1.25) mg/dL Glucose 117 H (74-99) mg/dL POC Glucose (mg/dL) 118 H (70-110) mg/dL Calcium 8.1 L (8.4-10.2) mg/dL Total Protein 4.9 L (6.3-8.2) g/dL Albumin 2.4 L (3.5-5.0) g/dL 11/29/24 Range/Units 11:07 RBC (4.30-5.90) m/uL Hgb (13.0-17.5) gm/dL Hct (39.0-53.0) % MCHC (31.0-37.0) g/dL Sodium (137-145) mmol/L Chloride (98-107) mmol/L Carbon Dioxide (22-30) mmol/L BUN (9-20) mg/dL Creatinine (0.66-1.25) mg/dL Glucose (74-99) mg/dL POC Glucose (mg/dL) 129 H (70-110) mg/dL Calcium (8.4-10.2) mg/dL Total Protein (6.3-8.2) g/dL Albumin (3.5-5.0) g/dL Assessment and Plan Assessment: -Altered mental status may be related to hypoglycemia, patient is on oral hypoglycemic agents which are being held and patient which is being discontinued and mentation is significantly improved. Will have speech reevaluate for possible diet initiation. -Patient's brain CT with concerns for normal pressure hydrocephalus,- patient may need transfer for neurosurgery although due to his advanced age and medical comorbidities he may be a candidate for hospice we are currently pending neurology review of the brain CT and further recommendations -Congestive heart failure acute exacerbation systolic dysfunction continues on IV lasix. 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 -Chronic kidney disease stage IV -Hypertension -Elevated troponin secondary to type II IA and chronic kidney disease -Type 2 diabetes mellitus Plan: Continue with IV Lasix with switch to oral dose soon Monitor hemoglobin Monitor creatinine Neurology team consult on the case and the plan for lumbar puncture MRI of the brain is reviewed and patient's son is aware of the results. Continue with the current antihypertensive medication. Continue with aspirin GI and DVT prophylaxis Prognosis is guarded
--- NOTE | 2024-11-29 11:53 | P.PN ---
Progress Note - Text Progress Note Date: 11/29/24 (2005) 89-year-old male for lumbar puncture. Ordered for altered mental status. Coagulopathies: Coags normal, aspirin 81 mg, heparin subcu none in 12 hours. Medications: Nothing significant. Consent obtained and confirmed consent per son Timeout performed Sterile protocol was used throughout procedure. L3 4 was identified and patient sitting off edge of bed. Chlorhexidine 2 was used to clean the patient's back. Lidocaine 1% 3 mL was used as local and was infiltrated. Spinal needle 20- gauge 3-1/2 inches was used in one attempt. CSF was obtained. No heme. Specimens collected 4-2 mL each. Needle was withdrawn and Band-Aid applied. Patient tolerated procedure well without complication. Stable for transfer to floor.
--- NOTE | 2024-11-29 12:22 | P.PN ---
Subjective Progress Note Date: 11/29/24 Patient is seen for follow-up for acute kidney injury. Mostly cardiorenal. Currently being diuresed. Renal function is stable with serum creatinine 2.7 from 2.5 mg/dL. Patient is awake , looks confused, son at bedside, plan for LP later today urine output charted 400 mL today. on IV Lasix 40 mg BID Objective - Vital Signs Vital signs: Vital Signs Temp 98.1 F 11/29/24 09:30 Pulse 74 11/29/24 09:30 Resp 16 11/29/24 09:30 BP 135/63 11/29/24 09:30 Pulse Ox 100 11/29/24 09:30 FiO2 35 11/25/24 08:09 Intake & Output 11/28/24 11/29/24 11/29/24 18:59 06:59 18:59 Output Total 650 400 Balance -650 -400 Weight 66.5 kg 66.5 kg Output: Urine 650 400 Other: Voiding Method Indwelling Catheter Indwelling Catheter Indwelling Catheter - Exam Patient is awake, comfortable, no acute distress. Examination of the heart S1 and S2 Examination of the lungs bilateral breath sounds are heard Abdomen is soft nontender Examination of lower extremities shows no significant edema - Labs CBC & Chem 7: 11/29/24 06:26 11/29/24 06:26 Labs: Abnormal Lab Results - Last 24 Hours (Table) 11/28/24 11/28/24 11/29/24 Range/Units 16:07 20:09 02:05 RBC (4.30-5.90) m/uL Hgb (13.0-17.5) gm/dL Hct (39.0-53.0) % MCHC (31.0-37.0) g/dL Sodium (137-145) mmol/L Chloride (98-107) mmol/L Carbon Dioxide (22-30) mmol/L BUN (9-20) mg/dL Creatinine (0.66-1.25) mg/dL Glucose (74-99) mg/dL POC Glucose (mg/dL) 198 H 207 H 132 H (70-110) mg/dL Calcium (8.4-10.2) mg/dL Total Protein (6.3-8.2) g/dL Albumin (3.5-5.0) g/dL 11/29/24 11/29/24 11/29/24 Range/Units 05:54 06:26 06:26 RBC 2.96 L (4.30-5.90) m/uL Hgb 8.9 L (13.0-17.5) gm/dL Hct 29.4 L (39.0-53.0) % MCHC 30.1 L (31.0-37.0) g/dL Sodium 132 L (137-145) mmol/L Chloride 93 L (98-107) mmol/L Carbon Dioxide 33 H (22-30) mmol/L BUN 41 H (9-20) mg/dL Creatinine 2.70 H (0.66-1.25) mg/dL Glucose 117 H (74-99) mg/dL POC Glucose (mg/dL) 118 H (70-110) mg/dL Calcium 8.1 L (8.4-10.2) mg/dL Total Protein 4.9 L (6.3-8.2) g/dL Albumin 2.4 L (3.5-5.0) g/dL 11/29/24 Range/Units 11:07 RBC (4.30-5.90) m/uL Hgb (13.0-17.5) gm/dL Hct (39.0-53.0) % MCHC (31.0-37.0) g/dL Sodium (137-145) mmol/L Chloride (98-107) mmol/L Carbon Dioxide (22-30) mmol/L BUN (9-20) mg/dL Creatinine (0.66-1.25) mg/dL Glucose (74-99) mg/dL POC Glucose (mg/dL) 129 H (70-110) mg/dL Calcium (8.4-10.2) mg/dL Total Protein (6.3-8.2) g/dL Albumin (3.5-5.0) g/dL Assessment and Plan Assessment: 1. Acute kidney injury, cardiorenal, improving. Currently maintained on IV Lasix. UA shows 3+ protein and moderate blood. Patient has an indwelling Dawson catheter. Ultrasound of the kidneys in August did not show any evidence of obstructive uropathy. 2. Chronic kidney disease stage IV with baseline creatinine around 2.2 to 2.5 mg/dL. Serum creatinine was 2.8-2.9 in August 2024. 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 Cardiomyopathy with an EF of 30 to 35% 4. Moderate to severe pulmonary hypertension 5. Acute on chronic CHF with decreased ejection fraction 6. Hypoglycemia maintained on D10 7. Mental status changes associated with hypoglycemia, EEG abnormality, neurology following, plan for LP Plan: Discontinue IV Lasix start PO Lasix 40 mg BID , ordered to start tomorrow Continue to hold GREG inhibitors Repeat labs in a.m. Accurate I's and O's Avoid nephrotoxic agents
--- NOTE | 2024-11-29 13:06 | P.PN ---
Subjective Progress Note Date: 11/29/24 Seeing the patient for the first time during this hospital visit. Refer to Dr. Jerome for further details. Patient family members are at bedside in which it included patient's son and granddaughters. According to the family members, patient has difficulty with gait that started in summer 2022 recently he is very confused which is not his baseline. For patient had extensive workup and everything has been negative in which the MRI is negative for any stroke but there is a concern for hydrocephalus. EEG shows moderate encephalopathy but no seizures. Dr. Jerome recommended lumbar puncture. Objective - Vital Signs Vital signs: Vital Signs Temp 98.1 F 11/29/24 09:30 Pulse 74 11/29/24 09:30 Resp 16 11/29/24 09:30 BP 135/63 11/29/24 09:30 Pulse Ox 100 11/29/24 09:30 FiO2 35 11/25/24 08:09 Intake & Output 11/28/24 11/29/24 11/29/24 18:59 06:59 18:59 Output Total 650 400 Balance -650 -400 Weight 66.5 kg 66.5 kg Output: Urine 650 400 Other: Voiding Method Indwelling Catheter Indwelling Catheter Indwelling Catheter - Exam General: Lying in bed and is not in acute distress. Neuro: Limited Patient is moderate to severely encephalopathic but is awake able to voice. He is oriented to self. Multiple attempts he will follow few simple commands such as showing a thumbs up smiling attempting to stick his tongue out closing his eyes. He is very slow commands. Speech is very limited No facial weakness from limitation of examination Motor: strength hard to assess individual muscle strength because of his overall condition the patient briefly was able to raise up the upper extremity. - Labs CBC & Chem 7: 11/29/24 06:26 11/29/24 06:26 Labs: Abnormal Lab Results - Last 24 Hours (Table) 11/28/24 11/28/24 11/29/24 Range/Units 16:07 20:09 02:05 RBC (4.30-5.90) m/uL Hgb (13.0-17.5) gm/dL Hct (39.0-53.0) % MCHC (31.0-37.0) g/dL Sodium (137-145) mmol/L Chloride (98-107) mmol/L Carbon Dioxide (22-30) mmol/L BUN (9-20) mg/dL Creatinine (0.66-1.25) mg/dL Glucose (74-99) mg/dL POC Glucose (mg/dL) 198 H 207 H 132 H (70-110) mg/dL Calcium (8.4-10.2) mg/dL Total Protein (6.3-8.2) g/dL Albumin (3.5-5.0) g/dL 11/29/24 11/29/24 11/29/24 Range/Units 05:54 06:26 06:26 RBC 2.96 L (4.30-5.90) m/uL Hgb 8.9 L (13.0-17.5) gm/dL Hct 29.4 L (39.0-53.0) % MCHC 30.1 L (31.0-37.0) g/dL Sodium 132 L (137-145) mmol/L Chloride 93 L (98-107) mmol/L Carbon Dioxide 33 H (22-30) mmol/L BUN 41 H (9-20) mg/dL Creatinine 2.70 H (0.66-1.25) mg/dL Glucose 117 H (74-99) mg/dL POC Glucose (mg/dL) 118 H (70-110) mg/dL Calcium 8.1 L (8.4-10.2) mg/dL Total Protein 4.9 L (6.3-8.2) g/dL Albumin 2.4 L (3.5-5.0) g/dL 11/29/24 Range/Units 11:07 RBC (4.30-5.90) m/uL Hgb (13.0-17.5) gm/dL Hct (39.0-53.0) % MCHC (31.0-37.0) g/dL Sodium (137-145) mmol/L Chloride (98-107) mmol/L Carbon Dioxide (22-30) mmol/L BUN (9-20) mg/dL Creatinine (0.66-1.25) mg/dL Glucose (74-99) mg/dL POC Glucose (mg/dL) 129 H (70-110) mg/dL Calcium (8.4-10.2) mg/dL Total Protein (6.3-8.2) g/dL Albumin (3.5-5.0) g/dL Assessment and Plan Assessment: * Altered mental status with aphasia, unclear cause. Patient's limited examination showed no obvious focality. Repeat CT head negative, therefore CVA appears less likely. Rule out toxic metabolic encephalopathy. * Patient presented with hypoglycemia, rule out hypoglycemic encephalopathy. 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 * CHF * Anemia * Elevated troponins * Diabetes * Hypertension * Hyperlipidemia * Mildly elevated ammonia. * Mild cognitive impairment * Chronic renal insufficiency Plan: * MRI brain without contrast revealed no recent infarct. There is moderate diffuse cerebral atrophy and moderate to severe probable chronic small vessel ischemic change. Cannot exclude underlying normal pressure hydrocephalus. No significant change from prior CTs. I personally reviewed MRI, I agree with the findings. * MRA of the brain showed no large vessel occlusion or aneurysm at the level of [place]. * Dr. Jerome recommended lumbar puncture. I consulted anesthesiology team and recommended a large-volume tap for concern for NPH. I was notified by nurse is scheduled today. * Carotid Doppler revealed no hemodynamically significant stenosis in either ICA. Antegrade flow in both vertebral arteries. * 2-D echo revealed severely impaired LVEF 30 to 35%. Mildly increased left ventricular wall thickness. Severe global hypokinesis. Moderately increased left atrial volume. No thrombus seen. Mild to moderate MR. Mild to moderate TR. * Hemoglobin A1c 6.4. Diabetes is well controlled. Avoid episodes of hypoglycemia. * B12 446, folate 4.70. Patient started on folic acid 1 mg daily. * EEG was performed, which was abnormal due to background slowing of moderate degree. This is suggestive of generalized cerebral dysfunction as can be seen with toxic metabolic encephalopathy or related to diffuse structural brain abdomen the. Clinical correlation is recommended. No epileptiform activity was seen. * Lipid panel with cholesterol 192, LDL 98, HDL 79, triglycerides 69. Patient started on Lipitor 40 mg daily. * Dr. Jerome Agreed with starting aspirin 81 mg daily. * Telemetry monitoring * DVT prophylaxis: Patient on heparin 5000 units subcu every 8 hours. To be on hold tonight and tomorrow for LP. * Other medical management as per IM and other specialties on board. * Discussed with family members. Time with Patient: Less than 30
[2024-11-29 14:13] LABS: Glucose,CSF 84 mg/dL (40-70); Total Protein,CSF 40 mg/dL (12-60)
[2024-11-29 14:48] LABS: Appearance,CSF Clear; CSF Tube Number 4; Nucleated Cells, CSF 0 u/L (0-5); Red Blood Cell,CSF 0 u/L (0-10)
[2024-11-29 16:13] LABS: Glucose,Whole Blood 141 mg/dL (70-110)
[2024-11-29 19:53] LABS: Glucose,Whole Blood 149 mg/dL (70-110)
[2024-11-30 03:22] LABS: Glucose,Whole Blood 125 mg/dL (70-110)
[2024-11-30 06:25] LABS: Glucose,Whole Blood 140 mg/dL (70-110)
[2024-11-30 08:11] LABS: Basophils % (A) 0 %; Eosinophils % (A) 0 %; HCT 34.2 % (39.0-53.0); HGB 10.3 gm/dL (13.0-17.5); Hypochromasia Slight; Lymphocytes # (A) 1.2 k/uL (1.0-4.8); Lymphocytes % (A) 14 %; MCH 29.5 pg (25.0-35.0); MCHC 30.2 g/dL (31.0-37.0); MCV 97.4 fL (80.0-100.0); Mean Platelet Volume 8.2; Monocytes # (A) 0.4 k/uL (0-1.0); Monocytes % (A) 5 %; Neutrophils # (A) 7.1 k/uL (1.3-7.7); Neutrophils % (A) 80 %; Platelet Count 306 k/uL (150-450); RBC 3.51 m/uL (4.30-5.90); RDW 15.5 % (11.5-15.5)
[2024-11-30 08:23] LABS: African American GFR (CKD) 26 (>60 ml/min/1.73 sqM); Anion Gap 9 mmol/L; Blood Urea Nitrogen 57 mg/dL (9-20); Calcium 8.6 mg/dL (8.4-10.2); Carbon Dioxide 32 mmol/L (22-30); Chloride 94 mmol/L (98-107); Glucose 115 mg/dL (74-99); Non-African American GFR(CKD) 22 (>60 ml/min/1.73 sqM); Potassium 3.6 mmol/L (3.5-5.1); Sodium 135 mmol/L (137-145)
[2024-11-30 11:52] LABS: Glucose,Whole Blood 122 mg/dL (70-110)
--- NOTE | 2024-11-30 11:53 | P.PN ---
Subjective Patient was seen for follow-up. Patient's granddaughter was present. She mentions as patient is slightly better than yesterday. He is trying to talk, still not able to complete sentences. He is forming one to 2 words phrases. He is understanding better, but trying to talk. He says yes, okay like phrases. Patient's daughter states that prior to this admission, he was very sharp, no history of dementia, except for normal for wakefulness from age-related. 11/29 Information was obtained with the help of son Mr. Dey at bedside Patient only little confused but he is more slow than confused No other new complaints He is hemodynamically stable saturating 100% on 3 L Hemoglobin slightly dropped 9.7 down to 8.9, creatinine 2.5 up to 2.7 He remains on IV Lasix 40 mg twice daily. This can be switched to oral dose soon, keep monitoring creatinine Had MRI of the brain showing no infarction but there is cerebral atrophy and cannot exclude include normal pressure hydrocephalus while MRI of the brain showing no big vessel occlusion or aneurysm. Him perry on aspirin. Plan for lumbar puncture by the neurology team. Lumbar puncture per neurology service I discussed the CODE STATUS with the patient and son, as per son Mr. Dey patient Is okay for chest compressions but no intubation, no life support 11/30 Patient is more obtained today, he is not waking up easily, he is barely open his eyes. Nonverbal He has MRI of the brain which is reviewed showing cerebral atrophy cannot exclude NPH while MRI of the brain showing no occlusion or aneurysm Yesterday he had lumbar puncture Neurology team following closely Vitals look stable as well as labs. Hemoglobin 10.3 and creatinine down to 2.5. IV Lasix switched to oral dose twice daily. Review of systems: n/a because of altered mental status Active Medications Generic Name Dose Route Start Last Admin Trade Name Freq PRN Reason Stop Dose Admin Aspirin 81 mg 11/25/24 09:15 11/29/24 16:52 Aspirin 81 Mg PO Not Given DAILY [facility] Atorvastatin Calcium 40 mg 11/25/24 21:00 11/29/24 20:10 Atorvastatin 40 Mg Tab PO Not Given HS [facility] Carvedilol 6.25 mg 11/27/24 17:30 11/30/24 06:29 Carvedilol 6.25 Mg Tab PO Not Given BID-W/MEALS [facility] Dapagliflozin 10 mg 11/27/24 10:00 11/29/24 16:52 Dapagliflozin Propanediol 10 Mg Tablet PO Not Given DAILY [facility] Dextrose/Water 25 ml 11/24/24 17:57 11/24/24 22:48 Dextrose 50% Syringe 50 Ml IVP 25 ml PER PROTOCOL PRN Administration Hypoglycemia Protocol Dextrose/Water 50 ml 11/24/24 17:57 11/25/24 01:32 Dextrose 50% Syringe 50 Ml IVP 50 ml PER PROTOCOL PRN Administration Hypoglycemia Protocol Folic Acid 1 mg 11/27/24 11:45 11/29/24 16:52 Folic Acid 1 Mg Tab PO Not Given DAILY [facility] Furosemide 40 mg 11/30/24 08:00 Furosemide 40 Mg Tab PO BID@0900,1600 [facility] Hydralazine HCl 25 mg 11/28/24 18:00 11/29/24 20:10 Hydralazine Hcl 25 Mg Tab PO Not Given QID [facility] Insulin Human Lispro 0 unit 11/26/24 21:00 11/30/24 06:29 Insulin Lispro (Humalog) 100 Unit/Ml 10 Ml Vl SQ Not Given NYHT2DL [facility] Protocol Isosorbide Mononitrate 30 mg 11/28/24 09:00 11/29/24 16:53 Isosorbide Mononitrate Er 30 Mg Tab.Er.24h PO Not Given DAILY [facility] Miscellaneous Information 1 each 11/25/24 03:04 Magnesium Replacement Protocol 1 Each Misc MISCELLANE DAILY PRN Per Protocol Protocol Miscellaneous Information 1 each 11/28/24 18:20 Potassium Replacement Protocol 1 Each Misc MISCELLANE DAILY PRN Per Protocol Protocol Miscellaneous Information 1 each 11/28/24 18:20 Magnesium Replacement Protocol 1 Each Misc MISCELLANE DAILY PRN Per Protocol Protocol Objective - Vital Signs Vital signs: Vital Signs Temp 98.1 F 11/30/24 09:00 Pulse 69 11/30/24 09:00 Resp 16 11/30/24 09:00 BP 168/75 11/30/24 09:00 Pulse Ox 97 11/30/24 09:00 FiO2 35 11/25/24 08:09 Intake & Output 11/29/24 11/30/24 11/30/24 17:59 06:59 18:59 Output Total Balance Weight Output: Urine Other: Voiding Method Indwelling Catheter - Exam -GENERAL: The patient is alert and alert, mildly confused, not in any acute distress. Well developed, well nourished. HEENT: Pupils are round and equally reacting to light. EOMI. No scleral icterus. No conjunctival pallor. Normocephalic, atraumatic. No pharyngeal erythema. No thyromegaly. CARDIOVASCULAR: S1 and S2 present. No murmurs, rubs, or gallops. PULMONARY: Chest is clear to auscultation, no wheezing , no crackles. ABDOMEN: Soft, nontender, nondistended, normoactive bowel sounds. No palpable organomegaly. MUSCULOSKELETAL: No joint swelling or deformity. EXTREMITIES: No cyanosis, clubbing, or pedal edema. NEUROLOGICAL: Gross neurological examination did not reveal any focal deficits. SKIN: No rashes. no petechiae. - Labs CBC & Chem 7: 11/30/24 07:08 11/30/24 07:08 Labs: Abnormal Lab Results - Last 24 Hours (Table) 11/29/24 11/29/24 11/29/24 Range/Units 11:07 11:50 16:12 RBC (4.30-5.90) m/uL Hgb (13.0-17.5) gm/dL Hct (39.0-53.0) % MCHC (31.0-37.0) g/dL Sodium (137-145) mmol/L Chloride (98-107) mmol/L Carbon Dioxide (22-30) mmol/L BUN (9-20) mg/dL Creatinine (0.66-1.25) mg/dL Glucose (74-99) mg/dL POC Glucose (mg/dL) 129 H 141 H (70-110) mg/dL CSF Glucose 84 H (40-70) mg/dL 11/29/24 11/30/24 11/30/24 Range/Units 19:52 03:20 06:24 RBC (4.30-5.90) m/uL Hgb (13.0-17.5) gm/dL Hct (39.0-53.0) % MCHC (31.0-37.0) g/dL Sodium (137-145) mmol/L Chloride (98-107) mmol/L Carbon Dioxide (22-30) mmol/L BUN (9-20) mg/dL Creatinine (0.66-1.25) mg/dL Glucose (74-99) mg/dL POC Glucose (mg/dL) 149 H 125 H 140 H (70-110) mg/dL CSF Glucose (40-70) mg/dL 11/30/24 11/30/24 Range/Units 07:08 07:08 RBC 3.51 L (4.30-5.90) m/uL Hgb 10.3 L (13.0-17.5) gm/dL Hct 34.2 L (39.0-53.0) % MCHC 30.2 L (31.0-37.0) g/dL Sodium 135 L (137-145) mmol/L Chloride 94 L (98-107) mmol/L Carbon Dioxide 32 H (22-30) mmol/L BUN 57 H (9-20) mg/dL Creatinine 2.50 H (0.66-1.25) mg/dL Glucose 115 H (74-99) mg/dL POC Glucose (mg/dL) (70-110) mg/dL CSF Glucose (40-70) mg/dL Microbiology - Last 24 Hours (Table) 11/29/24 11:50 CSF Gram Stain - Preliminary Cerebral Spinal Fluid Assessment and Plan Assessment: -Altered mental status may be related to hypoglycemia, patient is on oral hyp oglycemic agents which are being held and patient which is being discontinued and mentation is significantly improved. Will have speech reevaluate for possible diet initiation. -Patient's brain CT with concerns for normal pressure hydrocephalus,- patient may need transfer for neurosurgery although due to his advanced age and medical comorbidities he may be a candidate for hospice we are currently pending neurology review of the brain CT and further recommendations -Congestive heart failure acute exacerbation systolic dysfunction continues on IV lasix. 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 -Chronic kidney disease stage IV -Hypertension -Elevated troponin secondary to type II ND and chronic kidney disease -Type 2 diabetes mellitus Plan: Continue with IV Lasix with switch to oral dose soon Monitor hemoglobin Monitor creatinine Neurology team consult on the case and the plan for lumbar puncture MRI of the brain is reviewed and patient's son is aware of the results. Continue with the current antihypertensive medication. Continue with aspirin GI and DVT prophylaxis Prognosis is guarded
--- NOTE | 2024-11-30 12:42 | P.PN ---
Subjective Progress Note Date: 11/30/24 Patient is seen for follow-up for acute kidney injury. Mostly cardiorenal. Currently being diuresed. Renal function is stable with serum creatinine around 2.5 mg/dL. Patient is lethargic today, no acute distress urine output charted 950 mL in 24 hours. on PO Lasix 40 mg BID Objective - Vital Signs Vital signs: Vital Signs Temp 98.4 F 11/30/24 11:10 Pulse 75 11/30/24 11:10 Resp 16 11/30/24 11:10 BP 164/82 11/30/24 11:10 Pulse Ox 96 11/30/24 11:10 FiO2 35 11/25/24 08:09 Intake & Output 11/29/24 11/30/24 11/30/24 17:59 06:59 18:59 Output Total Balance Weight Output: Urine Other: Voiding Method Indwelling Catheter - Exam Patient is awake, comfortable, no acute distress. Examination of the heart S1 and S2 Examination of the lungs bilateral breath sounds are heard Abdomen is soft nontender Examination of lower extremities shows no significant edema - Labs CBC & Chem 7: 11/30/24 07:08 11/30/24 07:08 Labs: Abnormal Lab Results - Last 24 Hours (Table) 11/29/24 11/29/24 11/29/24 Range/Units 11:50 16:12 19:52 RBC (4.30-5.90) m/uL Hgb (13.0-17.5) gm/dL Hct (39.0-53.0) % MCHC (31.0-37.0) g/dL Sodium (137-145) mmol/L Chloride (98-107) mmol/L Carbon Dioxide (22-30) mmol/L BUN (9-20) mg/dL Creatinine (0.66-1.25) mg/dL Glucose (74-99) mg/dL POC Glucose (mg/dL) 141 H 149 H (70-110) mg/dL CSF Glucose 84 H (40-70) mg/dL 11/30/24 11/30/24 11/30/24 Range/Units 03:20 06:24 07:08 RBC 3.51 L (4.30-5.90) m/uL Hgb 10.3 L (13.0-17.5) gm/dL Hct 34.2 L (39.0-53.0) % MCHC 30.2 L (31.0-37.0) g/dL Sodium (137-145) mmol/L Chloride (98-107) mmol/L Carbon Dioxide (22-30) mmol/L BUN (9-20) mg/dL Creatinine (0.66-1.25) mg/dL Glucose (74-99) mg/dL POC Glucose (mg/dL) 125 H 140 H (70-110) mg/dL CSF Glucose (40-70) mg/dL 11/30/24 11/30/24 Range/Units 07:08 11:51 RBC (4.30-5.90) m/uL Hgb (13.0-17.5) gm/dL Hct (39.0-53.0) % MCHC (31.0-37.0) g/dL Sodium 135 L (137-145) mmol/L Chloride 94 L (98-107) mmol/L Carbon Dioxide 32 H (22-30) mmol/L BUN 57 H (9-20) mg/dL Creatinine 2.50 H (0.66-1.25) mg/dL Glucose 115 H (74-99) mg/dL POC Glucose (mg/dL) 122 H (70-110) mg/dL CSF Glucose (40-70) mg/dL Microbiology - Last 24 Hours (Table) 11/29/24 11:50 CSF Gram Stain - Preliminary Cerebral Spinal Fluid Assessment and Plan Assessment: 1. Acute kidney injury, cardiorenal, improving. Currently maintained on IV Lasix. UA shows 3+ protein and moderate blood. Patient has an indwelling Dawson catheter. Ultrasound of the kidneys in August did not show any evidence of obstructive uropathy. 2. Chronic kidney disease stage IV with baseline creatinine around 2.2 to 2.5 mg/dL. Serum creatinine was 2.8-2.9 in August 2024. 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 Cardiomyopathy with an EF of 30 to 35% 4. Moderate to severe pulmonary hypertension 5. Acute on chronic CHF with decreased ejection fraction 6. Hypoglycemia maintained on D10 7. Mental status changes associated with hypoglycemia, EEG abnormality, neurology following, MRI cerebral atrophy, LP done 11/29 Plan: stable renal function, continue PO Lasix 40 mg BID Continue to hold GREG inhibitors Repeat labs in a.m. Accurate I's and O's Avoid nephrotoxic agents
--- NOTE | 2024-11-30 13:38 | P.PN ---
Subjective Progress Note Date: 11/30/24 Yesterday the patient had lumbar puncture and today patient is more sleepy according to the son as well as the nurse. CSF nucleated cells was 0. Unknown how much CSF fluid was taken out by the anesthesiologist since not documented. Objective - Vital Signs Vital signs: Vital Signs Temp 98.4 F 11/30/24 11:10 Pulse 75 11/30/24 11:10 Resp 16 11/30/24 11:10 BP 164/82 11/30/24 11:10 Pulse Ox 96 11/30/24 11:10 FiO2 35 11/25/24 08:09 Intake & Output 11/29/24 11/30/24 11/30/24 17:59 06:59 18:59 Output Total Balance Weight Output: Urine Other: Voiding Method Indwelling Catheter - Exam General: Lying in bed and is not in acute distress. Neuro: Limited Patient is severely encephalopathic but is briefly awake able to voice. With mu ltiple attempts he able to state his name as well as able correctly name few objects such as pen glasses. He was able to stick out the tongue after multiple attempts. He is severely hypophonic. He opens his eyes and just looks around. - Labs CBC & Chem 7: 11/30/24 07:08 11/30/24 07:08 Labs: Abnormal Lab Results - Last 24 Hours (Table) 11/29/24 11/29/24 11/29/24 Range/Units 11:50 16:12 19:52 RBC (4.30-5.90) m/uL Hgb (13.0-17.5) gm/dL Hct (39.0-53.0) % MCHC (31.0-37.0) g/dL Sodium (137-145) mmol/L Chloride (98-107) mmol/L Carbon Dioxide (22-30) mmol/L BUN (9-20) mg/dL Creatinine (0.66-1.25) mg/dL Glucose (74-99) mg/dL POC Glucose (mg/dL) 141 H 149 H (70-110) mg/dL CSF Glucose 84 H (40-70) mg/dL 11/30/24 11/30/24 11/30/24 Range/Units 03:20 06:24 07:08 RBC 3.51 L (4.30-5.90) m/uL Hgb 10.3 L (13.0-17.5) gm/dL Hct 34.2 L (39.0-53.0) % MCHC 30.2 L (31.0-37.0) g/dL Sodium (137-145) mmol/L Chloride (98-107) mmol/L Carbon Dioxide (22-30) mmol/L BUN (9-20) mg/dL Creatinine (0.66-1.25) mg/dL Glucose (74-99) mg/dL POC Glucose (mg/dL) 125 H 140 H (70-110) mg/dL CSF Glucose (40-70) mg/dL 11/30/24 11/30/24 Range/Units 07:08 11:51 RBC (4.30-5.90) m/uL Hgb (13.0-17.5) gm/dL Hct (39.0-53.0) % MCHC (31.0-37.0) g/dL Sodium 135 L (137-145) mmol/L Chloride 94 L (98-107) mmol/L Carbon Dioxide 32 H (22-30) mmol/L BUN 57 H (9-20) mg/dL Creatinine 2.50 H (0.66-1.25) mg/dL Glucose 115 H (74-99) mg/dL POC Glucose (mg/dL) 122 H (70-110) mg/dL CSF Glucose (40-70) mg/dL Microbiology - Last 24 Hours (Table) 11/29/24 11:50 CSF Gram Stain - Preliminary Cerebral Spinal Fluid Assessment and Plan Assessment: * Altered mental status with aphasia, Probable metabolic encephalopathy. Cassi ent presented with hypoglycemia, possible hypoglycemic encephalopathy. Patient's limited examination showed no obvious focality. Repeat CT head negative, therefore CVA appears less likely. The study is 0 nucleated cell. After lumbar puncture there is no improvement in patient's mentation especia lly with concern for NPH.. 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 * CHF * Anemia * Elevated troponins * Diabetes * Hypertension * Hyperlipidemia * Mildly elevated ammonia. * Mild cognitive impairment * Chronic renal insufficiency Plan: * MRI brain without contrast revealed no recent infarct. There is moderate diffuse cerebral atrophy and moderate to severe probable chronic small vessel ischemic change. Cannot exclude underlying normal pressure hydrocephalus. No significant change from prior CTs. I personally reviewed MRI, I agree with the findings. * MRA of the brain showed no large vessel occlusion or aneurysm at the level of [place]. * CSF: Clear, colorless, red blood cells 0, total nucleated cells 0, glucose is 84 and protein is 40. CSF Gram stain there is no organism. Unsure how much pressure was removed by the anesthesiologist for the CSF study since nothing is documented and there is no opening or closing pressure. * Carotid Doppler revealed no hemodynamically significant stenosis in either ICA. Antegrade flow in both vertebral arteries. * 2-D echo revealed severely impaired LVEF 30 to 35%. Mildly increased left ventricular wall thickness. Severe global hypokinesis. Moderately increased left atrial volume. No thrombus seen. Mild to moderate MR. Mild to moderate TR. * Hemoglobin A1c 6.4. Diabetes is well controlled. Avoid episodes of hypoglycemia. * B12 446, folate 4.70. Patient started on folic acid 1 mg daily. * EEG was performed, which was abnormal due to background slowing of moderate degree. This is suggestive of generalized cerebral dysfunction as can be seen with toxic metabolic encephalopathy or related to diffuse structural brain abdomen the. Clinical correlation is recommended. No epileptiform activity was seen. * Lipid panel with cholesterol 192, LDL 98, HDL 79, triglycerides 69. Patient started on Lipitor 40 mg daily. * Dr. Jerome Agreed with starting aspirin 81 mg daily. * Telemetry monitoring * DVT prophylaxis: Patient on heparin 5000 units subcu every 8 hours. To be on hold tonight and tomorrow for LP. * Other medical management as per IM and other specialties on board. * Discussed with patient's son and his nurse. Time with Patient: Less than 30
[2024-11-30] MEDS: FUROSEMIDE 40 MG TAB PO SCH (15:34)
[2024-11-30 16:53] LABS: Glucose,Whole Blood 173 mg/dL (70-110)
--- NOTE | 2024-11-30 19:17 | P.PN ---
Subjective Progress Note Date: 11/29/24 This is a 89-year-old male with a past medical history significant for hypertension and diabetes. 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 We have been asked to see the patient in consultation for CHF. Patient examined at the bedside. Patient son is present. Apparently the patient lives at home with his . She attempted to wake him up when she was unable to and she then called EMS. The patient was found to be hypoglycemic. Additionally the patient was found to be in acute CHF upon admission to the hospital. According to the patient's son the patient has no known history of CHF or CAD. DIAGNOSTICS: - EKG reveals sinus mechanism with PVCs. Significant baseline artifact. - Chest xray small bilateral pleural effusions with patchy perihilar opacities bilaterally. Findings may relate to pulmonary edema versus pneumonia. - Laboratory data: WBC 8.7. Hemoglobin 10.4. Platelet count 252. Sodium 133. Potassium 4.4. BUN 25. Creatinine 2.63. Lactic acid 3.7. Troponin 0.070. 0.083. 0.145 proBNP 17,500. - Current home cardiac medications include lisinopril 40 mg daily - No previous echocardiogram, stress test, or cardiac catheterization available in EMR for review 11/26/2024 Patient examined this morning at the bedside. Patient has a loss prevention and safety manager present. Patient remains lethargic. He has gurgling respirations at the time of examination. He remains on IV diuretics. 2D echo remains pending. 11/27/2024 Patient is seen and examined at bedside this a.m. Renal function is staying stable, will continue IV diuretics. Echocardiogram results were reviewed. 11/28/2024 Patient is seen and examined at bedside this a.m. BP 127/63, heart rate 80 bpm, continues to be very somnolent. Getting evaluated by neurology. Labs shows hemoglobin 9.7, BUN 34, creatinine 2.5 which is stable. Tolerating current GDMT. Chest x-ray this morning shows left-sided small pleural effusion with mild to moderate pulmonary congestion. Still appears volume overloaded. 11/29/2024 Patient is seen and examined at bedside this a.m. No new cardiovascular events, BP 128/68, heart rate 74 bpm, very lethargic. PHYSICAL EXAM: VITAL SIGNS: Reviewed. GENERAL: Well-developed in no acute distress. HEENT: Head is normocephalic. Pupils are equal, round. Sclerae anicteric. Mucous membranes of the mouth are moist. Neck supple. No JVD or thyromegaly LUNGS: Respirations even and unlabored. Lungs diminished with gurgling respirations noted. HEART: Regular rate and rhythm. S1 and S2 heard. ABDOMEN: Soft. Nondistended. Nontender. EXTREMITIES: Normal range of motion. No clubbing or cyanosis. Peripheral pulses intact. Bilateral lower extremity edema NEUROLOGIC: Lethargic ASSESSMENT: Dilated cardiomyopathy with a EF of 30 to 35%, unknown if ischemic or not. Acute CHF exacerbation Type II NSTEMI Moderate MR Acute hypoxic respiratory failure, currently resolving Episode of unresponsiveness, secondary to hypoglycemia on admission Metabolic encephalopathy with increased somnolence Chronic kidney disease Diabetes History of hypertension Pertinent cardiac testing Echo during this admission shows EF of 30 to 35%, moderate mitral regurgitation, moderate tricuspid regurgitation, moderate LA dilatation. PLAN: Continue aspirin, Lipitor, Coreg 6.25 mg twice daily Continue Farxiga 10 mg, Lasix 40 mg IV twice daily Continue Imdur 30 mg daily. Continue hydralazine 25 mg 4 times a day. Continue IV Lasix 40 mg twice twice daily Monitor hemodynamics, urine output, kidney function. Will not plan for cardiac catheterization because of poor kidney function and mental status. Await neurology recommendations and lumbar puncture results. Still appears volume overloaded we will continue IV diuretics. Anticipate transitioning to p.o. in next 24 hours. Objective - Vital Signs Vital signs: Vital Signs Temp 98.5 F 11/30/24 15:30 Pulse 82 11/30/24 15:30 Resp 16 11/30/24 15:30 BP 177/79 11/30/24 15:30 Pulse Ox 96 11/30/24 15:30 FiO2 35 11/25/24 08:09 Intake & Output 11/30/24 11/30/24 12/01/24 06:59 18:59 06:59 Intake Total 0 Balance 0 Weight Intake: Oral 0 Other: Voiding Method Indwelling Catheter - Labs CBC & Chem 7: 11/30/24 07:08 11/30/24 07:08 Labs: Abnormal Lab Results - Last 24 Hours (Table) 11/29/24 11/30/24 11/30/24 Range/Units 19:52 03:20 06:24 RBC (4.30-5.90) m/uL Hgb (13.0-17.5) gm/dL Hct (39.0-53.0) % MCHC (31.0-37.0) g/dL Sodium (137-145) mmol/L Chloride (98-107) mmol/L Carbon Dioxide (22-30) mmol/L BUN (9-20) mg/dL Creatinine (0.66-1.25) mg/dL Glucose (74-99) mg/dL POC Glucose (mg/dL) 149 H 125 H 140 H (70-110) mg/dL 11/30/24 11/30/24 11/30/24 Range/Units 07:08 07:08 11:51 RBC 3.51 L (4.30-5.90) m/uL Hgb 10.3 L (13.0-17.5) gm/dL Hct 34.2 L (39.0-53.0) % MCHC 30.2 L (31.0-37.0) g/dL Sodium 135 L (137-145) mmol/L Chloride 94 L (98-107) mmol/L Carbon Dioxide 32 H (22-30) mmol/L BUN 57 H (9-20) mg/dL Creatinine 2.50 H (0.66-1.25) mg/dL Glucose 115 H (74-99) mg/dL POC Glucose (mg/dL) 122 H (70-110) mg/dL 11/30/24 Range/Units 16:51 RBC (4.30-5.90) m/uL Hgb (13.0-17.5) gm/dL Hct (39.0-53.0) % MCHC (31.0-37.0) g/dL Sodium (137-145) mmol/L Chloride (98-107) mmol/L Carbon Dioxide (22-30) mmol/L BUN (9-20) mg/dL Creatinine (0.66-1.25) mg/dL Glucose (74-99) mg/dL POC Glucose (mg/dL) 173 H (70-110) mg/dL Microbiology - Last 24 Hours (Table) 11/29/24 11:50 CSF Gram Stain - Preliminary Cerebral Spinal Fluid
--- NOTE | 2024-11-30 19:25 | P.PN ---
Subjective Progress Note Date: 11/30/24 This is a 89-year-old male with a past medical history significant for hypertension and diabetes. Patient does not follow with a hat sprayer. We have been asked to see the patient in consultation for CHF. Patient examined at the bedside. Patient son is present. Apparently the patient lives at home with his . She attempted to wake him up when she was unable to and she then called EMS. The patient was found to be hypoglycemic. Additionally the patient was found to be in acute CHF upon admission to the hospital. According to the patient's son the patient has no known history of CHF or CAD. DIAGNOSTICS: - EKG reveals sinus mechanism with PVCs. Significant baseline artifact. - Chest xray small bilateral pleural effusions with patchy perihilar opacities bilaterally. Findings may relate to pulmonary edema versus pneumonia. - Laboratory data: WBC 8.7. Hemoglobin 10.4. Platelet count 252. Sodium 133. Potassium 4.4. BUN 25. Creatinine 2.63. Lactic acid 3.7. Troponin 0.070. 0.083. 0.145 proBNP 17,500. - Current home cardiac medications include lisinopril 40 mg daily - No previous echocardiogram, stress test, or cardiac catheterization available in EMR for review 11/26/2024 Patient examined this morning at the bedside. Patient has a security public safety officer present. Patient remains lethargic. He has gurgling respirations at the time of examination. He remains on IV diuretics. 2D echo remains pending. 11/27/2024 Patient is seen and examined at bedside this a.m. Renal function is staying stable, will continue IV diuretics. Echocardiogram results were reviewed. 11/28/2024 Patient is seen and examined at bedside this a.m. BP 127/63, heart rate 80 bpm, continues to be very somnolent. Getting evaluated by neurology. Labs shows hemoglobin 9.7, BUN 34, creatinine 2.5 which is stable. Tolerating current GDMT. Chest x-ray this morning shows left-sided small pleural effusion with mild to moderate pulmonary congestion. Still appears volume overloaded. 11/29/2024 Patient is seen and examined at bedside this a.m. No new cardiovascular events, BP 128/68, heart rate 74 bpm, very lethargic. 11/30/2024 Patient is seen and examined at bedside this a.m. Appears euvolemic. Will transition IV diuretics to p.o. Kidney function is stable. Still very lethargic. PHYSICAL EXAM: VITAL SIGNS: Reviewed. GENERAL: Well-developed in no acute distress. HEENT: Head is normocephalic. Pupils are equal, round. Sclerae anicteric. Mucous membranes of the mouth are moist. Neck supple. No JVD or thyromegaly LUNGS: Respirations even and unlabored. Lungs diminished with gurgling respira tions noted. HEART: Regular rate and rhythm. S1 and S2 heard. ABDOMEN: Soft. Nondistended. Nontender. EXTREMITIES: Normal range of motion. No clubbing or cyanosis. Peripheral pulses intact. Bilateral lower extremity edema NEUROLOGIC: Lethargic ASSESSMENT: Dilated cardiomyopathy with a EF of 30 to 35%, unknown if ischemic or not. Acute CHF exacerbation Type II NSTEMI Moderate MR Acute hypoxic respiratory failure, currently resolving Episode of unresponsiveness, secondary to hypoglycemia on admission Metabolic encephalopathy with increased somnolence Chronic kidney disease Diabetes History of hypertension Pertinent cardiac testing Echo during this admission shows EF of 30 to 35%, moderate mitral regurgitation, moderate tricuspid regurgitation, moderate LA dilatation. PLAN: Continue aspirin, Lipitor, Coreg 6.25 mg twice daily Continue Farxiga 10 mg, Lasix 40 mg IV twice daily Continue Imdur 30 mg daily. Continue hydralazine 25 mg 4 times a day. Change IV Lasix to p.o. Lasix 40 mg twice daily. Monitor hemodynamics, urine output, kidney function. Will not plan for cardiac catheterization because of poor kidney function and mental status. At this time patient is stable from cardiovascular standpoint. Cardiology will sign off. Please reconsult us in case of any question. Objective - Vital Signs Vital signs: Vital Signs Temp 98.5 F 11/30/24 15:30 Pulse 82 11/30/24 15:30 Resp 16 11/30/24 15:30 BP 177/79 11/30/24 15:30 Pulse Ox 96 11/30/24 15:30 FiO2 35 11/25/24 08:09 Intake & Output 11/30/24 11/30/24 12/01/24 06:59 18:59 06:59 Intake Total 0 Balance 0 Weight Intake: Oral 0 Other: Voiding Method Indwelling Catheter - Labs CBC & Chem 7: 11/30/24 07:08 11/30/24 07:08 Labs: Abnormal Lab Results - Last 24 Hours (Table) 11/29/24 11/30/24 11/30/24 Range/Units 19:52 03:20 06:24 RBC (4.30-5.90) m/uL Hgb (13.0-17.5) gm/dL Hct (39.0-53.0) % MCHC (31.0-37.0) g/dL Sodium (137-145) mmol/L Chloride (98-107) mmol/L Carbon Dioxide (22-30) mmol/L BUN (9-20) mg/dL Creatinine (0.66-1.25) mg/dL Glucose (74-99) mg/dL POC Glucose (mg/dL) 149 H 125 H 140 H (70-110) mg/dL 11/30/24 11/30/24 11/30/24 Range/Units 07:08 07:08 11:51 RBC 3.51 L (4.30-5.90) m/uL Hgb 10.3 L (13.0-17.5) gm/dL Hct 34.2 L (39.0-53.0) % MCHC 30.2 L (31.0-37.0) g/dL Sodium 135 L (137-145) mmol/L Chloride 94 L (98-107) mmol/L Carbon Dioxide 32 H (22-30) mmol/L BUN 57 H (9-20) mg/dL Creatinine 2.50 H (0.66-1.25) mg/dL Glucose 115 H (74-99) mg/dL POC Glucose (mg/dL) 122 H (70-110) mg/dL 11/30/24 Range/Units 16:51 RBC (4.30-5.90) m/uL Hgb (13.0-17.5) gm/dL Hct (39.0-53.0) % MCHC (31.0-37.0) g/dL Sodium (137-145) mmol/L Chloride (98-107) mmol/L Carbon Dioxide (22-30) mmol/L BUN (9-20) mg/dL Creatinine (0.66-1.25) mg/dL Glucose (74-99) mg/dL POC Glucose (mg/dL) 173 H (70-110) mg/dL Microbiology - Last 24 Hours (Table) 11/29/24 11:50 CSF Gram Stain - Preliminary Cerebral Spinal Fluid
[2024-11-30 21:00] LABS: Glucose,Whole Blood 228 mg/dL (70-110)
[2024-12-01 01:47] LABS: Glucose,Whole Blood 176 mg/dL (70-110)
[2024-12-01 05:52] LABS: Glucose,Whole Blood 159 mg/dL (70-110)
[2024-12-01] MEDS: METOPROLOL TARTRATE 5 MG/5 ML VIAL IVP SCH (09:12)
--- NOTE | 2024-12-01 10:52 | P.PN ---
Subjective Patient is seen in follow-up for chronic kidney disease. Renal function stable as of yesterday. Patient not taking oral meds. Has been working with physical therapy but only able to sit up and not walk. Vital signs are stable. General: No acute distress. HEENT: Head exam is unremarkable. LUNGS: No audible rhonchi or wheezes. HEART: Rate and Rhythm are regular. ABDOMEN: Nontender. EXTREMITITES: No edema. Objective - Vital Signs Vital signs: Vital Signs Temp 98.3 F 12/01/24 08:30 Pulse 77 12/01/24 08:30 Resp 18 12/01/24 08:30 BP 173/71 12/01/24 08:30 Pulse Ox 99 12/01/24 08:30 FiO2 35 11/25/24 08:09 Intake & Output 11/30/24 12/01/24 12/01/24 18:59 06:59 18:59 Intake Total 0 Output Total 600 Balance 0 -600 Weight 60 kg Intake: Oral 0 Output: Urine 600 Other: Voiding Method Indwelling Catheter Indwelling Catheter Indwelling Catheter - Labs CBC & Chem 7: 11/30/24 07:08 11/30/24 07:08 Labs: Abnormal Lab Results - Last 24 Hours (Table) 11/30/24 11/30/24 11/30/24 Range/Units 11:51 16:51 20:57 POC Glucose (mg/dL) 122 H 173 H 228 H (70-110) mg/dL 12/01/24 12/01/24 Range/Units 01:44 05:50 POC Glucose (mg/dL) 176 H 159 H (70-110) mg/dL Microbiology - Last 24 Hours (Table) 11/29/24 11:50 CSF Gram Stain - Preliminary Cerebral Spinal Fluid CSF Culture - Preliminary Assessment and Plan Plan: Assessment: 1. Acute kidney injury secondary to ATN secondary to cardiorenal syndrome. No hydronephrosis noted on kidney ultrasound done in August 2024. Creatinine peaked at 2.78 this admission and stable near 2.5-2.7 range this admission. 2. 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 3. 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 4. Hypoglycemia status post D10. 5. Diabetes mellitus. 6. Hypertension with chronic kidney disease. Stable. Plan: Maintain Lasix and SGLT2 number. Repeat chest x-ray. Avoid nephrotoxins. Continue to monitor renal function and urine output.
--- NOTE | 2024-12-01 11:25 | P.PN ---
Subjective Progress Note Date: 12/01/24 This is a 89-year-old male with a past medical history significant for hypertension and diabetes. Patient does not follow with a chief compressor station engineer. We have been asked to see the patient in consultation for CHF. Patient examined at the bedside. Patient son is present. Apparently the patient lives at home with his . She attempted to wake him up when she was unable to and she then called EMS. The patient was found to be hypoglycemic. Additionally the patient was found to be in acute CHF upon admission to the hospital. According to the patient's son the patient has no known history of CHF or CAD. DIAGNOSTICS: - EKG reveals sinus mechanism with PVCs. Significant baseline artifact. - Chest xray small bilateral pleural effusions with patchy perihilar opacities bilaterally. Findings may relate to pulmonary edema versus pneumonia. - Laboratory data: WBC 8.7. Hemoglobin 10.4. Platelet count 252. Sodium 133. Potassium 4.4. BUN 25. Creatinine 2.63. Lactic acid 3.7. Troponin 0.070. 0.083. 0.145 proBNP 17,500. - Current home cardiac medications include lisinopril 40 mg daily - No previous echocardiogram, stress test, or cardiac catheterization available in EMR for review 11/26/2024 Patient examined this morning at the bedside. Patient has a site safety manager present. Patient remains lethargic. He has gurgling respirations at the time of examination. He remains on IV diuretics. 2D echo remains pending. 11/27/2024 Patient is seen and examined at bedside this a.m. Renal function is staying stable, will continue IV diuretics. Echocardiogram results were reviewed. 11/28/2024 Patient is seen and examined at bedside this a.m. BP 127/63, heart rate 80 bpm, continues to be very somnolent. Getting evaluated by neurology. Labs shows hemoglobin 9.7, BUN 34, creatinine 2.5 which is stable. Tolerating current GDMT. Chest x-ray this morning shows left-sided small pleural effusion with mild to moderate pulmonary congestion. Still appears volume overloaded. 11/29/2024 Patient is seen and examined at bedside this a.m. No new cardiovascular events, BP 128/68, heart rate 74 bpm, very lethargic. 11/30/2024 Patient is seen and examined at bedside this a.m. Appears euvolemic. Will transition IV diuretics to p.o. Kidney function is stable. Still very lethargic. 12/01 Patient seen and examined. Cardiology has signed off yesterday but patient has not been able to take any oral medications due to mental status changes since he arrived. Telemetry is now showing frequent PVCs with bigeminy. Blood pressure 139/69, heart rate 82, pulse ox 98% on room air. PHYSICAL EXAM: VITAL SIGNS: Reviewed. GENERAL: Well-developed in no acute distress. HEENT: Head is normocephalic. Pupils are equal, round. Sclerae anicteric. Mucous membranes of the mouth are moist. Neck supple. No JVD or thyromegaly LUNGS: Respirations even and unlabored. Lungs diminished with gurgling respirations noted. HEART: Regular rate and rhythm. S1 and S2 heard. ABDOMEN: Soft. Nondistended. Nontender. EXTREMITIES: Normal range of motion. No clubbing or cyanosis. Peripheral pulses intact. Bilateral lower extremity edema NEUROLOGIC: Lethargic ASSESSMENT: Dilated cardiomyopathy with a EF of 30 to 35%, unknown if ischemic or not. Acute CHF exacerbation Type II NSTEMI Moderate MR Acute hypoxic respiratory failure, currently resolving Episode of unresponsiveness, secondary to hypoglycemia on admission Metabolic encephalopathy with increased somnolence Chronic kidney disease Diabetes History of hypertension Pertinent cardiac testing Echo during this admission shows EF of 30 to 35%, moderate mitral regurgitation, moderate tricuspid regurgitation, moderate LA dilatation. PLAN: Continue aspirin, Lipitor, Coreg 6.25 mg twice daily, Imdur 30 mg daily, hydralazine 25 mg 4 times a day.--patient is not able to take oral medications Continue Farxiga 10 mg, Lasix 40 mg p.o. twice daily--patient is unable to take oral medications Start patient on IV metoprolol tartrate 5 mg IV push every 8 hours Continue telemetry monitoring Mental status to be addressed by attending Will not plan for cardiac catheterization because of poor kidney function and mental status. Nurse practitioner note has been reviewed, I agree with documented findings and plan of care. Patient was seen and examined. Objective - Vital Signs Vital signs: Vital Signs Temp 98.1 F 11/30/24 20:00 Pulse 82 12/01/24 03:55 Resp 16 12/01/24 03:55 BP 137/69 12/01/24 03:55 Pulse Ox 96 12/01/24 03:55 FiO2 35 11/25/24 08:09 Intake & Output 11/30/24 12/01/24 12/01/24 18:59 06:59 18:59 Intake Total 0 Output Total 600 Balance 0 -600 Weight 60 kg Intake: Oral 0 Output: Urine 600 Other: Voiding Method Indwelling Catheter Indwelling Catheter - Labs CBC & Chem 7: 11/30/24 07:08 11/30/24 07:08 Labs: Abnormal Lab Results - Last 24 Hours (Table) 11/30/24 11/30/24 11/30/24 Range/Units 07:08 07:08 11:51 RBC 3.51 L (4.30-5.90) m/uL Hgb 10.3 L (13.0-17.5) gm/dL Hct 34.2 L (39.0-53.0) % MCHC 30.2 L (31.0-37.0) g/dL Sodium 135 L (137-145) mmol/L Chloride 94 L (98-107) mmol/L Carbon Dioxide 32 H (22-30) mmol/L BUN 57 H (9-20) mg/dL Creatinine 2.50 H (0.66-1.25) mg/dL Glucose 115 H (74-99) mg/dL POC Glucose (mg/dL) 122 H (70-110) mg/dL 11/30/24 11/30/24 12/01/24 Range/Units 16:51 20:57 01:44 RBC (4.30-5.90) m/uL Hgb (13.0-17.5) gm/dL Hct (39.0-53.0) % MCHC (31.0-37.0) g/dL Sodium (137-145) mmol/L Chloride (98-107) mmol/L Carbon Dioxide (22-30) mmol/L BUN (9-20) mg/dL Creatinine (0.66-1.25) mg/dL Glucose (74-99) mg/dL POC Glucose (mg/dL) 173 H 228 H 176 H (70-110) mg/dL 12/01/24 Range/Units 05:50 RBC (4.30-5.90) m/uL Hgb (13.0-17.5) gm/dL Hct (39.0-53.0) % MCHC (31.0-37.0) g/dL Sodium (137-145) mmol/L Chloride (98-107) mmol/L Carbon Dioxide (22-30) mmol/L BUN (9-20) mg/dL Creatinine (0.66-1.25) mg/dL Glucose (74-99) mg/dL POC Glucose (mg/dL) 159 H (70-110) mg/dL Microbiology - Last 24 Hours (Table) 11/29/24 11:50 CSF Gram Stain - Preliminary Cerebral Spinal Fluid CSF Culture - Preliminary
[2024-12-01 11:34] LABS: Glucose,Whole Blood 216 mg/dL (70-110)
--- NOTE | 2024-12-01 11:37 | XR ---
EXAMINATION TYPE: XR chest 1V DATE OF EXAM: 12/01/2024 11:09 AM COMPARISON: Chest radiographs from 11/28/2024 CLINICAL INDICATION: Male, 89 years old with history of CHF; [facility] TECHNIQUE: XR chest 1V Frontal view of the chest. FINDINGS: Lungs/Pleura: No evidence of focal consolidation or pneumothorax. Blunting of the costophrenic angles is present. Pulmonary vascularity: Unremarkable. Heart/mediastinum: Cardiomediastinal silhouette is prominent in size. Musculoskeletal: No acute osseous pathology. Other findings: None Lines/Tubes: IMPRESSION: Cardiomegaly, pulmonary vascular congestion and bilateral pleural effusions. Correlate with BNP for c ongestive heart failure. [facility], , 12/01/2024 11:35 AM
--- NOTE | 2024-12-01 13:45 | P.PN ---
Subjective Progress Note Date: 12/01/24 I am following-up with patient and per the nurse he is more responsive today. Objective - Vital Signs Vital signs: Vital Signs Temp 98.2 F 12/01/24 12:00 Pulse 78 12/01/24 12:00 Resp 18 12/01/24 12:00 BP 183/92 12/01/24 12:00 Pulse Ox 100 12/01/24 12:00 FiO2 35 11/25/24 08:09 Intake & Output 11/30/24 12/01/24 12/01/24 18:59 06:59 18:59 Intake Total 0 Output Total 600 Balance 0 -600 Weight 60 kg Intake: Oral 0 Output: Urine 600 Other: Voiding Method Indwelling Catheter Indwelling Catheter Indwelling Catheter - Exam General: Lying in bed and is not in acute distress. Neuro: Limited Patient is more awake today compared to past couple days. He is oriented to self. He is following simple commands and is more briskly responding to questions. He is hypophonic. He shows thumbs up and smiles. - Labs CBC & Chem 7: 11/30/24 07:08 11/30/24 07:08 Labs: Abnormal Lab Results - Last 24 Hours (Table) 11/30/24 11/30/24 12/01/24 Range/Units 16:51 20:57 01:44 POC Glucose (mg/dL) 173 H 228 H 176 H (70-110) mg/dL 12/01/24 12/01/24 Range/Units 05:50 11:32 POC Glucose (mg/dL) 159 H 216 H (70-110) mg/dL Microbiology - Last 24 Hours (Table) 11/29/24 11:50 CSF Gram Stain - Preliminary Cerebral Spinal Fluid CSF Culture - Preliminary Assessment and Plan Assessment: * Altered mental status with aphasia, Probable metabolic encephalopathy. Patient presented with hypoglycemia, possible hypoglycemic encephalopathy. Patient's limited examination showed no obvious focality. Repeat CT head negative, therefore CVA appears less likely. The study is 0 nucleated cell. After lumbar puncture there is no improvement in patient's mentation especiall y with concern for NPH.--mentation improving today. 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 * CHF * Anemia * Elevated troponins * Diabetes * Hypertension * Hyperlipidemia * Mildly elevated ammonia. * Mild cognitive impairment * Chronic renal insufficiency Plan: * MRI brain without contrast revealed no recent infarct. There is moderate diffuse cerebral atrophy and moderate to severe probable chronic small vessel ischemic change. Cannot exclude underlying normal pressure hydrocephalus. No significant change from prior CTs. I personally reviewed MRI, I agree with th e findings. * MRA of the brain showed no large vessel occlusion or aneurysm at the level of [place]. * CSF: Clear, colorless, red blood cells 0, total nucleated cells 0, glucose is 84 and protein is 40. CSF Gram stain there is no organism. Unsure how much pressure was removed by the anesthesiologist for the CSF study since nothing is documented and there is no opening or closing pressure. * Carotid Doppler revealed no hemodynamically significant stenosis in either ICA. Antegrade flow in both vertebral arteries. * 2-D echo revealed severely impaired LVEF 30 to 35%. Mildly increased left ventricular wall thickness. Severe global hypokinesis. Moderately increased left atrial volume. No thrombus seen. Mild to moderate MR. Mild to moderate TR. * Hemoglobin A1c 6.4. Diabetes is well controlled. Avoid episodes of hypoglycemia. * B12 446, folate 4.70. Patient started on folic acid 1 mg daily. * EEG was performed, which was abnormal due to background slowing of moderate degree. This is suggestive of generalized cerebral dysfunction as can be seen with toxic metabolic encephalopathy or related to diffuse structural brain abdomen the. Clinical correlation is recommended. No epileptiform activity was seen. * Lipid panel with cholesterol 192, LDL 98, HDL 79, triglycerides 69. Patient started on Lipitor 40 mg daily. * Dr. Jerome Agreed with starting aspirin 81 mg daily. * Telemetry monitoring * DVT prophylaxis: Patient on heparin 5000 units subcu every 8 hours. To be on hold tonight and tomorrow for LP. * Other medical management as per IM and other specialties on board. Will follow-up with patient sporadically. Time with Patient: Less than 30
[2024-12-01 16:39] LABS: Glucose,Whole Blood 299 mg/dL (70-110)
[2024-12-01 20:04] LABS: Glucose,Whole Blood 272 mg/dL (70-110)
--- NOTE | 2024-12-01 20:09 | P.PN ---
Progress Note - Text Progress Note Date: 12/01/24 Patient was seen for follow-up. Patient's granddaughter was present. She mentions as patient is slightly better than yesterday. He is trying to talk, still not able to complete sentences. He is forming one to 2 words phrases. He is understanding better, but trying to talk. He says yes, okay like phrases. Patient's daughter states that prior to this admission, he was very sharp, no history of dementia, except for normal for wakefulness from age-related. 11/29 Information was obtained with the help of son Mr. Dey at bedside Patient only little confused but he is more slow than confused No other new complaints He is hemodynamically stable saturating 100% on 3 L Hemoglobin slightly dropped 9.7 down to 8.9, creatinine 2.5 up to 2.7 He remains on IV Lasix 40 mg twice daily. This can be switched to oral dose soon, keep monitoring creatinine Had MRI of the brain showing no infarction but there is cerebral atrophy and cannot exclude include normal pressure hydrocephalus while MRI of the brain showing no big vessel occlusion or aneurysm. Him perry on aspirin. Plan for lumbar puncture by the neurology team. Lumbar puncture per neurology service I discussed the CODE STATUS with the patient and son, as per son Mr. Dey patient Is okay for chest compressions but no intubation, no life support 11/30 Patient is more obtained today, he is not waking up easily, he is barely open his eyes. Nonverbal He has MRI of the brain which is reviewed showing cerebral atrophy cannot exclude NPH while MRI of the brain showing no occlusion or aneurysm Yesterday he had lumbar puncture Neurology team following closely Vitals look stable as well as labs. Hemoglobin 10.3 and creatinine down to 2.5. IV Lasix switched to oral dose twice daily. December 01: Patient sleepy this afternoon. He did well this morning. Was awake. Ate very well. Took all his medications. This was the first time he done well. Patient's daughter is visiting from [place] at the bedside. I tried to reach patient's Ailyn on the phone.-No answer. Mailbox full. Per PT OT patient requiring full assist. Active Medications Aspirin (Aspirin 81 Mg) 81 mg PO DAILY [facility] Last Admin: 12/01/24 11:10 Dose: 81 mg Atorvastatin Calcium (Atorvastatin 40 Mg Tab) 40 mg PO [facility] Last Admin: 11/30/24 21:08 Dose: Not Given Dapagliflozin (Dapagliflozin Propanediol 10 Mg Tablet) 10 mg PO DAILY [facility] Last Admin: 12/01/24 11:10 Dose: 10 mg Dextrose/Water (Dextrose 50% Syringe 50 Ml) 25 ml IVP PER PROTOCOL PRN; Protocol PRN Reason: Hypoglycemia Last Admin: 11/24/24 22:48 Dose: 25 ml Dextrose/Water (Dextrose 50% Syringe 50 Ml) 50 ml IVP PER PROTOCOL PRN; Protocol PRN Reason: Hypoglycemia Last Admin: 11/25/24 01:32 Dose: 50 ml Folic Acid (Folic Acid 1 Mg Tab) 1 mg PO DAILY [facility] Last Admin: 12/01/24 11:10 Dose: 1 mg Furosemide (Furosemide 40 Mg Tab) 40 mg PO BID@0900,1600 [facility] Last Admin: 12/01/24 16:31 Dose: 40 mg Hydralazine HCl (Hydralazine Hcl 25 Mg Tab) 25 mg PO QID [facility] Last Admin: 12/01/24 16:31 Dose: 25 mg Insulin Human Lispro (Insulin Lispro (Humalog) 100 Unit/Ml 10 Ml Vl) 0 unit SQ [id number] [facility]; Protocol Last Admin: 12/01/24 16:40 Dose: 3 unit Isosorbide Mononitrate (Isosorbide Mononitrate Er 30 Mg Tab.Er.24h) 30 mg PO DAILY [facility] Last Admin: 12/01/24 11:10 Dose: 30 mg Metoprolol Tartrate (Metoprolol Tartrate 5 Mg/5 Ml Vial) 5 mg IVP Q8HR [facility] Last Admin: 12/01/24 16:31 Dose: 5 mg Miscellaneous Information (Potassium Replacement Protocol 1 Each Misc) 1 each MISCELLANE DAILY PRN; Protocol PRN Reason: Per Protocol Miscellaneous Information (Magnesium Replacement Protocol 1 Each Misc) 1 each MISCELLANE DAILY PRN; Protocol PRN Reason: Per Protocol On examination: VITAL SIGNS: [98.2, 87, 16, 0.73 x 79, 98% room air] GENERAL APPEARANCE: Bed lethargic but arousable. HEENT: Normal external appearance of nose and ear. Oral cavity normal EYES: Pupils equal. Conjunctiva normal. NECK: JVD not raised. Mass not palpable. RESPIRATORY: Respiratory effort normal. Lungs clear to auscultation. CARDIOVASCULAR: First and second sounds normal. No edema. ABDOMEN: Soft. Liver and spleen not palpable. No tenderness. No mass palpable. PSYCHIATRY: Lethargic INVESTIGATIONS, reviewed in the clinical context: November 30: White count 9 hemoglobin 10.3 platelets 306 sodium 135 potassium 3.6 BUN 57 creatinine 2.50 EEG: No epileptiform activity. Generalized cerebral dysfunction. Carotid Doppler: Unremarkable 2D echo: EF 30-35%. Moderate to severe pulmonary hypertension.Mild to moderate MR. Mild to moderate TR. CT brain: Nil acute. Dilated ventricular system.Some chronic white matter small ischemic vessel changes. Assessment and plan: -Acute metabolic encephalopathy likely from hypoglycemia. Improving. -Possible normal pressure hydrocephalus Being followed by neurology Patient did have some CSF removed by lumbar puncture -Essential hypertension: On Lopressor 5 mg Q8. Resume home dose of Cardura 4 mg twice daily. Also on hydralazine 25 mg 4 times daily. Lisinopril 40 mg daily resume -Diabetes mellitus type 2, uncontrolled with hypoglycemia, now hyperglycemia Amaryl resume. Actos. Follow Accu-Cheks -Chronic congestive heart failure from systolic dysfunction EF 30 to 35% [facility]. 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 Multifactorial For subacute rehab -Elevated troponin in the setting of chronic kidney disease. No ACS. -Full code, with instructions
[2024-12-01] MEDS: DOXAZOSIN 4 MG TAB PO SCH (20:39)
[2024-12-01] MEDS: ENOXAPARIN 30 MG/0.3 ML SYRINGE SQ SCH (20:39)
[2024-12-01] MEDS: GLIMEPIRIDE 1 MG TAB PO SCH (20:42)
[2024-12-01] MEDS: PIOGLITAZONE 30 MG TAB PO SCH (20:42)
[2024-12-01] MEDS: lisinopriL 20 MG TAB PO SCH (20:42)
[2024-12-02 02:04] LABS: Glucose,Whole Blood 182 mg/dL (70-110)
[2024-12-02 06:05] LABS: Glucose,Whole Blood 176 mg/dL (70-110)
[2024-12-02 07:10] LABS: African American GFR (CKD) 24 (>60 ml/min/1.73 sqM); Anion Gap 5 mmol/L; Blood Urea Nitrogen 64 mg/dL (9-20); Calcium 8.6 mg/dL (8.4-10.2); Carbon Dioxide 36 mmol/L (22-30); Chloride 99 mmol/L (98-107); Glucose 168 mg/dL (74-99); Magnesium 2.4 mg/dL (1.6-2.3); Non-African American GFR(CKD) 21 (>60 ml/min/1.73 sqM); Potassium 3.2 mmol/L (3.5-5.1); Sodium 140 mmol/L (137-145)
[2024-12-02] MEDS: METOPROLOL TARTRATE 5 MG/5 ML VIAL IVP PRN (09:12)
[2024-12-02] MEDS: POTASSIUM CHLORIDE 10 MEQ in WATER FOR INJECTION 1 100ML.BAG IVPB SCH (11:06)
[2024-12-02 11:24] LABS: Glucose,Whole Blood 243 mg/dL (70-110)
--- NOTE | 2024-12-02 11:26 | P.PN ---
Subjective Patient is seen in follow-up for chronic kidney disease. Renal function fairly stable. Resting in bed. No active complaints. Vital signs are stable. General: No acute distress. HEENT: Head exam is unremarkable. LUNGS: No audible rhonchi or wheezes. HEART: Rate and Rhythm are regular. ABDOMEN: Nontender. EXTREMITITES: No edema. Objective - Vital Signs Vital signs: Vital Signs Temp 98.2 F 12/02/24 08:30 Pulse 85 12/02/24 08:30 Resp 16 12/02/24 08:30 BP 199/94 12/02/24 08:30 Pulse Ox 100 12/02/24 08:30 FiO2 35 11/25/24 08:09 Intake & Output 12/01/24 12/02/24 12/02/24 18:59 06:59 18:59 Intake Total 118 118 Output Total 650 650 250 Balance -532 -650 -132 Weight 60 kg 60 kg Intake: Oral 118 118 Output: Urine 650 650 250 Other: Voiding Method Indwelling Catheter Indwelling Catheter Indwelling Catheter # Bowel Movements 1 - Labs CBC & Chem 7: 11/30/24 07:08 12/02/24 05:56 Labs: Abnormal Lab Results - Last 24 Hours (Table) 12/01/24 12/01/24 12/01/24 Range/Units 11:32 16:37 19:42 Potassium (3.5-5.1) mmol/L Carbon Dioxide (22-30) mmol/L BUN (9-20) mg/dL Creatinine (0.66-1.25) mg/dL Glucose (74-99) mg/dL POC Glucose (mg/dL) 216 H 299 H 272 H (70-110) mg/dL Magnesium (1.6-2.3) mg/dL 12/02/24 12/02/24 12/02/24 Range/Units 01:56 05:45 05:56 Potassium 3.2 L (3.5-5.1) mmol/L Carbon Dioxide 36 H (22-30) mmol/L BUN 64 H (9-20) mg/dL Creatinine 2.63 H (0.66-1.25) mg/dL Glucose 168 H (74-99) mg/dL POC Glucose (mg/dL) 182 H 176 H (70-110) mg/dL Magnesium 2.4 H (1.6-2.3) mg/dL 12/02/24 Range/Units 11:22 Potassium (3.5-5.1) mmol/L Carbon Dioxide (22-30) mmol/L BUN (9-20) mg/dL Creatinine (0.66-1.25) mg/dL Glucose (74-99) mg/dL POC Glucose (mg/dL) 243 H (70-110) mg/dL Magnesium (1.6-2.3) mg/dL Microbiology - Last 24 Hours (Table) 11/29/24 11:50 CSF Gram Stain - Preliminary Cerebral Spinal Fluid CSF Culture - Preliminary Assessment and Plan Plan: Assessment: 1. Acute kidney injury secondary to ATN secondary to cardiorenal syndrome. No hydronephrosis noted on kidney ultrasound done in August 2024. Creatinine peaked at 2.78 this admission and stable near 2.5-2.7 range this admission. 2. 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 3. 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 4. Hypoglycemia status post D10. 5. Diabetes mellitus. 6. Hypertension with chronic kidney disease. Stable. 7. Hypokalemia from diuresis. Plan: Maintain Lasix and SGLT2 number. Potassium being replaced. Avoid nephrotoxins. Continue to monitor renal function and urine output.
--- NOTE | 2024-12-02 12:11 | P.PN ---
Subjective Progress Note Date: 12/02/24 This is a 89-year-old male with a past medical history significant for hypertension and diabetes. Patient does not follow with a catering operations manager. We have been asked to see the patient in consultation for CHF. Patient examined at the bedside. Patient son is present. Apparently the patient lives at home with his . She attempted to wake him up when she was unable to and she then called EMS. The patient was found to be hypoglycemic. Additionally the patient was found to be in acute CHF upon admission to the hospital. According to the patient's son the patient has no known history of CHF or CAD. DIAGNOSTICS: - EKG reveals sinus mechanism with PVCs. Significant baseline artifact. - Chest xray small bilateral pleural effusions with patchy perihilar opacities bilaterally. Findings may relate to pulmonary edema versus pneumonia. - Laboratory data: WBC 8.7. Hemoglobin 10.4. Platelet count 252. Sodium 133. Potassium 4.4. BUN 25. Creatinine 2.63. Lactic acid 3.7. Troponin 0.070. 0.083. 0.145 proBNP 17,500. - Current home cardiac medications include lisinopril 40 mg daily - No previous echocardiogram, stress test, or cardiac catheterization available in EMR for review 11/26/2024 Patient examined this morning at the bedside. Patient has a medical safety director present. Patient remains lethargic. He has gurgling respirations at the time of examination. He remains on IV diuretics. 2D echo remains pending. 11/27/2024 Patient is seen and examined at bedside this a.m. Renal function is staying stable, will continue IV diuretics. Echocardiogram results were reviewed. 11/28/2024 Patient is seen and examined at bedside this a.m. BP 127/63, heart rate 80 bpm, continues to be very somnolent. Getting evaluated by neurology. Labs shows hemoglobin 9.7, BUN 34, creatinine 2.5 which is stable. Tolerating current GDMT. Chest x-ray this morning shows left-sided small pleural effusion with mild to moderate pulmonary congestion. Still appears volume overloaded. 11/29/2024 Patient is seen and examined at bedside this a.m. No new cardiovascular events, BP 128/68, heart rate 74 bpm, very lethargic. 11/30/2024 Patient is seen and examined at bedside this a.m. Appears euvolemic. Will transition IV diuretics to p.o. Kidney function is stable. Still very lethargic. 12/01 Patient seen and examined. Cardiology has signed off yesterday but patient has not been able to take any oral medications due to mental status changes since he arrived. Telemetry is now showing frequent PVCs with bigeminy. Blood pressure 139/69, heart rate 82, pulse ox 98% on room air. 12/02 Patient seen and examined. Patient continues to have confusion. He has been started on a diet and is being fed by staff. Patient is now taking oral medications and we will change beta-gisel to oral. Patient is still having frequent PVCs. Blood pressure 144/68, heart rate 69, pulse ox 96% on room air. Repeat blood work reveals potassium 3.2, BUN 64 creatinine 2.63. Chest x-ray from yesterday reveals cardiomegaly, pulmonary vascular congestion and bilateral pleural effusions. Patient has been maintained on oral Lasix 40 mg twice daily PHYSICAL EXAM: VITAL SIGNS: Reviewed. GENERAL: Well-developed in no acute distress. HEENT: Head is normocephalic. Pupils are equal, round. Sclerae anicteric. Mucous membranes of the mouth are moist. Neck supple. No JVD or thyromegaly LUNGS: Respirations even and unlabored. Lungs diminished with gurgling respirations noted. HEART: Regular rate and rhythm. S1 and S2 heard. ABDOMEN: Soft. Nondistended. Nontender. EXTREMITIES: Normal range of motion. No clubbing or cyanosis. Peripheral pulses intact. Bilateral lower extremity edema NEUROLOGIC: Lethargic ASSESSMENT: Dilated cardiomyopathy with a EF of 30 to 35%, unknown if ischemic or not. Acute CHF exacerbation Type II NSTEMI Moderate MR Acute hypoxic respiratory failure, currently resolving Episode of unresponsiveness, secondary to hypoglycemia on admission Metabolic encephalopathy with increased somnolence Chronic kidney disease Diabetes History of hypertension Pertinent cardiac testing Echo during this admission shows EF of 30 to 35%, moderate mitral regurgitation, moderate tricuspid regurgitation, moderate LA dilatation. PLAN: Continue aspirin, Lipitor, Coreg 6.25 mg twice daily, Imdur 30 mg daily, hydralazine 25 mg 4 times a day. Continue Farxiga 10 mg, Lasix 40 mg p.o. twice daily Resume patient back on Coreg now that he is taking oral medications Continue telemetry monitoring Mental status to be addressed by attending No plan for cardiac catheterization because of poor kidney function and mental status. Nurse practitioner note has been reviewed, I agree with documented findings and plan of care. Patient was seen and examined. Objective - Vital Signs Vital signs: Vital Signs Temp 97.9 F 12/01/24 20:00 Pulse 69 12/02/24 04:00 Resp 16 12/02/24 04:00 BP 144/68 12/02/24 04:00 Pulse Ox 96 12/02/24 04:00 FiO2 35 11/25/24 08:09 Intake & Output 12/01/24 12/02/24 12/02/24 18:59 06:59 18:59 Intake Total 118 Output Total 650 650 Balance -532 -650 Weight 60 kg 60 kg Intake: Oral 118 Output: Urine 650 650 Other: Voiding Method Indwelling Catheter Indwelling Catheter # Bowel Movements 1 - Labs CBC & Chem 7: 11/30/24 07:08 12/02/24 05:56 Labs: Abnormal Lab Results - Last 24 Hours (Table) 12/01/24 12/01/24 12/01/24 Range/Units 11:32 16:37 19:42 Potassium (3.5-5.1) mmol/L Carbon Dioxide (22-30) mmol/L BUN (9-20) mg/dL Creatinine (0.66-1.25) mg/dL Glucose (74-99) mg/dL POC Glucose (mg/dL) 216 H 299 H 272 H (70-110) mg/dL Magnesium (1.6-2.3) mg/dL 12/02/24 12/02/24 12/02/24 Range/Units 01:56 05:45 05:56 Potassium 3.2 L (3.5-5.1) mmol/L Carbon Dioxide 36 H (22-30) mmol/L BUN 64 H (9-20) mg/dL Creatinine 2.63 H (0.66-1.25) mg/dL Glucose 168 H (74-99) mg/dL POC Glucose (mg/dL) 182 H 176 H (70-110) mg/dL Magnesium 2.4 H (1.6-2.3) mg/dL Microbiology - Last 24 Hours (Table) 11/29/24 11:50 CSF Gram Stain - Preliminary Cerebral Spinal Fluid CSF Culture - Preliminary
[2024-12-02] MEDS: METOPROLOL TARTRATE 25 MG TAB PO SCH (12:39)
[2024-12-02] MEDS: carvediloL 6.25 MG TAB PO SCH (15:43)
--- NOTE | 2024-12-02 16:23 | P.PN ---
Progress Note - Text Progress Note Date: 12/02/24 Patient was seen for follow-up. Patient's granddaughter was present. She mentions as patient is slightly better than yesterday. He is trying to talk, still not able to complete sentences. He is forming one to 2 words phrases. He is understanding better, but trying to talk. He says yes, okay like phrases. Patient's daughter states that prior to this admission, he was very sharp, no history of dementia, except for normal for wakefulness from age-related. 11/29 Information was obtained with the help of son Mr. Dey at bedside Patient only little confused but he is more slow than confused No other new complaints He is hemodynamically stable saturating 100% on 3 L Hemoglobin slightly dropped 9.7 down to 8.9, creatinine 2.5 up to 2.7 He remains on IV Lasix 40 mg twice daily. This can be switched to oral dose soon, keep monitoring creatinine Had MRI of the brain showing no infarction but there is cerebral atrophy and cannot exclude include normal pressure hydrocephalus while MRI of the brain showing no big vessel occlusion or aneurysm. Him perry on aspirin. Plan for lumbar puncture by the neurology team. Lumbar puncture per neurology service I discussed the CODE STATUS with the patient and son, as per son Mr. Dey patient Is okay for chest compressions but no intubation, no life support 11/30 Patient is more obtained today, he is not waking up easily, he is barely open his eyes. Nonverbal He has MRI of the brain which is reviewed showing cerebral atrophy cannot exclude NPH while MRI of the brain showing no occlusion or aneurysm Yesterday he had lumbar puncture Neurology team following closely Vitals look stable as well as labs. Hemoglobin 10.3 and creatinine down to 2.5. IV Lasix switched to oral dose twice daily. December 01: Patient sleepy this afternoon. He did well this morning. Was awake. Ate very well. Took all his medications. This was the first time he done well. Patient's daughter is visiting from [place] at the bedside. I tried to reach patient's Ailyn on the phone.-No answer. Mailbox full. Per PT OT patient requiring full assist. December 02: Patient sleepy when I saw him today. Spoke to the aide. Patient was awake for breakfast ate everything. Then went back to sleep. Barely arousable by me. Patient not on any sedating medications. He seems patient not taking some of his medications because of his somnolence. Started on Catapres patch 0.3. His blood pressures running high. Active Medications Aspirin (Aspirin 81 Mg) 81 mg PO DAILY [facility] Last Admin: 12/02/24 12:32 Dose: Not Given Atorvastatin Calcium (Atorvastatin 40 Mg Tab) 40 mg PO HS [facility] Last Admin: 12/01/24 20:39 Dose: 40 mg Carvedilol (Carvedilol 6.25 Mg Tab) 6.25 mg PO BID-W/MEALS [facility] Last Admin: 12/02/24 15:43 Dose: 6.25 mg Dapagliflozin (Dapagliflozin Propanediol 10 Mg Tablet) 10 mg PO DAILY [facility] Last Admin: 12/02/24 12:32 Dose: Not Given Dextrose/Water (Dextrose 50% Syringe 50 Ml) 25 ml IVP PER PROTOCOL PRN; Protocol PRN Reason: Hypoglycemia Last Admin: 11/24/24 22:48 Dose: 25 ml Dextrose/Water (Dextrose 50% Syringe 50 Ml) 50 ml IVP PER PROTOCOL PRN; Protocol PRN Reason: Hypoglycemia Last Admin: 11/25/24 01:32 Dose: 50 ml Doxazosin Mesylate (Doxazosin 4 Mg Tab) 4 mg PO BID [facility] Last Admin: 12/02/24 12:32 Dose: Not Given Enoxaparin Sodium (Enoxaparin 30 Mg/0.3 Ml Syringe) 30 mg SQ HS [facility] Last Admin: 12/01/24 20:39 Dose: 30 mg Folic Acid (Folic Acid 1 Mg Tab) 1 mg PO DAILY [facility] Last Admin: 12/02/24 12:32 Dose: Not Given Furosemide (Furosemide 40 Mg Tab) 40 mg PO BID@0900,1600 [facility] Last Admin: 12/02/24 15:43 Dose: 40 mg Glimepiride (Glimepiride 1 Mg Tab) 1 mg PO DAILY [facility] Last Admin: 12/02/24 12:33 Dose: Not Given Hydralazine HCl (Hydralazine Hcl 25 Mg Tab) 25 mg PO QID [facility] Last Admin: 12/02/24 15:43 Dose: 25 mg Insulin Human Lispro (Insulin Lispro (Humalog) 100 Unit/Ml 10 Ml Vl) 0 unit SQ [id number] [facility]; Protocol Last Admin: 12/02/24 12:34 Dose: 2 unit Isosorbide Mononitrate (Isosorbide Mononitrate Er 30 Mg Tab.Er.24h) 30 mg PO DAILY [facility] Last Admin: 12/02/24 12:33 Dose: Not Given Lisinopril (Lisinopril 20 Mg Tab) 40 mg PO DAILY [facility] Last Admin: 12/02/24 12:33 Dose: Not Given Metoprolol Tartrate (Metoprolol Tartrate 5 Mg/5 Ml Vial) 5 mg IVP Q8HR PRN PRN Reason: If unable to take PO Last Admin: 12/02/24 09:12 Dose: 5 mg Miscellaneous Information (Potassium Replacement Protocol 1 Each [facility]) 1 each MISCELLANE DAILY PRN; Protocol PRN Reason: Per Protocol Miscellaneous Information (Magnesium Replacement Protocol 1 Each [facility]) 1 each MISCELLANE DAILY PRN; Protocol PRN Reason: Per Protocol Pioglitazone HCl (Pioglitazone 30 Mg Tab) 30 mg PO DAILY [facility] Last Admin: 12/02/24 12:33 Dose: Not Given On examination: VITAL SIGNS: 98.5, 83, 16, 1 78-87, 98% room air GENERAL APPEARANCE: Sleepy lethargic but arousable. HEENT: Normal external appearance of nose and ear. Oral cavity normal EYES: Pupils equal. Conjunctiva normal. NECK: JVD not raised. Mass not palpable. RESPIRATORY: Respiratory effort normal. Lungs clear to auscultation. CARDIOVASCULAR: First and second sounds normal. No edema. ABDOMEN: Soft. Liver and spleen not palpable. No tenderness. No mass palpable. PSYCHIATRY: Lethargic INVESTIGATIONS, reviewed in the clinical context: December 02: Sodium 140 potassium 3.2 creatinine 2.63 November 30: White count 9 hemoglobin 10.3 platelets 306 sodium 135 potassium 3.6 BUN 57 creatinine 2.50 EEG: No epileptiform activity. Generalized cerebral dysfunction. Carotid Doppler: Unremarkable 2D echo: EF 30-35%. Moderate to severe pulmonary hypertension.Mild to moderate MR. Mild to moderate TR. CT brain: Nil acute. Dilated ventricular system.Some chronic white matter small ischemic vessel changes. Assessment and plan: -Acute metabolic encephalopathy likely from hypoglycemia. POA -Possible normal pressure hydrocephalus Being followed by neurology Patient did have some CSF removed by lumbar puncture -Essential hypertension: On Lopressor IV 5 mg Q8. Resume home dose of Cardura 4 mg twice daily. Also on hydralazine 25 mg 4 times daily. Lisinopril 40 mg daily resume As patient is missing medications by mouth. Add Catapres patch 0.3 -Diabetes mellitus type 2, uncontrolled with hypoglycemia, now hyperglycemia Amaryl resume. Actos. Follow Accu-Cheks -Chronic congestive heart failure from systolic dysfunction EF 30 to 35% [facility]. 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 Multifactorial For subacute rehab -Elevated troponin in the setting of chronic kidney disease. No ACS. -Full code, with instructions Patient remains rather lethargic. Unclear why so. Neurology following. Like [place] [facility] to be more awake before he can go to rehab.
[2024-12-02 16:25] LABS: Glucose,Whole Blood 238 mg/dL (70-110)
[2024-12-02] MEDS: cloNIDine 0.3 MG/24HR PATCH TRANSDERM SCH (17:18)
[2024-12-02 20:08] LABS: Glucose,Whole Blood 248 mg/dL (70-110)
[2024-12-03 02:01] LABS: Glucose,Whole Blood 379 mg/dL (70-110)
[2024-12-03 06:15] LABS: Glucose,Whole Blood 209 mg/dL (70-110)
[2024-12-03] MEDS: METOPROLOL TARTRATE 25 MG TAB PO SCH (09:18)
--- NOTE | 2024-12-03 10:08 | P.PN ---
Subjective Patient is seen in follow-up for chronic kidney disease. Renal function fairly stable as of yesterday. Oral intake improving. Working with speech therapy. No active complaints. Vital signs are stable. General: No acute distress. HEENT: Head exam is unremarkable. LUNGS: No audible rhonchi or wheezes. HEART: Rate and Rhythm are regular. ABDOMEN: Nontender. EXTREMITITES: No edema. Objective - Vital Signs Vital signs: Vital Signs Temp 98.7 F 12/02/24 20:00 Pulse 81 12/03/24 08:00 Resp 16 12/03/24 08:00 BP 140/63 12/03/24 08:00 Pulse Ox 97 12/03/24 08:00 FiO2 35 11/25/24 08:09 Intake & Output 12/02/24 12/03/24 12/03/24 18:59 06:59 18:59 Intake Total 118 Output Total 800 600 Balance -682 -600 Weight 60 kg 65 kg Intake: Oral 118 Output: Urine 800 600 Other: Voiding Method Indwelling Catheter Indwelling Catheter # Bowel Movements 1 - Labs CBC & Chem 7: 11/30/24 07:08 12/03/24 05:32 Labs: Abnormal Lab Results - Last 24 Hours (Table) 12/02/24 12/02/24 12/02/24 Range/Units 11:22 16:23 19:49 Potassium (3.5-5.1) mmol/L POC Glucose (mg/dL) 243 H 238 H 248 H (70-110) mg/dL 12/03/24 12/03/24 12/03/24 Range/Units 01:55 05:32 06:13 Potassium 3.2 L (3.5-5.1) mmol/L POC Glucose (mg/dL) 379 H 209 H (70-110) mg/dL Microbiology - Last 24 Hours (Table) 11/29/24 11:50 CSF Gram Stain - Preliminary Cerebral Spinal Fluid CSF Culture - Preliminary Assessment and Plan Plan: Assessment: 1. Acute kidney injury secondary to ATN secondary to cardiorenal syndrome. No hydronephrosis noted on kidney ultrasound done in August 2024. Creatinine peaked at 2.78 this admission and stable near 2.5-2.7 range this admission. 2. 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 3. 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 4. Hypoglycemia status post D10. 5. Diabetes mellitus. 6. Hypertension with chronic kidney disease. Stable. 7. Hypokalemia from diuresis. Plan: Maintain Lasix and SGLT2 inhibitor. Replace potassium. Add maintenance supplementation. Avoid nephrotoxins. Continue to monitor renal function and urine output.
[2024-12-03 11:53] LABS: Glucose,Whole Blood 379 mg/dL (70-110)
--- NOTE | 2024-12-03 12:12 | P.PN ---
Subjective Progress Note Date: 12/03/24 This is a 89-year-old male with a past medical history significant for hypertension and diabetes. Patient does not follow with a transmission supervisor. We have been asked to see the patient in consultation for CHF. Patient examined at the bedside. Patient son is present. Apparently the patient lives at home with his . She attempted to wake him up when she was unable to and she then called EMS. The patient was found to be hypoglycemic. Additionally the patient was found to be in acute CHF upon admission to the hospital. According to the patient's son the patient has no known history of CHF or CAD. DIAGNOSTICS: - EKG reveals sinus mechanism with PVCs. Significant baseline artifact. - Chest xray small bilateral pleural effusions with patchy perihilar opacities bilaterally. Findings may relate to pulmonary edema versus pneumonia. - Laboratory data: WBC 8.7. Hemoglobin 10.4. Platelet count 252. Sodium 133. Potassium 4.4. BUN 25. Creatinine 2.63. Lactic acid 3.7. Troponin 0.070. 0.083. 0.145 proBNP 17,500. - Current home cardiac medications include lisinopril 40 mg daily - No previous echocardiogram, stress test, or cardiac catheterization available in EMR for review 11/26/2024 Patient examined this morning at the bedside. Patient has a medical safety director present. Patient remains lethargic. He has gurgling respirations at the time of examination. He remains on IV diuretics. 2D echo remains pending. 11/27/2024 Patient is seen and examined at bedside this a.m. Renal function is staying stable, will continue IV diuretics. Echocardiogram results were reviewed. 11/28/2024 Patient is seen and examined at bedside this a.m. BP 127/63, heart rate 80 bpm, continues to be very somnolent. Getting evaluated by neurology. Labs shows hemoglobin 9.7, BUN 34, creatinine 2.5 which is stable. Tolerating current GDMT. Chest x-ray this morning shows left-sided small pleural effusion with mild to moderate pulmonary congestion. Still appears volume overloaded. 11/29/2024 Patient is seen and examined at bedside this a.m. No new cardiovascular events, BP 128/68, heart rate 74 bpm, very lethargic. 11/30/2024 Patient is seen and examined at bedside this a.m. Appears euvolemic. Will transition IV diuretics to p.o. Kidney function is stable. Still very lethargic. 12/01 Patient seen and examined. Cardiology has signed off yesterday but patient has not been able to take any oral medications due to mental status changes since he arrived. Telemetry is now showing frequent PVCs with bigeminy. Blood pressure 139/69, heart rate 82, pulse ox 98% on room air. 12/02 Patient seen and examined. Patient continues to have confusion. He has been started on a diet and is being fed by staff. Patient is now taking oral medications and we will change beta-gisel to oral. Patient is still having frequent PVCs. Blood pressure 144/68, heart rate 69, pulse ox 96% on room air. Repeat blood work reveals potassium 3.2, BUN 64 creatinine 2.63. Chest x-ray from yesterday reveals cardiomegaly, pulmonary vascular congestion and bilateral pleural effusions. Patient has been maintained on oral Lasix 40 mg twice daily 12/03 Patient seen and examined. Patient is awake and alert this morning. He is not answering questions. Yesterday we placed the patient on all oral medications including the beta-gisel but for some reason it was discontinued. We will resume beta-gisel oral this morning. Telemetry is sinus rhythm with PVCs. Blood pressure 140/63, heart rate 81, pulse ox 97% on room air. Potassium 3.2. PHYSICAL EXAM: VITAL SIGNS: Reviewed. GENERAL: Well-developed in no acute distress. HEENT: Head is normocephalic. Pupils are equal, round. Sclerae anicteric. Mucous membranes of the mouth are moist. Neck supple. No JVD or thyromegaly LUNGS: Respirations even and unlabored. Lungs diminished with gurgling respirations noted. HEART: Regular rate and rhythm. S1 and S2 heard. ABDOMEN: Soft. Nondistended. Nontender. EXTREMITIES: Normal range of motion. No clubbing or cyanosis. Peripheral pulses intact. Bilateral lower extremity edema NEUROLOGIC: Awake ASSESSMENT: Dilated cardiomyopathy with a EF of 30 to 35%, unknown if ischemic or not. Acute CHF exacerbation Type II NSTEMI Moderate MR Acute hypoxic respiratory failure, currently resolving Episode of unresponsiveness, secondary to hypoglycemia on admission Metabolic encephalopathy with increased somnolence Chronic kidney disease Diabetes History of hypertension Pertinent cardiac testing Echo during this admission shows EF of 30 to 35%, moderate mitral regurgitation, moderate tricuspid regurgitation, moderate LA dilatation. PLAN: Continue aspirin, Lipitor, Coreg 6.25 mg twice daily, Imdur 30 mg daily, hydralazine 25 mg 4 times a day. Continue Farxiga 10 mg, Lasix 40 mg p.o. twice daily Continue patient on metoprolol tartrate 25 mg 3 times daily Continue telemetry monitoring Mental status to be addressed by attending No plan for cardiac catheterization because of poor kidney function and mental status. Nurse practitioner note has been reviewed, I agree with documented findings and plan of care. Patient was seen and examined. Objective - Vital Signs Vital signs: Vital Signs Temp 98.7 F 12/02/24 20:00 Pulse 82 12/03/24 04:00 Resp 16 12/03/24 04:00 BP 139/83 12/03/24 04:00 Pulse Ox 97 12/03/24 04:00 FiO2 35 11/25/24 08:09 Intake & Output 12/02/24 12/03/24 12/03/24 18:59 06:59 18:59 Intake Total 118 Output Total 800 600 Balance -682 -600 Weight 60 kg 65 kg Intake: Oral 118 Output: Urine 800 600 Other: Voiding Method Indwelling Catheter Indwelling Catheter # Bowel Movements 1 - Labs CBC & Chem 7: 11/30/24 07:08 12/03/24 05:32 Labs: Abnormal Lab Results - Last 24 Hours (Table) 12/02/24 12/02/24 12/02/24 Range/Units 11:22 16:23 19:49 Potassium (3.5-5.1) mmol/L POC Glucose (mg/dL) 243 H 238 H 248 H (70-110) mg/dL 12/03/24 12/03/24 12/03/24 Range/Units 01:55 05:32 06:13 Potassium 3.2 L (3.5-5.1) mmol/L POC Glucose (mg/dL) 379 H 209 H (70-110) mg/dL Microbiology - Last 24 Hours (Table) 11/29/24 11:50 CSF Gram Stain - Preliminary Cerebral Spinal Fluid CSF Culture - Preliminary
[2024-12-03] MEDS: POTASSIUM CHLORIDE ER 20 MEQ TAB.ER PO STA (12:15)
[2024-12-03] MEDS: cloNIDine 0.1 MG/24HR PATCH TRANSDERM SCH (16:28)
[2024-12-03 16:55] LABS: Glucose,Whole Blood 358 mg/dL (70-110)
--- NOTE | 2024-12-03 17:06 | P.PN ---
Progress Note - Text Progress Note Date: 12/03/24 Patient was seen for follow-up. Patient's granddaughter was present. She mentions as patient is slightly better than yesterday. He is trying to talk, still not able to complete sentences. He is forming one to 2 words phrases. He is understanding better, but trying to talk. He says yes, okay like phrases. Patient's daughter states that prior to this admission, he was very sharp, no history of dementia, except for normal for wakefulness from age-related. 11/29 Information was obtained with the help of son Mr. Dey at bedside Patient only little confused but he is more slow than confused No other new complaints He is hemodynamically stable saturating 100% on 3 L Hemoglobin slightly dropped 9.7 down to 8.9, creatinine 2.5 up to 2.7 He remains on IV Lasix 40 mg twice daily. This can be switched to oral dose soon, keep monitoring creatinine Had MRI of the brain showing no infarction but there is cerebral atrophy and cannot exclude include normal pressure hydrocephalus while MRI of the brain showing no big vessel occlusion or aneurysm. Him perry on aspirin. Plan for lumbar puncture by the neurology team. Lumbar puncture per neurology service I discussed the CODE STATUS with the patient and son, as per son Mr. Dey patient Is okay for chest compressions but no intubation, no life support 11/30 Patient is more obtained today, he is not waking up easily, he is barely open his eyes. Nonverbal He has MRI of the brain which is reviewed showing cerebral atrophy cannot exclude NPH while MRI of the brain showing no occlusion or aneurysm Yesterday he had lumbar puncture Neurology team following closely Vitals look stable as well as labs. Hemoglobin 10.3 and creatinine down to 2.5. IV Lasix switched to oral dose twice daily. December 01: Patient sleepy this afternoon. He did well this morning. Was awake. Ate very well. Took all his medications. This was the first time he done well. Patient's daughter is visiting from [place] at the bedside. I tried to reach patient's Ailyn on the phone.-No answer. Mailbox full. Per PT OT patient requiring full assist. December 02: Patient sleepy when I saw him today. Spoke to the aide. Patient was awake for breakfast ate everything. Then went back to sleep. Barely arousable by me. Patient not on any sedating medications. He seems patient not taking some of his medications because of his somnolence. Started on Catapres patch 0.3. His blood pressures running high. December 03: More awake today. Eating well. Supervised. Pured diet. Spoke to web content & social media manager [place]. Pending authorization for rehab. Up in a chair. Answer occasional questions. Catapres patch will be discontinued as patient is taking his medications now. Active Medications Aspirin (Aspirin 81 Mg) 81 mg PO DAILY [facility] Last Admin: 12/03/24 09:17 Dose: 81 mg Atorvastatin Calcium (Atorvastatin 40 Mg Tab) 40 mg PO HS [facility] Last Admin: 12/02/24 20:36 Dose: 40 mg Clonidine HCl (Clonidine 0.1 Mg/24hr Patch) 1 patch TRANSDERM Q7D [facility] Last Admin: 12/03/24 16:28 Dose: 1 patch Dapagliflozin (Dapagliflozin Propanediol 10 Mg Tablet) 10 mg PO DAILY [facility] Last Admin: 12/03/24 09:18 Dose: 10 mg Dextrose/Water (Dextrose 50% Syringe 50 Ml) 25 ml IVP PER PROTOCOL PRN; Protocol PRN Reason: Hypoglycemia Last Admin: 11/24/24 22:48 Dose: 25 ml Dextrose/Water (Dextrose 50% Syringe 50 Ml) 50 ml IVP PER PROTOCOL PRN; Protocol PRN Reason: Hypoglycemia Last Admin: 11/25/24 01:32 Dose: 50 ml Doxazosin Mesylate (Doxazosin 4 Mg Tab) 4 mg PO BID [facility] Last Admin: 12/03/24 09:18 Dose: 4 mg Enoxaparin Sodium (Enoxaparin 30 Mg/0.3 Ml Syringe) 30 mg SQ [facility] Last Admin: 12/02/24 20:37 Dose: 30 mg Folic Acid (Folic Acid 1 Mg Tab) 1 mg PO DAILY [facility] Last Admin: 12/03/24 09:18 Dose: 1 mg Furosemide (Furosemide 40 Mg Tab) 40 mg PO BID@0900,1600 [facility] Last Admin: 12/03/24 16:27 Dose: 40 mg Glimepiride (Glimepiride 1 Mg Tab) 1 mg PO DAILY [facility] Last Admin: 12/03/24 09:17 Dose: 1 mg Hydralazine HCl (Hydralazine Hcl 25 Mg Tab) 25 mg PO QID [facility] Last Admin: 12/03/24 16:28 Dose: 25 mg Insulin Human Lispro (Insulin Lispro (Humalog) 100 Unit/Ml 10 Ml Vl) 0 unit SQ [id number] [facility]; Protocol Last Admin: 12/03/24 12:15 Dose: 5 unit Isosorbide Mononitrate (Isosorbide Mononitrate Er 30 Mg Tab.Er.24h) 30 mg PO DAILY [facility] Last Admin: 12/03/24 09:18 Dose: 30 mg Lisinopril (Lisinopril 20 Mg Tab) 40 mg PO DAILY [facility] Last Admin: 12/03/24 09:18 Dose: 40 mg Metoprolol Tartrate (Metoprolol Tartrate 5 Mg/5 Ml Vial) 5 mg IVP Q8HR PRN PRN Reason: If unable to take PO Last Admin: 12/02/24 20:36 Dose: 5 mg Metoprolol Tartrate (Metoprolol Tartrate 25 Mg Tab) 25 mg PO TID [facility] Last Admin: 12/03/24 16:28 Dose: 25 mg Miscellaneous Information (Potassium Replacement Protocol 1 Each Misc) 1 each MISCELLANE DAILY PRN; Protocol PRN Reason: Per Protocol Miscellaneous Information (Magnesium Replacement Protocol 1 Each Misc) 1 each MISCELLANE DAILY PRN; Protocol PRN Reason: Per Protocol Pioglitazone HCl (Pioglitazone 30 Mg Tab) 30 mg PO DAILY [facility] Last Admin: 12/03/24 09:17 Dose: 30 mg Potassium Chloride (Potassium Chloride Er 20 Meq Tab.Er) 20 meq PO DAILY [facility] On examination: VITAL SIGNS: Afebrile, 75, 16, 109 x 56, 98% room air GENERAL APPEARANCE: Up in a recliner. Being fed pured diet by the aide. Far more awake today HEENT: Normal external appearance of nose and ear. Oral cavity normal EYES: Pupils equal. Conjunctiva normal. NECK: JVD not raised. Mass not palpable. RESPIRATORY: Respiratory effort normal. Lungs clear to auscultation. CARDIOVASCULAR: First and second sounds normal. No edema. ABDOMEN: Soft. Liver and spleen not palpable. No tenderness. No mass palpable. PSYCHIATRY: Answer occasional question. INVESTIGATIONS, reviewed in the clinical context: December 02: Sodium 140 potassium 3.2 creatinine 2.63 November 30: White count 9 hemoglobin 10.3 platelets 306 sodium 135 potassium 3.6 BUN 57 creatinine 2.50 EEG: No epileptiform activity. Generalized cerebral dysfunction. Carotid Doppler: Unremarkable 2D echo: EF 30-35%. Moderate to severe pulmonary hypertension.Mild to moderate MR. Mild to moderate TR. CT brain: Nil acute. Dilated ventricular system.Some chronic white matter small ischemic vessel changes. Assessment and plan: -Acute metabolic encephalopathy likely from hypoglycemia. Much better -Possible normal pressure hydrocephalus Being followed by neurology Patient did have some CSF removed by lumbar puncture -Essential hypertension: On Lopressor IV 5 mg Q8. Cardura 4 mg twice daily. Also on hydralazine 25 mg 4 times daily. Lisinopril 40 mg daily resume Patient started taking his medications therefore DC Catapres patch -Diabetes mellitus type 2, uncontrolled with hypoglycemia, now hyperglycemia Amaryl resume. Actos. Follow Accu-Cheks -Chronic congestive heart failure from systolic dysfunction EF 30 to 35% [facility]. 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 Multifactorial For subacute rehab -Elevated troponin in the setting of chronic kidney disease. No ACS. -Full code, with instructions Far more awake. Tolerating diet. Pending authorization for rehab. Cognitive impairment. DC Catapres patch.
[2024-12-03 20:26] LABS: Glucose,Whole Blood 323 mg/dL (70-110)
[2024-12-04 02:33] LABS: Glucose,Whole Blood 151 mg/dL (70-110)
[2024-12-04 04:00] VITALS: RESP 14
[2024-12-04 07:36] LABS: African American GFR (CKD) 19 (>60 ml/min/1.73 sqM); Anion Gap 5 mmol/L; Blood Urea Nitrogen 86 mg/dL (9-20); Carbon Dioxide 34 mmol/L (22-30); Chloride 110 mmol/L (98-107); Glucose 163 mg/dL (74-99); Magnesium 2.5 mg/dL (1.6-2.3); Non-African American GFR(CKD) 17 (>60 ml/min/1.73 sqM); Potassium 3.4 mmol/L (3.5-5.1); Sodium 149 mmol/L (137-145)
[2024-12-04] MEDS: POTASSIUM CHLORIDE ER 20 MEQ TAB.ER PO SCH (09:01)
--- NOTE | 2024-12-04 10:32 | P.DS ---
Providers Date of admission: 11/24/24 17:22 Expected date of discharge: 12/04/24 Attending physician: Lyle Chamberlain Consults: 11/24/24 17:13 Consult Physician Urgent Consulting Provider: [facility] Consult Reason/Comments: Elevated troponin Do you want consulting provider notified?: Yes Consult Physician Urgent Consulting Provider: Hortensia Jerome Consult Reason/Comments: Altered mental status Do you want consulting provider notified?: Yes 11/25/24 00:35 Consult Physician Urgent Consulting Provider: Tom Lester Consult Reason/Comments: resp distress, pulm edema, ICU management? Do you want consulting provider notified?: Yes 11/26/24 14:51 Consult Physician Urgent Consulting Provider: Cassidy Williamson Consult Reason/Comments: tegan, HF Do you want consulting provider notified?: Yes 11/29/24 08:59 Consult to Anesthesia Routine Consulting Provider: Anest[facility],Services Consult Reason/Comments: lumbar puncture. ams and recommend large volume tap. 12/01/24 07:56 Consult Physician Routine Consulting Provider: Bc Garsia Consult Reason/Comments: frequent PVCs, unable to take PO meds Do you want consulting provider notified?: Already Contacted Primary care physician: Isidoro Willismley [facility] Course: 89-year-old male was brought brought in because patient was unresponsive. EMS found him to be hypoglycemic with a blood sugars of 30 patient was brought to the hospital admitted for hypoglycemia is on D10. Patient is also found to be in CHF exacerbation requiring oxygen presently on 2 L patient does have history of congestive heart failure patient has a elevated BNP chest x-ray showing pulmonary edema is on IV Lasix. Patient is still lethargic but there is no clear evidence of any infection anywhere patient is bit hyponatremic. Patient's serum creatinine is 2.63 baseline is around that. Patient also found to have troponin elevation of 0.083 and 0.145. Cardiology evaluated the patient. Patient was seen for follow-up. Patient's granddaughter was present. She mentions as patient is slightly better than yesterday. He is trying to talk, still not able to complete sentences. He is forming one to 2 words phrases. He is understanding better, but trying to talk. He says yes, okay like phrases. Patient's daughter states that prior to this admission, he was very sharp, no history of dementia, except for normal for wakefulness from age-related. 11/29 Information was obtained with the help of son Mr. Dey at bedside Patient only little confused but he is more slow than confused No other new complaints He is hemodynamically stable saturating 100% on 3 L Hemoglobin slightly dropped 9.7 down to 8.9, creatinine 2.5 up to 2.7 He remains on IV Lasix 40 mg twice daily. This can be switched to oral dose soon, keep monitoring creatinine Had MRI of the brain showing no infarction but there is cerebral atrophy and cannot exclude include normal pressure hydrocephalus while MRI of the brain showing no big vessel occlusion or aneurysm. Him perry on aspirin. Plan for lumbar puncture by the neurology team. Lumbar puncture per neurology service I discussed the CODE STATUS with the patient and son, as per son Mr. Dey patient Is okay for chest compressions but no intubation, no life support 11/30 Patient is more obtained today, he is not waking up easily, he is barely open his eyes. Nonverbal He has MRI of the brain which is reviewed showing cerebral atrophy cannot exclude NPH while MRI of the brain showing no occlusion or aneurysm Yesterday he had lumbar puncture Neurology team following closely Vitals look stable as well as labs. Hemoglobin 10.3 and creatinine down to 2.5. IV Lasix switched to oral dose twice daily. December 01: Patient sleepy this afternoon. He did well this morning. Was awake. Ate very well. Took all his medications. This was the first time he done well. Patient's daughter is visiting from [place] at the bedside. I tried to reach patient's Ailyn on the phone.-No answer. Mailbox full. Per PT OT patient requiring full assist. December 02: Patient sleepy when I saw him today. Spoke to the aide. Patient was awake for breakfast ate everything. Then went back to sleep. Barely arousable by me. Patient not on any sedating medications. He seems patient not taking some of his medications because of his somnolence. Started on Catapres patch 0.3. His blood pressures running high. December 03: More awake today. Eating well. Supervised. Pured diet. Spoke to social insurance administrator [place]. Pending authorization for rehab. Up in a chair. Answer occasional questions. Catapres patch will be discontinued as patient is taking his medications now. December 04: Tolerating diet. Creatinine up to 3.18. Will DC lisinopril. Change Lopressor to 50 twice daily. DC Farxiga started recently. Give 500 cc of fluid over few hours prior to discharge. Repeat labs. Cut back Lasix to once a day. Follow-up with cardiology, nephrology outpatient. Discussion and discharge planning more than 35 minutes On examination: VITAL SIGNS: 97.9, 73, 14, 113 x 50, 97% room air GENERAL APPEARANCE: Comfortable HEENT: Normal external appearance of nose and ear. Oral cavity normal EYES: Pupils equal. Conjunctiva normal. NECK: JVD not raised. Mass not palpable. RESPIRATORY: Respiratory effort normal. Lungs clear to auscultation. CARDIOVASCULAR: First and second sounds normal. No edema. ABDOMEN: Soft. Liver and spleen not palpable. No tenderness. No mass palpable. PSYCHIATRY: Answer occasional question. INVESTIGATIONS, reviewed in the clinical context: December 04: Sodium 149 potassium 3.4 BUN 86 creatinine 3.18 December 02: Sodium 140 potassium 3.2 creatinine 2.63 November 30: White count 9 hemoglobin 10.3 platelets 306 sodium 135 potassium 3.6 BUN 57 creatinine 2.50 EEG: No epileptiform activity. Generalized cerebral dysfunction. Carotid Doppler: Unremarkable 2D echo: EF 30-35%. Moderate to severe pulmonary hypertension.Mild to moderate MR. Mild to moderate TR. CT brain: Nil acute. Dilated ventricular system.Some chronic white matter small ischemic vessel changes. Assessment and plan: -Acute metabolic encephalopathy likely from hypoglycemia. Much better -Possible normal pressure hydrocephalus Being followed by neurology Patient did have some CSF removed by lumbar puncture -Essential hypertension: Cardura 4 mg twice daily. Change hydralazine 25 mg 3 times daily. Lisinopril discontinued because of increased creatinine. Increase Lopressor to 50 mg twice daily -Diabetes mellitus type 2, uncontrolled with hypoglycemia, now hyperglycemia Amaryl resume. Actos. Follow Accu-Cheks -Chronic congestive heart failure from systolic dysfunction EF 30 to 35% Farxiga-hold because of renal function. 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 Recently started on Farxiga. IV fluids today. DC Farxiga. DC lisinopril. 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 Multifactorial For subacute rehab -Elevated troponin in the setting of chronic kidney disease. No ACS. -Full code, with instructions Disposition: [facility] for rehab Labs: CBC BMP: 2 days Plan - Discharge Summary Discharge Rx Participant: No New Discharge Prescriptions: New Isosorbide Mononitrate ER [Imdur] 30 mg PO DAILY tab Furosemide [Lasix] 40 mg PO DAILY tab Atorvastatin [Lipitor] 40 mg PO HS tab Metoprolol Tartrate [Lopressor] 50 mg PO BID #1 tab hydrALAZINE HCL [Apresoline] 25 mg PO TID tab Aspirin 81 mg PO DAILY tab Folic Acid 1 mg PO DAILY tab Continue Doxazosin [Cardura] 4 mg PO BID Pioglitazone [Actos] 30 mg PO DAILY Glimepiride [Amaryl] 1 mg PO DAILY Discontinued lisinopriL 40 mg PO DAILY Discharge Medication List Doxazosin [Cardura] 4 mg PO BID 03/28/23 [History] Pioglitazone [Actos] 30 mg PO DAILY 09/05/24 [History] Glimepiride [Amaryl] 1 mg PO DAILY 11/24/24 [History] Aspirin 81 mg PO DAILY tab 12/04/24 [Rx] Atorvastatin [Lipitor] 40 mg PO HS tab 12/04/24 [Rx] Folic Acid 1 mg PO DAILY tab 12/04/24 [Rx] Furosemide [Lasix] 40 mg PO DAILY tab 12/04/24 [Rx] Isosorbide Mononitrate ER [Imdur] 30 mg PO DAILY tab 12/04/24 [Rx] Metoprolol Tartrate [Lopressor] 50 mg PO BID #1 tab 12/04/24 [Rx] hydrALAZINE HCL [Apresoline] 25 mg PO TID tab 12/04/24 [Rx] Follow up Appointment(s)/Referral(s): Luis Long MD [STAFF PHYSICIAN] - 2 Weeks Isidoro Larson MD [Primary Care Provider] - 1-2 days Heath Calderón DO [STAFF PHYSICIAN] - 2 Weeks Discharge/Stand Alone Forms: Assisted Living Facilities
[2024-12-04 11:20] VITALS: TEMP 98.2
[2024-12-04 11:28] LABS: Glucose,Whole Blood 316 mg/dL (70-110)
--- NOTE | 2024-12-04 11:28 | P.PN ---
Subjective Patient is seen in follow-up for chronic kidney disease. Renal function worse. Oral intake just fair. Poor historian. Vital signs are stable. General: No acute distress. HEENT: Head exam is unremarkable. LUNGS: No audible rhonchi or wheezes. HEART: Rate and Rhythm are regular. ABDOMEN: Nontender. EXTREMITITES: No edema. Objective - Vital Signs Vital signs: Vital Signs Temp 98.2 F 12/04/24 08:00 Pulse 86 12/04/24 08:00 Resp 14 12/04/24 08:00 BP 105/54 12/04/24 08:00 Pulse Ox 99 12/04/24 08:00 FiO2 35 11/25/24 08:09 Intake & Output 12/03/24 12/04/24 12/04/24 18:59 06:59 18:59 Intake Total 1 120 Output Total 400 Balance -399 120 Weight 61 kg Intake: Oral 1 120 Output: Urine 400 Other: Voiding Method Indwelling Catheter Indwelling Catheter Indwelling Catheter - Labs CBC & Chem 7: 11/30/24 07:08 12/04/24 06:30 Labs: Abnormal Lab Results - Last 24 Hours (Table) 12/03/24 12/03/24 12/03/24 Range/Units 11:51 16:50 20:25 Sodium (137-145) mmol/L Potassium (3.5-5.1) mmol/L Chloride (98-107) mmol/L Carbon Dioxide (22-30) mmol/L BUN (9-20) mg/dL Creatinine (0.66-1.25) mg/dL Glucose (74-99) mg/dL POC Glucose (mg/dL) 379 H 358 H 323 H (70-110) mg/dL Magnesium (1.6-2.3) mg/dL 12/04/24 12/04/24 Range/Units 02:32 06:30 Sodium 149 H (137-145) mmol/L Potassium 3.4 L (3.5-5.1) mmol/L Chloride 110 H (98-107) mmol/L Carbon Dioxide 34 H (22-30) mmol/L BUN 86 H (9-20) mg/dL Creatinine 3.18 H (0.66-1.25) mg/dL Glucose 163 H (74-99) mg/dL POC Glucose (mg/dL) 151 H (70-110) mg/dL Magnesium 2.5 H (1.6-2.3) mg/dL Microbiology - Last 24 Hours (Table) 11/29/24 11:50 CSF Gram Stain - Final Cerebral Spinal Fluid CSF Culture - Final Assessment and Plan Plan: Assessment: 1. Acute kidney injury secondary to ATN secondary to cardiorenal syndrome. No hydronephrosis noted on kidney ultrasound done in August 2024. Creatinine peaked at 2.78 this admission and stable near 2.5-2.7 range this admission. Renal function worse with creatinine 3.18 today. 2. 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 3. 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 4. Hypoglycemia status post D10. 5. Diabetes mellitus. 6. Hypertension with chronic kidney disease. Stable. 7. Hypokalemia from diuresis. 8. Hypernatremia from lack of oral water intake. Plan: Stop Lasix and SGLT2 inhibitor. Stop lisinopril. Hold hydralazine for systolic blood pressure less than 120. Currently receiving a 500 cc bolus of normal saline. Replace potassium. Start D5W at 75 cc an hour. Avoid nephrotoxins. Continue to monitor renal function and urine output.
[2024-12-04] MEDS: POTASSIUM CHLORIDE ER 20 MEQ TAB.ER PO STA (12:59)
[2024-12-04] MEDS: SODIUM CHLORIDE 0.9% 500 ML 500 ML IV SCH (12:59)
[2024-12-04] MEDS: DEXTROSE 5% IN WATER 1,000 ML IV SCH (12:59)
[2024-12-04 13:28] VITALS: BMI 21.7
--- NOTE | 2024-12-04 14:19 | P.PN ---
Subjective Progress Note Date: 12/04/24 This is a 89-year-old male with a past medical history significant for hypertension and diabetes. Patient does not follow with a bulker. We have been asked to see the patient in consultation for CHF. Patient examined at the bedside. Patient son is present. Apparently the patient lives at home with his . She attempted to wake him up when she was unable to and she then called EMS. The patient was found to be hypoglycemic. Additionally the patient was found to be in acute CHF upon admission to the hospital. According to the patient's son the patient has no known history of CHF or CAD. DIAGNOSTICS: - EKG reveals sinus mechanism with PVCs. Significant baseline artifact. - Chest xray small bilateral pleural effusions with patchy perihilar opacities bilaterally. Findings may relate to pulmonary edema versus pneumonia. - Laboratory data: WBC 8.7. Hemoglobin 10.4. Platelet count 252. Sodium 133. Potassium 4.4. BUN 25. Creatinine 2.63. Lactic acid 3.7. Troponin 0.070. 0.083. 0.145 proBNP 17,500. - Current home cardiac medications include lisinopril 40 mg daily - No previous echocardiogram, stress test, or cardiac catheterization available in EMR for review 11/26/2024 Patient examined this morning at the bedside. Patient has a consultant in ergonomics and safety present. Patient remains lethargic. He has gurgling respirations at the time of examination. He remains on IV diuretics. 2D echo remains pending. 11/27/2024 Patient is seen and examined at bedside this a.m. Renal function is staying stable, will continue IV diuretics. Echocardiogram results were reviewed. 11/28/2024 Patient is seen and examined at bedside this a.m. BP 127/63, heart rate 80 bpm, continues to be very somnolent. Getting evaluated by neurology. Labs shows hemoglobin 9.7, BUN 34, creatinine 2.5 which is stable. Tolerating current GDMT. Chest x-ray this morning shows left-sided small pleural effusion with mild to moderate pulmonary congestion. Still appears volume overloaded. 11/29/2024 Patient is seen and examined at bedside this a.m. No new cardiovascular events, BP 128/68, heart rate 74 bpm, very lethargic. 11/30/2024 Patient is seen and examined at bedside this a.m. Appears euvolemic. Will transition IV diuretics to p.o. Kidney function is stable. Still very lethargic. 12/01 Patient seen and examined. Cardiology has signed off yesterday but patient has not been able to take any oral medications due to mental status changes since he arrived. Telemetry is now showing frequent PVCs with bigeminy. Blood pressure 139/69, heart rate 82, pulse ox 98% on room air. 12/02 Patient seen and examined. Patient continues to have confusion. He has been started on a diet and is being fed by staff. Patient is now taking oral medications and we will change beta-gisel to oral. Patient is still having frequent PVCs. Blood pressure 144/68, heart rate 69, pulse ox 96% on room air. Repeat blood work reveals potassium 3.2, BUN 64 creatinine 2.63. Chest x-ray from yesterday reveals cardiomegaly, pulmonary vascular congestion and bilateral pleural effusions. Patient has been maintained on oral Lasix 40 mg twice daily 12/03 Patient seen and examined. Patient is awake and alert this morning. He is not answering questions. Yesterday we placed the patient on all oral medications including the beta-gisel but for some reason it was discontinued. We will resume beta-gisel oral this morning. Telemetry is sinus rhythm with PVCs. Blood pressure 140/63, heart rate 81, pulse ox 97% on room air. Potassium 3.2. 12/04 Patient seen and examined. No new concerns at this time. Blood pressure 113/50, heart rate 73, pulse ox 97% on room air. Repeat blood work reveals BUN 86, creatinine 3.18. Sodium 149, potassium 3.4. Noted that Lasix was discontinued due to worsening renal function and patient has been started on IV fluids. PHYSICAL EXAM: VITAL SIGNS: Reviewed. GENERAL: Well-developed in no acute distress. HEENT: Head is normocephalic. Pupils are equal, round. Sclerae anicteric. Mucous membranes of the mouth are moist. Neck supple. No JVD or thyromegaly LUNGS: Respirations even and unlabored. Lungs diminished with gurgling respirations noted. HEART: Regular rate and rhythm. S1 and S2 heard. ABDOMEN: Soft. Nondistended. Nontender. EXTREMITIES: Normal range of motion. No clubbing or cyanosis. Peripheral pulses intact. Bilateral lower extremity edema NEUROLOGIC: Awake ASSESSMENT: Dilated cardiomyopathy with a EF of 30 to 35%, unknown if ischemic or non ischemic Acute CHF exacerbation Type II NSTEMI Moderate MR Acute hypoxic respiratory failure, currently resolving Episode of unresponsiveness, secondary to hypoglycemia on admission Metabolic encephalopathy with increased somnolence Chronic kidney disease Diabetes History of hypertension Acute kidney injury Pertinent cardiac testing Echo during this admission shows EF of 30 to 35%, moderate mitral regurgitation, moderate tricuspid regurgitation, moderate LA dilatation. PLAN: Continue aspirin, Lipitor, Coreg 6.25 mg twice daily, Imdur 30 mg daily, hydralazine 25 mg 4 times a day. Continue Farxiga 10 mg, Lasix 40 mg p.o. twice daily Continue patient on metoprolol tartrate 25 mg 3 times daily No plan for cardiac catheterization because of poor kidney function and mental status. Nurse practitioner note has been reviewed, I agree with documented findings and plan of care. Patient was seen and examined. Objective - Vital Signs Vital signs: Vital Signs Temp 98.2 F 12/04/24 08:00 Pulse 72 12/04/24 12:00 Resp 14 12/04/24 08:00 BP 96/55 12/04/24 12:00 Pulse Ox 98 12/04/24 12:00 FiO2 35 11/25/24 08:09 Intake & Output 12/03/24 12/04/24 12/04/24 18:59 06:59 18:59 Intake Total 1 120 Output Total 400 Balance -399 120 Weight 61 kg 61 kg Intake: Oral 1 120 Output: Urine 400 Other: Voiding Method Indwelling Catheter Indwelling Catheter Indwelling Catheter - Labs CBC & Chem 7: 11/30/24 07:08 12/04/24 06:30 Labs: Abnormal Lab Results - Last 24 Hours (Table) 12/03/24 12/03/24 12/04/24 Range/Units 16:50 20:25 02:32 Sodium (137-145) mmol/L Potassium (3.5-5.1) mmol/L Chloride (98-107) mmol/L Carbon Dioxide (22-30) mmol/L BUN (9-20) mg/dL Creatinine (0.66-1.25) mg/dL Glucose (74-99) mg/dL POC Glucose (mg/dL) 358 H 323 H 151 H (70-110) mg/dL Magnesium (1.6-2.3) mg/dL 12/04/24 12/04/24 Range/Units 06:30 11:26 Sodium 149 H (137-145) mmol/L Potassium 3.4 L (3.5-5.1) mmol/L Chloride 110 H (98-107) mmol/L Carbon Dioxide 34 H (22-30) mmol/L BUN 86 H (9-20) mg/dL Creatinine 3.18 H (0.66-1.25) mg/dL Glucose 163 H (74-99) mg/dL POC Glucose (mg/dL) 316 H (70-110) mg/dL Magnesium 2.5 H (1.6-2.3) mg/dL Microbiology - Last 24 Hours (Table) 11/29/24 11:50 CSF Gram Stain - Final Cerebral Spinal Fluid CSF Culture - Final
[2024-12-04 16:32] VITALS: BP 100/53; PULSE 80
[2024-12-04] MEDS: hydrALAZINE HCL 25 MG TAB PO SCH (17:04)
[2024-12-04] MEDS ORDERED: METOPROLOL TARTRATE 50 MG TAB PO SCH (21:00)
[2024-12-05] MEDS ORDERED: FUROSEMIDE 40 MG TAB PO SCH (09:00)
== END 2024-12-04 18:09 | DRG 280 ==
LOC: EC 14:48 → 3SCARD 17:22
PROVIDERS: ADMIT Hospitalist; ATTEND Hospitalist
PROC: 5A09357 Assistance with Respiratory Ventilation, Less than 24 Consecutive Hours, Continuous Positive Airway Pressure (ICD-10-PCS; principal; 2024-11-25)
DX: I13.0 Hypertensive heart and chronic kidney disease with heart failure and stage 1 through stage 4 chronic kidney disease, or unspecified chronic kidney disease (principal); G93.41 Metabolic encephalopathy; I21.A1 Myocardial infarction type 2; J96.01 Acute respiratory failure with hypoxia; I50.23 Acute on chronic systolic (congestive) heart failure; N17.0 Acute kidney failure with tubular necrosis; E87.0 Hyperosmolality and hypernatremia; E87.1 Hypo-osmolality and hyponatremia; D63.1 Anemia in chronic kidney disease; N18.4 Chronic kidney disease, stage 4 (severe); E11.649 Type 2 diabetes mellitus with hypoglycemia without coma; F02.80 Dementia in other diseases classified elsewhere, unspecified severity, without behavioral disturbance, psychotic disturbance, mood disturbance, and anxiety; I27.29 Other secondary pulmonary hypertension; I08.1 Rheumatic disorders of both mitral and tricuspid valves; G91.2 (Idiopathic) normal pressure hydrocephalus; R47.01 Aphasia; J98.09 Other diseases of bronchus, not elsewhere classified; E11.22 Type 2 diabetes mellitus with diabetic chronic kidney disease; I42.0 Dilated cardiomyopathy; E11.65 Type 2 diabetes mellitus with hyperglycemia; G30.9 Alzheimer's disease, unspecified; E78.5 Hyperlipidemia, unspecified; E87.6 Hypokalemia; T50.2X5A Adverse effect of carbonic-anhydrase inhibitors, benzothiadiazides and other diuretics, initial encounter; M19.91 Primary osteoarthritis, unspecified site; I49.3 Ventricular premature depolarization; Z79.84 Long term (current) use of oral hypoglycemic drugs; Z79.899 Other long term (current) drug therapy
CPT/HCPCS: 36415; 36600; 51701; 62270; 70450; 70544; 70551; 71045; 71046; 80048; 80053; 80061; 80306; 81001; 82140; 82607; 82746; 82803; 82805; 82945; 83036; 83605; 83735; 83873; 83880; 84132; 84157; 84484; 85025; 85610; 85730; 87070; 87205; 87636; 89050; 93005; 93306; 93880; 94660; 94760; 95816; 96361; 96365; 96375; 96376; 99285

== ENCOUNTER 2024-12-05 18:49 | Inpatient (IN) | payer MEDICARE ==
[2024-12-05 18:54] LABS: Glucose,Whole Blood 465 mg/dL (70-110)
--- NOTE | 2024-12-05 19:06 | ED ---
General Adult HPI - General Chief complaint: Altered Mental Status Stated complaint: ams Time Seen by Provider: 12/05/24 18:53 Source: patient, EMS, RN notes reviewed Mode of arrival: EMS Limitations: altered mental status - History of Present Illness Initial comments: Patient is an 89-year-old male present to the emergency department with concerns for change in mental status. Patient arrives from assisted living facility. Patient is a poor historian and offers no history. Patient states he feels good. Patient is oriented to name. Patient reportedly was recently in the hospital secondary to hypoglycemia - Related Data Home Medications Medication Instructions Recorded Confirmed Doxazosin [Cardura] 4 mg PO BID 03/28/23 11/24/24 Pioglitazone [Actos] 30 mg PO DAILY 09/05/24 11/24/24 Glimepiride [Amaryl] 1 mg PO DAILY 11/24/24 11/24/24 Previous Rx's Medication Instructions Recorded Aspirin 81 mg PO DAILY tab 12/04/24 Atorvastatin [Lipitor] 40 mg PO HS tab 12/04/24 Folic Acid 1 mg PO DAILY tab 12/04/24 Furosemide [Lasix] 40 mg PO DAILY tab 12/04/24 Isosorbide Mononitrate ER [Imdur] 30 mg PO DAILY tab 12/04/24 Metoprolol Tartrate [Lopressor] 50 mg PO BID #1 tab 12/04/24 hydrALAZINE HCL [Apresoline] 25 mg PO TID tab 12/04/24 Allergies Allergy/AdvReac Type Severity Reaction Status Date / Time No Known Allergies Allergy Verified 12/05/24 18:59 Review of Systems ROS Statement: Those systems with pertinent positive or pertinent negative responses have been documented in the HPI. ROS Other: All systems not noted in ROS Statement are negative. Limitations: ROS unobtainable due to patients medical condition Past Medical History Past Medical History: Diabetes Mellitus, Hyperlipidemia, Hypertension History of Any Multi-Drug Resistant Organisms: None Reported Past Surgical History: No Surgical Hx Reported Additional Past Anesthesia/Blood Transfusion Reaction / Comment(s): Jahovas Witness-"would not allow blood transfusion" Past Psychological History: No Psychological Hx Reported Smoking Status: Never smoker Past Alcohol Use History: None Reported Past Drug Use History: None Reported - Past Family History Father Family Medical History: Myocardial Infarction (HI) Mother Family Medical History: No Reported History, Unable to Obtain Additional Family Medical History / Comment(s): unknown General Exam Limitations: altered mental status General appearance: other (Drowsy. Follows some simple commands) Head exam: Present: atraumatic Eye exam: Present: normal appearance ENT exam: Present: normal oropharynx Neck exam: Present: normal inspection. Absent: tenderness, meningismus Respiratory exam: Present: normal lung sounds bilaterally Cardiovascular Exam: Present: regular rate, normal rhythm GI/Abdominal exam: Present: soft. Absent: tenderness Extremities exam: Present: normal inspection, full ROM Neurological exam: Present: alert, altered. Absent: motor sensory deficit Expanded Neurological exam: Present: protecting the airway Patient oriented to: Present: person. Absent: place, time Motor strength exam: RUE: 5, LUE: 5, RLE: 5, LLE: 5 Eye Response: (4) open spontaneously Motor Response: (6) obeys commands Verbal Response: (4) confused conversation Psychiatric exam: Present: flat affect Skin exam: Present: normal color Course Vital Signs 12/05/24 12/05/24 12/05/24 18:51 19:44 20:27 Temperature 97.6 F Pulse Rate 68 68 58 L Respiratory 20 16 14 Rate Blood Pressure 103/60 101/53 105/76 O2 Sat by Pulse 100 95 99 Oximetry EKG Findings - EKG Results: EKG: interpreted by ERMD, sinus rhythm, normal axis, normal QRS, normal ST/T Medical Decision Making - Medical Decision Making Was pt. sent in by a medical professional or institution (ZENON Mcneil, ENTRY LEVEL BUYER, urgent care, hospital, or custodial...) When possible be specific @ -No Did you speak to anyone other than the patient for history (EMS, parent, family, police, friend...)? What history was obtained from this source @ -EMS provides history as patient is a poor historian Did you review nursing and triage notes (agree or disagree)? Why? @ -I reviewed and agree with nursing and triage notes Were old charts reviewed (outside hosp., previous admission, EMS record, old EKG, old radiological studies, urgent care reports/EKG's, custodial records)? Report findings @ -No old charts were reviewed Differential Diagnosis (chest pain, altered mental status, abdominal pain women, abdominal pain men, vaginal bleeding, weakness, fever, dyspnea, syncope, headache, dizziness, GI bleed, back pain, seizure, CVA, palpatations, mental health, musculoskeletal)? @ -Differential Altered Mental Status: Hypoglycemia, DKA, hypercapnia, ETOH, overdose, CO poisoning, trauma, myxedema coma, HTN encephalopathy, infection, encephalitis, psychosis, intercranial hemorrhage, hepatic encephalopathy, meningitis, CVA, this is not meant to be an all-inclusive list EKG interpreted by me (3pts min.). @ -As above X-rays interpreted by me (1pt min.). @ -Chest x-ray does show some increase fluid CT interpreted by me (1pt min.). @ -CT scan of the brain without acute abnormality. U/S interpreted by me (1pt. min.). @ -None done What testing was considered but not performed or refused? (CT, X-rays, U/S, labs)? Why? @ -None What meds were considered but not given or refused? Why? @ -None Did you discuss the management of the patient with other professionals (professionals i.e. , PA, ENTRY LEVEL BUYER, lab, RT, psych nurse, secondary social studies teacher, dentist private practice, teacher, security officer supervisor, corrections caseworker)? Give summary @ -Case was discussed with Dr. Chamberlain who is familiar with this patient. He recommends admission with half-normal saline. Was smoking cessation discussed for >3mins.? @ -No Was critical care preformed (if so, how long)? @ -No Were there social determinants of health that impacted care today? How? (Homelessness, low income, unemployed, alcoholism, drug addiction, transportation, low edu. Level, literacy, decrease access to med. care, long term, rehab)? @ -No Was there de-escalation of care discussed even if they declined (Discuss DNR or withdrawal of care, Hospice)? DNR status @ -No What co-morbidities impacted this encounter? (DM, HTN, Smoking, COPD, CAD, Cancer, CVA, ARF, Chemo, Hep., AIDS, mental health diagnosis, sleep apnea, morbid obesity)? @ -History of recent admission with fluid overload and hypoglycemia Was patient admitted / discharged? Hospital course, mention meds given and route, prescriptions, significant lab abnormalities, going to OR and other pertinent info. @ -Patient presents altered. Patient appears dehydrated, confirmed on lab. Patient is hyperglycemic. Patient reevaluated and updated. Patient will be admitted. Admission orders written. Undiagnosed new problem with uncertain prognosis? @ -No Drug Therapy requiring intensive monitoring for toxicity (Heparin, Nitro, Insulin, Cardizem)? @ -No Were any procedures done? @ -No Diagnosis/symptom? @ -Dehydration, hyperglycemia Acute, or Chronic, or Acute on Chronic? @ -Acute, acute Uncomplicated (without systemic symptoms) or Complicated (systemic symptoms)? @ -Default Side effects of treatment? @ -No Exacerbation, Progression, or Severe Exacerbation? @ -No Poses a threat to life or bodily function? How? (Chest pain, [place], HI, pneumonia, PE, COPD, DKA, ARF, appy, cholecystitis, CVA, Diverticulitis, Homicidal, Suicidal, threat to staff... and all critical care pts) @ -No - Lab Data Result diagrams: 12/05/24 19:09 12/05/24 19:09 Lab Results 12/05/24 12/05/24 12/05/24 Range/Units 18:52 19:09 19:09 WBC 16.6 H (3.8-10.6) k/uL RBC 3.53 L (4.30-5.90) m/uL Hgb 10.6 L (13.0-17.5) gm/dL Hct 36.5 L (39.0-53.0) % MCV 103.6 H D (80.0-100.0) fL MCH 30.0 (25.0-35.0) pg MCHC 28.9 L (31.0-37.0) g/dL RDW 15.9 H (11.5-15.5) % Plt Count 336 (150-450) k/uL MPV 9.3 Neutrophils % 90 % Lymphocytes % 7 % Monocytes % 2 % Eosinophils % 0 % Basophils % 0 % Neutrophils # 15.0 H (1.3-7.7) k/uL Lymphocytes # 1.2 (1.0-4.8) k/uL Monocytes # 0.3 (0-1.0) k/uL Eosinophils # 0.0 (0-0.7) k/uL Basophils # 0.0 (0-0.2) k/uL Hypochromasia Marked Macrocytosis Moderate PT 10.9 (10.0-12.5) sec INR 1.0 (<1.2) APTT 22.0 (22.0-30.0) sec Sodium (137-145) mmol/L Potassium (3.5-5.1) mmol/L Chloride (98-107) mmol/L Carbon Dioxide (22-30) mmol/L Anion Gap mmol/L BUN (9-20) mg/dL Creatinine (0.66-1.25) mg/dL Est GFR (CKD-EPI)AfAm (>60 ml/min/1.73 sqM) Est GFR (CKD-EPI)NonAf (>60 ml/min/1.73 sqM) Glucose (74-99) mg/dL POC Glucose (mg/dL) 465 H (70-110) mg/dL POC Glu Psych Assistant ID [place]rick Calcium (8.4-10.2) mg/dL Total Bilirubin (0.2-1.3) mg/dL AST (17-59) U/L ALT (4-49) U/L Alkaline Phosphatase (38-126) U/L Ammonia (<30) umol/L Troponin I (0.000-0.034) ng/mL Total Protein (6.3-8.2) g/dL Albumin (3.5-5.0) g/dL Urine Color Urine Appearance (Clear) Urine pH (5.0-8.0) Ur Specific [place] (1.001-1.035) Urine Protein (Negative) Urine Glucose (UA) (Negative) Urine Ketones (Negative) Urine Blood (Negative) Urine Nitrite (Negative) Urine Bilirubin (Negative) Urine Urobilinogen (<2.0) mg/dL Ur Leukocyte Esterase (Negative) Urine RBC (0-5) /hpf Urine WBC (0-5) /hpf Acetone, Qual (Negative) 12/05/24 12/05/24 12/05/24 Range/Units 19:09 19:09 19:09 WBC (3.8-10.6) k/uL RBC (4.30-5.90) m/uL Hgb (13.0-17.5) gm/dL Hct (39.0-53.0) % MCV (80.0-100.0) fL MCH (25.0-35.0) pg MCHC (31.0-37.0) g/dL RDW (11.5-15.5) % Plt Count (150-450) k/uL MPV Neutrophils % % Lymphocytes % % Monocytes % % Eosinophils % % Basophils % % Neutrophils # (1.3-7.7) k/uL Lymphocytes # (1.0-4.8) k/uL Monocytes # (0-1.0) k/uL Eosinophils # (0-0.7) k/uL Basophils # (0-0.2) k/uL Hypochromasia Macrocytosis PT (10.0-12.5) sec INR (<1.2) APTT (22.0-30.0) sec Sodium 150 H (137-145) mmol/L Potassium 4.1 (3.5-5.1) mmol/L Chloride 110 H (98-107) mmol/L Carbon Dioxide 28 (22-30) mmol/L Anion Gap 12 mmol/L BUN 104 H* (9-20) mg/dL Creatinine 3.88 H (0.66-1.25) mg/dL Est GFR (CKD-EPI)AfAm 15 (>60 ml/min/1.73 sqM) Est GFR (CKD-EPI)NonAf 13 (>60 ml/min/1.73 sqM) Glucose 449 H (74-99) mg/dL POC Glucose (mg/dL) (70-110) mg/dL POC Glu Psych Assistant ID Calcium 8.7 (8.4-10.2) mg/dL Total Bilirubin 0.5 (0.2-1.3) mg/dL AST 30 (17-59) U/L ALT 19 (4-49) U/L Alkaline Phosphatase 133 H (38-126) U/L Ammonia <9 (<30) umol/L Troponin I 0.085 H* (0.000-0.034) ng/mL Total Protein 5.8 L (6.3-8.2) g/dL Albumin 2.8 L (3.5-5.0) g/dL Urine Color Urine Appearance (Clear) Urine pH (5.0-8.0) Ur Specific [place] (1.001-1.035) Urine Protein (Negative) Urine Glucose (UA) (Negative) Urine Ketones (Negative) Urine Blood (Negative) Urine Nitrite (Negative) Urine Bilirubin (Negative) Urine Urobilinogen (<2.0) mg/dL Ur Leukocyte Esterase (Negative) Urine RBC (0-5) /hpf Urine WBC (0-5) /hpf Acetone, Qual Negative (Negative) 12/05/24 Range/Units 20:23 WBC (3.8-10.6) k/uL RBC (4.30-5.90) m/uL Hgb (13.0-17.5) gm/dL Hct (39.0-53.0) % MCV (80.0-100.0) fL MCH (25.0-35.0) pg MCHC (31.0-37.0) g/dL RDW (11.5-15.5) % Plt Count (150-450) k/uL MPV Neutrophils % % Lymphocytes % % Monocytes % % Eosinophils % % Basophils % % Neutrophils # (1.3-7.7) k/uL Lymphocytes # (1.0-4.8) k/uL Monocytes # (0-1.0) k/uL Eosinophils # (0-0.7) k/uL Basophils # (0-0.2) k/uL Hypochromasia Macrocytosis PT (10.0-12.5) sec INR (<1.2) APTT (22.0-30.0) sec Sodium (137-145) mmol/L Potassium (3.5-5.1) mmol/L Chloride (98-107) mmol/L Carbon Dioxide (22-30) mmol/L Anion Gap mmol/L BUN (9-20) mg/dL Creatinine (0.66-1.25) mg/dL Est GFR (CKD-EPI)AfAm (>60 ml/min/1.73 sqM) Est GFR (CKD-EPI)NonAf (>60 ml/min/1.73 sqM) Glucose (74-99) mg/dL POC Glucose (mg/dL) (70-110) mg/dL POC Glu Psych Assistant ID Calcium (8.4-10.2) mg/dL Total Bilirubin (0.2-1.3) mg/dL AST (17-59) U/L ALT (4-49) U/L Alkaline Phosphatase (38-126) U/L Ammonia (<30) umol/L Troponin I (0.000-0.034) ng/mL Total Protein (6.3-8.2) g/dL Albumin (3.5-5.0) g/dL Urine Color Yellow Urine Appearance Cloudy (Clear) Urine pH 5.5 (5.0-8.0) Ur Specific [place] 1.015 (1.001-1.035) Urine Protein 2+ H (Negative) Urine Glucose (UA) 4+ H (Negative) Urine Ketones Negative (Negative) Urine Blood Small H (Negative) Urine Nitrite Negative (Negative) Urine Bilirubin Negative (Negative) Urine Urobilinogen <2.0 (<2.0) mg/dL Ur Leukocyte Esterase Small H (Negative) Urine RBC 4 (0-5) /hpf Urine WBC 36 H (0-5) /hpf Acetone, Qual (Negative) Disposition Clinical Impression: Altered mental status, Dehydration, Hyperglycemia Disposition: ADMITTED IP TO THIS HOSP Is patient prescribed a controlled substance at d/c from ED?: No Referrals: None,Stated [Primary Care Provider] - 1-2 days Time of Disposition: 20:40
[2024-12-05] MEDS: SODIUM CHLORIDE 0.9% 1,000 ML IV STA (19:14)
[2024-12-05 19:31] LABS: ALT 19 U/L (4-49); AST 30 U/L (17-59); African American GFR (CKD) 15 (>60 ml/min/1.73 sqM); Albumin 2.8 g/dL (3.5-5.0); Alkaline Phosphatase 133 U/L (38-126); Anion Gap 12 mmol/L; Calcium 8.7 mg/dL (8.4-10.2); Carbon Dioxide 28 mmol/L (22-30); Chloride 110 mmol/L (98-107); Glucose 449 mg/dL (74-99); Non-African American GFR(CKD) 13 (>60 ml/min/1.73 sqM); Potassium 4.1 mmol/L (3.5-5.1); Sodium 150 mmol/L (137-145); Total Bilirubin 0.5 mg/dL (0.2-1.3); Total Protein 5.8 g/dL (6.3-8.2)
[2024-12-05 19:36] LABS: Prothrombin Time 10.9 sec (10.0-12.5)
[2024-12-05 19:38] LABS: Blood Urea Nitrogen 104 mg/dL (9-20)
[2024-12-05 19:39] LABS: Basophils % (A) 0 %; Eosinophils % (A) 0 %; HCT 36.5 % (39.0-53.0); HGB 10.6 gm/dL (13.0-17.5); Hypochromasia Marked; Lymphocytes # (A) 1.2 k/uL (1.0-4.8); Lymphocytes % (A) 7 %; MCHC 28.9 g/dL (31.0-37.0); Macrocytosis Moderate; Mean Platelet Volume 9.3; Monocytes # (A) 0.3 k/uL (0-1.0); Monocytes % (A) 2 %; Neutrophils % (A) 90 %; Platelet Count 336 k/uL (150-450); RBC 3.53 m/uL (4.30-5.90); RDW 15.9 % (11.5-15.5); WBC 16.6 k/uL (3.8-10.6)
[2024-12-05 19:43] LABS: MCV 103.6 fL (80.0-100.0)
--- NOTE | 2024-12-05 19:55 | CT ---
EXAMINATION TYPE: CT brain wo con DATE OF EXAM: 12/05/2024 7:33 PM COMPARISON: 11/27/2024. CLINICAL INDICATION: Male, 89 years old with history of Altered mental status, ams TECHNIQUE: Brain: Axial CT images of the brain were obtained with coronal and sagittal reformats created and rev iewed. Contrast used: None. Oral contrast used: None. CT DLP: 1200.4 mGycm, Automated exposure control for dose reduction was used. FINDINGS: Brain: Extra-axial spaces: No abnormal extra-axial fluid collections. Ventricular system: Dilatation in proportion to cerebral atrophy. Cerebral parenchyma: Cerebral atrophy. No acute intraparenchymal hemorrhage or mass effect. The matos -white junction is well differentiated. Scattered hypoattenuating areas are seen within the white mat ter. Cerebellum: Unremarkable. Mass effect: No evidence of midline shift. Intracranial vasculature: unremarkable Soft tissues: Normal. Calvarium/osseous structures: No depressed skull fracture. Paranasal sinuses and mastoid air cells: Mild scattered paranasal sinus disease. Visualized orbits: Orbital contents are intact. IMPRESSION: 1. No acute intracranial process. 2. Nonspecific white matter changes, likely secondary to chronic small vessel ischemic disease. [facility], , 12/05/2024 7:52 PM
--- NOTE | 2024-12-05 19:57 | XR ---
EXAMINATION TYPE: XR chest 2V DATE OF EXAM: 12/05/2024 7:40 PM COMPARISON: Chest radiographs from 12/01/2024 CLINICAL INDICATION: Male, 89 years old with history of altered mental status; [facility] TECHNIQUE: XR chest 2V Frontal and lateral views of the chest. FINDINGS: Lungs/Pleura: No evidence of focal consolidation or pneumothorax. Blunting of the costophrenic angles is present. Pulmonary vascularity: Unremarkable. Heart/mediastinum: Cardiomediastinal silhouette is prominent in size. Musculoskeletal: No acute osseous pathology. IMPRESSION: Pulmonary vascular congestion and bilateral pleural effusions. Correlate with BNP for congestive hear t failure. [facility], , 12/05/2024 7:54 PM
[2024-12-05 20:36] LABS: Appearance,Urine Cloudy (Clear); Bilirubin,Urine Negative (Negative); Blood,Urine Small (Negative); Color,Urine Yellow; Glucose,Urine (UA) 4+ (Negative); Ketones,Urine Negative (Negative); Leukocyte Esterase,Urine Small (Negative); Nitrite,Urine Negative (Negative); PH, Urine 5.5 (5.0-8.0); Protein,Urine 2+ (Negative); RBC,Urine 4 /hpf (0-5); Specific Gravity,Urine 1.015 (1.001-1.035); Urobilinogen,Urine <2.0 mg/dL (<2.0); WBC,Urine 36 /hpf (0-5)
[2024-12-05] MEDS: SODIUM CHLORIDE 0.45% 1,000 ML IV SCH (20:37)
[2024-12-05] MEDS ORDERED: NALOXONE 0.4 MG/ML 1 ML VIAL IV PRN (20:43)
[2024-12-05 20:48] LABS: Glucose,Whole Blood 358 mg/dL (70-110)
[2024-12-05] MEDS: INSULIN LISPRO (HumaLOG) 100 UNIT/ML 10 mL VL SQ SCH (21:26)
[2024-12-05] MEDS ORDERED: DEXTROSE 50% SYRINGE 50 ML IVP PRN ×2 (21:58)
[2024-12-05] MEDS: hydrALAZINE HCL 25 MG TAB PO SCH (21:59)
--- NOTE | 2024-12-05 22:00 | P.HPIM ---
History of Present Illness H&P Date: 12/05/24 Chief Complaint: Altered mentation This is a patient was recently in the hospital from November 24 through December 04. Patient was then brought in unresponsive hypoglycemic. Also found to be in CHF exacerbation. 2D echo had shown EF of 30 to 35%. Also felt to have underlying possible normal pressure hydrocephalus. Did have some CSF removed by lumbar puncture by as ordered by neurology. Patient has severe cognitive impairment. Prior to discharge was tolerating a diet. Answer some questions. Also underlying chronic kidney disease.. Last admission because of her creatinine GREG inhibitor and Farxiga were discontinued. Patient son at the bedside. Patient rather lethargic. Review of systems difficult to obtain as patient lethargic Social history: Patient currently at [facility] for rehab. Was discharged from here yesterday. No history of smoking known. Physical examination: VITAL SIGNS: 97.6, 58, 14, 105 x 76, 99% room air] GENERAL: BMI 24.4, laying in bed lethargic just about arousable. EYES: Pupils equal. Conjunctiva richard l. HEENT: External appearance of nose and ears normal, oral cavity dry mucous membrane l. NECK: JVD not raised; masses not palpable. HEART: First and second heart sounds are normal; no edema. LUNGS: Respiratory rate normal; take creased breath sounds n. ABDOMEN: Soft, nontender, liver spleen not palpable, no masses palpable. PSYCH: Lethargic just about arousable l. MUSCULOSKELETAL:No Clubbing/cyanosis;muscles-grossly intact. OA NEUROLOGICAL: Cranial nerves grossly intact; no facial asymmetry, power and sensation grossly intact. LYMPHATICS: No lymph nodes palpable in the axilla and neck INVESTIGATIONS, reviewed in the clinical context: December 05: White count 16.6 hemoglobin 10.6 platelet 336 sodium 150 potassium 4.1 BUN 104 creatinine 3.88 blood glucose 449 lactic acid 2.6 serum acetone negative From recent admission December 04: Sodium 149 potassium 3.4 BUN 86 creatinine 3.18 December 02: Sodium 140 potassium 3.2 creatinine 2.63 November 30: White count 9 hemoglobin 10.3 platelets 306 sodium 135 potassium 3.6 BUN 57 creatinine 2.50 EEG: No epileptiform activity. Generalized cerebral dysfunction. Carotid Doppler: Unremarkable 2D echo: EF 30-35%. Moderate to severe pulmonary hypertension.Mild to moderate MR. Mild to moderate TR. CT brain: Nil acute. Dilated ventricular system.Some chronic white matter small ischemic vessel changes. Assessment and plan: -Acute metabolic encephalopathy from free water deficit hypernatremia -Possible normal pressure hydrocephalus Last admission follow-up with neurology Patient did have some CSF removed by lumbar puncture -Essential hypertension: Cardura 4 mg twice daily. hydralazine 25 mg 3 times daily. Lopressor to 50 mg twice daily -Diabetes mellitus type 2, on oral hypoglycemic Amaryl resume. Actos. Follow Accu-Cheks -Chronic congestive heart failure from systolic dysfunction EF 30 to 35% Farxiga-hold because of renal function. 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 And on Lasix. 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 Multifactorial For subacute rehab -Full code, with instructions Spoke to patient's son at the bedside. Hold Lasix. IV fluids. Half saline. All prognosis guarded. Follow labs closely. Past Medical History Past Medical History: Diabetes Mellitus, Hyperlipidemia, Hypertension History of Any Multi-Drug Resistant Organisms: None Reported Past Surgical History: No Surgical Hx Reported Additional Past Anesthesia/Blood Transfusion Reaction / Comment(s): Jahovas Witness-"would not allow blood transfusion" Past Psychological History: No Psychological Hx Reported Smoking Status: Never smoker Past Alcohol Use History: None Reported Past Drug Use History: None Reported - Past Family History Father Family Medical History: Myocardial Infarction (ID) Mother Family Medical History: No Reported History, Unable to Obtain Additional Family Medical History / Comment(s): unknown Medications and Allergies Home Medications Medication Instructions Recorded Confirmed Type Doxazosin [Cardura] 4 mg PO BID 03/28/23 11/24/24 History Pioglitazone [Actos] 30 mg PO DAILY 09/05/24 11/24/24 History Glimepiride [Amaryl] 1 mg PO DAILY 11/24/24 11/24/24 History Aspirin 81 mg PO DAILY tab 12/04/24 Rx Atorvastatin [Lipitor] 40 mg PO HS tab 12/04/24 Rx Folic Acid 1 mg PO DAILY tab 12/04/24 Rx Furosemide [Lasix] 40 mg PO DAILY tab 12/04/24 Rx Isosorbide Mononitrate ER [Imdur] 30 mg PO DAILY tab 12/04/24 Rx Metoprolol Tartrate [Lopressor] 50 mg PO BID #1 tab 12/04/24 Rx hydrALAZINE HCL [Apresoline] 25 mg PO TID tab 12/04/24 Rx Allergies Allergy/AdvReac Type Severity Reaction Status Date / Time No Known Allergies Allergy Verified 12/05/24 18:59 Physical Exam Vitals: Vital Signs Temp Pulse Resp BP Pulse Ox 12/05/24 21:31 72 16 99/53 99 12/05/24 20:27 58 L 14 105/76 99 12/05/24 19:44 68 16 101/53 95 12/05/24 19:15 72 16 84/38 95 12/05/24 18:51 97.6 F 68 20 103/60 100 Intake and Output 12/05/24 12/05/24 12/05/24 06:59 14:59 22:59 Other: Weight 74.843 kg Results CBC & Chem 7: 12/05/24 19:09 12/05/24 19:09 Labs: Abnormal Lab Results - Last 24 Hours (Table) 12/05/24 12/05/24 12/05/24 Range/Units 18:52 19:09 19:09 WBC 16.6 H (3.8-10.6) k/uL RBC 3.53 L (4.30-5.90) m/uL Hgb 10.6 L (13.0-17.5) gm/dL Hct 36.5 L (39.0-53.0) % MCV 103.6 H D (80.0-100.0) fL MCHC 28.9 L (31.0-37.0) g/dL RDW 15.9 H (11.5-15.5) % Neutrophils # 15.0 H (1.3-7.7) k/uL Sodium 150 H (137-145) mmol/L Chloride 110 H (98-107) mmol/L BUN 104 H* (9-20) mg/dL Creatinine 3.88 H (0.66-1.25) mg/dL Glucose 449 H (74-99) mg/dL POC Glucose (mg/dL) 465 H (70-110) mg/dL Plasma Lactic Acid Hardy (0.7-2.0) mmol/L Alkaline Phosphatase 133 H (38-126) U/L Troponin I (0.000-0.034) ng/mL Total Protein 5.8 L (6.3-8.2) g/dL Albumin 2.8 L (3.5-5.0) g/dL Urine Protein (Negative) Urine Glucose (UA) (Negative) Urine Blood (Negative) Ur Leukocyte Esterase (Negative) Urine WBC (0-5) /hpf 12/05/24 12/05/24 12/05/24 Range/Units 19:09 20:23 20:42 WBC (3.8-10.6) k/uL RBC (4.30-5.90) m/uL Hgb (13.0-17.5) gm/dL Hct (39.0-53.0) % MCV (80.0-100.0) fL MCHC (31.0-37.0) g/dL RDW (11.5-15.5) % Neutrophils # (1.3-7.7) k/uL Sodium (137-145) mmol/L Chloride (98-107) mmol/L BUN (9-20) mg/dL Creatinine (0.66-1.25) mg/dL Glucose (74-99) mg/dL POC Glucose (mg/dL) (70-110) mg/dL Plasma Lactic Acid Hardy 2.6 H* (0.7-2.0) mmol/L Alkaline Phosphatase (38-126) U/L Troponin I 0.085 H* (0.000-0.034) ng/mL Total Protein (6.3-8.2) g/dL Albumin (3.5-5.0) g/dL Urine Protein 2+ H (Negative) Urine Glucose (UA) 4+ H (Negative) Urine Blood Small H (Negative) Ur Leukocyte Esterase Small H (Negative) Urine WBC 36 H (0-5) /hpf 12/05/24 Range/Units 20:46 WBC (3.8-10.6) k/uL RBC (4.30-5.90) m/uL Hgb (13.0-17.5) gm/dL Hct (39.0-53.0) % MCV (80.0-100.0) fL MCHC (31.0-37.0) g/dL RDW (11.5-15.5) % Neutrophils # (1.3-7.7) k/uL Sodium (137-145) mmol/L Chloride (98-107) mmol/L BUN (9-20) mg/dL Creatinine (0.66-1.25) mg/dL Glucose (74-99) mg/dL POC Glucose (mg/dL) 358 H (70-110) mg/dL Plasma Lactic Acid Hardy (0.7-2.0) mmol/L Alkaline Phosphatase (38-126) U/L Troponin I (0.000-0.034) ng/mL Total Protein (6.3-8.2) g/dL Albumin (3.5-5.0) g/dL Urine Protein (Negative) Urine Glucose (UA) (Negative) Urine Blood (Negative) Ur Leukocyte Esterase (Negative) Urine WBC (0-5) /hpf
[2024-12-05] MEDS: ENOXAPARIN 40 MG/0.4 ML SYRINGE SQ SCH (22:21)
[2024-12-05 22:28] LABS: Glucose,Whole Blood 285 mg/dL (70-110)
[2024-12-06 07:16] LABS: Basophils % (A) 0 %; Eosinophils % (A) 0 %; HCT 34.5 % (39.0-53.0); HGB 10.3 gm/dL (13.0-17.5); Hypochromasia Marked; Lymphocytes # (A) 1.6 k/uL (1.0-4.8); Lymphocytes % (A) 8 %; MCHC 29.8 g/dL (31.0-37.0); MCV 100.8 fL (80.0-100.0); Macrocytosis Slight; Mean Platelet Volume 9.2; Monocytes # (A) 0.4 k/uL (0-1.0); Monocytes % (A) 2 %; Neutrophils # (A) 17.2 k/uL (1.3-7.7); Neutrophils % (A) 89 %; Platelet Count 305 k/uL (150-450); RBC 3.42 m/uL (4.30-5.90); RDW 15.9 % (11.5-15.5); WBC 19.4 k/uL (3.8-10.6)
[2024-12-06 07:27] LABS: ALT 17 U/L (4-49); AST 29 U/L (17-59); African American GFR (CKD) 14 (>60 ml/min/1.73 sqM); Albumin 2.4 g/dL (3.5-5.0); Alkaline Phosphatase 99 U/L (38-126); Anion Gap 10 mmol/L; Calcium 8.4 mg/dL (8.4-10.2); Carbon Dioxide 30 mmol/L (22-30); Chloride 114 mmol/L (98-107); Glucose 139 mg/dL (74-99); Magnesium 2.6 mg/dL (1.6-2.3); Non-African American GFR(CKD) 12 (>60 ml/min/1.73 sqM); Phosphorus 3.4 mg/dL (2.5-4.5); Potassium 4.1 mmol/L (3.5-5.1); Sodium 154 mmol/L (137-145); Total Bilirubin 0.6 mg/dL (0.2-1.3); Total Protein 5.3 g/dL (6.3-8.2)
[2024-12-06 07:44] LABS: Blood Urea Nitrogen 102 mg/dL (9-20)
[2024-12-06 08:13] LABS: Glucose,Whole Blood 122 mg/dL (70-110)
[2024-12-06] MEDS: ENOXAPARIN 30 MG/0.3 ML SYRINGE SQ SCH (09:44)
[2024-12-06] MEDS: PANTOPRAZOLE 40 MG/10 ML VIAL IV SCH (09:44)
[2024-12-06] MEDS: FOLIC ACID 1 MG TAB PO SCH (10:01)
[2024-12-06] MEDS: METOPROLOL TARTRATE 50 MG TAB PO SCH (10:01)
[2024-12-06] MEDS: DOXAZOSIN 4 MG TAB PO SCH (10:01)
[2024-12-06] MEDS: ASPIRIN 81 MG PO SCH (10:01)
[2024-12-06] MEDS: ISOSORBIDE MONONITRATE ER 30 MG TAB.ER.24H PO SCH (10:02)
[2024-12-06 12:47] LABS: Glucose,Whole Blood 189 mg/dL (70-110)
[2024-12-06 17:07] LABS: Glucose,Whole Blood 189 mg/dL (70-110)
--- NOTE | 2024-12-06 18:51 | P.PN ---
Progress Note - Text Progress Note Date: 12/06/24 Chief Complaint: Altered mentation This is a patient was recently in the hospital from November 24 through December 04. Patient was then brought in unresponsive hypoglycemic. Also found to be in CHF exacerbation. 2D echo had shown EF of 30 to 35%. Also felt to have underlying possible normal pressure hydrocephalus. Did have some CSF removed by lumbar puncture by as ordered by neurology. Patient has severe cognitive impairment. Prior to discharge was tolerating a diet. Answer some questions. Also underlying chronic kidney disease.. Last admission because of her creatinine GREG inhibitor and Farxiga were discontinued. Patient son at the bedside. Patient rather lethargic. December 06: Overflowing the ER. More awake. Does answer simple questions. Tolerating pured diet. Getting half saline at 75 cc an hour. IV ceftriaxone. Sodium up to 154. Continue to hold of Lasix. Due to blood pressure on the lower side DC hydralazine. Nurse called me later that patient completed family with some chest pressure. Cardiology consulted. Active Medications Aspirin (Aspirin 81 Mg) 81 mg PO DAILY [facility] Last Admin: 12/06/24 10:01 Dose: 81 mg Atorvastatin Calcium (Atorvastatin 40 Mg Tab) 40 mg PO HS [facility] Dextrose/Water (Dextrose 50% Syringe 50 Ml) 25 ml IVP PER PROTOCOL PRN; Protocol PRN Reason: Hypoglycemia Dextrose/Water (Dextrose 50% Syringe 50 Ml) 50 ml IVP PER PROTOCOL PRN; Protocol PRN Reason: Hypoglycemia Dextrose/Water (Dextrose 50% Syringe 50 Ml) 25 ml IVP PER PROTOCOL PRN; Protocol PRN Reason: Hypoglycemia Dextrose/Water (Dextrose 50% Syringe 50 Ml) 50 ml IVP PER PROTOCOL PRN; Protocol PRN Reason: Hypoglycemia Doxazosin Mesylate (Doxazosin 4 Mg Tab) 4 mg PO BID [facility] Last Admin: 12/06/24 10:01 Dose: 4 mg Enoxaparin Sodium (Enoxaparin 30 Mg/0.3 Ml Syringe) 30 mg SQ DAILY [facility] Last Admin: 12/06/24 09:44 Dose: 30 mg Folic Acid (Folic Acid 1 Mg Tab) 1 mg PO DAILY [facility] Last Admin: 12/06/24 10:01 Dose: 1 mg Sodium Chloride (Saline 0.45%) 1,000 mls @ 75 mls/hr IV .[id number] [facility] Last Admin: 12/06/24 10:08 Dose: 75 mls/hr Ceftriaxone Sodium 1 gm/ (Sodium Chloride) 50 mls @ 100 mls/hr IVPB Q24H [facility] Last Admin: 12/05/24 20:48 Dose: 100 mls/hr Insulin Human Lispro (Insulin Lispro (Humalog) 100 Unit/Ml 10 Ml Vl) 0 unit SQ ACHS [facility]; Protocol Last Admin: 12/06/24 17:48 Dose: 2 unit Isosorbide Mononitrate (Isosorbide Mononitrate Er 30 Mg Tab.Er.24h) 30 mg PO DAILY [facility] Last Admin: 12/06/24 10:02 Dose: 30 mg Metoprolol Tartrate (Metoprolol Tartrate 50 Mg Tab) 50 mg PO BID [facility] Last Admin: 12/06/24 10:01 Dose: 50 mg Naloxone HCl (Naloxone 0.4 Mg/Ml 1 Ml Vial) 0.2 mg IV Q2M PRN PRN Reason: Opioid Reversal Pantoprazole Sodium (Pantoprazole 40 Mg/10 Ml Vial) 40 mg IV DAILY [facility] Last Admin: 12/06/24 09:44 Dose: 40 mg Social history: Patient currently at [facility] for rehab. Was discharged from here yesterday. No history of smoking known. Physical examination: VITAL SIGNS: 76, 20, 108 x 65, 98% room air GENERAL: BMI 24.4, laying in bed more awake today. Answering simple questions EYES: Pupils equal. Conjunctiva richard l. HEENT: External appearance of nose and ears normal, oral cavity dry mucous membrane l. NECK: JVD not raised; masses not palpable. HEART: First and second heart sounds are normal; no edema. LUNGS: Respiratory rate normal; decreased breath sounds n. ABDOMEN: Soft, nontender, liver spleen not palpable, no masses palpable. PSYCH: Answering simple questions MUSCULOSKELETAL:No Clubbing/cyanosis;muscles-grossly intact. OA NEUROLOGICAL: Cranial nerves grossly intact; no facial asymmetry, moving all 4 limbs INVESTIGATIONS, reviewed in the clinical context: December 06: White count 19.4 hemoglobin 10.3 platelets 305 sodium 154 potassium 4.1 BUN 102 creatinine 4.02 December 05: White count 16.6 hemoglobin 10.6 platelet 336 sodium 150 potassium 4.1 BUN 104 creatinine 3.88 blood glucose 449 lactic acid 2.6 serum acetone negative From recent admission December 04: Sodium 149 potassium 3.4 BUN 86 creatinine 3.18 December 02: Sodium 140 potassium 3.2 creatinine 2.63 November 30: White count 9 hemoglobin 10.3 platelets 306 sodium 135 potassium 3.6 BUN 57 creatinine 2.50 EEG: No epileptiform activity. Generalized cerebral dysfunction. Carotid Doppler: Unremarkable 2D echo: EF 30-35%. Moderate to severe pulmonary hypertension.Mild to moderate MR. Mild to moderate TR. CT brain: Nil acute. Dilated ventricular system.Some chronic white matter small ischemic vessel changes. Assessment and plan: -Acute metabolic encephalopathy from free water deficit hypernatremia: Some improvement -Possible normal pressure hydrocephalus Last admission follow-up with neurology Patient did have some CSF removed by lumbar puncture -Hypernatremia, from free water deficit: Worsening Continue half saline 75 cc an hour. Careful because of CHF -Essential hypertension: Currently blood pressure running low Cardura 4 mg twice daily. hydralazine discontinue. Decrease Lopressor to 25 3 times daily -Diabetes mellitus type 2, on oral hypoglycemic Amaryl resume. Actos. Follow Accu-Cheks -Chronic congestive heart failure from systolic dysfunction EF 30 to 35% Farxiga-hold because of renal function. 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 Multifactorial For subacute rehab -Full code, with instructions Spoke to patient's son at the bedside. Hold Lasix. IV fluids. Half saline. All prognosis guarded. Follow labs closely. Past Medical History Past Medical History: Diabetes Mellitus, Hyperlipidemia, Hypertension History of Any Multi-Drug Resistant Organisms: None Reported Past Surgical History: No Surgical Hx Reported Additional Past Anesthesia/Blood Transfusion Reaction / Comment(s): Jahovas Witness-"would not allow blood transfusion" Past Psychological History: No Psychological Hx Reported Smoking Status: Never smoker Past Alcohol Use History: None Reported Past Drug Use History: None Reported
[2024-12-06 20:35] LABS: Glucose,Whole Blood 132 mg/dL (70-110)
[2024-12-06] MEDS: ACETAMINOPHEN TAB 325 MG TAB PO PRN (20:43)
[2024-12-06] MEDS: ATORVASTATIN 40 MG TAB PO SCH (20:43)
[2024-12-06] MEDS: METOPROLOL TARTRATE 25 MG TAB PO SCH (20:43)
[2024-12-06] MEDS: IPRATROPIUM-ALBUTEROL 3 ML NEB INHALATION PRN (21:36)
[2024-12-07 05:53] LABS: Glucose,Whole Blood 74 mg/dL (70-110)
[2024-12-07 06:55] LABS: African American GFR (CKD) 15 (>60 ml/min/1.73 sqM); Anion Gap 6 mmol/L; Calcium 7.8 mg/dL (8.4-10.2); Carbon Dioxide 28 mmol/L (22-30); Chloride 105 mmol/L (98-107); Glucose 71 mg/dL (74-99); Non-African American GFR(CKD) 13 (>60 ml/min/1.73 sqM); Potassium 4.2 mmol/L (3.5-5.1); Sodium 139 mmol/L (137-145)
[2024-12-07 07:02] LABS: Blood Urea Nitrogen 103 mg/dL (9-20)
[2024-12-07 11:37] LABS: Glucose,Whole Blood 108 mg/dL (70-110)
--- NOTE | 2024-12-07 12:01 | P.NPCON ---
History of Present Illness - Reason for Consult acute renal failure, chronic renal failure - History of Present Illness Reason for consultation: Acute kidney injury on chronic kidney disease History of present illness: Patient is 89-year-old male seen in renal consultation for acute kidney injury on chronic kidney disease. Patient has chronic kidney disease stage IV with baseline creatinine 2.2-2.5 secondary to diabetic kidney disease. Patient was recently admitted at this facility and creatinine was noted to be as high as 2.78 and was 2.63 dated December 02, 2024 and 3.18 dated December 04, 2024. Patient was recently admitted with CHF exacerbation. Patient noted to have systolic CHF ejection fraction of 30 to 35% and moderate to severe pulmonary hypertension. Urine cultures positive for gram-negative bacilli. He is receiving IV antibiotics. Patient does have longstanding history of diabetes. He is currently receiving half-normal saline at 75 cc an hour. Blood pressure noted to be low in the systolic 70s to 90s. He is currently on room air. Has external urinary catheter. Oliguric. Patient is a poor historian and is resting in bed. Son is present at bedside. Vital signs are stable. Blood pressure low. General: No acute distress. HEENT: Head exam is unremarkable. LUNGS: No audible rhonchi or wheezes. HEART: Rate and Rhythm are regular. ABDOMEN: Nontender. EXTREMITITES: No edema. Past Medical History Past Medical History: Diabetes Mellitus, Hyperlipidemia, Hypertension History of Any Multi-Drug Resistant Organisms: None Reported Past Surgical History: No Surgical Hx Reported Additional Past Anesthesia/Blood Transfusion Reaction / Comment(s): Dorota berry-"would not allow blood transfusion" Past Psychological History: No Psychological Hx Reported Smoking Status: Never smoker Past Alcohol Use History: None Reported Past Drug Use History: None Reported - Past Family History Father Family Medical History: Myocardial Infarction ([place]) Mother Family Medical History: No Reported History, Unable to Obtain Additional Family Medical History / Comment(s): unknown Medications and Allergies Home Medications Medication Instructions Recorded Confirmed Type Doxazosin [Cardura] 4 mg PO BID@0900,1700 03/28/23 12/06/24 History Pioglitazone [Actos] 30 mg PO DAILY@0900 09/05/24 12/06/24 History Glimepiride [Amaryl] 1 mg PO DAILY@0900 11/24/24 12/06/24 History Acetaminophen Tab [Tylenol Tab] 500 mg PO Q6HR PRN 12/06/24 12/06/24 History Aspirin EC [Ecotrin Low Dose] 81 mg PO DAILY@0900 12/06/24 12/06/24 History Atorvastatin Calcium [Lipitor] 40 mg PO HS@2100 12/06/24 12/06/24 History Folic Acid 1 mg PO DAILY@0900 12/06/24 12/06/24 History Furosemide [Lasix] 40 mg PO DAILY@0900 12/06/24 12/06/24 History Insulin Aspart [NovoLOG Flexpen] See Protocol SQ AC-TID@07,11,16 12/06/24 12/06/24 History Isosorbide Mononitrate ER [Imdur] 30 mg PO DAILY@0900 12/06/24 12/06/24 History Metoprolol Tartrate [Lopressor] 50 mg PO BID@0900,1700 12/06/24 12/06/24 History hydrALAZINE HCL [Apresoline] 25 mg PO TID@0900,1300,2100 12/06/24 12/06/24 History Allergies Allergy/AdvReac Type Severity Reaction Status Date / Time No Known Allergies Allergy Verified 12/06/24 08:22 Physical Exam Vitals: Vital Signs Temp Pulse Pulse Resp BP BP Pulse Ox 12/07/24 11:38 60 28 H 74/40 99 12/07/24 09:00 98.3 F 80 18 110/55 98 12/07/24 03:39 98.1 F 57 L 18 97/49 100 12/06/24 23:38 98.3 F 62 18 101/64 99 12/06/24 21:44 63 12/06/24 21:36 68 12/06/24 21:30 98.0 F 68 18 121/66 98 12/06/24 18:55 97.4 F L 65 18 94/71 98 12/06/24 17:28 61 20 106/66 99 12/06/24 15:18 66 20 102/51 99 12/06/24 14:00 76 20 108/65 12/06/24 13:20 62 18 98/48 98 Intake and Output 12/06/24 12/07/24 12/07/24 22:59 06:59 14:59 Other: Voiding Method Diaper Diaper External Catheter # Voids 1 1 # Bowel Movements 1 Weight 74.843 kg Results - Lab Results Most recent lab results Calcium 7.8 mg/dL (8.4-10.2) L 12/07/24 06:08 Phosphorus 3.4 mg/dL (2.5-4.5) 12/06/24 06:07 Magnesium 2.6 mg/dL (1.6-2.3) H 12/06/24 06:07 12/06/24 06:07 12/07/24 06:08 Assessment and Plan Plan: Assessment: 1. Acute kidney injury secondary to ATN secondary to severe sepsis, hypotension Creatinine peaked at 4.02 this admission and is 3.93 today. Oliguric. Kidney ultrasound from August 2024 showed no evidence of hydronephrosis. Left kidne y was atrophic. 2. 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 3. Severe sepsis secondary to gram-negative UTI on antibiotics. 4. Chronic systolic CHF ejection fraction of 30 to 35% with moderate to severe pulmonary hypertension. 5. Diabetes mellitus. 6. Hypernatremia from lack of oral water intake. Sodium level 150 on admission and was 154 yesterday. It is 139 today. Plan: Change IV fluids from half-normal saline to normal saline at 75 cc an hour. Check bladder scan to rule out urinary retention. Repeat renal ultrasound. Follow-up cultures. Avoid nephrotoxins. Continue to monitor renal function and urine output. Stop doxazosin. Add midodrine. Bolus with 500 cc bolus of normal saline. Consider vasopressor support if remains hypotensive. Prognosis guarded. Case discussed with son present at bedside. Thank you for the consultation. I will continue to follow the patient with you during his hospital stay.
[2024-12-07] MEDS: SODIUM CHLORIDE 0.9% 1,000 ML IV SCH (12:23)
[2024-12-07] MEDS: SODIUM CHLORIDE 0.9% 500 ML 500 ML IV ONE (12:23)
[2024-12-07] MEDS: MIDODRINE 5 MG TAB PO SCH (12:24)
--- NOTE | 2024-12-07 12:34 | P.CRDCN ---
History of Present Illness Consult date: 12/07/24 History of present illness: This is a 89-year-old male with a past medical history significant for hypertension and diabetes. Patient had a recent hospitalization 11/24 - 12/04 and was seen by cardiology at that time due to CHF exacerbation finding dilated cardiomyopathy with EF of 30 to 35%. At that time patient was also having acute kidney injury. Patient was [facility] to a [facility] and the following day came back to the hospital. The son gives history that prior to the first hospitalization, patient was thought to have been with a low blood sugar for 12 hours and the patient's could not wake him up. Patient's mental status has not been back to baseline since that happened. Patient is unable to provide any history due to his mental status. Patient was brought back to the hospital due to concern for change in mental status. We have been asked to evaluate the patient for chest pain. Son states that last night he was holding onto his chest periodically and saying "ouch." Blood pressure 110/55, heart rate 80, pulse ox 98% on room air. DIAGNOSTICS: - EKG reveals sinus mechanism with no significant changes. - Chest xray: Pulmonary vascular congestion and bilateral pleural effusions. - Laboratory data: WBC 19.4, hemoglobin 10.3. Sodium 139, potassium 4.2, BUN 103, creatinine 3.93. Troponin 0.085 and 0.069. - Current home cardiac medications include aspirin 81 mg daily, atorvastatin 40 mg at bedtime, Lasix 40 mg daily, hydralazine 25 mg 3 times daily, Imdur 30 mg daily, Lopressor 50 mg twice daily. - Echocardiogram obtained 11/25/2024: EF 30 to 35%, moderate mitral regurgitation, moderate tricuspid regurgitation, moderate LA dilatation. REVIEW OF SYSTEMS: At the time of my exam: Unable to obtain due to patient's mental status. PHYSICAL EXAM: VITAL SIGNS: Reviewed. GENERAL: Well-developed in no acute distress. HEENT: Head is normocephalic. Pupils are equal, round. Sclerae anicteric. Mucous membranes of the mouth are moist. Neck supple. No JVD or thyromegaly LUNGS: Respirations even and unlabored. Lungs essentially clear to auscultation bilaterally. HEART: Regular rate and rhythm. S1 and S2 heard. ABDOMEN: Soft. Nondistended. Nontender. EXTREMITIES: No clubbing or cyanosis. Peripheral pulses intact. No lower extr emity edema NEUROLOGIC: Lethargic ASSESSMENT: Metabolic encephalopathy Acute kidney injury Elevated troponins, type II UT secondary to oxygen supply/demand mismatch and poor renal clearance, no evidence of acute coronary syndrome Chronic systolic heart failure Dilated cardiomyopathy with EF of 30 to 35% Moderate MR Urinary tract infection Hypernatremia Chronic kidney disease stage IV Diabetes History of hypertension PLAN: An acute coronary event has been ruled out No need to repeat echocardiogram as this was done 3/4 Continue home cardiac medications Daily weights, accurate intake and output, monitoring of kidney function Consult nephrology for acute kidney injury Further recommendations pending patient course Nurse practitioner note has been reviewed by physician. Signing provider agrees with the documented findings, assessment, and plan of care documented by [employer] as a scribe. Past Medical History Past Medical History: Diabetes Mellitus, Hyperlipidemia, Hypertension History of Any Multi-Drug Resistant Organisms: None Reported Past Surgical History: No Surgical Hx Reported Additional Past Anesthesia/Blood Transfusion Reaction / Comment(s): Jahovas Witness-"would not allow blood transfusion" Past Psychological History: No Psychological Hx Reported Smoking Status: Never smoker Past Alcohol Use History: None Reported Past Drug Use History: None Reported - Past Family History Father Family Medical History: Myocardial Infarction ([place]) Mother Family Medical History: No Reported History, Unable to Obtain Additional Family Medical History / Comment(s): unknown Medications and Allergies Home Medications Medication Instructions Recorded Confirmed Type Doxazosin [Cardura] 4 mg PO BID@0900,1700 03/28/23 12/06/24 History Pioglitazone [Actos] 30 mg PO DAILY@0900 09/05/24 12/06/24 History Glimepiride [Amaryl] 1 mg PO DAILY@0911/24/24 12/06/24 History Acetaminophen Tab [Tylenol Tab] 500 mg PO Q6HR PRN 12/06/24 12/06/24 History Aspirin EC [Ecotrin Low Dose] 81 mg PO DAILY@89912/06/24 12/06/24 History Atorvastatin Calcium [Lipitor] 40 mg PO HS@2100 12/06/24 12/06/24 History Folic Acid 1 mg PO DAILY@0912/06/24 12/06/24 History Furosemide [Lasix] 40 mg PO DAILY@89912/06/24 12/06/24 History Insulin Aspart [NovoLOG Flexpen] See Protocol SQ AC-TID@07,11,16 12/06/24 12/06/24 History Isosorbide Mononitrate ER [Imdur] 30 mg PO DAILY@0900 12/06/24 12/06/24 History Metoprolol Tartrate [Lopressor] 50 mg PO BID@0900,1700 12/06/24 12/06/24 History hydrALAZINE HCL [Apresoline] 25 mg PO TID@0900,1300,2100 12/06/24 12/06/24 History Allergies Allergy/AdvReac Type Severity Reaction Status Date / Time No Known Allergies Allergy Verified 12/06/24 08:22 Physical Exam Vitals: Vital Signs Temp Pulse Pulse Resp BP BP Pulse Ox 12/07/24 03:39 98.1 F 57 L 18 97/49 100 12/06/24 23:38 98.3 F 62 18 101/64 99 12/06/24 21:44 63 12/06/24 21:36 68 12/06/24 21:30 98.0 F 68 18 121/66 98 12/06/24 18:55 97.4 F L 65 18 94/71 98 12/06/24 17:28 61 20 106/66 99 12/06/24 15:18 66 20 102/51 99 12/06/24 14:00 76 20 108/65 12/06/24 13:20 62 18 98/48 98 12/06/24 11:24 53 L 14 76/51 97 12/06/24 10:10 97.4 F L 79 14 133/62 96 Intake and Output 12/06/24 12/07/24 12/07/24 22:59 06:59 14:59 Other: Voiding Method Diaper Diaper # Voids 1 1 # Bowel Movements 1 Weight 74.843 kg Results 12/06/24 06:07 12/07/24 06:08 Cardiac Enzymes 12/06/24 Range/Units 17:53 Troponin I 0.069 H* (0.000-0.034) ng/mL Comprehensive Metabolic Panel 12/07/24 Range/Units 06:08 Sodium 139 (137-145) mmol/L Potassium 4.2 (3.5-5.1) mmol/L Chloride 105 (98-107) mmol/L Carbon Dioxide 28 (22-30) mmol/L BUN 103 H* (9-20) mg/dL Creatinine 3.93 H (0.66-1.25) mg/dL Glucose 71 L (74-99) mg/dL Calcium 7.8 L (8.4-10.2) mg/dL Current Medications Generic Name Dose Route Start Last Admin Trade Name Freq PRN Reason Stop Dose Admin Acetaminophen 650 mg 12/06/24 20:29 12/06/24 20:43 Acetaminophen Tab 325 Mg Tab PO 650 mg Q6HR PRN Administration Fever and/ or Pain Albuterol/Ipratropium 3 ml 12/06/24 20:28 12/06/24 21:36 Ipratropium-Albuterol 3 Ml Neb INHALATION 3 ml RT-QID PRN Administration Shortness Of Breath Or Wheezing Aspirin 81 mg 12/06/24 09:00 12/07/24 09:50 Aspirin 81 Mg PO 81 mg DAILY D[facility]GL[facility] Administration Atorvastatin Calcium 40 mg 12/06/24 21:00 12/06/24 20:43 Atorvastatin 40 Mg Tab PO 40 mg HS D[facility]GLAS Administration Dextrose/Water 25 ml 12/05/24 20:55 Dextrose 50% Syringe 50 Ml IVP PER PROTOCOL PRN Hypoglycemia Protocol Dextrose/Water 50 ml 12/05/24 20:55 Dextrose 50% Syringe 50 Ml IVP PER PROTOCOL PRN Hypoglycemia Protocol Dextrose/Water 25 ml 12/05/24 21:58 Dextrose 50% Syringe 50 Ml IVP PER PROTOCOL PRN Hypoglycemia Protocol Dextrose/Water 50 ml 12/05/24 21:58 Dextrose 50% Syringe 50 Ml IVP PER PROTOCOL PRN Hypoglycemia Protocol Doxazosin Mesylate 4 mg 12/06/24 09:00 12/07/24 09:50 Doxazosin 4 Mg Tab PO 4 mg BID [facility] Administration Enoxaparin Sodium 30 mg 12/06/24 09:00 12/07/24 09:51 Enoxaparin 30 Mg/0.3 Ml Syringe SQ 30 mg DAILY [facility] Administration Folic Acid 1 mg 12/06/24 09:00 12/07/24 09:50 Folic Acid 1 Mg Tab PO 1 mg DAILY [facility] Administration Sodium Chloride 1,000 mls @ 75 mls/hr 12/05/24 20:45 12/07/24 03:17 Saline 0.45% IV 75 mls/hr .[id number] [facility] Administration Ceftriaxone Sodium 1 gm/ 50 mls @ 100 mls/hr 12/05/24 21:00 12/06/24 20:44 Sodium Chloride IVPB 100 mls/hr Q24H [facility] Administration Insulin Human Lispro 0 unit 12/05/24 21:00 12/07/24 06:06 Insulin Lispro (Humalog) 100 Unit/Ml 10 Ml Vl SQ Not Given ACHS [facility] Protocol Isosorbide Mononitrate 30 mg 12/06/24 09:00 12/07/24 09:50 Isosorbide Mononitrate Er 30 Mg Tab.Er.24h PO 30 mg DAILY [facility] Administration Metoprolol Tartrate 25 mg 12/06/24 22:00 12/07/24 09:50 Metoprolol Tartrate 25 Mg Tab PO 25 mg TID [facility] Administration Naloxone HCl 0.2 mg 12/05/24 20:43 Naloxone 0.4 Mg/Ml 1 Ml Vial IV Q2M PRN Opioid Reversal Pantoprazole Sodium 40 mg 12/06/24 09:00 12/07/24 09:50 Pantoprazole 40 Mg/10 Ml Vial IV 40 mg DAILY [facility] Administration Intake and Output 12/06/24 12/07/24 12/07/24 22:59 06:59 14:59 Other: Voiding Method Diaper Diaper # Voids 1 1 # Bowel Movements 1 Weight 74.843 kg 12/06/24 06:07 12/07/24 06:08
--- NOTE | 2024-12-07 13:02 | P.PN ---
Progress Note - Text Progress Note Date: 12/07/24 Chief Complaint: Altered mentation This is a patient was recently in the hospital from November 24 through December 04. Patient was then brought in unresponsive hypoglycemic. Also found to be in CHF exacerbation. 2D echo had shown EF of 30 to 35%. Also felt to have underlying possible normal pressure hydrocephalus. Did have some CSF removed by lumbar puncture by as ordered by neurology. Patient has severe cognitive impairment. Prior to discharge was tolerating a diet. Answer some questions. Also underlying chronic kidney disease.. Last admission because of her creatinine GREG inhibitor and Farxiga were discontinued. Patient son at the bedside. Patient rather lethargic. December 06: Overflowing the ER. More awake. Does answer simple questions. Tolerating pured diet. Getting half saline at 75 cc an hour. IV ceftriaxone. Sodium up to 154. Continue to hold of Lasix. Due to blood pressure on the lower side DC hydralazine. Nurse called me later that patient completed family with some chest pressure. Cardiology consulted. December 07: Getting half saline at 75 cc an hour. Patient rather sleepy again today. Blood pressure running the lower side. Patient's son at the bedside. Lengthy discussion. Patient's been made DNR. Will use bilateral stockings to improve some blood pressure. Hospice discussed. Son takes most decision. He will let his mother know was a bit forgetful. Will see how patient does in next 24 hours. Patient does wake up for his meals. Tolerating pured diet. Active Medications Acetaminophen (Acetaminophen Tab 325 Mg Tab) 650 mg PO Q6HR PRN PRN Reason: Fever and/ or Pain Last Admin: 12/06/24 20:43 Dose: 650 mg Albuterol/Ipratropium (Ipratropium-Albuterol 3 Ml Neb) 3 ml INHALATION RT-QID PRN PRN Reason: Shortness Of Breath Or Wheezing Last Admin: 12/06/24 21:36 Dose: 3 ml Aspirin (Aspirin 81 Mg) 81 mg PO DAILY [facility] Last Admin: 12/07/24 09:50 Dose: 81 mg Atorvastatin Calcium (Atorvastatin 40 Mg Tab) 40 mg PO HS DOUGLAS Last Admin: 12/06/24 20:43 Dose: 40 mg Dextrose/Water (Dextrose 50% Syringe 50 Ml) 25 ml IVP PER PROTOCOL PRN; Protocol PRN Reason: Hypoglycemia Dextrose/Water (Dextrose 50% Syringe 50 Ml) 50 ml IVP PER PROTOCOL PRN; Protocol PRN Reason: Hypoglycemia Dextrose/Water (Dextrose 50% Syringe 50 Ml) 25 ml IVP PER PROTOCOL PRN; Protocol PRN Reason: Hypoglycemia Dextrose/Water (Dextrose 50% Syringe 50 Ml) 50 ml IVP PER PROTOCOL PRN; Protocol PRN Reason: Hypoglycemia Enoxaparin Sodium (Enoxaparin 30 Mg/0.3 Ml Syringe) 30 mg SQ DAILY [facility] Last Admin: 12/07/24 09:51 Dose: 30 mg Folic Acid (Folic Acid 1 Mg Tab) 1 mg PO DAILY [facility] Last Admin: 12/07/24 09:50 Dose: 1 mg Ceftriaxone Sodium 1 gm/ (Sodium Chloride) 50 mls @ 100 mls/hr IVPB Q24H [facility] Last Admin: 12/06/24 20:44 Dose: 100 mls/hr Sodium Chloride (Saline 0.9%) 1,000 mls @ 75 mls/hr IV .[id number] [facility] Last Admin: 12/07/24 12:23 Dose: 75 mls/hr Insulin Human Lispro (Insulin Lispro (Humalog) 100 Unit/Ml 10 Ml Vl) 0 unit SQ ACHS [facility]; Protocol Last Admin: 12/07/24 11:56 Dose: Not Given Isosorbide Mononitrate (Isosorbide Mononitrate Er 30 Mg Tab.Er.24h) 30 mg PO DAILY [facility] Last Admin: 12/07/24 09:50 Dose: 30 mg Metoprolol Tartrate (Metoprolol Tartrate 25 Mg Tab) 25 mg PO TID [facility] Last Admin: 12/07/24 09:50 Dose: 25 mg Midodrine (Midodrine 5 Mg Tab) 5 mg PO AC-TID [facility] Last Admin: 12/07/24 12:24 Dose: 5 mg Naloxone HCl (Naloxone 0.4 Mg/Ml 1 Ml Vial) 0.2 mg IV Q2M PRN PRN Reason: Opioid Reversal Pantoprazole Sodium (Pantoprazole 40 Mg/10 Ml Vial) 40 mg IV DAILY [facility] Last Admin: 12/07/24 09:50 Dose: 40 mg Social history: Patient currently at [facility] for rehab. Was discharged from here yesterday. No history of smoking known. Physical examination: VITAL SIGNS: 98.3, 60, 22, 74 x 40, 99% room air GENERAL: BMI 24.4, laying in bed sleepy, lethargic EYES: Pupils equal. Conjunctiva richard l. HEENT: External appearance of nose and ears normal, oral cavity dry mucous membrane l. NECK: JVD not raised; masses not palpable. HEART: First and second heart sounds are normal; no edema. LUNGS: Respiratory rate normal; decreased breath sounds n. ABDOMEN: Soft, nontender, liver spleen not palpable, no masses palpable. PSYCH: Rather sleepy lethargic today. MUSCULOSKELETAL:No Clubbing/cyanosis;muscles-grossly intact. OA NEUROLOGICAL: Cranial nerves grossly intact; no facial asymmetry, moving all 4 limbs INVESTIGATIONS, reviewed in the clinical context: December 07: Sodium 139 potassium 4.2 BUN 103 creatinine 3.93 December 06: White count 19.4 hemoglobin 10.3 platelets 305 sodium 154 potassium 4.1 BUN 102 creatinine 4.02 December 05: White count 16.6 hemoglobin 10.6 platelet 336 sodium 150 potassium 4.1 BUN 104 creatinine 3.88 blood glucose 449 lactic acid 2.6 serum acetone negative From recent admission December 04: Sodium 149 potassium 3.4 BUN 86 creatinine 3.18 December 02: Sodium 140 potassium 3.2 creatinine 2.63 November 30: White count 9 hemoglobin 10.3 platelets 306 sodium 135 potassium 3.6 BUN 57 creatinine 2.50 EEG: No epileptiform activity. Generalized cerebral dysfunction. Carotid Doppler: Unremarkable 2D echo: EF 30-35%. Moderate to severe pulmonary hypertension.Mild to moderate MR. Mild to moderate TR. CT brain: Nil acute. Dilated ventricular system.Some chronic white matter small ischemic vessel changes. Assessment and plan: -Acute metabolic encephalopathy from free water deficit hypernatremia: Fluctuating -Possible normal pressure hydrocephalus Last admission follow-up with neurology Patient did have some CSF removed by lumbar puncture -Hypernatremia, from free water deficit: Better Continue half saline 75 cc an hour. Careful because of CHF -Essential hypertension: Blood pressure continues to remain low. Uncontrolled Cardura 4 mg twice daily. hydralazine discontinue. Decrease Lopressor to 12.5 p.o. 3 times daily -Diabetes mellitus type 2, on oral hypoglycemic Amaryl resume. Actos. Follow Accu-Cheks -Chronic congestive heart failure from systolic dysfunction EF 30 to 35% Farxiga-hold because of renal function. 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 And on Lasix.: Slow to respond Half saline IV. 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 Multifactorial For subacute rehab -DNR [December 07] Advance care planning [December 07, 2024] CODE STATUS discussed with patient son at the bedside. He understands patient's overall prognosis guarded. Questions were answered. Will see how patient does over next 24 hours. Meantime the patient is being made DNR. He will also talk to his mother. Depending on the clinical course hospice will be consulted. Time spent about this 25 minutes. Past Medical History Past Medical History: Diabetes Mellitus, Hyperlipidemia, Hypertension History of Any Multi-Drug Resistant Organisms: None Reported Past Surgical History: No Surgical Hx Reported Additional Past Anesthesia/Blood Transfusion Reaction / Comment(s): [facility] Witness-"would not allow blood transfusion" Past Psychological History: No Psychological Hx Reported Smoking Status: Never smoker Past Alcohol Use History: None Reported Past Drug Use History: None Reported
--- NOTE | 2024-12-07 13:22 | US ---
EXAMINATION TYPE: US kidneys/renal and bladder DATE OF EXAM: 12/07/2024 COMPARISON: Renal ultrasound 09/05/2024 CLINICAL INDICATION: Male, 89 years old with history of simon; SIMON TECHNIQUE: Grayscale imaging of the bilateral kidneys and urinary bladder: FINDINGS: EXAM MEASUREMENTS: Right Kidney: 10.6 x 4.6 x 4.4 cm Left Kidney: 10.1 x 4.9 x 4.4 cm *Technical limitations due to overlying bowel gas and patient's limited mobility Right Kidney: no evidence of hydronephrosis Left Kidney: lobulated. no evidence of hydronephrosis Bladder: debris noted Bilateral Jets seen: no *Incidental - prostate = 6.4cm There is no evidence for hydronephrosis at this point in time. No nephrolithiasis is seen. Lobulated morphology to the left kidney. Cortical medullary differentiation is maintained bilaterally. No mass es are identified. Layering debris within the urinary bladder without internal color flow. Enlarged p rostate gland. IMPRESSION: 1. No hydronephrosis or nephrolithiasis. 2. Nonspecific layering debris within urinary bladder. Correlate with urinalysis. 3. Prostatomegaly. [facility], , 12/07/2024 1:20 PM
[2024-12-07 16:33] LABS: Glucose,Whole Blood 62 mg/dL (70-110)
[2024-12-07] MEDS: DEXTROSE 50% SYRINGE 50 ML IVP PRN (16:35)
[2024-12-07] MEDS: METOPROLOL TARTRATE 12.5 MG TAB PO SCH (16:44)
[2024-12-07 16:50] LABS: Glucose,Whole Blood 145 mg/dL (70-110)
[2024-12-07 20:09] LABS: Glucose,Whole Blood 58 mg/dL (70-110)
[2024-12-07 20:49] LABS: Glucose,Whole Blood 117 mg/dL (70-110)
[2024-12-08 06:21] LABS: Glucose,Whole Blood 43 mg/dL (70-110)
[2024-12-08] MEDS: DEXTROSE 50% SYRINGE 50 ML IVP PRN (06:23)
[2024-12-08 06:55] LABS: Glucose,Whole Blood 119 mg/dL (70-110)
[2024-12-08 07:23] LABS: African American GFR (CKD) 15 (>60 ml/min/1.73 sqM); Anion Gap 7 mmol/L; Blood Urea Nitrogen 93 mg/dL (9-20); Calcium 7.2 mg/dL (8.4-10.2); Carbon Dioxide 23 mmol/L (22-30); Chloride 105 mmol/L (98-107); Glucose 191 mg/dL (74-99); Non-African American GFR(CKD) 13 (>60 ml/min/1.73 sqM); Potassium 4.1 mmol/L (3.5-5.1); Sodium 135 mmol/L (137-145)
[2024-12-08 11:20] LABS: Glucose,Whole Blood 82 mg/dL (70-110)
--- NOTE | 2024-12-08 12:50 | P.PN ---
Subjective HISTORY OF PRESENT ILLNESS: This is a 89-year-old male with a past medical history significant for hypertension and diabetes. Patient had a recent hospitalization 11/24 - 12/04 and was seen by cardiology at that time due to CHF exacerbation finding dilated cardiomyopathy with EF of 30 to 35%. At that time patient was also having acute kidney injury. [facility] and the following day came back to the hospital. The son gives history that prior to the first hospitalization, patient was thought to have been with a low blood sugar for 12 hours and the patient's could not wake him up. Patient's mental status has not been back to baseline since that happened. Patient is unable to provide any history due to his mental status. Patient was brought back to the hospital due to concern for change in mental status. We have been asked to evaluate the patient for chest pain. Son states that last night he was holding onto his chest periodically and saying "ouch." Blood pressure 110/55, heart rate 80, pulse ox 98% on room air. DIAGNOSTICS: - EKG reveals sinus mechanism with no significant changes. - Chest xray: Pulmonary vascular congestion and bilateral pleural effusions. - Laboratory data: WBC 19.4, hemoglobin 10.3. Sodium 139, potassium 4.2, BUN 103, creatinine 3.93. Troponin 0.085 and 0.069. - Current home cardiac medications include aspirin 81 mg daily, atorvastatin 40 mg at bedtime, Lasix 40 mg daily, hydralazine 25 mg 3 times daily, Imdur 30 mg daily, Lopressor 50 mg twice daily. - Echocardiogram obtained 11/25/2024: EF 30 to 35%, moderate mitral regurgitation, moderate tricuspid regurgitation, moderate LA dilatation. 12/08/2024 Patient examined this morning the bedside. Patient is lethargic. Per nursing, patient's family is considering hospice today. Vital signs are stable. PHYSICAL EXAM: VITAL SIGNS: Reviewed. GENERAL: Well-developed in no acute distress. NECK: Supple. No JVD or thyromegaly LUNGS: Respirations even and unlabored. Lungs essentially clear to auscultation bilaterally. HEART: Regular rate and rhythm. S1 and S2 heard. EXTREMITIES: Normal range of motion. No clubbing or cyanosis. Peripheral pulses intact. No lower extremity edema ASSESSMENT: Metabolic encephalopathy Acute kidney injury Elevated troponins, type II TN secondary to oxygen supply/demand mismatch and poor renal clearance, no evidence of acute coronary syndrome Chronic systolic heart failure Dilated cardiomyopathy with EF of 30 to 35% Moderate MR Urinary tract infection Hypernatremia Chronic kidney disease stage IV Diabetes History of hypertension PLAN: Continue current cardiac medications Per nursing, patient's family is considering hospice today No further inpatient recommendations from a cardiac standpoint We will sign off. Please reconsult if needed. Nurse practitioner note has been reviewed by physician. Signing provider agrees with the documented findings, assessment, and plan of care documented by [employer] as a scribe. Objective - Vital Signs Vital signs: Vital Signs Temp 98.1 F 12/08/24 08:26 Pulse 74 12/08/24 12:12 Resp 15 12/08/24 12:12 BP 109/53 12/08/24 12:12 Pulse Ox 98 12/08/24 12:12 FiO2 Intake & Output 12/07/24 12/08/24 12/08/24 18:59 06:59 18:59 Intake Total 240 100 Output Total 100 Balance 140 100 Weight 65.5 kg Intake: Oral 240 100 Output: Urine 100 Other: Voiding Method External Catheter External Catheter External Catheter # Bowel Movements 1 - Labs CBC & Chem 7: 12/06/24 06:07 12/08/24 06:26 Labs: Abnormal Lab Results - Last 24 Hours (Table) 12/07/24 12/07/24 12/07/24 Range/Units 16:31 16:48 20:05 Sodium (137-145) mmol/L BUN (9-20) mg/dL Creatinine (0.66-1.25) mg/dL Glucose (74-99) mg/dL POC Glucose (mg/dL) 62 L 145 H 58 L (70-110) mg/dL Calcium (8.4-10.2) mg/dL 12/07/24 12/08/24 12/08/24 Range/Units 20:48 06:19 06:26 Sodium 135 L (137-145) mmol/L BUN 93 H (9-20) mg/dL Creatinine 3.84 H (0.66-1.25) mg/dL Glucose 191 H (74-99) mg/dL POC Glucose (mg/dL) 117 H 43 L* (70-110) mg/dL Calcium 7.2 L (8.4-10.2) mg/dL 12/08/24 Range/Units 06:54 Sodium (137-145) mmol/L BUN (9-20) mg/dL Creatinine (0.66-1.25) mg/dL Glucose (74-99) mg/dL POC Glucose (mg/dL) 119 H (70-110) mg/dL Calcium (8.4-10.2) mg/dL Microbiology - Last 24 Hours (Table) 12/05/24 20:42 Blood Culture - Preliminary Blood 12/05/24 20:23 Urine Culture - Final Urine,Voided Pseudomonas aeruginosa
[2024-12-08] MEDS: DEXTROSE 5%-0.45% NACL 1,000 ML IV SCH (12:52)
--- NOTE | 2024-12-08 15:16 | P.PN ---
Subjective Patient is seen for follow-up for acute kidney injury and chronic kidney disease. Baseline creatinine around 2.5 to 2.7 mg/dL. No significant complaints today. Tolerating some oral intake. Family is present at bedside. Serum creatinine at 3.8 from peak of 4.0. Objective - Vital Signs Vital signs: Vital Signs Temp 98.1 F 12/08/24 08:26 Pulse 74 12/08/24 12:12 Resp 15 12/08/24 12:12 BP 109/53 12/08/24 12:12 Pulse Ox 98 12/08/24 12:12 FiO2 Intake & Output 12/07/24 12/08/24 12/08/24 18:59 06:59 18:59 Intake Total 240 100 0 Output Total 100 Balance 140 100 0 Weight 65.5 kg Intake: Oral 240 100 0 Output: Urine 100 Other: Voiding Method External Catheter External Catheter Diaper # Bowel Movements 1 - Exam Patient is resting comfortably. He is sleeping but arousable Examination of the heart S1 and S2 Examination of the lungs bilateral breath sounds are heard Abdomen is soft nontender Examination of lower extremities shows no significant edema - Labs CBC & Chem 7: 12/06/24 06:07 12/08/24 06:26 Labs: Abnormal Lab Results - Last 24 Hours (Table) 12/07/24 12/07/24 12/07/24 Range/Units 16:31 16:48 20:05 Sodium (137-145) mmol/L BUN (9-20) mg/dL Creatinine (0.66-1.25) mg/dL Glucose (74-99) mg/dL POC Glucose (mg/dL) 62 L 145 H 58 L (70-110) mg/dL Calcium (8.4-10.2) mg/dL 12/07/24 12/08/24 12/08/24 Range/Units 20:48 06:19 06:26 Sodium 135 L (137-145) mmol/L BUN 93 H (9-20) mg/dL Creatinine 3.84 H (0.66-1.25) mg/dL Glucose 191 H (74-99) mg/dL POC Glucose (mg/dL) 117 H 43 L* (70-110) mg/dL Calcium 7.2 L (8.4-10.2) mg/dL 12/08/24 Range/Units 06:54 Sodium (137-145) mmol/L BUN (9-20) mg/dL Creatinine (0.66-1.25) mg/dL Glucose (74-99) mg/dL POC Glucose (mg/dL) 119 H (70-110) mg/dL Calcium (8.4-10.2) mg/dL Microbiology - Last 24 Hours (Table) 12/05/24 20:42 Blood Culture - Preliminary Blood 12/05/24 20:23 Urine Culture - Final Urine,Voided Pseudomonas aeruginosa Assessment and Plan Assessment: 1. Acute kidney injury secondary to ATN secondary to severe sepsis, hypotension Creatinine peaked at 4.02 this admission and is 3.8 today. Oliguric. Kidney ultrasound from August 2024 showed no evidence of hydronephrosis. Left kidney was atrophic. 2. 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 3. Severe sepsis secondary to gram-negative UTI on antibiotics. 4. Chronic systolic CHF ejection fraction of 30 to 35% with moderate to severe pulmonary hypertension. 5. Diabetes mellitus. 6. Hypernatremia from lack of oral water intake. Sodium level 150 on admission. It is 135 today. Plan: Repeat labs in a.m. No acute indication for dialysis today Okay to change IV fluids to D5.9. Do not use half-normal saline as sodium is low. Repeat bladder scan rule out urine retention.
[2024-12-08 16:31] LABS: Glucose,Whole Blood 71 mg/dL (70-110)
[2024-12-08 16:32] VITALS: BMI 21.3
[2024-12-08 19:55] LABS: Glucose,Whole Blood 117 mg/dL (70-110)
--- NOTE | 2024-12-08 21:34 | P.PN ---
Progress Note - Text Progress Note Date: 12/08/24 Chief Complaint: Altered mentation This is a patient was recently in the hospital from November 24 through December 04. Patient was then brought in unresponsive hypoglycemic. Also found to be in CHF exacerbation. 2D echo had shown EF of 30 to 35%. Also felt to have underlying possible normal pressure hydrocephalus. Did have some CSF removed by lumbar puncture by as ordered by neurology. Patient has severe cognitive impairment. Prior to discharge was tolerating a diet. Answer some questions. Also underlying chronic kidney disease.. Last admission because of her creatinine GREG inhibitor and Farxiga were discontinued. Patient son at the bedside. Patient rather lethargic. December 06: Overflowing the ER. More awake. Does answer simple questions. Tolerating pured diet. Getting half saline at 75 cc an hour. IV ceftriaxone. Sodium up to 154. Continue to hold of Lasix. Due to blood pressure on the lower side DC hydralazine. Nurse called me later that patient completed family with some chest pressure. Cardiology consulted. December 07: Getting half saline at 75 cc an hour. Patient rather sleepy again today. Blood pressure running the lower side. Patient's son at the bedside. Lengthy discussion. Patient's been made DNR. Will use bilateral stockings to improve some blood pressure. Hospice discussed. Son takes most decision. He will let his mother know was a bit forgetful. Will see how patient does in next 24 hours. Patient does wake up for his meals. Tolerating pured diet. December 08: Elevated lethargic. But did get up and eat. Spoke to the son at length. Ready for hospice. Initially was looking at hospice [facility]. Then director social welfare informed me that patient is looking [place] because of financial issues. Otherwise patient appears comfortable. Episodes of hypoglycemia. IV fluids changed to D5.45. Total time spent today about 50 minutes with over 35 minutes of discussion. Active Medications Acetaminophen (Acetaminophen Tab 325 Mg Tab) 650 mg PO Q6HR PRN PRN Reason: Fever and/ or Pain Last Admin: 12/08/24 08:31 Dose: 650 mg Albuterol/Ipratropium (Ipratropium-Albuterol 3 Ml Neb) 3 ml INHALATION RT-QID PRN PRN Reason: Shortness Of Breath Or Wheezing Last Admin: 12/06/24 21:36 Dose: 3 ml Aspirin (Aspirin 81 Mg) 81 mg PO DAILY [facility] Last Admin: 12/08/24 08:30 Dose: 81 mg Atorvastatin Calcium (Atorvastatin 40 Mg Tab) 40 mg PO HS [facility] Last Admin: 12/08/24 19:35 Dose: 40 mg Dextrose/Water (Dextrose 50% Syringe 50 Ml) 25 ml IVP PER PROTOCOL PRN; Protocol PRN Reason: Hypoglycemia Last Admin: 12/07/24 20:20 Dose: 25 ml Dextrose/Water (Dextrose 50% Syringe 50 Ml) 50 ml IVP PER PROTOCOL PRN; Protocol PRN Reason: Hypoglycemia Last Admin: 12/08/24 06:23 Dose: 50 ml Dextrose/Water (Dextrose 50% Syringe 50 Ml) 25 ml IVP PER PROTOCOL PRN; Protocol PRN Reason: Hypoglycemia Dextrose/Water (Dextrose 50% Syringe 50 Ml) 50 ml IVP PER PROTOCOL PRN; Protocol PRN Reason: Hypoglycemia Enoxaparin Sodium (Enoxaparin 30 Mg/0.3 Ml Syringe) 30 mg SQ DAILY [facility] Last Admin: 12/08/24 08:29 Dose: 30 mg Folic Acid (Folic Acid 1 Mg Tab) 1 mg PO DAILY [facility] Last Admin: 12/08/24 08:30 Dose: 1 mg Ceftriaxone Sodium 1 gm/ (Sodium Chloride) 50 mls @ 100 mls/hr IVPB Q24H [facility] Last Admin: 12/08/24 19:36 Dose: 100 mls/hr Dextrose/Sodium Chloride (Dextrose 5%-1/2ns Iv Soln) 1,000 mls @ 75 mls/hr IV .[id number] [facility] Last Admin: 12/08/24 12:52 Dose: 75 mls/hr Insulin Human Lispro (Insulin Lispro (Humalog) 100 Unit/Ml 10 Ml Vl) 0 unit SQ ACHS [facility]; Protocol Last Admin: 12/08/24 20:14 Dose: Not Given Isosorbide Mononitrate (Isosorbide Mononitrate Er 30 Mg Tab.Er.24h) 30 mg PO DAILY [facility] Last Admin: 12/08/24 08:30 Dose: 30 mg Metoprolol Tartrate (Metoprolol Tartrate 12.5 Mg Tab) 12.5 mg PO TID [facility] Last Admin: 12/08/24 19:35 Dose: 12.5 mg Midodrine (Midodrine 5 Mg Tab) 5 mg PO AC-TID [facility] Last Admin: 12/08/24 16:50 Dose: Not Given Naloxone HCl (Naloxone 0.4 Mg/Ml 1 Ml Vial) 0.2 mg IV Q2M PRN PRN Reason: Opioid Reversal Social history: Patient currently at [facility] for rehab. Was discharged from here yesterday. No history of smoking known. Physical examination: VITAL SIGNS: 97.9, 84, 16, 126 x 58, 98% GENERAL: BMI 24.4, laying in bed sleepy, lethargic EYES: Pupils equal. Conjunctiva richard l. HEENT: External appearance of nose and ears normal, oral cavity dry mucous membrane l. NECK: JVD not raised; masses not palpable. HEART: First and second heart sounds are normal; no edema. LUNGS: Respiratory rate normal; decreased breath sounds n. ABDOMEN: Soft, nontender, liver spleen not palpable, no masses palpable. PSYCH: Rather sleepy lethargic, but arousable MUSCULOSKELETAL:No Clubbing/cyanosis;muscles-grossly intact. OA NEUROLOGICAL: Cranial nerves grossly intact; no facial asymmetry, moving all 4 limbs INVESTIGATIONS, reviewed in the clinical context: December 08: Sodium 135 potassium 4.1 BUN 93 creatinine 3.84. Blood glucose 43 December 07: Sodium 139 potassium 4.2 BUN 103 creatinine 3.93 December 06: White count 19.4 hemoglobin 10.3 platelets 305 sodium 154 potassium 4.1 BUN 102 creatinine 4.02 December 05: White count 16.6 hemoglobin 10.6 platelet 336 sodium 150 potassium 4.1 BUN 104 creatinine 3.88 blood glucose 449 lactic acid 2.6 serum acetone negative From recent admission December 04: Sodium 149 potassium 3.4 BUN 86 creatinine 3.18 December 02: Sodium 140 potassium 3.2 creatinine 2.63 November 30: White count 9 hemoglobin 10.3 platelets 306 sodium 135 potassium 3.6 BUN 57 creatinine 2.50 EEG: No epileptiform activity. Generalized cerebral dysfunction. Carotid Doppler: Unremarkable 2D echo: EF 30-35%. Moderate to severe pulmonary hypertension.Mild to moderate MR. Mild to moderate TR. CT brain: Nil acute. Dilated ventricular system.Some chronic white matter small ischemic vessel changes. Assessment and plan: -Acute metabolic encephalopathy from free water deficit hypernatremia: Fl uctuating -Possible normal pressure hydrocephalus Last admission follow-up with neurology Patient did have some CSF removed by lumbar puncture -Hypernatremia, from free water deficit: Better IV fluid. Careful because of CHF -Essential hypertension: Blood pressure continues to remain low. Uncontrolled Cardura 4 mg twice daily. hydralazine discontinue. Decrease Lopressor to 12.5 p.o. 3 times daily -Diabetes mellitus type 2, on oral hypoglycemic, uncontrolled with hyperglycemia Patient is off hypoglycemic follow Accu-Cheks D5.45 -Chronic congestive heart failure from systolic dysfunction EF 30 to 35% Farxiga-hold because of renal function. 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 And on Lasix.: Slow to respond Half saline IV. 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 Multifactorial For subacute rehab -DNR [December 07] Advance care planning [December 07, 2024] CODE STATUS discussed with patient son at the bedside. He understands patient's overall prognosis guarded. Questions were answered. Will see how patient does over next 24 hours. Meantime the patient is being made DNR. He will also talk to his mother. Depending on the clinical course hospice will be consulted. Time spent about this 25 minutes. Hopefully plan for discharge to hospice on Past Medical History Past Medical History: Diabetes Mellitus, Hyperlipidemia, Hypertension History of Any Multi-Drug Resistant Organisms: None Reported Past Surgical History: No Surgical Hx Reported Additional Past Anesthesia/Blood Transfusion Reaction / Comment(s): Jahovas Witness-"would not allow blood transfusion" Past Psychological History: No Psychological Hx Reported Smoking Status: Never smoker Past Alcohol Use History: None Reported Past Drug Use History: None Reported
[2024-12-09] MEDS: DEXTROSE 5%-0.9% NACL 1,000 ML IV SCH (01:49)
[2024-12-09 06:17] LABS: Glucose,Whole Blood 119 mg/dL (70-110)
[2024-12-09 11:41] LABS: Glucose,Whole Blood 191 mg/dL (70-110)
[2024-12-09 11:44] VITALS: BP 127/46; PULSE 68; RESP 18; TEMP 99.3
--- NOTE | 2024-12-09 11:49 | P.DS ---
Providers Date of admission: 12/05/24 20:44 Expected date of discharge: 12/09/24 Attending physician: Lyle Chamberlain Consults: 12/07/24 10:45 Consult Physician Routine Consulting Provider: Heath Calderón Consult Reason/Comments: SIMON Do you want consulting provider notified?: Yes Primary care physician: Stated None Hospital Course: Chief Complaint: Altered mentation This is a patient was recently in the hospital from November 24 through December 04. Patient was then brought in unresponsive hypoglycemic. Also found to be in CHF exacerbation. 2D echo had shown EF of 30 to 35%. Also felt to have underlying possible normal pressure hydrocephalus. Did have some CSF removed by lumbar puncture by as ordered by neurology. Patient has severe cognitive impairment. Prior to discharge was tolerating a diet. Answer some questions. Also underlying chronic kidney disease.. Last admission because of her creatinine GREG inhibitor and Farxiga were discontinued. Patient son at the bedside. Patient rather lethargic. December 06: Overflowing the ER. More awake. Does answer simple questions. Tolerating pured diet. Getting half saline at 75 cc an hour. IV ceftriaxone. Sodium up to 154. Continue to hold of Lasix. Due to blood pressure on the lower side DC hydralazine. Nurse called me later that patient completed family with some chest pressure. Cardiology consulted. December 07: Getting half saline at 75 cc an hour. Patient rather sleepy again today. Blood pressure running the lower side. Patient's son at the bedside. Lengthy discussion. Patient's been made DNR. Will use bilateral stockings to improve some blood pressure. Hospice discussed. Son takes most decision. He will let his mother know was a bit forgetful. Will see how patient does in next 24 hours. Patient does wake up for his meals. Tolerating pured diet. December 08: Elevated lethargic. But did get up and eat. Spoke to the son at length. Ready for hospice. Initially was looking at hospice ordered [place]. Then social welfare research worker informed me that patient is looking at [place] [address] because of financial issues. Otherwise patient appears comfortable. Episodes of hypoglycemia. IV fluids changed to D5.45. Total time spent today about 50 minutes with over 35 minutes of discussion. December 09: Laying in bed. More awake. Answering simple questions. Appears comfortable. Will be discharged to [facility] with hospice. Spoke to case fillerweb services manager history: Patient currently at [facility] for rehab. Was discharged from here yesterday. No history of smoking known. Physical examination: VITAL SIGNS: 99.3, 68, 18, 127 x 46, 98% room air GENERAL: BMI 24.4, laying in bed awake, tired EYES: Pupils equal. Conjunctiva richard l. HEENT: External appearance of nose and ears normal, oral cavity dry mucous membrane l. NECK: JVD not raised; masses not palpable. HEART: First and second heart sounds are normal; no edema. LUNGS: Respiratory rate normal; decreased breath sounds n. ABDOMEN: Soft, nontender, liver spleen not palpable, no masses palpable. PSYCH: Answering questions with 1-2 words MUSCULOSKELETAL:No Clubbing/cyanosis;muscles-grossly intact. OA NEUROLOGICAL: Cranial nerves grossly intact; no facial asymmetry, moving all 4 limbs INVESTIGATIONS, reviewed in the clinical context: December 08: Sodium 135 potassium 4.1 BUN 93 creatinine 3.84. Blood glucose 43 December 07: Sodium 139 potassium 4.2 BUN 103 creatinine 3.93 December 06: White count 19.4 hemoglobin 10.3 platelets 305 sodium 154 potassium 4.1 BUN 102 creatinine 4.02 December 05: White count 16.6 hemoglobin 10.6 platelet 336 sodium 150 potassium 4.1 BUN 104 creatinine 3.88 blood glucose 449 lactic acid 2.6 serum acetone negative From recent admission December 04: Sodium 149 potassium 3.4 BUN 86 creatinine 3.18 December 02: Sodium 140 potassium 3.2 creatinine 2.63 November 30: White count 9 hemoglobin 10.3 platelets 306 sodium 135 potassium 3.6 BUN 57 creatinine 2.50 EEG: No epileptiform activity. Generalized cerebral dysfunction. Carotid Doppler: Unremarkable 2D echo: EF 30-35%. Moderate to severe pulmonary hypertension.Mild to moderate MR. Mild to moderate TR. CT brain: Nil acute. Dilated ventricular system.Some chronic white matter small ischemic vessel changes. Assessment and plan: -Acute metabolic encephalopathy from free water deficit hypernatremia: Some improvement -Possible normal pressure hydrocephalus Last admission follow-up with neurology Patient did have some CSF removed by lumbar puncture -Hypernatremia, from free water deficit: Better Received IV fluids -Essential hypertension: Blood pressure continues to remain low. Uncontrolled hydralazine discontinue. Decrease Lopressor to 12.5 p.o. 3 times daily -Diabetes mellitus type 2, on oral hypoglycemic, uncontrolled with hyperglycemia Patient is off hypoglycemic oral medications. Follow Accu-Cheks D5.45 -Chronic congestive heart failure from systolic dysfunction EF 30 to 35% Farxiga-hold because of renal function. 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 And on Lasix.: Slow to respond Half saline IV. 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 Multifactorial For subacute rehab -DNR [December 07] Advance care planning [December 07, 2024] CODE STATUS discussed with patient son at the bedside. He understands patient's overall prognosis guarded. Questions were answered. Will see how patient does over next 24 hours. Meantime the patient is being made DNR. He will also talk to his mother. Depending on the clinical course hospice will be consulted. Time spent about this 25 minutes. Disposition: Hospice at [facility] Past Medical History Past Medical History: Diabetes Mellitus, Hyperlipidemia, Hypertension History of Any Multi-Drug Resistant Organisms: None Reported Past Surgical History: No Surgical Hx Reported Additional Past Anesthesia/Blood Transfusion Reaction / Comment(s): Jahovas Witness-"would not allow blood transfusion" Past Psychological History: No Psychological Hx Reported Smoking Status: Never smoker Past Alcohol Use History: None Reported Past Drug Use History: None Reported Plan - Discharge Summary Discharge Rx Participant: Yes New Discharge Prescriptions: New Ipratropium-Albuterol Nebulize [Duoneb 0.5 mg-3 mg/3 ml Soln] 3 ml INHALATION RT-QID PRN each PRN Reason: Shortness Of Breath Or Wheezing Metoprolol Tartrate [Lopressor] 12.5 mg PO TID tab Midodrine [ProAmatine] 5 mg PO AC-TID tab Continue Insulin Aspart [NovoLOG Flexpen] See Protocol SQ AC-TID@07,11,16 Isosorbide Mononitrate ER [Imdur] 30 mg PO DAILY@0900 Atorvastatin Calcium [Lipitor] 40 mg PO HS@2100 Aspirin EC [Ecotrin Low Dose] 81 mg PO DAILY@0900 Acetaminophen Tab [Tylenol] 500 mg PO Q6HR PRN PRN Reason: Pain Or Fever > 100.5 Discontinued Doxazosin [Cardura] 4 mg PO BID@0900,1700 Pioglitazone [Actos] 30 mg PO DAILY@0900 Glimepiride [Amaryl] 1 mg PO DAILY@0900 Metoprolol Tartrate [Lopressor] 50 mg PO BID@0900,1700 hydrALAZINE HCL [Apresoline] 25 mg PO TID@0900,1300,2100 Furosemide [Lasix] 40 mg PO DAILY@0900 Folic Acid 1 mg PO DAILY@0900 Discharge Medication List Acetaminophen Tab [Tylenol] 500 mg PO Q6HR PRN 12/06/24 [History] Aspirin EC [Ecotrin Low Dose] 81 mg PO DAILY@0900 12/06/24 [History] Atorvastatin Calcium [Lipitor] 40 mg PO HS@2100 12/06/24 [History] Insulin Aspart [NovoLOG Flexpen] See Protocol SQ AC-TID@07,11,16 12/06/24 [History] Isosorbide Mononitrate ER [Imdur] 30 mg PO DAILY@0900 12/06/24 [History] Ipratropium-Albuterol Nebulize [Duoneb 0.5 mg-3 mg/3 ml Soln] 3 ml INHALATION RT-QID PRN each 12/09/24 [Rx] Metoprolol Tartrate [Lopressor] 12.5 mg PO TID tab 12/09/24 [Rx] Midodrine [ProAmatine] 5 mg PO AC-TID tab 12/09/24 [Rx] Follow up Appointment(s)/Referral(s): None,Stated [Primary Care Provider] - 1-2 days Activity/Diet/Wound Care/Special Instructions: pureed diet - 1:1 supervised
--- NOTE | 2024-12-09 18:15 | P.PN ---
Subjective Patient is seen for follow-up for acute kidney injury and chronic kidney disease. Baseline creatinine around 2.5 to 2.7 mg/dL. No significant complaints today. Tolerating some oral intake. Family is present at bedside. Plans for hospice care Serum creatinine at 3.8 from peak of 4.0. No new labs today Objective - Vital Signs Vital signs: Vital Signs Temp 99.3 F 12/09/24 11:42 Pulse 68 12/09/24 11:42 Resp 18 12/09/24 11:42 BP 127/46 12/09/24 11:42 Pulse Ox 98 12/09/24 11:42 FiO2 Intake & Output 12/08/24 12/09/24 12/09/24 18:59 06:59 18:59 Intake Total 0 100 480 Output Total 480 300 Balance 0 -380 180 Weight 65.5 kg 65 kg Intake: Oral 0 100 480 Output: Urine 480 300 Other: Voiding Method Diaper Indwelling Catheter Indwelling Catheter # Bowel Movements 1 1 - Exam Patient is resting comfortably. He is sleeping but arousable Examination of the heart S1 and S2 Examination of the lungs bilateral breath sounds are heard Abdomen is soft nontender Examination of lower extremities shows no significant edema - Labs CBC & Chem 7: 12/06/24 06:07 12/08/24 06:26 Labs: Abnormal Lab Results - Last 24 Hours (Table) 12/08/24 12/09/24 12/09/24 Range/Units 19:54 06:15 11:39 POC Glucose (mg/dL) 117 H 119 H 191 H (70-110) mg/dL Microbiology - Last 24 Hours (Table) 12/05/24 20:42 Blood Culture - Preliminary Blood Assessment and Plan Assessment: 1. Acute kidney injury secondary to ATN secondary to severe sepsis, hypotension Creatinine peaked at 4.02 this admission and is 3.8 yesterday. Oliguric. Kidney ultrasound from August 2024 showed no evidence of hydronephrosis. Left kidney was atrophic. 2. 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 3. Severe sepsis secondary to gram-negative UTI on antibiotics. 4. Chronic systolic CHF ejection fraction of 30 to 35% with moderate to severe pulmonary hypertension. 5. Diabetes mellitus. 6. Hypernatremia from lack of oral water intake. Sodium level 150 on admission. It is 135 today. Plan: Agree with plans for hospice care
--- NOTE | 2024-12-18 09:55 | CDI ---
Date: 12/18/2024 From: Gretchen [email or web address] Email: [email or web address] Admit Date: 12/05/2024 08:44:00 PM Patient Name: Robert Becerra Visit Number: [id number] Discharge Date: 12/09/2024 01:20:00 PM ATTENTION: The Clinical Documentation Specialists (CDI) and [facility] Coding Staff appreciate your assistance in clarifying documentation. Please respond to the clarification below the line at the bottom and electronically sign. The CDI & [facility] Coding staff will review the response and follow-up if needed. Please note: Queries are made part of the Legal Health Record. If you have any questions, please contact the author of this message via ITS. Dr. Lupillo Gaines, Type II [place] is documented in your Progress Note on 12/08/2024 - which may lack sufficient clinical evidence/support in the medical record. Additional clarification is requested. Patient history/risk factors: 89-year-old male presented to [facility] ED for evaluation due to mental status changes. PMH: Hypertension, chronic systolic heart failure, dilated cardiomyopathy, stage 4 chronic kidney disease, type 2 diabetes mellitus, hyperlipidemia, pulmonary hypertension, anemia of chronic disease Clinical indicators: Vital Signs in ED (12/05/2024): T 97.6 F (Axillary) HR 68 RR 20 BP 103/60 84/38 101/53 SpO2 100% on Room Air Troponin Trend/Current Visit: (12/05/2024) 0.085 (12/06/2024) 0.069 EKGs: o 12/05/2024 (Current Visit): Ventricular Rate 68 bpm. Sinus rhythm. Moderate intraventricular conduction delay (110+ ms QRS duration). Borderline ECG. o 12/06/2024 (Current Visit): Ventricular Rate 64 bpm. Sinus rhythm. Nonspecific T-wave abnormality. Abnormal ECG. Cardiology Consult Note (12/07/2024): An acute coronary event has been ruled out Cardiology Progress Note (12/08/2024): o Elevated troponins, type II [place] secondary to oxygen supply/demand mismatch and poor renal clearance. No evidence of acute coronary syndrome o EKG reveal sinus mechanism with no significant changes o Echocardiogram obtained 11/25/2024: EF 30 to 35%, moderate mitral regurgitation, moderate tricuspid regurgitation, moderate LA dilatation o Son states that last night he was holding onto his chest periodically and saying ouch Historical Documentation/Previous Visit: Cardiology Progress Note (12/04/2024): Type II NSTEMI EKG (11/24/2024): Supraventricular tachycardia. ST deviation and moderate T-wave abnormality. Consider inferior ischemia. Troponin Level (11/25/2024): 0.145 Treatment: Cardiology Consultation Troponin Trend x 2 Telemetry Monitoring Aspirin 81mg Oral Daily After work up and study, please which diagnosis is most appropriate? XX Unable to determine Reference: [place] Fourth [place] Definition of Myocardial Infraction Type II [place] is indicated when an acute myocardial injury in the setting of an abnormal troponin with a rise and fall and clinical indicators suggestive of an imbalance between myocardial oxygen supply demand with acute myocardial ischemia unrelated to coronary thrombosis as evidenced by one of the following: Symptoms of myocardial ischemia New ischemic ECG changes Development of pathological Q waves Imaging evidence of new loss of viable myocardium or new regional wall motion abnormality in a pattern consistent with an ischemic etiology MTDD
--- NOTE | 2024-12-18 10:30 | CDI ---
Date: 12/18/2024 From: [email or web address] Email: [email or web address] Admit Date: 12/05/2024 08:44:00 PM Patient Name: Robert Becerra Visit Number: [id number] Discharge Date: 12/09/2024 01:20:00 PM ATTENTION: The Clinical Documentation Specialists (CDI) and [facility] Coding Staff appreciate your assistance in clarifying documentation. Please respond to the clarification below the line at the bottom and electronically sign. The CDI & [facility] Coding staff will review the response and follow-up if needed. Please note: Queries are made part of the Legal Health Record. If you have any questions, please contact the author of this message via ITS. Dr. Lyle Chamberlain, Sepsis is documented in the Nephrology Progress Note on 12/08/2024 but is not consistently note in previous or subsequent documentation and may lack sufficient clinical evidence/support in the medical record. Additional clarification is requested. Patient history/risk factors: 89-year-old male presented to [facility] ED for evaluation due to mental status changes. PMH: Hypertension, chronic systolic heart failure, dilated cardiomyopathy, stage 4 chronic kidney disease, type 2 diabetes mellitus, hyperlipidemia, pulmonary hypertension, anemia of chronic disease Clinical Indicators: v Documentation Location: Electronic Medical Record Vital Sign Trend: Date Time Temperature HR RR BP SpO2 12/05/2024 18:51 97.6 F (Axillary) 68 20 103/60 100% on Room Air 12/05/2024 20:27 N/A 58 14 105/76 99% on Room Air 12/06/2024 05:45 97.6 F (Axillary) 82 18 109/48 99% on Room Air 12/07/2024 09:00 98.3 F (Axillary) 80 18 110/55 98% on Room Air 12/09/2024 08:16 98.9 F (Oral) 96 20 140/70 99% on Room Air Lab Results: 12/05/2024 12/06/2024 WBC 16.6 19.4 No Additional Results Noted Other Clinical Indicators: Blood Cultures (Collected on 12/05/2024): No growth after 5 days Lactic Acid: (12/05/2024): 2.6 2.1 (12/06/2024) 1.9 Urine Culture (Collected 12/05/2024): Pseudomonas aeruginosa Nephrology Progress Note (12/08/2024): Severe sepsis secondary to gram- negative UTI on antibiotics Treatment: Rocephin 1g IVPB Every 24 Hours 0.9% Sodium Chloride IV Infusion @ 130mL/hr. (Discontinued 12/05/2024) 0.9% Sodium Chloride IV Bolus x 500mL 0.45% Sodium Chloride IV Infusion @ 75mL/hr. (Discontinued 12/07/2024) 5% Dextrose - 0.45% Sodium Chloride IV Infusion @ 75mL/hr. 5% Dextrose - 0.9% Sodium Chloride IV Infusion @ 75mL/hr. Other Treatments Received this Admission: Tylenol 650mg Oral Every 6 Hours as Needed (Received 3 Doses Total) After work up and study, please clarify which diagnosis is most appropriate? [ ] Sepsis has been ruled out [ + ] Sepsis secondary to urinary tract infection, present on admission, is a valid diagnosis as evidenced by the following (please add rationale): Positive urine culture [ ] Other, please specify [ ] Unable to determine SIRS Criteria (2 or more of the following may indicate SIRS): Temperature < 96.8F (36C) or > 101.0F (38.3C) Heart Rate > 90 bpm Respiratory Rate > 20 breaths/min or PaCO2 < 32 mmHg White Blood Cell Count > 12,000 or < 4,000 cells/mm3 or > 10% bands MTDD
== END 2024-12-09 13:20 | disposition hospice, inpatient (51) | DRG 871 ==
LOC: EC 18:49 → 3SCARD 20:44
PROVIDERS: ADMIT Hospitalist; ATTEND Hospitalist
DX: A41.50 Gram-negative sepsis, unspecified (principal); G93.41 Metabolic encephalopathy; N17.0 Acute kidney failure with tubular necrosis; I21.A1 Myocardial infarction type 2; E87.0 Hyperosmolality and hypernatremia; I27.29 Other secondary pulmonary hypertension; D63.1 Anemia in chronic kidney disease; N18.4 Chronic kidney disease, stage 4 (severe); I13.0 Hypertensive heart and chronic kidney disease with heart failure and stage 1 through stage 4 chronic kidney disease, or unspecified chronic kidney disease; F02.80 Dementia in other diseases classified elsewhere, unspecified severity, without behavioral disturbance, psychotic disturbance, mood disturbance, and anxiety; E11.22 Type 2 diabetes mellitus with diabetic chronic kidney disease; I08.1 Rheumatic disorders of both mitral and tricuspid valves; I42.0 Dilated cardiomyopathy; I50.22 Chronic systolic (congestive) heart failure; N39.0 Urinary tract infection, site not specified; R65.20 Severe sepsis without septic shock; G30.9 Alzheimer's disease, unspecified; E11.65 Type 2 diabetes mellitus with hyperglycemia; E11.649 Type 2 diabetes mellitus with hypoglycemia without coma; Z51.5 Encounter for palliative care; E78.5 Hyperlipidemia, unspecified; M19.91 Primary osteoarthritis, unspecified site; E86.0 Dehydration; Z59.86 Financial insecurity; Z66 Do not resuscitate; Z79.82 Long term (current) use of aspirin; Z79.84 Long term (current) use of oral hypoglycemic drugs; Z79.899 Other long term (current) drug therapy; Z82.49 Family history of ischemic heart disease and other diseases of the circulatory system
CPT/HCPCS: 36415; 70450; 71046; 76770; 80048; 80053; 81001; 82009; 82140; 83036; 83605; 83735; 84100; 84484; 85025; 85610; 85730; 87040; 87077; 87086; 87186; 93005; 94640; 96361; 96365; 96372; 96375; 99285